=== PATIENT | female | born 1970 | race Caucasian/White ===

== ENCOUNTER → 2016-08-27 | Outpatient (CLI) | payer OTHER, BC ==
[~2016-08-27] MED LIST: ALBUAER2 INH; ALPR-411 PO; CALC-393 PO; CALCTAB5 PO; CHOL1TAB42 PO; DAPT500I IV; DOCU-94 PO; ENOX1INJ11 SQ; FOLI1TAB7 PO; LRS10 PO; METH-1117 PO; METH10TA32 PO; MOMLX PO; MRLP17 PO; MRPIS4 IV; MULT-506 PO; PHEN-876 PO; POTA20TA16 PO; SERT-234 PO; SUCR1TAB PO; TRAM-10 PO; TRAZ-120 PO; VNTHFA/IN INH; WARF3TAB6 PO; WARF4TAB8 PO; [UNRECOGNIZED DRUG - OTHER] PO
--- NOTE | 2016-08-28 12:49 | MAMMOGRAPHY REPORT ---
BILATERAL DIGITAL SCREENING MAMMOGRAM TOMOSYNTHESIS WITH CAD: 08/27/2016 CLINICAL HISTORY: Routine screening. Patient has no complaints. TECHNIQUE: Breast tomosynthesis in addition to standard 2D mammography was performed. Current study was also evaluated with a Computer Aided Detection (CAD) system. COMPARISON: Comparison is made to exams dated: 08/23/2015 mammogram, 07/14/2014 mammogram, 07/07/2014 [facility], 12/17/2011 mammogram, and 12/19/2010 mammogram. BREAST COMPOSITION: The tissue of both breasts is heterogeneously dense, which may obscure small ma sses. FINDINGS: There is expected architectural distortion in the 12:00 anterior left breast, at a site of prior surgery. No suspicious mass, architectural distortion or cluster of new, suspicious microcal cifications is seen. IMPRESSION: ACR BI-RADS CATEGORY 1: NEGATIVE There is no mammographic evidence of malignancy. A 1 year screening mammogram is recommended. The p atient will receive written notification of the results. Approximately 10% of breast cancers are not detected with mammography. A negative mammographic repor t should not delay biopsy if a clinically suggestive mass is present. Erin Hawley M.D. ay/:08/27/2016 16:29:39 Attending Technologist: Marvin Gu RT(R)(M), [facility] Architectural Administrative Assistant: Rose Hernandez RT(R)(M), [facility] letter sent: Normal 1/2 BI-RADS Code: ACR BI-RADS Category 1: Negative
== END | disposition home or self-care (01) ==
LOC: C.MAMM 15:16
PROVIDERS: ATTEND Internal Medicine
DX: Z12.31 Encounter for screening mammogram for malignant neoplasm of breast (principal); Z51.81 Encounter for therapeutic drug level monitoring; Z79.01 Long term (current) use of anticoagulants; Z86.711 Personal history of pulmonary embolism; Z86.718 Personal history of other venous thrombosis and embolism

== ENCOUNTER → 2016-10-03 | Outpatient (CLI) | payer OTHER, BC ==
[~2016-10-03] MED LIST changes: -PHEN-876 PO; -SUCR1TAB PO; -TRAM-10 PO
== END | disposition home or self-care (01) ==
LOC: C.LAB 16:27
PROVIDERS: ATTEND Obstetrics & Gynecology
DX: N83.292 Other ovarian cyst, left side (principal)

== ENCOUNTER 2016-10-31 11:33 | Inpatient (IN) | payer OTHER, BC ==
[~2016-10-31] VITALS: Ht 167.6 cm; Wt 81.3 kg
[~2016-10-31 11:33] MED LIST changes: -CALC-393 PO; -DAPT500I IV; -DOCU-94 PO; -ENOX1INJ11 SQ; -MOMLX PO; -MRLP17 PO; -MRPIS4 IV; -TRAZ-120 PO; +TRAZ1TAB5 PO; -VNTHFA/IN INH
[2016-10-31] MEDS ORDERED: CALC-393 PO (11:53)
[2016-10-31] MEDS ORDERED: VNTHFA/IN INH (11:53)
[2016-10-31] MEDS ORDERED: SODIUM CHLORIDE 0.9% 1000ML 1,000 ML IV STA (12:16)
[2016-10-31] MEDS ORDERED: HYDROmorphone INJ 1 MG/ML SYR IV STA ×3 (12:16→22:12)
[2016-10-31] MEDS ORDERED: ONDANSETRON INJ 2 MG/ML 2 ML VIAL IV STA (12:16)
[2016-10-31] MEDS ORDERED: OPTIRAY 320 IV PRN (12:30)
--- NOTE | 2016-10-31 12:33 | EMERGENCY ROOM VISIT NOTE ---
History First contact with patient: 12:00 Chief Complaint: BACK PAIN Stated Complaint: BACK PAIN History of Present Illness The patient is a 46 year old female who presents to the Emergency Room with complaints of low back pain. The patient has a complex medical history. She has a history of neurosarcoidosis. She has ambulatory dysfunction at baseline and uses a wheelchair. She also goes to physical therapy. She states that she went to physical therapy on Saturday. She does not know if she over did it or pulled something but she is having severe pain in the low back that radiates into the right lower abdomen and down the right leg. The patient describes it as a stiffness and states it has been worsening to the point that she is no longer able to care for herself at home. She is unable to pivot and transfer. The patient rates her discomfort a 9/10. The patient does have a neurogenic bladder and intermittently self caths. She denies any pain in her chest or trouble breathing. She does have a history of DVT and PE. She has a filter in place. She denies vomiting. She denies any diarrhea. She denies any urinary symptoms. She denies fevers, headache, dizziness, lightheadedness. She has had a perforated ulcer in the past. She has had an abdominal hernia. Review of Systems A 10 system review of systems was completed with positives and pertinent negatives listed in the HPI. 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 (10) Long-Term(Current)Use Of Steroids (11) LOW LYING PLACENTA (12) Lower extremity weakness (13) PARTIAL PLACENTA ACCRETA (14) Personal History Of Pulmonary Embolism (15) Sarcoidosis (16) Sepsis (17) Syncopal episodes (18) Syncope (19) UTI (lower urinary tract infection) (20) Weakness (21) Weakness Surgical Problems: (1) Anterior cervical discectomy and fusion (2) section (3) Gastric bypass (4) [place] filter in place Family History Cancer Heart disease Hypertension Lung disease Social History Smoking Status: Former Smoker Alcohol Use: none Drug Use: none Marital Status: Housing Status: lives with family Occupation Status: employed Current/Historical Medications Scheduled Albuterol Hfa (Ventolin Hfa), 2-4 PUFFS INH Q6H Alprazolam (Xanax), 0.5 MG PO TID Baclofen (Baclofen), 5 MG PO QID Calcium Carbonate (Calcium), 600 MG PO BID Cholecalciferol (Vitamin D), 5,000 INTERUNIT PO DAILY Folic Acid (Folvite), 1 MG PO DAILY Methenamine Hippurate (Hiprex), 1 GM PO DAILY Methotrexate (Trexall), 10 MG PO WK Multivitamin (Multivitamin), 1 TAB PO DAILY Potassium Ext Rel (Klor-Con), 20 MEQ PO DAILY Sertraline (Zoloft), 250 MG PO DAILY Trazodone Hcl (Desyrel), 50 MG PO HS Warfarin Sod (Jantoven), 4 MG PO 4XWK Warfarin Sod (Jantoven), 3 MG PO 3XWK [Protidiet], 1 EA PO DAILY Allergies Coded Allergies: Penicillins (Verified Allergy, Unknown, hives, 10/31/16) Vancomycin (Verified Allergy, Unknown, hives, breathing difficulties, 10/31) Physical Exam Vital Signs Date Time Temp Pulse Resp B/P (MAP) Pulse Ox O2 Delivery O2 Flow Rate FiO2 10/31/16 21:31 100 22 97/52 96 Room Air 10/31/16 20:07 98 20 97/59 98 Room Air 10/31/16 17:56 37.6 10/31/16 17:05 99 16 117/55 94 Room Air 10/31/16 14:54 95 18 97/60 97 Room Air 10/31/16 13:13 100 18 107/68 97 Room Air 10/31/16 11:33 37.5 98 20 119/79 96 Room Air Physical Exam VITALS: Vitals are noted on the nurse's note and reviewed by myself. Vital signs stable. The patient's temperature is 37.5C. GENERAL: This is an ill-appearing 46-year-old female, in no acute distress, nondiaphoretic, well-developed well-nourished. SKIN: The skin was without rashes, erythema, edema, or bruising. There is no tenting of the skin. Capillary reflex less than 2 seconds. HEAD: Normocephalic atraumatic. EARS: The external ears are normal in appearance. EYES: Pupils equal round and reactive to light and accommodation. Conjunctivae without injection, sclerae without icterus. Extraocular movements intact. NOSE: Patent, turbinates without inflammation or discharge. MOUTH: Mucous membranes moist. Tonsils are not enlarged. Pharynx without erythema or exudate. Uvula midline. Airway patent. Tongue does not deviate. NECK: Supple without nuchal rigidity. Cervical spine is nontender. No JVD. HEART: Regular rate and rhythm without murmurs gallops or rubs. LUNGS: Clear to auscultation bilaterally without wheezes, rales or rhonchi. No retractions or accessory muscle use. ABDOMEN: Positive bowel sounds x 4. Moderate right lower quadrant tenderness Soft, nontender, without masses or organomegaly. MUSCULOSKELETAL: There is bilateral lower extremity edema. The patient has weakness in the bilateral lower extremities at baseline. There is no deformity. She has full range of motion of the upper extremities. NEURO: Patient was alert and oriented to person place and time. Normal sensation to light and sharp touch. Deep tendon reflexes 2+ in the lower extremities bilaterally. Medical Decision & Procedures ER Provider Diagnostic Interpretation: DIAGNOSTIC IMAGING [~ rep ct add3]] ABD/PELVIS IV CONTRAST ONLY HISTORY:46 yearsFemalelower abdominal pain, fever COMPARISON: CT abdomen and pelvis 06/16/2014. TECHNIQUE: Multiple axial CT images of the abdomen and pelvis were obtained following the intravenous demonstration of 117 mL Optiray 320. FINDINGS: There is mild right hemidiaphragmatic elevation with clear lung bases. There is no pneumoperitoneum. The inferior cardiac chambers are unremarkable. The liver, pancreas and adrenal glands are within normal limits. The spleen is mildly enlarged measuring up to 15 cm in length. Nonspecific scattered low attenuating lesions are again seen throughout the spleen, unchanged from 06/16/2014. There is distention of the gallbladder with areas of hyperattenuation along the dependent wall ingesting cholelithiasis. Noted some choledocholithiasis or CT evidence of acute cholecystitis. No renal calculi or hydronephrosis. IVC filter within infrarenal location is again seen with multiple struts in an extraluminal location. Some of these struts abut the anterior aspect of L4 and causes associated remodeling. Surrounding inflammatory response is again seen with adjacent dilatation and peripheral enhancement of the right gonadal vein measures up to 1.0 x 1.1 cm suggesting thrombus (for example see image 42 of the axial series). Additionally, there is asymmetric enlargement and decreased enhancement of the right psoas musculature without associated abscess. The abdominal aorta is normal in both course and caliber. No bulky retroperitoneal adenopathy identified. Urinary bladder is partially collapsed. Uterus is unremarkable. 2.4 x 3.4 cm cystic lesion in the left adnexum is noted. There is trace free pelvic fluid which is likely physiologic. Prior gastric bypass. No bowel obstruction. Appendix appears normal. Postsurgical changes are seen along the ventral midline abdomen. The bones are intact with mild convex left curvature of the mid lumbar spine. IMPRESSION: 1. Infrarenal IVC filter is noted with extraluminal location of multiple struts. There is progressive inflammatory response at this site with phlegmonous changes involving the right psoas musculature and surrounding retroperitoneal structures including the right gonadal vein which appears thrombosed. No drainable fluid collection. 2. 3.4 cm left ovarian cyst can be further evaluated with dedicated ultrasound. 3. Prior gastric bypass. 4. Suggested cholelithiasis with gallbladder distention. 5. Additional incidental findings as above. CHEST ONE VIEW PORTABLE HISTORY:46 yearsFemalefever, back pain COMPARISON: Chest radiographs 06/29/2015. TECHNIQUE: Portable upright AP view of the chest. FINDINGS: The cardiomediastinal and hilar silhouettes are within normal limits. The patient is side bent and rotated to the left which mildly limits the study. Lungs are mildly hyperinflated without pneumothorax, pleural effusion, focal airspace consolidation or overt pulmonary edema. Surgical clips are seen within the epigastrium. Fusion hardware involves the lower cervical spine. IMPRESSION: No acute cardiopulmonary process. LUMBAR SPINE WITH CLINICAL HISTORY: 46 years-old Female presenting with low back pain, radiation to right leg, fever. TECHNIQUE: Multidetector CT imaging of the lumbar spine was obtained after the administration of intravenous contrast. IV contrast: 117 mL of Optiray 320. COMPARISON: MR from 2014. FINDINGS: Hedis Review Nurse topogram: Gaseous distention of colon. Multiple surgical clips project over the epigastrium. Vertebral bodies maintain normal height and alignment. Mild intervertebral disc height loss at T12-L1, where there is mild osteophytosis anteriorly. Mild anterior osteophytosis also noted at L3-4. A radiolucent line through the base of the superiorly projecting anterior osteophyte arising from the L4 vertebral body is likely chronic, although fracture cannot be excluded. Immediately anterior to this level is the IVC filter. Multiple prongs of the IVC filter extend beyond the expected confines of the inferior vena cava, including one that appears to be eroding into the L4 vertebral body. Osteolysis and subjacent sclerosis along the course of the eroding IVC filter prominent. No erosive endplate changes to suggest discitis. Facet joints essentially normal. No osseous neural foraminal or spinal canal stenosis. No acute subluxation. Limited intra-abdominal evaluation demonstrates likely Deanna-en-Y gastric bypass. IMPRESSION: 1. Osseous erosion secondary to one of the IVC filter prominence into the right anterior aspect of L4. Osteolysis and subjacent sclerosis along the course of this erosion. Although chronic, this appearance is rather unexpected. Although unlikely, infection along the course of the IVC filter prong cannot be excluded and may be better demonstrated with contrast-enhanced MR. 2. Radiolucent line through the superiorly projecting anterior osteophyte of L4, likely chronic but fracture not excluded. 3. Mild degenerative changes. No evidence of discitis. 4. Gaseous distention of colon. Laboratory Results 10/31/16 12:35 Red Blood Count 4.76, Mean Corpuscular Volume 75.6, Mean Corpuscular Hemoglobin 22.7, Mean Corpuscular Hemoglobin Concent 30.0, Neutrophils (%) (Auto) 84.9, Lymphocytes (%) (Auto) 5.5, Monocytes (%) (Auto) 9.1, Eosinophils (%) (Auto) 0.2 , Basophils (%) (Auto) 0.1, Neutrophils # (Auto) 9.31, Lymphocytes # (Auto) 0.60 , Monocytes # (Auto) 1.00, Eosinophils # (Auto) 0.02, Basophils # (Auto) 0.01 10/31/16 12:35 Test 10/31/16 12:35 10/31/16 14:40 10/31/16 20:07 White Blood Count 10.96 K/uL (4.8-10.8) Red Blood Count 4.76 M/uL (4.2-5.4) Hemoglobin 10.8 g/dL (12.0-16.0) Hematocrit 36.0 % (37-47) Mean Corpuscular Volume 75.6 fL (80-100) Mean Corpuscular Hemoglobin 22.7 pg (25-34) Mean Corpuscular Hemoglobin Concent 30.0 g/dl (32-36) Platelet Count 178 K/uL (130-400) Neutrophils (%) (Auto) 84.9 % Lymphocytes (%) (Auto) 5.5 % Monocytes (%) (Auto) 9.1 % Eosinophils (%) (Auto) 0.2 % Basophils (%) (Auto) 0.1 % Neutrophils # (Auto) 9.31 K/uL (1.4-6.5) Lymphocytes # (Auto) 0.60 K/uL (1.2-3.4) Monocytes # (Auto) 1.00 K/uL (0.11-0.59) Eosinophils # (Auto) 0.02 K/uL (0-0.5) Basophils # (Auto) 0.01 K/uL (0-0.2) RDW Standard Deviation 49.5 fL (36.4-46.3) RDW Coefficient of Variation 17.7 % (11.5-14.5) Immature Granulocyte % (Auto) 0.2 % Immature Granulocyte # (Auto) 0.02 K/uL (0.00-0.02) Erythrocyte Sedimentation Rate 15 mm/hr (0-21) Prothrombin Time 26.2 SECONDS (9.0-12.0) Prothromb Time International Ratio 2.4 (0.9-1.1) Activated Partial Thromboplast Time 39.3 SECONDS (21.0-31.0) Partial Thromboplastin Ratio 1.5 Anion Gap 8.0 mmol/L (3-11) Est Creatinine Clear Calc Drug Dose 100.7 ml/min Estimated GFR () 110.8 Estimated GFR (Non- 95.6 BUN/Creatinine Ratio 16.8 (10-20) Calcium Level 9.2 mg/dl (8.5-10.1) Magnesium Level 2.0 mg/dl (1.8-2.4) Total Bilirubin 1.4 mg/dl (0.2-1) Aspartate Amino Transf (AST/SGOT) 13 U/L (15-37) Alanine Aminotransferase (ALT/SGPT) 16 U/L (12-78) Alkaline Phosphatase 82 U/L (45-117) Total Creatine Kinase 41 U/L (26-192) C-Reactive Protein 12.60 mg/dl (0-0.29) Total Protein 7.3 gm/dl (6.4-8.2) Albumin 3.7 gm/dl (3.4-5.0) Globulin 3.6 gm/dl (2.5-4.0) Albumin/Globulin Ratio 1.0 (0.9-2) Urine Color YELLOW Urine Appearance CLEAR (CLEAR) Urine pH 7.0 (4.5-7.5) Urine Specific [place] 1.016 (1.000-1.030) Urine Protein NEG (NEG) Urine Glucose (UA) NEG (NEG) Urine Ketones NEG (NEG) Urine Occult Blood NEG (NEG) Urine Nitrite NEG (NEG) Urine Bilirubin NEG (NEG) Urine Urobilinogen NEG (NEG) Urine Leukocyte Esterase SMALL (NEG) Urine WBC (Auto) 5-10 /hpf (0-5) Urine RBC (Auto) 0-4 /hpf (0-4) Urine Hyaline Casts (Auto) 1-5 /lpf (0-5) Urine Epithelial Cells (Auto) 20-30 /lpf (0-5) Urine Bacteria (Auto) NEG (NEG) Lactic Acid Level 1.3 mmol/L (0.4-2.0) Medications Administered Medications (Trade) Dose Ordered Sig/Ade Route Start Time Stop Time Status Last Admin Dose Admin Sodium Chloride 1,000 ml @ 999 mls/hr Q1H1M STAT IV 10/31/16 12:16 10/31/16 13:16 DC 10/31/16 13:11 999 MLS/HR Hydromorphone HCl (Dilaudid Inj) 1 mg NOW STAT IV 10/31/16 12:16 10/31/16 12:20 DC 10/31/16 13:11 1 MG Ondansetron HCl (Zofran Inj) 4 mg NOW STAT IV 10/31/16 12:16 10/31/16 12:20 DC 10/31/16 13:11 4 MG Hydromorphone HCl (Dilaudid Inj) 1 mg NOW STAT IV 10/31/16 16:50 10/31/16 16:51 DC 10/31/16 17:05 1 MG Cefepime HCl 2000 mg/Dextrose 112.5 ml @ 200 mls/hr ONE STAT IV 10/31/16 19:47 10/31/16 20:20 DC 10/31/16 20:02 200 MLS/HR Daptomycin 500 mg/ Sodium Chloride 60 ml @ 100 mls/hr ONE STAT IV 10/31/16 19:47 10/31/16 20:22 DC 10/31/16 20:01 100 MLS/HR Acetaminophen (Tylenol Tab) 1,000 mg NOW STAT PO 10/31/16 19:49 10/31/16 19:50 DC 10/31/16 20:01 1,000 MG ED Course The patient was seen and examined. Previous visits were reviewed. The patient did not initially have a fever. She has a mild leukocytosis of 10.96. She has a mild anemia. Sedimentation rate is not elevated. CRP is elevated at 12.6. Lactic acid is not elevated. INR is 2.4. Urinalysis suggests urinary tract infection. Imaging was obtained as above. CT imaging suggests extraluminal location of multiple struts of the IVC filter. There is progressive inflammatory response and phlegmonous changes. This involves the right psoas musculature and surrounding retroperitoneal structures. There is ovarian cyst. There is cholelithiasis without cholecystitis. There is question of infection along the IVC filter pronged. There is no evidence for discitis. The patient was hydrated with normal saline She was given 1 mg IV Dilaudid and 4 mg IV Zofran Her pain returned and she was given additional 1 mg IV Dilaudid She was given 2 mg cefepime and 500 mg IV daptomycin She was given oral Tylenol The patient presents to the emergency department with low back pain that radiates around into the right hip and into the right groin. The pain is significantly worse with any movement. The patient has a very complex medical history. She does not ambulate very well. She does go to physical therapy regularly. The patient was at physical therapy on Saturday and feels as though she may have overdone it. The patient has had very persistent and severe back pain since then. The patient underwent the above evaluation. I did speak with radiology regarding the CT results. When compared to a CT scan from 2015, there are very similar findings surrounding the IVC filter. There is question of progressive inflammatory response. As the patient did not have a fever but does appear to have a mild urinary tract infection, her pain may be more musculoskeletal in nature. She was feeling markedly improved with the above treatment. The plan at that time was to send her to [facility]. She states that she does not feel that she can manage at home and she is by herself during the week when her is out of town. The patient was also seen and examined by . He feels that the patient is nontoxic in appearance. He felt that she could potentially go to [facility]. Case management was able to discuss the case with [facility] and she was accepted. However, at the time of discharge, she had developed a fever with a temperature of 37.6C. Given the fever and the above findings it must be considered that this could represent infection in the area of the psoas muscle and the IVC filter. I then discussed the case with Dr. Olivares. He recommends IV antibiotics and admission to the hospital. I discussed the case with Dr. Fajardo. He did request that I discussed the case with Dr. Madrid. He felt that the fever and the findings were nonspecific. I did advise him that the patient would be in the hospital. Medical Decision DIFFERENTIAL DIAGNOSIS: Lumbar strain, degenerative disc disease, spondylolisthesis, herniated disc, spinal stenosis, osteoporosis, fracture, cauda equina syndrome, neoplasm, infection, inflammatory arthritis, Hepatitis, cholecystitis, cholangitis, biliary colic, pancreatitis, pneumonia, subdiaphragmatic abscess, appendicitis, inguinal hernia, nephrolithiasis, inflammatory bowel disease, mesenteric adenitis, peptic ulcer disease, GERD, gastritis, pancreatitis, myocardial infarction, pericarditis, ruptured aortic aneurysm, appendicitis, gastroenteritis, bowel obstruction, splenic infarct, diverticulitis, mesenteric ischemia, metabolic, peritonitis, among others. Consults Time Called: 21:18 Consulting Physician: Dr. Madrid Impression Primary Impression: Low back pain Additional Impressions: UTI (urinary tract infection) Fever Departure Information Dispostion Admitted as an inpatient Referrals Sami Carr M.D. (PCP) Patient Instructions My [facility] Problem Qualifiers
--- NOTE | 2016-10-31 13:01 | DIAGNOSTIC IMAGING REPORT ---
CHEST ONE VIEW PORTABLE HISTORY:46 yearsFemalefever, back pain COMPARISON: Chest radiographs 06/29/2015. TECHNIQUE: Portable upright AP view of the chest. FINDINGS: The cardiomediastinal and hilar silhouettes are within normal limits. The patient is side bent and rotated to the left which mildly limits the study. Lungs are mildly hyperinflated without pneumothorax, pleural effusion, focal airspace consolidation or overt pulmonary edema. Surgical clips are seen within the epigastrium. Fusion hardware involves the lower cervical spine. IMPRESSION: No acute cardiopulmonary process. The above report was generated using voice recognition software. It may contain grammatical, syntax or spelling errors. Electronically signed by: Hua Benavides M.D. 10/31/2016 12:59 PM Dictated Date/Time: 10/31/2016 12:58 PM
[2016-10-31 13:06] LABS: BASO % 0.1 %; BASO ABS # 0.01 K/uL (0-0.2); COMPLETE YES; EOS % 0.2 %; IG% 0.2 %; LYMPH % 5.5 %; MEAN CELL VOLUME 75.6 fL (80-100); MEAN CORPUSCULAR HEMOGLOBIN 22.7 pg (25-34); MONO % 9.1 %; NEUT % 84.9 %; PLATELET COUNT 178 K/uL (130-400); RED BLOOD COUNT 4.76 M/uL (4.2-5.4); WHITE BLOOD COUNT 10.96 K/uL (4.8-10.8)
[2016-10-31 13:16] LABS: INR 2.4 (0.9-1.1); PARTIAL THROMBOPLASTIN RATIO 1.5; PROTHROMBIN TIME (PATIENT) 26.2 SECONDS (9.0-12.0)
[2016-10-31 13:23] LABS: BUN/CREATININE RATIO 16.8 (10-20); C-REACTIVE PROTEIN 12.6 mg/dl (0-0.29); CALCIUM 9.2 mg/dl (8.5-10.1); CREATININE 0.75 mg/dl (0.60-1.20); POTASSIUM 4.1 mmol/L (3.5-5.1)
[2016-10-31 15:04] LABS: URINE APPEARANCE CLEAR (CLEAR); URINE BILIRUBIN NEG (NEG); URINE COLOR YELLOW; URINE EPITHELIAL CELL AUTO 20-30 /lpf (0-5); URINE NITRITE NEG (NEG); URINE SPECIFIC GRAVITY 1.016 (1.000-1.030); UROBILINOGEN NEG (NEG); ZZURINE CULT IF INDIC CATH NO
[2016-10-31 15:07] LABS: MANUAL MICROSCOPIC REQUIRED? NO; REVIEW REQ? NO
--- NOTE | 2016-10-31 15:58 | DIAGNOSTIC IMAGING REPORT ---
LUMBAR SPINE WITH CLINICAL HISTORY: 46 years-old Female presenting with low back pain, radiation to right leg, fever. TECHNIQUE: Multidetector CT imaging of the lumbar spine was obtained after the administration of intravenous contrast. IV contrast: 117 mL of Optiray 320. COMPARISON: MR from 2015. FINDINGS: Wheat Inspector topogram: Gaseous distention of colon. Multiple surgical clips project over the epigastrium. Vertebral bodies maintain normal height and alignment. Mild intervertebral disc height loss at T12-L1, where there is mild osteophytosis anteriorly. Mild anterior osteophytosis also noted at L3-4. A radiolucent line through the base of the superiorly projecting anterior osteophyte arising from the L4 vertebral body is likely chronic, although fracture cannot be excluded. Immediately anterior to this level is the IVC filter. Multiple prongs of the IVC filter extend beyond the expected confines of the inferior vena cava, including one that appears to be eroding into the L4 vertebral body. Osteolysis and subjacent sclerosis along the course of the eroding IVC filter prominent. No erosive endplate changes to suggest discitis. Facet joints essentially normal. No osseous neural foraminal or spinal canal stenosis. No acute subluxation. Limited intra-abdominal evaluation demonstrates likely Deanna-en-Y gastric bypass. IMPRESSION: 1. Osseous erosion secondary to one of the IVC filter prominence into the right anterior aspect of L4. Osteolysis and subjacent sclerosis along the course of this erosion. Although chronic, this appearance is rather unexpected. Although unlikely, infection along the course of the IVC filter prong cannot be excluded and may be better demonstrated with contrast-enhanced MR. 2. Radiolucent line through the superiorly projecting anterior osteophyte of L4, likely chronic but fracture not excluded. 3. Mild degenerative changes. No evidence of discitis. 4. Gaseous distention of colon. Electronically signed by: Sami Curry M.D. 10/31/2016 3:57 PM Dictated Date/Time: 10/31/2016 3:46 PM
--- NOTE | 2016-10-31 16:01 | DIAGNOSTIC IMAGING REPORT ---
ABD/PELVIS IV CONTRAST ONLY HISTORY:46 yearsFemalelower abdominal pain, fever COMPARISON: CT abdomen and pelvis 06/16/2014. TECHNIQUE: Multiple axial CT images of the abdomen and pelvis were obtained following the intravenous demonstration of 117 mL Optiray 320. FINDINGS: There is mild right hemidiaphragmatic elevation with clear lung bases. There is no pneumoperitoneum. The inferior cardiac chambers are unremarkable. The liver, pancreas and adrenal glands are within normal limits. The spleen is mildly enlarged measuring up to 15 cm in length. Nonspecific scattered low attenuating lesions are again seen throughout the spleen, unchanged from 06/16/2014. There is distention of the gallbladder with areas of hyperattenuation along the dependent wall ingesting cholelithiasis. Noted some choledocholithiasis or CT evidence of acute cholecystitis. No renal calculi or hydronephrosis. IVC filter within infrarenal location is again seen with multiple struts in an extraluminal location. Some of these struts abut the anterior aspect of L4 and causes associated remodeling. Surrounding inflammatory response is again seen with adjacent dilatation and peripheral enhancement of the right gonadal vein measures up to 1.0 x 1.1 cm suggesting thrombus (for example see image 42 of the axial series). Additionally, there is asymmetric enlargement and decreased enhancement of the right psoas musculature without associated abscess. The abdominal aorta is normal in both course and caliber. No bulky retroperitoneal adenopathy identified. Urinary bladder is partially collapsed. Uterus is unremarkable. 2.4 x 3.4 cm cystic lesion in the left adnexum is noted. There is trace free pelvic fluid which is likely physiologic. Prior gastric bypass. No bowel obstruction. Appendix appears normal. Postsurgical changes are seen along the ventral midline abdomen. The bones are intact with mild convex left curvature of the mid lumbar spine. IMPRESSION: 1. Infrarenal IVC filter is noted with extraluminal location of multiple struts. There is progressive inflammatory response at this site with phlegmonous changes involving the right psoas musculature and surrounding retroperitoneal structures including the right gonadal vein which appears thrombosed. No drainable fluid collection. 2. 3.4 cm left ovarian cyst can be further evaluated with dedicated ultrasound. 3. Prior gastric bypass. 4. Suggested cholelithiasis with gallbladder distention. 5. Additional incidental findings as above. The above report was generated using voice recognition software. It may contain grammatical, syntax or spelling errors. Electronically signed by: Hua Benavides M.D. 10/31/2016 4:00 PM Dictated Date/Time: 10/31/2016 3:48 PM
--- NOTE | 2016-10-31 19:01 | EMERGENCY ROOM VISIT NOTE ---
ED Visit Note First contact with patient: 12:00 I did evaluate and examine this patient myself. I did guide management for the patient. I agree with the APC's assessment as discussed. Please see the APC's dictation for further details. I did independently review the CT scans and blood work.
--- NOTE | 2016-10-31 19:46 | EMERGENCY ROOM VISIT NOTE ---
ED Visit Note The patient had plans to go to [facility] for rehabilitation. She developed a low-grade temperature while here in the emergency room. CT scan showed a possible soft tissue infection in the area of the right flank. She had a slight white count elevation. With the findings of fever and with the findings on lab testing and imaging, a hospital stay was felt warranted. The patient did have blood cultures drawn, lactic acid was done, she received 2 different types of antibiotics for coverage. The hospitalist has been consulted.
[2016-10-31] MEDS ORDERED: DAPTOmycin IV 500 MG in SODIUM CHLORIDE 0.9% 50ML 50 ML IV STA (19:47)
[2016-10-31] MEDS ORDERED: CEFEPIME IV 2,000 MG in DEXTROSE 5% 100ML 100 ML IV STA (19:47)
[2016-10-31] MEDS ORDERED: ACETAMINOPHEN 500 MG TAB PO STA (19:49)
[2016-11-01] VITALS (8 sets, daily range): BP systolic 97–107; BP diastolic 57–69; PULSE 92–109; TEMP 36.8–37.7; O2SAT 93–98; Ht 167.6 cm; Wt 81.3 kg
[2016-11-01] MEDS ORDERED: ACETAMINOPHEN 325 MG TAB PO PRN (01:00)
[2016-11-01] MEDS ORDERED: POLYETHYLENE (MIRALAX) 17 GM PACK PO PRN (01:00)
[2016-11-01] MEDS ORDERED: ONDANSETRON INJ 2 MG/ML 2 ML VIAL IV PRN (01:00)
[2016-11-01] MEDS: HEPARIN 25,000 UNIT/500ML D5W 500 ML IV PRN ×3 (01:27→19:56)
[2016-11-01] MEDS: MoRPHine SULFATE 4 MG/ML 1 ML CARP\\VIAL IV PRN ×5 (04:32→19:51)
[2016-11-01] MEDS: ALBUTEROL HFA 8 GM INHALER INH SCH ×3 (06:04→17:58)
[2016-11-01 07:32] LABS: MEAN CORPUSCULAR HGB CONC 30.8 g/dl (32-36)
[2016-11-01 07:38] LABS: HEMATOCRIT 30.5 % (37-47); MEAN CELL VOLUME 76.3 fL (80-100); MEAN CORPUSCULAR HEMOGLOBIN 23.5 pg (25-34); WHITE BLOOD COUNT 11.18 K/uL (4.8-10.8)
--- NOTE | 2016-11-01 07:47 | History and Physical ---
History & Physical Date & Time of Service: Nov 01, 2016 at 07:25 Chief Complaint: Low Back Pain, Psoas Muscle Phlegmon Primary Care Physician: Sami Carr M.D. History of Present Illness Source: patient 46-year-old female with past medical history of neurosarcoidosis, anterior cervical discectomy and fusion, ambulatory dysfunction, PE, DVT, asthma presented to the ER with complaints of low back pain. The patient has ambulatory dysfunction at baseline and lower extremity weakness. She uses a wheelchair and gets physical therapy. She developed stiffness and low back pain radiating to the groin down her right leg yesterday after a physical therapy session. She has a history of DVTs and has an IVC filter placed and is currently on Coumadin. She developed fevers and chills but denied any coughing, nausea or vomiting or abdominal pain, urinary symptoms. 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 (10) Long-Term(Current)Use Of Steroids Status: Chronic (11) LOW LYING PLACENTA Status: Resolved (12) Lower extremity weakness Status: Chronic (13) PARTIAL PLACENTA ACCRETA Status: Resolved (14) Personal History Of Pulmonary Embolism Status: Resolved (15) Sarcoidosis Status: Chronic (16) Sepsis Status: Resolved (17) Syncopal episodes Status: Resolved (18) Syncope Status: Resolved (19) UTI (lower urinary tract infection) Status: Resolved (20) Weakness Status: Resolved (21) Weakness Status: Resolved Surgical Problems: (1) Anterior cervical discectomy and fusion Status: Resolved (2) section Status: Resolved (3) Gastric bypass Status: Resolved (4) [place] filter in place Status: Chronic Family History Cancer Heart disease Hypertension Lung disease Social History Smoking Status: Never Smoker Drug Use: none Marital Status: Occupational Status: employed Immunizations History of Influenza Vaccine: No History of Tetanus Vaccine?: utd Allergies Coded Allergies: Penicillins (Verified Allergy, Unknown, hives, 10/31/16) Vancomycin (Verified Allergy, Unknown, hives, breathing difficulties, 10/31) Home Medications Scheduled Albuterol Hfa (Ventolin Hfa), 2-4 PUFFS INH Q6H Alprazolam (Xanax), 0.5 MG PO TID Baclofen (Baclofen), 5 MG PO QID Calcium Carbonate (Calcium), 600 MG PO BID Cholecalciferol (Vitamin D), 5,000 INTERUNIT PO DAILY Folic Acid (Folvite), 1 MG PO DAILY Methenamine Hippurate (Hiprex), 1 GM PO DAILY Methotrexate (Trexall), 10 MG PO WK Multivitamin (Multivitamin), 1 TAB PO DAILY Potassium Ext Rel (Klor-Con), 20 MEQ PO DAILY Sertraline (Zoloft), 250 MG PO DAILY Trazodone Hcl (Desyrel), 50 MG PO HS Warfarin Sod (Jantoven), 4 MG PO 4XWK Warfarin Sod (Jantoven), 3 MG PO 3XWK [Protidiet], 1 EA PO DAILY Review of Systems Constitutional: + fever, + chills, + sweats Eyes: No worsening of vision ENT: No hearing loss Respiratory: No cough, No sputum Cardiovascular: No chest pain Abdomen: + pain (groin), No nausea Musculoskeletal: + joint pain Genitourinary - Female: No dysuria, No urinary frequency, No urinary urgency Neurologic: + weakness (chronic lower extremity wekaness r>l) Psychiatric: No depression symptoms Endocrine: No fatigue Hematologic / Lymphatic: No abnormal bleeding/bruising Integumentary: No rash Physical Exam Vital Signs Date Time Temp Pulse Resp B/P (MAP) Pulse Ox O2 Delivery O2 Flow Rate FiO2 11/01/16 05:01 36.8 92 16 107/69 98 Room Air 11/01/16 03:20 37.0 90 18 112/66 95 Room Air 11/01/16 02:55 103 16 11/01/16 02:25 87 20 11/01/16 01:55 92 15 11/01/16 01:25 93 26 115/65 11/01/16 01:24 94 16 115/65 11/01/16 01:09 92 11/01/16 00:55 88 18 11/01/16 00:25 95 17 10/31/16 23:55 95 18 10/31/16 23:50 92 16 10/31/16 23:20 105 20 10/31/16 22:50 100 18 10/31/16 22:20 107 18 110/63 95 Room Air 10/31/16 21:54 100 10/31/16 21:31 100 22 97/52 96 Room Air 10/31/16 20:07 98 20 97/59 98 Room Air 10/31/16 17:56 37.6 10/31/16 17:05 99 16 117/55 94 Room Air 10/31/16 14:54 95 18 97/60 97 Room Air 10/31/16 13:13 100 18 107/68 97 Room Air 10/31/16 11:33 37.5 98 20 119/79 96 Room Air General Appearance: WD/WN, no apparent distress Head: normocephalic Eyes: normal inspection ENT: normal ENT inspection, hearing grossly normal Neck: supple Respiratory/Chest: chest non-tender, lungs clear, normal breath sounds, no respiratory distress Cardiovascular: + tachycardia Abdomen/GI: normal bowel sounds, non tender, soft Extremities/Musculoskelatal: no calf tenderness, no pedal edema Neurologic/Psych: alert, normal mood/affect, oriented x 3 Skin: normal color Diagnostics Laboratory Results Results Past 24 Hours Test 10/31/16 12:35 10/31/16 14:40 10/31/16 20:07 11/01/16 07:20 Range/Units White Blood Count 10.96 4.8-10.8 K/uL Red Blood Count 4.76 4.2-5.4 M/uL Hemoglobin 10.8 12.0-16.0 g/dL Hematocrit 36.0 37-47 % Mean Corpuscular Volume 75.6 80-100 fL Mean Corpuscular Hemoglobin 22.7 25-34 pg Mean Corpuscular Hemoglobin Concent 30.0 32-36 g/dl Platelet Count 178 130-400 K/uL Neutrophils (%) (Auto) 84.9 % Lymphocytes (%) (Auto) 5.5 % Monocytes (%) (Auto) 9.1 % Eosinophils (%) (Auto) 0.2 % Basophils (%) (Auto) 0.1 % Neutrophils # (Auto) 9.31 1.4-6.5 K/uL Lymphocytes # (Auto) 0.60 1.2-3.4 K/uL Monocytes # (Auto) 1.00 0.11-0.59 K/uL Eosinophils # (Auto) 0.02 0-0.5 K/uL Basophils # (Auto) 0.01 0-0.2 K/uL RDW Standard Deviation 49.5 36.4-46.3 fL RDW Coefficient of Variation 17.7 11.5-14.5 % Immature Granulocyte % (Auto) 0.2 % Immature Granulocyte # (Auto) 0.02 0.00-0.02 K/uL Erythrocyte Sedimentation Rate 15 0-21 mm/hr Prothrombin Time 26.2 9.0-12.0 SECONDS Prothromb Time International Ratio 2.4 0.9-1.1 Activated Partial Thromboplast Time 39.3 21.0-31.0 SECONDS Partial Thromboplastin Ratio 1.5 Sodium Level 137 136-145 mmol/L Potassium Level 4.1 3.5-5.1 mmol/L Chloride Level 106 98-107 mmol/L Carbon Dioxide Level 23 21-32 mmol/L Anion Gap 8.0 3-11 mmol/L Blood Urea Nitrogen 13 7-18 mg/dl Creatinine 0.75 0.60-1.20 mg/dl Est Creatinine Clear Calc Drug Dose 100.7 ml/min Estimated GFR () 110.8 Estimated GFR (Non- 95.6 BUN/Creatinine Ratio 16.8 10-20 Random Glucose 94 70-99 mg/dl Calcium Level 9.2 8.5-10.1 mg/dl Magnesium Level 2.0 1.8-2.4 mg/dl Total Bilirubin 1.4 0.2-1 mg/dl Aspartate Amino Transf (AST/SGOT) 13 15-37 U/L Alanine Aminotransferase (ALT/SGPT) 16 12-78 U/L Alkaline Phosphatase 82 45-117 U/L Total Creatine Kinase 41 26-192 U/L C-Reactive Protein 12.60 0-0.29 mg/dl Total Protein 7.3 6.4-8.2 gm/dl Albumin 3.7 3.4-5.0 gm/dl Globulin 3.6 2.5-4.0 gm/dl Albumin/Globulin Ratio 1.0 0.9-2 Urine Color YELLOW Urine Appearance CLEAR CLEAR Urine pH 7.0 4.5-7.5 Urine Specific [place] 1.016 1.000-1.030 Urine Protein NEG NEG Urine Glucose (UA) NEG NEG Urine Ketones NEG NEG Urine Occult Blood NEG NEG Urine Nitrite NEG NEG Urine Bilirubin NEG NEG Urine Urobilinogen NEG NEG Urine Leukocyte Esterase SMALL NEG Urine WBC (Auto) 5-10 0-5 /hpf Urine RBC (Auto) 0-4 0-4 /hpf Urine Hyaline Casts (Auto) 1-5 0-5 /lpf Urine Epithelial Cells (Auto) 20-30 0-5 /lpf Urine Bacteria (Auto) NEG NEG Lactic Acid Level 1.3 0.4-2.0 mmol/L Microbiology Results 10/31/16 Blood Culture, Received Pending 10/31/16 Blood Culture, Received Pending Diagnostic Radiology LUMBAR SPINE WITH CLINICAL HISTORY: 46 years-old Female presenting with low back pain, radiation to right leg, fever. TECHNIQUE: Multidetector CT imaging of the lumbar spine was obtained after the administration of intravenous contrast. IV contrast: 117 mL of Optiray 320. COMPARISON: MR from 2014. 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 Multiple surgical clips project over the epigastrium. Vertebral bodies maintain normal height and alignment. Mild intervertebral disc height loss at T12-L1, where there is mild osteophytosis anteriorly. Mild anterior osteophytosis also noted at L3-4. A radiolucent line through the base of the superiorly projecting anterior osteophyte arising from the L4 vertebral body is likely chronic, although fracture cannot be excluded. Immediately anterior to this level is the IVC filter. Multiple prongs of the IVC filter extend beyond the expected confines of the inferior vena cava, including one that appears to be eroding into the L4 vertebral body. Osteolysis and subjacent sclerosis along the course of the eroding IVC filter prominent. No erosive endplate changes to suggest discitis. Facet joints essentially normal. No osseous neural foraminal or spinal canal stenosis. No acute subluxation. Limited intra-abdominal evaluation demonstrates likely Deanna-en-Y gastric bypass. IMPRESSION: 1. Osseous erosion secondary to one of the IVC filter prominence into the right anterior aspect of L4. Osteolysis and subjacent sclerosis along the course of this erosion. Although chronic, this appearance is rather unexpected. Although unlikely, infection along the course of the IVC filter prong cannot be excluded and may be better demonstrated with contrast-enhanced MR. 2. Radiolucent line through the superiorly projecting anterior osteophyte of L4, likely chronic but fracture not excluded. 3. Mild degenerative changes. No evidence of discitis. 4. Gaseous distention of colon. Electronically signed by: Sami Curry M.D. 10/31/2016 3:57 PM Dictated Date/Time: 10/31/2016 3:46 PM [~ rep ct add3]] CHEST ONE VIEW PORTABLE HISTORY:46 yearsFemalefever, back pain COMPARISON: Chest radiographs 06/29/2015. TECHNIQUE: Portable upright AP view of the chest. FINDINGS: The cardiomediastinal and hilar silhouettes are within normal limits. The patient is side bent and rotated to the left which mildly limits the study. Lungs are mildly hyperinflated without pneumothorax, pleural effusion, focal airspace consolidation or overt pulmonary edema. Surgical clips are seen within the epigastrium. Fusion hardware involves the lower cervical spine. IMPRESSION: No acute cardiopulmonary process. The above report was generated using voice recognition software. It may contain grammatical, syntax or spelling errors. Electronically signed by: Hua Benavides M.D. ABD/PELVIS IV CONTRAST ONLY HISTORY:46 yearsFemalelower abdominal pain, fever COMPARISON: CT abdomen and pelvis 06/16/2014. TECHNIQUE: Multiple axial CT images of the abdomen and pelvis were obtained following the intravenous demonstration of 117 mL Optiray 320. FINDINGS: There is mild right hemidiaphragmatic elevation with clear lung bases. There is no pneumoperitoneum. The inferior cardiac chambers are unremarkable. The liver, pancreas and adrenal glands are within normal limits. The spleen is mildly enlarged measuring up to 15 cm in length. Nonspecific scattered low attenuating lesions are again seen throughout the spleen, unchanged from 06/16/2014. There is distention of the gallbladder with areas of hyperattenuation along the dependent wall ingesting cholelithiasis. Noted some choledocholithiasis or CT evidence of acute cholecystitis. No renal calculi or hydronephrosis. IVC filter within infrarenal location is again seen with multiple struts in an extraluminal location. Some of these struts abut the anterior aspect of L4 and causes associated remodeling. Surrounding inflammatory response is again seen with adjacent dilatation and peripheral enhancement of the right gonadal vein measures up to 1.0 x 1.1 cm suggesting thrombus (for example see image 42 of the axial series). Additionally, there is asymmetric enlargement and decreased enhancement of the right psoas musculature without associated abscess. The abdominal aorta is normal in both course and caliber. No bulky retroperitoneal adenopathy identified. Urinary bladder is partially collapsed. Uterus is unremarkable. 2.4 x 3.4 cm cystic lesion in the left adnexum is noted. There is trace free pelvic fluid which is likely physiologic. Prior gastric bypass. No bowel obstruction. Appendix appears normal. Postsurgical changes are seen along the ventral midline abdomen. The bones are intact with mild convex left curvature of the mid lumbar spine. IMPRESSION: 1. Infrarenal IVC filter is noted with extraluminal location of multiple struts. There is progressive inflammatory response at this site with phlegmonous changes involving the right psoas musculature and surrounding retroperitoneal structures including the right gonadal vein which appears thrombosed. No drainable fluid collection. 2. 3.4 cm left ovarian cyst can be further evaluated with dedicated ultrasound. 3. Prior gastric bypass. 4. Suggested cholelithiasis with gallbladder distention. 5. Additional incidental findings as above. The above report was generated using voice recognition software. It may contain grammatical, syntax or spelling errors. Electronically signed by: Hua Benavides M.D. 10/31/2016 4:00 PM Dictated Date/Time: 10/31/2016 3:48 PM The status of this report is Signed. Draft = Not yet reviewed or approved by Radiologist. Signed = Reviewed and approved by Radiologist. Impression Assessment and Plan 46-year-old female with past medical history of neurosarcoidosis, anterior cervical discectomy and fusion, ambulatory dysfunction, PE, DVT, asthma presented to the ER with complaints of low back pain. Acute Low back pain: Secondary to Infection along IVC filter prong versus right gonadal vein thrombosis versus psoas muscle inflammation - Lumbar CT: IMPRESSION:1. Osseous erosion secondary to one of the IVC filter prominence into the right anterior aspect of L4. Osteolysis and subjacent sclerosis along the course ofthis erosion. Although chronic, this appearance is rather unexpected. Although unlikely, infection along the course of the IVC filter prong cannot be excluded and may be better demonstrated with contrast- enhanced MR. 2. Radiolucent line through the superiorly projecting anterior osteophyte of L4, likely chronic but fracture not excluded. 3. Mild degenerative changes. No evidence of discitis. 4. Gaseous distention of colon. -MRI lumbar spine ordered - Cefepime and daptomycin ordered for covering potential infection. Patient is allergic to penicillin and vancomycin - Pain control with morphine as needed - ID consult IVC filter with extraluminal struts: Abdominal CT :1. Infrarenal IVC filter is noted with extraluminal location of multiple struts. There is progressive inflammatory response at this site with phlegmonous changes involving the right psoas musculature and surrounding retroperitoneal structures including the right gonadal vein which appears thrombosed. No drainable fluid collection. 2. 3.4 cm left ovarian cyst can be further evaluated with dedicated ultrasound. 3. Prior gastric bypass. 4. Suggested cholelithiasis with gallbladder distention. - Consider consulting vascular surgery Psoas muscle inflammation Abdominal CT : there is asymmetric enlargement and decreased enhancement of the right psoas musculature without associated abscess. - Elevated CRP -? 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 If this is a new finding , it is likely she failed Coumadin therapy. - Hold Coumadin and started on heparin drip - Consider hematology consult Tachycardia: -Likely secondary to fever Neurosarcoidosis: Continue methotrexate History of DVT/PE - Continue Coumadin Depression/anxiety: - Continue Zoloft, Xanax Full code DVT prophylaxis: Heparin Disposition: Admitted to telemetry Attending Addendum: I physically seen and examined this patient, have supervised the medical residents activities, and agree with the H&P as noted above with the following exceptions: NONE The patient is awake, well-developed and adequately nourished, alert and oriented 3, normocephalic and atraumatic, lying in bed and in no acute distress. HEENT--PERRL, EOMI, mucous membranes and oropharynx normal. Neck--supple, no JVD or bruits, thyroid normal, trachea midline, no adenopathy. Heart--normal S1 and S2, no extra beats, no murmurs, rubs or gallops. Lungs--clear bilaterally with good air movement, no respiratory distress, no accessory muscle use. Abdomen--normal bowel sounds and soft, nontender and nondistended, no hernias or masses, no organomegaly. Extremities--no cyanosis, clubbing. 1-2+ bilateral pretibial pitting Edema. There are good distal pulses b/l. Dermatologic--normal skin turgor, normal color, warm and dry, no abnormal lymph nodes, no rash. Neurologic--cranial nerves II through XII grossly intact, motor and sensory examination normal. Rheumatologic--mild reproducible pain over lumbar region. Psychiatric--normal affect. Assessment and Plan: 1. Acute low back pain--multifactorial: IVC filter with extraluminal location of multiple struts, right psoas musculature with phlegmonous changes, right gonadal vein thrombosis, suggested cholelithiasis with gallbladder distention. The patient will be covered with broad-spectrum antibiotics including daptomycin IV (vancomycin/penicillin allergic), and cefepime IV. To further assess right gonadal vein thrombosis, will order MRI of the pelvis. Patient is presently on Coumadin, and if verified, will need to be changed to alternative form of anticoagulation. Cholelithiasis with gallbladder distention will need to be further assessed with a HIDA scan with gallbladder ejection fraction. We'll consult vascular surgery regarding assessment of IVC filter, who reportedly was contacted by ED personnel, and was felt to be nonemergent. Consult infectious disease. Level of Care Telemetry Advanced Directives Existing Living Will: No Existing Power of City Assessor: No Resuscitation Status FULL RESUSCITATION VTE Prophylaxis VTE Risk Assessment Done? Y/N: Yes Risk Level: High Given or contraindicated: Other Anticoagulation (heparin drip) Resident Tracking Resident Involvement: Resident Care Provided Care Provided: Adult Hospital Medicine
[2016-11-01 07:51] LABS: PARTIAL THROMBOPLASTIN RATIO 2.5
[2016-11-01 07:54] LABS: PLATELET COUNT 138 K/uL (130-400)
[2016-11-01 07:55] LABS: PLT ESTIMATE DECREASED
[2016-11-01 08:06] LABS: BUN/CREATININE RATIO 14.3 (10-20); CALCIUM 8.6 mg/dl (8.5-10.1); CREATININE 0.75 mg/dl (0.60-1.20); POTASSIUM 3.6 mmol/L (3.5-5.1)
[2016-11-01] MEDS: ALPRAZOLAM 0.5 MG TAB PO SCH ×3 (08:50→21:01)
[2016-11-01] MEDS ORDERED: METHOTREXATE 2.5 MG TAB PO SCH (09:00)
[2016-11-01] MEDS: BACLOFEN 10 MG TAB PO SCH ×4 (09:00→21:01)
[2016-11-01] MEDS ORDERED: METHENAMINE HIPPURATE 1 GM TAB PO SCH (09:00)
--- NOTE | 2016-11-01 11:16 | DIAGNOSTIC IMAGING REPORT ---
MRI LUMBAR SPINE COMBINATION CLINICAL HISTORY: Low back pain. History of sore kyphosis. Psoas muscle phlegmon. TECHNIQUE: Sagittal and axial T1, T2 and STIR images were obtained. Images were obtained before and after the administration of 8.1 cc of intravenous Gadavist COMPARISON STUDY: No previous studies for comparison. OBSERVATIONS: The vertebral bodies and posterior elements appear intact. There is no abnormal bony signal present to suggest a marrow replacement process. L1-2: There is a mild circumferential disc bulge. There is no significant spinal or foraminal stenosis. L2-3: There is a mild circumferential disc bulge. There is minimal spinal canal narrowing. L3-4: There is a tiny left posterior lateral disc protrusion. There is minimal deformity the thecal sac. There is minimal spinal canal narrowing. There is mild foraminal narrowing. L4-5: There is a mild circumferential disc bulge. There is no significant spinal or foraminal stenosis. L5-S1: There is a tiny central disc protrusion. There is no significant spinal or foraminal stenosis. The conus medullaris and cauda equina appear normal. There is diffuse right psoas muscle edema. There is postcontrast enhancement of the right psoas. The findings are likely inflammatory/infectious. There are no fluid collections to indicate a focal abscess. There is also edema within the aortocaval retroperitoneal fat. There is a suspected subcentimeter splenic cyst IMPRESSION: 1. Diffuse increased T2 signal within the right psoas muscle with post gadolinium enhancement. The findings are likely inflammatory/infectious. There are no focal fluid collections to indicate an abscess 2. Mild multilevel spondylitic change. Tiny left posterior lateral disc protrusion at the L3-4 level, and tiny central disc protrusion at the L5-S1 level. Electronically signed by: Patrick Severino M.D. 11/01/2016 11:15 AM Dictated Date/Time: 11/01/2016 11:06 AM
--- NOTE | 2016-11-01 11:25 | DIAGNOSTIC IMAGING REPORT ---
Study: MRI pelvis. HISTORY: Phlegmon. Fever. Pain. FINDINGS: Somewhat limited exam due to respiratory and somatic motion as well as body habitus considerations. The phlegmon/inflammatory type process of the right iliopsoas musculature is again noted. No additional information compared to prior reports was obtained by this exam. Phlegmon-type change is noted, again with no well-defined drainable collection. Moderate degenerative changes of the lumbar spine are again noted. Slightly complex left ovarian cyst measuring 3.5 cm again noted. Trace free fluid within the pelvic cul-de-sac IMPRESSION: 1. Suboptimal exam due to patient respiratory, somatic, as well as body habitus constraints. 2. Diffuse edematous change of the right iliopsoas musculature consistent with generalized phlegmon/inflammatory change. No evidence for a drainable abscess or collection. 4. 3.5 cm complex left ovarian cyst. 5. No significant additional information compared to prior studies Electronically signed by: Crow Faria M.D. 11/01/2016 11:23 AM Dictated Date/Time: 11/01/2016 11:16 AM
[2016-11-01] MEDS: CEFEPIME IV 2,000 MG in DEXTROSE 5% 100ML 100 ML IV SCH ×2 (14:33→20:59)
[2016-11-01] MEDS: POTASSIUM CHLORIDE 20 MEQ TABCR PO SCH (14:34)
[2016-11-01] MEDS: SERTRALINE HCL 100 MG TAB PO SCH (14:34)
[2016-11-01] MEDS: MULTIVITAMIN TAB PO SCH (14:35)
--- NOTE | 2016-11-01 17:02 | Progress Note ---
Progress Note Date of Service Nov 01, 2016. (Momo Vang MD) Progress Note 46 year old female with hx of neurosarcoidosis ans s/p IVC filter for PE presented here with fever and left groin pain. 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 She has been put on IV antibiotics and Dr. Castillo has been consulted for further input on the IVC filter S: Patient is feeling much better today. No longer having any fevers and pain in the hip has subsided but is still there. O: vitals remain stable, CBC with minimal elevation in WBC to 11. Hgb 9.4. BMP wnl. Patient remains tender to palpation along the paraspinal muscle in the lower back on the right. She is also tender along the hip. Abdomen is soft and non tender A: 46 year old with what appears to be an early psoas infection as patient was reported febrile and having worsening pain along her right hip with movement. recently went to physical therapy so it is likely that the therapy might have flared this muscle and along with her immunosuppression from the methotrexate formed a nidus for infection. Luckily there is no abscess present P: Acute low back pain- likely from psoas infection, on cefipime and dapto IVC filter extraluminal- consult jonathan, likely won't do anything at the moment as risk of perf of IVC if try to extract IVC Neurosarcoidosis- methotrexate DVT- coumadin watch INR Depression- zoloft and xanax (Momo Vang MD) Resident Physician Supervision Note: I interviewed and examined the patient. Discussed with Dr. Vang and agree with findings and plan as documented in the note. Any exceptions or clarifications are listed here: None Documented By: Constantino Workman feeling better already. fevers, but also was working hard at extension exercises at PT a day or two before pain. and also felt kind of like she had a UTI for a few days before pain. pain R sided worse with movement at hip but also fairly RLQ. fairly characteristic of psoas region pain. see HPI above for further. notes she's seen dr castillo before in regards to IVC filter issue as well - and risks/benefits strongly favored leaving as is. vitals noted nad breathing unlabored no pallor or icterus no distress/pain, no diaphoresis R hip/abdominal pain - seems most characteristic of psoas -- with fevers and preceding mild "UTI-like" symptoms - seems most plausible seeding from venous translocation from urinary source -- then psoas got infected. fortunately no abscess. will look into other possible causes, but hemorrhage seems quite unlikely given no worsening despite being anticoagulated, typically hemorrhages in that region are large until tamponade slows them down. also question would be ??was the PT she was doing (laying on stomach and trying to extend against force) possibly a contributor with strut of IVC filter pushing into psoas. have asked vascular surgery to see in regards to IVC filter and evaluate risk of bleed etc especially since it appears it's moved more, but even more than that (as i suspect they won't need to have any intervention for it) i wonder if her PT needs to be modified to reduce possible strut-induced psoas irritation? -continue IV abx for now, continue to follow closely, low threshold for re- imaging, evaluate progress/evaluate for other causes gonadal vein thrombosis - anticoagulation. ?related to inflammation from psoas. will research. (Constantino Workman D.O.)
[2016-11-01] MEDS: DAPTOmycin IV 325 MG in SODIUM CHLORIDE 0.9% 50ML 50 ML IV SCH (19:55)
[2016-11-01] MEDS: METHENAMINE HIPPURATE 1 GM TAB PO SCH (21:01)
[2016-11-01] MEDS: TRAZODONE HCL 50 MG TAB PO SCH (21:01)
[2016-11-02] MEDS: ALBUTEROL HFA 8 GM INHALER INH SCH ×4 (00:08→18:00)
[2016-11-02 05:42] LABS: HEMATOCRIT 28.4 % (37-47); MEAN CELL VOLUME 76.3 fL (80-100); MEAN CORPUSCULAR HEMOGLOBIN 23.1 pg (25-34); MEAN CORPUSCULAR HGB CONC 30.3 g/dl (32-36); MEAN PLATELET VOLUME 11.5 fL (7.4-10.4); PLATELET COUNT 156 K/uL (130-400); RED BLOOD COUNT 3.72 M/uL (4.2-5.4); WHITE BLOOD COUNT 8.96 K/uL (4.8-10.8)
[2016-11-02 06:00] LABS: INR 2.2 (0.9-1.1); PARTIAL THROMBOPLASTIN RATIO 2.8; PROTHROMBIN TIME (PATIENT) 24.5 SECONDS (9.0-12.0)
[2016-11-02 06:11] LABS: BUN/CREATININE RATIO 15.3 (10-20); CALCIUM 8.4 mg/dl (8.5-10.1); CREATININE 0.75 mg/dl (0.60-1.20); POTASSIUM 3.4 mmol/L (3.5-5.1)
[2016-11-02] MEDS: HEPARIN 25,000 UNIT/500ML D5W 500 ML IV PRN (07:05)
[2016-11-02 08:00] VITALS: O2SAT 94
[2016-11-02] MEDS: CEFEPIME IV 2,000 MG in DEXTROSE 5% 100ML 100 ML IV SCH ×2 (08:15→21:21)
[2016-11-02] MEDS: ALPRAZOLAM 0.5 MG TAB PO SCH ×3 (08:15→21:23)
[2016-11-02] MEDS: BACLOFEN 10 MG TAB PO SCH ×4 (08:16→21:24)
[2016-11-02] MEDS: POTASSIUM CHLORIDE 20 MEQ TABCR PO SCH (08:16)
[2016-11-02] MEDS: MULTIVITAMIN TAB PO SCH (08:16)
[2016-11-02] MEDS: SERTRALINE HCL 100 MG TAB PO SCH (08:17)
[2016-11-02 08:19] VITALS: BP 102/67; PULSE 83; TEMP 36.9; O2SAT 94
[2016-11-02] MEDS ORDERED: POTASSIUM CHLORIDE 10 MEQ TABCR PO STA (08:41)
[2016-11-02] MEDS: MoRPHine SULFATE 4 MG/ML 1 ML CARP\\VIAL IV PRN ×3 (10:03→16:41)
[2016-11-02] MEDS: CHOLECALCIFEROL 1000 INTER.UNIT TAB PO SCH (10:03)
--- NOTE | 2016-11-02 12:25 | Surgery Consultation ---
Consultation Date of Service Nov 02, 2016. (Enma Grande, TAMMI) Chief Complaint IVC filter migration (Enma Grande, TAMMI) History of Present Illness The patient is a 46 year old female with neurosarcoidosis and hx of DVT/PE with IVC [place] [address] Madrid, seen in consultation today d/t migration of filter struts external to vena cava. Pt reliant on wheelchair and does not ambulate currently. Pt currently admitted with increased low back/ groin pain and was found to have inflammation of her psoas muscle as well as further extension of IVC filter struts compared to previous CT scan. Pt states pain improving, but still significantly painful. Denies AQUINO, fever, chills, chest pain, SOB, abd pain, N/V, other complaints. (Enma Grande, TAMMI) Vitals Vital Signs Past 12 Hours Date Time Temp Pulse Resp B/P (MAP) Pulse Ox O2 Delivery O2 Flow Rate FiO2 11/02/16 08:19 36.9 83 16 102/67 (79) 94 11/02/16 08:00 94 Room Air (Enma Grande, TAMMI) Allergies Coded Allergies: Penicillins (Verified Allergy, Unknown, hives, 10/31/16) Vancomycin (Verified Allergy, Unknown, hives, breathing difficulties, 10/31) Home Medications Scheduled Albuterol Hfa (Ventolin Hfa), 2-4 PUFFS INH Q6H Alprazolam (Xanax), 0.5 MG PO TID Baclofen (Baclofen), 5 MG PO QID Calcium Carbonate (Calcium), 600 MG PO BID Cholecalciferol (Vitamin D), 5,000 INTERUNIT PO DAILY Folic Acid (Folvite), 1 MG PO DAILY Methenamine Hippurate (Hiprex), 1 GM PO DAILY Methotrexate (Trexall), 10 MG PO WK Multivitamin (Multivitamin), 1 TAB PO DAILY Potassium Ext Rel (Klor-Con), 20 MEQ PO DAILY Sertraline (Zoloft), 250 MG PO DAILY Trazodone Hcl (Desyrel), 50 MG PO HS Warfarin Sod (Jantoven), 4 MG PO 4XWK Warfarin Sod (Jantoven), 3 MG PO 3XWK [Protidiet], 1 EA PO DAILY Problem List Medical Problems: (1) Acute febrile illness (2) Acute Venous Embolism & Thrombosis Unsp Deep Vessels Of Le (3) Advanced maternal age (4) Anemia Nos (5) Anemia of (6) Asthma (7) Bowel perforation (8) Fever (9) Correction (Current) Use Of Anticoagulants (10) Long-Term(Current)Use Of Steroids (11) LOW LYING PLACENTA (12) Lower extremity weakness (13) PARTIAL PLACENTA ACCRETA (14) Personal History Of Pulmonary Embolism (15) psoas muscle phlegmon (16) Sarcoidosis (17) Sepsis (18) Syncopal episodes (19) Syncope (20) UTI (lower urinary tract infection) (21) Weakness (22) Weakness Surgical Problems: (1) Anterior cervical discectomy and fusion (2) section (3) Gastric bypass (4) [place] filter in place (Enma Grande PA-C) Surgical / Medical History Hx Cardiac Surgery: No Hx Abdominal Surgery: Yes (laproscopic gastric bypass perforated ulcer stomach) Hx Cancer Surgery: No Hx Thoracic Surgery: No Hx Orthopedic: Yes (c5,c6 fusion ) Hx Urinary Tract Surgery: No Past Medical/Surgical History: Neurological Disorder, Pulmonary Emboli (Enma Grande, ARJUNC) Family History Cancer Heart disease Hypertension Lung disease (Enma Grande, ARJUNC) Cancer Heart disease Hypertension Lung disease (Kevin Madrid M.D.) Social History Smoking Status: Never Smoker Hx Tobacco Use In Past Year?: No Hx Alcohol Use - Type & Amnt: No Hx Substance Use -Type & Amnt: No (Enma Grande, JHONATHAN-C) Physical Exam Constitutional: General Apperance: well-nourished, well-developed Level of Distress: NAD, chronically ill Psychiatric: Mental Status: active & alert, normal mood, normal affect Orientation: oriented except where noted, to time, to place, to person Memory: recent memory normal, remote memory normal Head: normocephalic, atraumatic Eyes: EOM: EOMI ENMT: normal ENT inspection, hearing grossly normal Neck: supple, trachea midline Lungs: Respiratory effort: no dyspnea Auscultation: no rales/crackles, no rhonchi Cardiovascular: Apical Impulse: not displaced Heart Auscultation: RRR, no rubs, no gallops Peripheral Pulses: Pulses: full and equal, in all extremities except if noted Bruits: none appreciated Carotid Pulse: normal on the left, normal on the right Brachial Pulses: normal on the left, normal on the right Radial Pulse: normal on the left, normal on the right Femoral Pulse: normal on the left, normal on the right Posterior Tibialis Pulse: decreased on the left, decreased on the right Dorsalis Pedis Pulse: decreased on the left, decreased on the right Abdomen: Bowel Sounds: normal Inspection & Palpation: soft, non-distended, no tenderness, guarding & rebound Musculoskeletal: normal strength (5/5 throughout), normal tone Extremities: Upper Right: no cyanosis, no edema, no varicosities Upper Left: no cyanosis, no edema, no varicosities Lower Right: no cyanosis, no edema, no varicosities Lower Left: no cyanosis, no edema, no varicosities Neurologic: Cranial Nerves: grossly intact (Enma Grande, JHONATHAN-C) Assessment and Plan ASSESSMENT and PLAN: IVC filter strut migration Pt also seen by Julius today. IVC filter struts appear to be external to vena cava, one of them possibly against L4 vertebral body. Unlikely to be cause of inflammation or infection, however, d/t location of strut against L4, recommend considering attempt at endovascular removal of IVC filter. If unable to remove easily, procedure to be aborted d/t risk of complications. IVC filter has been present for over 2 years and likely with large amount of scar tissue, however, appears to be upright and should be able to be snared for removal. Procedure and risks involved discussed at length with pt. She would like to discuss with her before committing to procedure. If pt is agreeable, will plan on performing procedure on Sunday 11/05. Pt will need to remain on heparin without oral anticoagulation until she makes a decision whether to proceed, as she will need to be on heparin only for procedure. Will discuss with primary team. (Enma Grande, JHONATHAN-C) Patient was seen, examined, and chart reviewed. Agree with exam and treatment plan of the Vascular PA. Thank you very much for letting me participate in the care of this patient. (Kevin Madrid M.D.)
[2016-11-02 14:17] VITALS: BP 108/72; PULSE 84; TEMP 37; O2SAT 96
[2016-11-02 15:00] VITALS: BP 99/65; PULSE 92; TEMP 37.3; O2SAT 97
[2016-11-02] MEDS ORDERED: POLYETHYLENE (MIRALAX) 17 GM PACK PO ONE (15:52)
--- NOTE | 2016-11-02 15:53 | Family Medicine Progress Note ---
Progress Note Date of Service Nov 02, 2016. Subjective Pt evaluation today including: conversation w/ patient, physical exam Pain: mild PO Intake: good Patient still sore and stiff over right hip. She says she is more able to flex the hip than yesterday She spoke to Dr. Madrid and it decided that they will try to remove the IVC filter on Saturday Will stop coumadin and bridge to heparin Constitutional: No fever, No chills Respiratory: No cough, No shortness of breath Cardiovascular: No chest pain, No palpitations Abdomen: + pain (RLQ), No nausea, No vomiting, No diarrhea, No constipation Musculoskeletal: + joint pain, + muscle pain Female : No dysuria, No urinary frequency Heme: No abnormal bleeding/bruising Medications Current Inpatient Medications Medications (Trade) Dose Ordered Sig/Ade Route Start Time Stop Time Status Last Admin Dose Admin Ioversol (Optiray 320) 100 ml UD PRN IV 10/31/16 12:30 11/04/16 12:29 Acetaminophen (Tylenol Tab) 650 mg Q4H PRN PO 11/01/16 01:00 12/01/16 00:59 Magnesium Hydroxide (Milk Of Magnesia Susp) 30 ml Q12H PRN PO 11/01/16 01:00 12/01/16 00:59 Ondansetron HCl (Zofran Inj) 4 mg Q6H PRN IV 11/01/16 01:00 12/01/16 00:59 Polyethylene (Miralax Powder Packet) 17 gm DAILY PRN PO 11/01/16 01:00 12/01/16 00:59 Albuterol (Ventolin Hfa Inhaler) 2 puffs Q6H INH 11/01/16 06:00 12/01/16 05:59 11/02/16 05:56 2 PUFFS Alprazolam (Xanax Tab) 0.5 mg TID PO 11/01/16 09:00 12/01/16 08:59 11/02/16 14:43 0.5 MG Baclofen (Lioresal Tab) 5 mg QID PO 11/01/16 09:00 12/01/16 08:59 11/02/16 14:43 5 MG Folic Acid (Folvite Tab) 1 mg DAILY PO 11/01/16 09:00 12/01/16 08:59 11/02/16 08:15 1 MG Methotrexate (Methotrexate Tab) 10 mg Th@0900 PO 11/01/16 09:00 12/01/16 08:59 11/01/16 14:39 10 MG Multivitamins (Multivitamin Tab) 1 tab DAILY PO 11/01/16 09:00 12/01/16 08:59 11/02/16 08:16 1 TAB Potassium Chloride (Klor-Con Tab) 20 meq DAILY PO 11/01/16 09:00 12/01/16 08:59 11/02/16 08:16 20 MEQ Sertraline HCl (Zoloft Tab) 250 mg DAILY PO 11/01/16 09:00 12/01/16 08:59 11/02/16 08:17 250 MG Trazodone HCl (Desyrel Tab) 50 mg HS PO 11/01/16 21:00 12/01/16 20:59 11/01/16 21:01 50 MG Cefepime HCl 2000 mg/Dextrose 112.5 ml @ 200 mls/hr Q12H IV 11/01/16 09:00 11/11/16 08:59 11/02/16 08:15 200 MLS/HR Daptomycin 325 mg/ Sodium Chloride 56.5 ml @ 100 mls/hr DAILY@2000 IV 11/01/16 20:00 11/09/16 20:34 11/01/16 19:55 100 MLS/HR Morphine Sulfate (MoRPHine SULFATE INJ) 4 mg Q2H PRN IV 11/01/16 04:30 11/15/16 04:29 11/02/16 14:47 4 MG Methenamine Hippurate (Urex Tab) 1 gm HS PO 11/01/16 21:00 11/11/16 08:59 11/01/16 21:01 1 GM Cholecalciferol (Vitamin D Tab) 5,000 inter.unit DAILY PO 11/02/16 09:00 12/02/16 08:59 11/02/16 10:03 5,000 INTER.UNIT Objective Vital Signs Date Time Temp Pulse Resp B/P (MAP) Pulse Ox O2 Delivery O2 Flow Rate FiO2 11/02/16 15:00 37.3 92 20 99/65 (76) 97 Room Air 11/02/16 14:17 37.0 84 16 108/72 (84) 96 11/02/16 08:19 36.9 83 16 102/67 (79) 94 11/02/16 08:00 94 Room Air 11/02/16 00:00 Room Air 11/01/16 23:12 37.3 99 18 97/57 (70) 95 Room Air 11/01/16 19:36 37.6 105 20 107/60 (76) 98 Room Air 11/01/16 16:06 36.8 109 18 100/65 (77) 98 Room Air 11/01/16 16:00 Room Air Physical Exam General Appearance: WD/WN, no apparent distress Respiratory/Chest: lungs clear, no respiratory distress, no accessory muscle use Cardiovascular: regular rate, rhythm, no JVD, no murmur Abdomen: normal bowel sounds, non tender, soft Extremities: + pertinent finding (pain to palpation over hip flexor muscles on Right side) Neurologic/Psychiatric: normal mood/affect, oriented x 3, + motor weakness ( motor wekaness bilaterally due to hip pain), + pertinent finding (no sensory deficit bilaterally) Laboratory Results Results Past 24 Hours Test 11/02/16 05:18 11/02/16 12:54 Range/Units White Blood Count 8.96 4.8-10.8 K/uL Red Blood Count 3.72 4.2-5.4 M/uL Hemoglobin 8.6 9.1 12.0-16.0 g/dL Hematocrit 28.4 37-47 % Mean Corpuscular Volume 76.3 80-100 fL Mean Corpuscular Hemoglobin 23.1 25-34 pg Mean Corpuscular Hemoglobin Concent 30.3 32-36 g/dl RDW Standard Deviation 50.7 36.4-46.3 fL RDW Coefficient of Variation 17.9 11.5-14.5 % Platelet Count 156 130-400 K/uL Mean Platelet Volume 11.5 7.4-10.4 fL Prothrombin Time 24.5 9.0-12.0 SECONDS Prothromb Time International Ratio 2.2 0.9-1.1 Activated Partial Thromboplast Time 73.4 21.0-31.0 SECONDS Partial Thromboplastin Ratio 2.8 Sodium Level 139 136-145 mmol/L Potassium Level 3.4 3.5-5.1 mmol/L Chloride Level 106 98-107 mmol/L Carbon Dioxide Level 25 21-32 mmol/L Anion Gap 8.0 3-11 mmol/L Blood Urea Nitrogen 11 7-18 mg/dl Creatinine 0.75 0.60-1.20 mg/dl Est Creatinine Clear Calc Drug Dose 100.7 ml/min Estimated GFR () 110.8 Estimated GFR (Non- 95.6 BUN/Creatinine Ratio 15.3 10-20 Random Glucose 99 70-99 mg/dl Calcium Level 8.4 8.5-10.1 mg/dl C-Reactive Protein 23.10 0-0.29 mg/dl Assessment and Plan 46-year-old female with past medical history of neurosarcoidosis, anterior cervical discectomy and fusion, ambulatory dysfunction, PE, DVT, asthma presented to the ER with complaints of low back pain. Acute Low back pain: - Secondary to Infection along psoas muscle - Cefepime and daptomycin ordered for covering potential infection. Patient is allergic to penicillin and vancomycin - Pain control with morphine as needed - Blood cultures pending Anemia - Hgb 8.6 and 9.1 today, low MCV - likely due to anemia of chronic disease vs iron deficiency anemia, however on methotrexate so possibly folate deficiency - ordered iron studies, B12 and folate IVC filter with extraluminal struts: - Consulting vascular surgery - Will get IVC filter taken out on Saturday - Stopped warfarin, watch INR and will transition to heparin Neurosarcoidosis: - Continue methotrexate History of DVT/PE - Stop coumadin, watch INR and switch to heparin Depression/anxiety: - Continue Zoloft, Xanax Full code DVT prophylaxis: Heparin Disposition: Admitted to telemetry Resident Physician Supervision Note: I interviewed and examined the patient. Discussed with Dr. Vang and agree with findings and plan as documented in the note. Any exceptions or clarifications are listed here: None Documented By: Constantino Workman feeling about the same no new pain. discussed treatment plan for psoas infection and IVC filter struts, discussed w/u plan for anemia. no sx of anemia. all other ROS otherwise negative except for as above vitals note nad no pallor or icterus sitting upright in bed no diaphoresis talking well psoas infection - most likely translocation from bladder given sensation of possibly UTI in days preceding. no abscess noted so should hopefully respond to abx alone, low threshold for f/u imaging. -late addendum gram positives noted on 1/2 blood cultures - possibly false positive but since literature suggests staph predominant organism causing this kind of infection by this mechanism - very possibly real. already on dapto - continue pending further growth IVC filter struts pushing through IVC - with worsening vascular is going to try to gently remove -hold coumadin anemia -labs appear acute but clinically does not show s/s blood loss. if IVC bleed would expect worsening pain particularly in flank/hip area of psoas but none - actually feelign the same or maybe a little better. 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
[2016-11-02 16:00] VITALS: O2SAT 97
[2016-11-02] MEDS ORDERED: WARFARIN SOD 3 MG TAB PO SCH (16:00)
[2016-11-02] MEDS: DAPTOmycin IV 325 MG in SODIUM CHLORIDE 0.9% 50ML 50 ML IV SCH (20:17)
[2016-11-02] MEDS: METHENAMINE HIPPURATE 1 GM TAB PO SCH (21:24)
[2016-11-02] MEDS: TRAZODONE HCL 50 MG TAB PO SCH (21:24)
[2016-11-03] VITALS (7 sets, daily range): BP systolic 103–121; BP diastolic 68–78; PULSE 82–106; TEMP 36.8–37.8; O2SAT 93–96
[2016-11-03] MEDS: ALBUTEROL HFA 8 GM INHALER INH SCH ×4 (00:23→17:06)
--- NOTE | 2016-11-03 07:28 | Family Medicine Progress Note ---
Progress Note Date of Service Nov 03, 2016. Subjective Pt evaluation today including: conversation w/ patient, conversation w/ family , physical exam, chart review, lab review, review of studies, review of inpatient medication list Voiding: requires PRN straight cath Patient well, denies acute issues overnight. Says that she still has ongoing deep RLQ abdominal pain, but that the intensity has improved and she has been able to space out how often she is requiring morphine. She is concerned about on going right leg weakness, but was explained that this may be a result of ongoing psoas irritation currently, and though some deconditioning may be present, she should re-gain strength close to baseline function. Otherwise the patient is comfortable. She denies CP, SOB, symptoms of anemia or sepsis. Sleeping adequately, tolerating diet, and voiding and stooling similar to prior to admission. ROS unremarkable except as noted above. Objective Vital Signs Date Time Temp Pulse Resp B/P (MAP) Pulse Ox O2 Delivery O2 Flow Rate FiO2 11/03/16 07:14 36.8 85 16 121/78 (92) 96 11/03/16 04:19 37.0 11/03/16 01:42 37.7 11/03/16 00:09 37.8 102 18 103/68 (80) 94 Room Air 11/03/16 00:00 Room Air 11/02/16 16:00 97 Room Air 11/02/16 15:00 37.3 92 20 99/65 (76) 97 Room Air 11/02/16 14:17 37.0 84 16 108/72 (84) 96 11/02/16 08:19 36.9 83 16 102/67 (79) 94 11/02/16 08:00 94 Room Air Physical Exam General Appearance: WD/WN, no apparent distress ENT: hearing grossly normal Neck: supple Respiratory/Chest: lungs clear, normal breath sounds, no respiratory distress, no accessory muscle use Cardiovascular: regular rate, rhythm, no murmur Abdomen: normal bowel sounds, soft, no organomegaly, + tenderness (in RLQ, psoas distribution) Extremities: normal inspection, no pedal edema, no calf tenderness Neurologic/Psychiatric: alert, normal mood/affect, oriented x 3, + motor weakness Skin: normal color, warm/dry, no rash Lymphatic: no adenopathy Laboratory Results Results Past 24 Hours Test 11/03/16 04:44 11/03/16 07:10 11/03/16 09:13 11/03/16 15:28 Range/Units Transferrin % Saturation 15-50 % White Blood Count 6.95 4.8-10.8 K/uL Red Blood Count 3.78 4.2-5.4 M/uL Hemoglobin 8.8 12.0-16.0 g/dL Hematocrit 28.5 37-47 % Mean Corpuscular Volume 75.4 80-100 fL Mean Corpuscular Hemoglobin 23.3 25-34 pg Mean Corpuscular Hemoglobin Concent 30.9 32-36 g/dl Platelet Count 189 130-400 K/uL Mean Platelet Volume 10.8 7.4-10.4 fL Neutrophils (%) (Auto) 84.2 % Lymphocytes (%) (Auto) 9.4 % Monocytes (%) (Auto) 4.5 % Eosinophils (%) (Auto) 1.7 % Basophils (%) (Auto) 0.1 % Neutrophils # (Auto) 5.85 1.4-6.5 K/uL Lymphocytes # (Auto) 0.65 1.2-3.4 K/uL Monocytes # (Auto) 0.31 0.11-0.59 K/uL Eosinophils # (Auto) 0.12 0-0.5 K/uL Basophils # (Auto) 0.01 0-0.2 K/uL RDW Standard Deviation 49.8 36.4-46.3 fL RDW Coefficient of Variation 17.9 11.5-14.5 % Immature Granulocyte % (Auto) 0.1 % Immature Granulocyte # (Auto) 0.01 0.00-0.02 K/uL Red Blood Cell Morphology Unremarkable Prothrombin Time 16.7 9.0-12.0 SECONDS Prothromb Time International Ratio 1.5 0.9-1.1 Sodium Level 140 136-145 mmol/L Potassium Level 3.8 3.5-5.1 mmol/L Chloride Level 108 98-107 mmol/L Carbon Dioxide Level 25 21-32 mmol/L Anion Gap 7.0 3-11 mmol/L Blood Urea Nitrogen 11 7-18 mg/dl Creatinine 0.69 0.60-1.20 mg/dl Est Creatinine Clear Calc Drug Dose 109.5 ml/min Estimated GFR () 121.0 Estimated GFR (Non- 104.4 BUN/Creatinine Ratio 15.2 10-20 Random Glucose 98 70-99 mg/dl Calcium Level 8.9 8.5-10.1 mg/dl Total Iron Binding Capacity 263 250-450 mcg/dl Transferrin 204 200-360 mg/dl Ferritin 150.6 8.0-388.0 ng/ml Vitamin B12 Level 375 211-911 pg/mL Folate 10.12 >5.38 ng/mL Activated Partial Thromboplast Time 38.0 48.5 21.0-31.0 SECONDS Partial Thromboplastin Ratio 1.5 1.9 Assessment and Plan 46 yo F with pMHx of neurosarcoidosis, anterior cervical discectomy and fusion, ambulatory dysfunction, PE, DVT, asthma presented to the ER with complaints of low back pain. 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 1 of 2 blood culture positive for G+ cocci - infection vs contamination? Improvement in pain severity - Cefepime and daptomycin Day 3 - Pain control with morphine PRN - Await blood cultures + sensitivities - PT/OT ordered IVC filter with extraluminal struts: Consulting vascular surgery - recs appreciated - IVC filter removal scheduled for 11/05 (make NPO night prior) - Warfarin discontinued and heparin commenced today once INR dropped sufficiently Anemia Hgb stable at 8.8, low MCV. Concern for anemia of chronic disease vs iron deficiency anemia, or megaloblastic anemia since on MTX (although MCV low). Iron studies, B12 and folate levels all WNL Neurosarcoidosis: - Continue methotrexate History of DVT/PE - Warfarin discontinued and heparin commenced Depression/anxiety: - Continue Zoloft, Xanax DVT prophylaxis Heparin Full code Resident Physician Supervision Note: I interviewed and examined the patient. Discussed with Dr. Hawkins and agree with findings and plan as documented in the note. Any exceptions or clarifications are listed here: None Documented By: Constantino Workman feeling about the same no new pain. for IVC filter removal saturday. no other complaints psoas infection - most likely translocation from bladder given sensation of possibly UTI in days preceding. no abscess noted so should hopefully respond to abx alone, low threshold for f/u imaging. -blood culture likely false positive but continue treatment for psoas infection which will also cover for this IVC filter struts pushing through IVC - with worsening vascular is going to try to gently remove -holding coumadin, use heparin for now anemia -no acute blood loss follow gonadal vein thrombosis - see above, age indeterminate, but she's had prior clots and high risk - if acute likely provoked by psoas infection - heparin otherwise as above Continued [facility] stay due to: inadequate oral pain control, multiple IV medications needed Discharge planning: home Resident Tracking Resident Involvement: Resident Care Provided Care Provided: Adult Hospital Medicine
[2016-11-03 07:37] LABS: BASO % 0.1 %; BASO ABS # 0.01 K/uL (0-0.2); EOS % 1.7 %; HEMATOCRIT 28.5 % (37-47); IG% 0.1 %; LYMPH % 9.4 %; LYMPH ABS # 0.65 K/uL (1.2-3.4); MEAN CELL VOLUME 75.4 fL (80-100); MEAN CORPUSCULAR HEMOGLOBIN 23.3 pg (25-34); MEAN CORPUSCULAR HGB CONC 30.9 g/dl (32-36); MEAN PLATELET VOLUME 10.8 fL (7.4-10.4); MONO % 4.5 %; NEUT % 84.2 %; PLATELET COUNT 189 K/uL (130-400); RED BLOOD COUNT 3.78 M/uL (4.2-5.4); WHITE BLOOD COUNT 6.95 K/uL (4.8-10.8)
[2016-11-03 07:57] LABS: INR 1.5 (0.9-1.1); PROTHROMBIN TIME (PATIENT) 16.7 SECONDS (9.0-12.0)
[2016-11-03] MEDS: ALPRAZOLAM 0.5 MG TAB PO SCH ×3 (08:00→20:59)
[2016-11-03] MEDS: CEFEPIME IV 2,000 MG in DEXTROSE 5% 100ML 100 ML IV SCH ×2 (08:00→21:00)
[2016-11-03] MEDS: POLYETHYLENE (MIRALAX) 17 GM PACK PO SCH (08:01)
[2016-11-03] MEDS: BACLOFEN 10 MG TAB PO SCH ×4 (08:01→21:00)
[2016-11-03 08:02] LABS: COMPLETE YES
[2016-11-03] MEDS: SERTRALINE HCL 100 MG TAB PO SCH (08:02)
[2016-11-03] MEDS: POTASSIUM CHLORIDE 20 MEQ TABCR PO SCH (08:03)
[2016-11-03] MEDS: MULTIVITAMIN TAB PO SCH (08:03)
[2016-11-03] MEDS: CHOLECALCIFEROL 1000 INTER.UNIT TAB PO SCH (08:04)
[2016-11-03 08:15] LABS: BLOOD UREA NITROGEN 11 mg/dl (7-18); BUN/CREATININE RATIO 15.2 (10-20); CALCIUM 8.9 mg/dl (8.5-10.1); CARBON DIOXIDE 25 mmol/L (21-32); CHLORIDE 108 mmol/L (98-107); CREATININE 0.69 mg/dl (0.60-1.20); GLUCOSE 98 mg/dl (70-99); POTASSIUM 3.8 mmol/L (3.5-5.1); SODIUM 140 mmol/L (136-145)
[2016-11-03 08:22] LABS: FERRITIN 150.6 ng/ml (8.0-388.0); TOTAL IRON BINDING CAPACITY 263 mcg/dl (250-450)
[2016-11-03] MEDS ORDERED: HEPARIN IV BOLUS 5,000 UNIT in SYRINGE 0 ML IV ONE (09:00)
[2016-11-03] MEDS: HEPARIN 25000 UNIT/ D5W 500 ML (PHARMACY PREPARED) IV PRN ×2 (09:16)
[2016-11-03 10:08] LABS: PARTIAL THROMBOPLASTIN RATIO 1.5
[2016-11-03] MEDS: MoRPHine SULFATE 4 MG/ML 1 ML CARP\\VIAL IV PRN ×3 (11:56→19:59)
[2016-11-03] MEDS: MAGNESIUM HYDROXIDE SUSP 30 ML UDC PO PRN (15:51)
[2016-11-03 15:54] LABS: PARTIAL THROMBOPLASTIN RATIO 1.9
[2016-11-03] MEDS ORDERED: WARFARIN SOD 4 MG TAB PO SCH (16:00)
[2016-11-03] MEDS: DAPTOmycin IV 325 MG in SODIUM CHLORIDE 0.9% 50ML 50 ML IV SCH (19:59)
[2016-11-03] MEDS: METHENAMINE HIPPURATE 1 GM TAB PO SCH (21:01)
[2016-11-03] MEDS: TRAZODONE HCL 50 MG TAB PO SCH (21:02)
[2016-11-04] MEDS: MoRPHine SULFATE 4 MG/ML 1 ML CARP\\VIAL IV PRN ×3 (00:12→20:57)
[2016-11-04] MEDS: ALBUTEROL HFA 8 GM INHALER INH SCH ×5 (00:13→23:16)
[2016-11-04] MEDS: HEPARIN 25000 UNIT/ D5W 500 ML (PHARMACY PREPARED) IV PRN ×2 (06:41)
--- NOTE | 2016-11-04 07:07 | Family Medicine Progress Note ---
Progress Note Date of Service Nov 04, 2016. Subjective Pt evaluation today including: conversation w/ patient, physical exam, chart review, lab review, review of studies, review of inpatient medication list Patient well, denies acute overnight issues. Says there is ongoing improvement in deep RLQ abdominal pain, and she tries to take morphine only when necessary. Otherwise the patient is comfortable. She denies CP, SOB, symptoms of anemia or sepsis. Sleeping adequately, tolerating diet, and voiding and stooling as per baseline. ROS unremarkable except as noted above. Objective Vital Signs Date Time Temp Pulse Resp B/P (MAP) Pulse Ox O2 Delivery O2 Flow Rate FiO2 11/04/16 00:00 Room Air 11/03/16 23:26 37.0 106 20 109/70 (83) 93 Room Air 11/03/16 16:00 96 Room Air 11/03/16 15:06 36.8 82 16 120/74 (89) 96 11/03/16 08:00 Room Air 11/03/16 07:14 36.8 85 16 121/78 (92) 96 Physical Exam General Appearance: WD/WN, no apparent distress ENT: hearing grossly normal Neck: supple Respiratory/Chest: lungs clear, normal breath sounds, no respiratory distress, no accessory muscle use Cardiovascular: regular rate, rhythm, no murmur Abdomen: normal bowel sounds, soft, + tenderness (RLQ) Extremities: normal inspection, no pedal edema, no calf tenderness Neurologic/Psychiatric: alert, normal mood/affect, oriented x 3 Skin: normal color, warm/dry, no rash Lymphatic: no adenopathy Laboratory Results Results Past 24 Hours Test 11/04/16 07:05 Range/Units White Blood Count 6.43 4.8-10.8 K/uL Red Blood Count 3.56 4.2-5.4 M/uL Hemoglobin 8.4 12.0-16.0 g/dL Hematocrit 27.2 37-47 % Mean Corpuscular Volume 76.4 80-100 fL Mean Corpuscular Hemoglobin 23.6 25-34 pg Mean Corpuscular Hemoglobin Concent 30.9 32-36 g/dl RDW Standard Deviation 49.7 36.4-46.3 fL RDW Coefficient of Variation 17.5 11.5-14.5 % Platelet Count 187 130-400 K/uL Mean Platelet Volume 10.2 7.4-10.4 fL Prothrombin Time 18.3 9.0-12.0 SECONDS Prothromb Time International Ratio 1.7 0.9-1.1 Activated Partial Thromboplast Time 47.5 21.0-31.0 SECONDS Partial Thromboplastin Ratio 1.8 Assessment and Plan 46 yo F with pMHx of neurosarcoidosis, anterior cervical discectomy and fusion, ambulatory dysfunction, PE, DVT, asthma presented to the ER with complaints of low back pain. 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 1 of 2 blood culture positive for roth-sensitive s.aureus. Most likely organism for translocation, so must treat as such. Improvement in pain severity - Daptomycin Day 4. Cefepime discontinued since G- coverage not required. - ID consulted to help determine necessity for JONATHAN, and definitive treatment therapy upon discharge - Pain control with morphine PRN - PT/OT ordered IVC filter with extraluminal struts: Consulting vascular surgery - recs appreciated - IVC filter removal scheduled for tomorrow 11/05 (patient NPO at midnight) - Heparin Anemia Hgb stable at 8.4, low MCV. Concern for anemia of chronic disease vs iron deficiency anemia, or megaloblastic anemia since on MTX (although MCV low). Iron studies, B12 and folate levels all WNL - Iron supplement - Stool softeners PRN. Recommend regular use Neurosarcoidosis: - Continue methotrexate History of DVT/PE - Warfarin discontinued, continue heparin Depression/anxiety: - Continue Zoloft, Xanax DVT prophylaxis Heparin Full code Resident Physician Supervision Note: I interviewed and examined the patient. Discussed with Dr. Hawkins and agree with findings and plan as documented in the note. Any exceptions or clarifications are listed here: None Documented By: Constantino Workman generally continues to feel better less pain. discussed (+) blood culture and with psoas infection have to assume is real rather than contaminant. currently on dapto. will consult ID. 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
[2016-11-04 07:26] VITALS: BP 105/60; PULSE 98; TEMP 37; O2SAT 94
[2016-11-04 07:44] LABS: HEMATOCRIT 27.2 % (37-47); MEAN CELL VOLUME 76.4 fL (80-100); MEAN CORPUSCULAR HEMOGLOBIN 23.6 pg (25-34); MEAN CORPUSCULAR HGB CONC 30.9 g/dl (32-36); MEAN PLATELET VOLUME 10.2 fL (7.4-10.4); PLATELET COUNT 187 K/uL (130-400); RED BLOOD COUNT 3.56 M/uL (4.2-5.4); WHITE BLOOD COUNT 6.43 K/uL (4.8-10.8)
[2016-11-04 08:00] VITALS: O2SAT 94
[2016-11-04 08:21] LABS: INR 1.7 (0.9-1.1); PARTIAL THROMBOPLASTIN RATIO 1.8; PROTHROMBIN TIME (PATIENT) 18.3 SECONDS (9.0-12.0)
[2016-11-04] MEDS: CHOLECALCIFEROL 1000 INTER.UNIT TAB PO SCH (08:25)
[2016-11-04] MEDS: CEFEPIME IV 2,000 MG in DEXTROSE 5% 100ML 100 ML IV SCH (08:30)
[2016-11-04] MEDS: MULTIVITAMIN TAB PO SCH (08:35)
[2016-11-04] MEDS: BACLOFEN 10 MG TAB PO SCH ×4 (08:35→20:53)
[2016-11-04] MEDS: POTASSIUM CHLORIDE 20 MEQ TABCR PO SCH (08:35)
[2016-11-04] MEDS: SERTRALINE HCL 100 MG TAB PO SCH (08:36)
[2016-11-04] MEDS: ALPRAZOLAM 0.5 MG TAB PO SCH ×3 (08:48→20:53)
[2016-11-04] MEDS: POLYETHYLENE (MIRALAX) 17 GM PACK PO SCH (09:09)
--- NOTE | 2016-11-04 10:47 | Progress Note ---
Progress Note Date of Service Nov 04, 2016. Progress Note Patient would like to go ahead with attempting to remove the filter. This will be done tomorrow.
[2016-11-04 14:57] VITALS: BP 102/65; PULSE 96; TEMP 37; O2SAT 95
[2016-11-04] MEDS: DAPTOmycin IV 325 MG in SODIUM CHLORIDE 0.9% 50ML 50 ML IV SCH (19:39)
[2016-11-04] MEDS: METHENAMINE HIPPURATE 1 GM TAB PO SCH (20:53)
[2016-11-04] MEDS: TRAZODONE HCL 50 MG TAB PO SCH (20:53)
[2016-11-04 23:25] VITALS: BP 110/73; PULSE 99; TEMP 37.9; O2SAT 94
[2016-11-05] VITALS (16 sets, daily range): BP systolic 108–136; BP diastolic 67–85; PULSE 78–95; TEMP 36.6–37.2; O2SAT 94–100
[2016-11-05 05:41] LABS: HEMATOCRIT 29.1 % (37-47); MEAN CELL VOLUME 77.2 fL (80-100); MEAN CORPUSCULAR HEMOGLOBIN 23.1 pg (25-34); MEAN CORPUSCULAR HGB CONC 29.9 g/dl (32-36); MEAN PLATELET VOLUME 10.9 fL (7.4-10.4); PLATELET COUNT 217 K/uL (130-400); RED BLOOD COUNT 3.77 M/uL (4.2-5.4); WHITE BLOOD COUNT 5.57 K/uL (4.8-10.8)
[2016-11-05 06:01] LABS: INR 1.5 (0.9-1.1); PARTIAL THROMBOPLASTIN RATIO 1.4; PROTHROMBIN TIME (PATIENT) 16.8 SECONDS (9.0-12.0)
[2016-11-05 06:06] LABS: BUN/CREATININE RATIO 18.1 (10-20); CREATININE 0.64 mg/dl (0.60-1.20)
--- NOTE | 2016-11-05 07:16 | Progress Note ---
Progress Note Date of Service Nov 05, 2016. Progress Note Patient for an attempt at filter removal. I have discussed the risks options and benefits of the procedure with the patient. The patient understands the risks options and benefits and agrees to the procedure. I have examined the patient, reviewed the History & Physical and in the interval since the performance of the History & Physical I have noted the following changes of clinical significance: No changes noted
[2016-11-05] MEDS ORDERED: MIDAZOLAM HCL 1 MG/ML 2ML VIAL ONE (07:35)
[2016-11-05] MEDS ORDERED: FENTANYL CITRATE INJ 50 MCG/1 ML 2 ML VIAL ONE (07:35)
--- NOTE | 2016-11-05 07:47 | Procedure Note ---
Pre-Mod Sedation Assessment General Date of Moderate Sedation: Nov 05, 2016. Vital Signs: Vital Signs Past 12 Hours Date Time Temp Pulse Resp B/P (MAP) Pulse Ox O2 Delivery O2 Flow Rate FiO2 11/05/16 07:43 36.8 85 20 110/74 94 Room Air 11/05/16 07:36 36.8 85 20 110/72 (85) 94 Room Air 11/05/16 00:45 37.0 11/05/16 00:01 Room Air 11/04/16 23:25 37.9 99 20 110/73 (85) 94 Room Air 11/04/16 20:00 Room Air Pre-Sedation Airway Assessment Oral Cavity: WNL Short Thick Neck: No Hx of Sleep Apnea: No Smoking Status: Former Smoker Mallampati Classification: Class I ASA Classification: Class II Notes The planned sedation has been discussed with the patient and consent obtained. I have identified the patient, determined the appropriateness of sedation and have assessed the patient immediately prior to the procedure. All medicine(s) and interventions are by my order.
[2016-11-05] MEDS ORDERED: MIDAZOLAM HCL 1 MG/ML 2ML VIAL IV ONE (08:01)
--- NOTE | 2016-11-05 08:18 | [facility] Operative Report ---
Operative Report Operative Date Nov 05, 2016. Pre-Operative Diagnosis Malpositioned Inferior Vena Cava Filter Post-Operative Diagnosis Same Procedure(s) Performed Attempted Filter Removal, Vena Cavagram, Moderate Sedation from 0801 - [address] 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 It was noted to have protrusion of the struts beyond the caval wall. There is also a questionable retroperitoneal phlegmon. An attempt at removal was recommended via an endovascular approach. If this is unsuccessful been on open procedure may need to be done. She understood the risks options and benefits and agrees to go ahead with the procedure. Description of Procedure The patient was brought to the angio suite and placed in the supine position. The right side of the neck was prepped and draped in the usual fashion. The right internal jugular vein was located with ultrasound. It was patent, compressed easily, and had no filling defects. The vein was then punctured under ultrasound visualization. A guidewire was then passed centrally into the inferior vena cava under fluoroscopic guidance. The wire was passed into the inferior vena cava. It would not pass to the filter. It was going through a large collateral branch. A 5 Russian sheath was then inserted. A 5 Fr angled guide catheter was inserted over the wire. This was passed down to the inferior vena cava just above the filter. Multiple attempts with an 035 guidewire Glidewire and the wire from the device retrieval kit would not pass to the filter. Injection done through the angled glide catheter when it was slightly higher showed a large branch on right side of the cava. This appeared to be a very large ovarian vein. It was decided to do a venacavogram from below. The right groin was then prepped and draped in a sterile manner. Ultrasound was used to locate the right common femoral vein. It compressed easily and was patent. Puncture was then made of the right common femoral vein and a 5 Russian sheath was inserted over a wire. A venogram was then performed showing the right iliac veins to be widely patent. The distal cava at the confluence of the iliac veins was patent. There was total occlusion of the vena cava at the filter device level. A very large ovarian vein was also noted on the left side with this injection as well as the right. At this point the retrieval was abandoned. Both sheaths were pulled. Pressure was applied to the puncture sites. Adequate hemostatsis was obtained and a sterile dressings were applied. The patient left the angio suite in good condition and tolerated the procedure well. I attest to the content of the Intraoperative Record and any orders documented therein. Any exceptions are noted below.
[2016-11-05] MEDS ORDERED: LIDOCAINE HCL 1% 20 ML VIAL SQ ONE (08:31)
[2016-11-05] MEDS ORDERED: IODIXANOL (VISIPAQUE) 270 MG/ML 50ML IV ONE (08:31)
[2016-11-05] MEDS ORDERED: FENTANYL CITRATE INJ 50 MCG/1 ML 2 ML VIAL IV ONE (08:31)
[2016-11-05] MEDS: POLYETHYLENE (MIRALAX) 17 GM PACK PO SCH ×2 (09:00→10:00)
[2016-11-05] MEDS ORDERED: DOCUSATE SODIUM 100 MG CAP PO PRN (09:00)
[2016-11-05] MEDS: ALPRAZOLAM 0.5 MG TAB PO SCH ×3 (09:59→21:19)
[2016-11-05] MEDS: ALBUTEROL HFA 8 GM INHALER INH SCH ×4 (10:00→23:30)
[2016-11-05] MEDS: POTASSIUM CHLORIDE 20 MEQ TABCR PO SCH (10:00)
[2016-11-05] MEDS: BACLOFEN 10 MG TAB PO SCH ×4 (10:01→21:15)
[2016-11-05] MEDS: SERTRALINE HCL 100 MG TAB PO SCH (10:01)
[2016-11-05] MEDS: CHOLECALCIFEROL 1000 INTER.UNIT TAB PO SCH (10:02)
[2016-11-05] MEDS: MULTIVITAMIN TAB PO SCH (10:02)
--- NOTE | 2016-11-05 10:11 | Medical Consult ---
Consultation Date of Consultation: Nov 05, 2016. Attending Physician: Shayan Sutton MD History of Present Illness pt admitted with back pain, found to have psoas inflammation on MRI. no abscess. started on dapto. tolerating well. blood culture done in Er, growing mssa 10/31, no repeats. remains on abx, ID consulted for duration and ? need for echo. Back pain improving, no evidence pelvic/ l spine osteo on MRI. Still with intermittent fevers, tmax 37.9. 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 States she had incidental finding of hernia at time of surgery and this was repaired as well. She has had poor wound healing since that time and continues with intemittent weeping from abd wound. She states the wound was open for 6-8 months post op, she did have surgeyr eval and it was noted that she had a retained suture, removed 8 months post op, wound is now overall improved but continues to weep on occasion. She denies f/c currently. She has h/o clot and IVC filter which has moved, attempted to remove in OR today but unsuccessful. She denies any pain. no weeping from abd wound. no evidence of mesh on ct scan, she states she was told at time of surgery in 2014, no mesh seen. All remaining ros reviewed and are negative. 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: Chronic (4) Long-Term(Current)Use Of Steroids Status: Chronic (5) Low back pain Status: Acute (6) Lower extremity weakness Status: Chronic (7) Sarcoidosis Status: Chronic (8) Subtherapeutic international normalized ratio (INR) Status: Acute (9) Swelling of right extremity Status: Acute (10) Toe infection Status: Acute (11) UTI (urinary tract infection) Status: Acute Surgical Problems: (1) [place] filter in place Status: Chronic Family History Cancer Heart disease Hypertension Lung disease Social History Smoking Status: Never Smoker Drug Use: none Marital Status: Housing Status: lives with family Occupation Status: employed Allergies Coded Allergies: Penicillins (Verified Allergy, Unknown, hives, 10/31/16) Vancomycin (Verified Allergy, Unknown, hives, breathing difficulties, 10/31) Current Inpatient Medications Current Inpatient Medications Medications (Trade) Dose Ordered Sig/Ade Route Start Time Stop Time Status Last Admin Dose Admin Acetaminophen (Tylenol Tab) 650 mg Q4H PRN PO 11/01/16 01:00 12/01/16 00:59 11/04/16 23:16 650 MG Magnesium Hydroxide (Milk Of Magnesia Susp) 30 ml Q12H PRN PO 11/01/16 01:00 12/01/16 00:59 11/03/16 15:51 30 ML Ondansetron HCl (Zofran Inj) 4 mg Q6H PRN IV 11/01/16 01:00 12/01/16 00:59 Polyethylene (Miralax Powder Packet) 17 gm DAILY PRN PO 11/01/16 01:00 12/01/16 00:59 Albuterol (Ventolin Hfa Inhaler) 2 puffs Q6H INH 11/01/16 06:00 12/01/16 05:59 11/04/16 23:16 2 PUFFS Alprazolam (Xanax Tab) 0.5 mg TID PO 11/01/16 09:00 12/01/16 08:59 11/04/16 20:53 0.5 MG Baclofen (Lioresal Tab) 5 mg QID PO 11/01/16 09:00 12/01/16 08:59 11/04/16 20:53 5 MG Folic Acid (Folvite Tab) 1 mg DAILY PO 11/01/16 09:00 12/01/16 08:59 11/04/16 08:34 1 MG Methotrexate (Methotrexate Tab) 10 mg Th@0900 PO 11/01/16 09:00 12/01/16 08:59 11/01/16 14:39 10 MG Multivitamins (Multivitamin Tab) 1 tab DAILY PO 11/01/16 09:00 12/01/16 08:59 11/04/16 08:35 1 TAB Potassium Chloride (Klor-Con Tab) 20 meq DAILY PO 11/01/16 09:00 12/01/16 08:59 11/04/16 08:35 20 MEQ Sertraline HCl (Zoloft Tab) 250 mg DAILY PO 11/01/16 09:00 12/01/16 08:59 11/04/16 08:36 250 MG Trazodone HCl (Desyrel Tab) 50 mg HS PO 11/01/16 21:00 12/01/16 20:59 11/04/16 20:53 50 MG Daptomycin 325 mg/ Sodium Chloride 56.5 ml @ 100 mls/hr DAILY@2000 IV 11/01/16 20:00 11/09/16 20:34 11/04/16 19:39 100 MLS/HR Morphine Sulfate (MoRPHine SULFATE INJ) 4 mg Q2H PRN IV 11/01/16 04:30 11/15/16 04:29 11/04/16 20:57 4 MG Methenamine Hippurate (Urex Tab) 1 gm HS PO 11/01/16 21:00 11/11/16 08:59 11/04/16 20:53 1 GM Cholecalciferol (Vitamin D Tab) 5,000 inter.unit DAILY PO 11/02/16 09:00 12/02/16 08:59 11/04/16 08:25 5,000 INTER.UNIT Polyethylene (Miralax Powder Packet) 17 gm DAILY PO 11/03/16 09:00 12/03/16 08:59 11/04/16 09:09 17 GM Heparin Sodium (Porcine) 76825 unit/Dextrose 500 ml @ 24 mls/hr [id number] PRN IV 11/03/16 09:00 12/03/16 08:59 Future Hold 11/04/16 06:41 24 MLS/HR Ferrous Sulfate (Feosol Tab) 325 mg QAM PO 11/05/16 09:00 12/05/16 08:59 Docusate Sodium (coLACE CAP) 100 mg DAILY PRN PO 11/05/16 09:00 12/05/16 08:59 Physical Exam Date Time Temp Pulse Resp B/P (MAP) Pulse Ox O2 Delivery O2 Flow Rate FiO2 11/05/16 09:12 37.1 82 20 123/78 (93) 95 Room Air 11/05/16 08:50 36.8 84 20 125/75 96 Room Air 11/05/16 08:45 36.6 84 20 119/71 95 Room Air 11/05/16 08:40 36.6 81 20 115/72 94 Room Air 11/05/16 08:35 36.6 80 20 122/71 94 Room Air 11/05/16 08:30 36.7 84 20 122/74 95 Room Air 11/05/16 08:28 36.8 78 20 125/69 95 Room Air 11/05/16 08:18 80 18 115/69 100 Room Air 11/05/16 07:45 36.8 85 20 110/72 94 Room Air 11/05/16 07:43 36.8 85 20 110/74 94 Room Air 11/05/16 07:36 36.8 85 20 110/72 (85) 94 Room Air 11/05/16 07:35 Room Air 11/05/16 00:45 37.0 11/05/16 00:01 Room Air 11/04/16 23:25 37.9 99 20 110/73 (85) 94 Room Air 11/04/16 20:00 Room Air 11/04/16 16:00 Room Air 11/04/16 14:57 37.0 96 18 102/65 (77) 95 Room Air General Appearance: WD/WN, no apparent distress Head: normocephalic, atraumatic Eyes: normal inspection, EOMI Neck: supple Respiratory/Chest: lungs clear, normal breath sounds, no respiratory distress Cardiovascular: regular rate, rhythm, no murmur Abdomen/GI: non tender, soft, + pertinent finding (abd wound appears closed, no surrounding eryhtema, induraiton, warmth, tenderness, unable to express drainage) Extremities/Musculoskelatal: no pedal edema Neurologic/Psych: alert, oriented x 3 Skin: normal color Laboratory Results Item Value Date Time Blood Culture - Preliminary Resulted 10/31/16 1235 Blood Staphylococcus Aureus Last 24 Hours Test 11/05/16 05:12 White Blood Count 5.57 K/uL Red Blood Count 3.77 M/uL Hemoglobin 8.7 g/dL Hematocrit 29.1 % Mean Corpuscular Volume 77.2 fL Mean Corpuscular Hemoglobin 23.1 pg Mean Corpuscular Hemoglobin Concent 29.9 g/dl RDW Standard Deviation 50.2 fL RDW Coefficient of Variation 17.6 % Platelet Count 217 K/uL Mean Platelet Volume 10.9 fL Prothrombin Time 16.8 SECONDS Prothromb Time International Ratio 1.5 Activated Partial Thromboplast Time 37.6 SECONDS Partial Thromboplastin Ratio 1.4 Sodium Level 141 mmol/L Potassium Level 4.0 mmol/L Chloride Level 105 mmol/L Carbon Dioxide Level 28 mmol/L Anion Gap 8.0 mmol/L Blood Urea Nitrogen 12 mg/dl Creatinine 0.64 mg/dl Est Creatinine Clear Calc Drug Dose 118.0 ml/min Estimated GFR () 124.0 Estimated GFR (Non- 107.0 BUN/Creatinine Ratio 18.1 Random Glucose 101 mg/dl Calcium Level 9.0 mg/dl Assessment & Plan (1) MSSA (methicillin susceptible Staphylococcus aureus) septicemia Assessment & Plan: will continue dapto with vanco and pcn allergies. will repeat blood culture, would suggest echo, tte ok. suspect portal of entry is chronic draining abd wound. She states [place] [facility] [place] ovarian cyst in near future and will have surgery eval for wound as well. If drainage, can culture but unable to express drainage on my exam today. will need weekly cbc, cmp, esr, cpk while on dapto. would give 4 weeks. tentative stop 11/29. can follow with ID post d/c.
[2016-11-05] MEDS: FERROUS SULFATE 325 MG TAB PO SCH (10:34)
--- NOTE | 2016-11-05 16:06 | Family Medicine Progress Note ---
Progress Note Date of Service Nov 05, 2016. Subjective Pt evaluation today including: conversation w/ patient, physical exam, chart review, lab review, review of studies Pain: Patient states current right sided leg pain is 7-8/10 Voiding: no voiding problems, no incontinence Patient states that her pain is well controlled today at a 7-8/10 right sided groin pain. During surgery today with Dr. Madrid they were unable to remove her IVC filter. At this time she is resting comfortably in bed with no other acute complaints. Constitutional: No fever, No chills Respiratory: No cough, No shortness of breath Cardiovascular: No chest pain, No palpitations Abdomen: No pain, No nausea, No vomiting Musculoskeletal: + problem reported (right groin pain) Female : No dysuria Medications Current Inpatient Medications Medications (Trade) Dose Ordered Sig/Ade Route Start Time Stop Time Status Last Admin Dose Admin Acetaminophen (Tylenol Tab) 650 mg Q4H PRN PO 11/01/16 01:00 12/01/16 00:59 11/04/16 23:16 650 MG Magnesium Hydroxide (Milk Of Magnesia Susp) 30 ml Q12H PRN PO 11/01/16 01:00 12/01/16 00:59 11/03/16 15:51 30 ML Ondansetron HCl (Zofran Inj) 4 mg Q6H PRN IV 11/01/16 01:00 12/01/16 00:59 Polyethylene (Miralax Powder Packet) 17 gm DAILY PRN PO 11/01/16 01:00 12/01/16 00:59 Albuterol (Ventolin Hfa Inhaler) 2 puffs Q6H INH 11/01/16 06:00 12/01/16 05:59 11/05/16 16:53 2 PUFFS Alprazolam (Xanax Tab) 0.5 mg TID PO 11/01/16 09:00 12/01/16 08:59 11/05/16 13:31 0.5 MG Baclofen (Lioresal Tab) 5 mg QID PO 11/01/16 09:00 12/01/16 08:59 11/05/16 16:50 5 MG Folic Acid (Folvite Tab) 1 mg DAILY PO 11/01/16 09:00 12/01/16 08:59 11/05/16 10:00 1 MG Methotrexate (Methotrexate Tab) 10 mg Th@0900 PO 11/01/16 09:00 12/01/16 08:59 11/01/16 14:39 10 MG Multivitamins (Multivitamin Tab) 1 tab DAILY PO 11/01/16 09:00 12/01/16 08:59 11/05/16 10:02 1 TAB Potassium Chloride (Klor-Con Tab) 20 meq DAILY PO 11/01/16 09:00 12/01/16 08:59 11/05/16 10:00 20 MEQ Sertraline HCl (Zoloft Tab) 250 mg DAILY PO 11/01/16 09:00 12/01/16 08:59 11/05/16 10:01 250 MG Trazodone HCl (Desyrel Tab) 50 mg HS PO 11/01/16 21:00 12/01/16 20:59 11/04/16 20:53 50 MG Daptomycin 325 mg/ Sodium Chloride 56.5 ml @ 100 mls/hr DAILY@2000 IV 11/01/16 20:00 11/09/16 20:34 11/04/16 19:39 100 MLS/HR Morphine Sulfate (MoRPHine SULFATE INJ) 4 mg Q2H PRN IV 11/01/16 04:30 11/15/16 04:29 11/04/16 20:57 4 MG Methenamine Hippurate (Urex Tab) 1 gm HS PO 11/01/16 21:00 11/11/16 08:59 11/04/16 20:53 1 GM Cholecalciferol (Vitamin D Tab) 5,000 inter.unit DAILY PO 11/02/16 09:00 12/02/16 08:59 11/05/16 10:02 5,000 INTER.UNIT Polyethylene (Miralax Powder Packet) 17 gm DAILY PO 11/03/16 09:00 12/03/16 08:59 11/04/16 09:09 17 GM Heparin Sodium (Porcine) 71809 unit/Dextrose 500 ml @ 24 mls/hr [id number] PRN IV 11/03/16 09:00 12/03/16 08:59 Future Hold 11/04/16 06:41 24 MLS/HR Ferrous Sulfate (Feosol Tab) 325 mg QAM PO 11/05/16 09:00 12/05/16 08:59 11/05/16 10:34 325 MG Docusate Sodium (coLACE CAP) 100 mg DAILY PRN PO 11/05/16 09:00 12/05/16 08:59 Objective Vital Signs Date Time Temp Pulse Resp B/P (MAP) Pulse Ox O2 Delivery O2 Flow Rate FiO2 11/05/16 16:20 95 Room Air 11/05/16 13:42 36.9 95 16 109/69 (82) 96 Room Air 11/05/16 12:30 36.9 92 22 108/67 (81) 96 Room Air 11/05/16 10:35 37.2 20 136/85 (102) 100 Room Air 11/05/16 09:35 37.1 87 20 108/70 (83) 94 Room Air 11/05/16 09:12 37.1 82 20 123/78 (93) 95 Room Air 11/05/16 08:50 36.8 84 20 125/75 96 Room Air 11/05/16 08:45 36.6 84 20 119/71 95 Room Air 11/05/16 08:40 36.6 81 20 115/72 94 Room Air 11/05/16 08:35 36.6 80 20 122/71 94 Room Air 11/05/16 08:30 36.7 84 20 122/74 95 Room Air 11/05/16 08:28 36.8 78 20 125/69 95 Room Air 11/05/16 08:18 80 18 115/69 100 Room Air 11/05/16 07:45 36.8 85 20 110/72 94 Room Air 11/05/16 07:43 36.8 85 20 110/74 94 Room Air 11/05/16 07:36 36.8 85 20 110/72 (85) 94 Room Air 11/05/16 07:35 Room Air 11/05/16 00:45 37.0 11/05/16 00:01 Room Air 11/04/16 23:25 37.9 99 20 110/73 (85) 94 Room Air 11/04/16 20:00 Room Air Physical Exam General Appearance: WD/WN, no apparent distress Eyes: normal inspection, sclerae normal ENT: normal ENT inspection Neck: supple, trachea midline Respiratory/Chest: chest non-tender, lungs clear, normal breath sounds Cardiovascular: regular rate, rhythm, no gallop, no murmur Abdomen: normal bowel sounds, non tender, soft Neurologic/Psychiatric: no motor/sensory deficits, alert, normal mood/affect, oriented x 3 Laboratory Results Results Past 24 Hours Test 11/05/16 05:12 Range/Units White Blood Count 5.57 4.8-10.8 K/uL Red Blood Count 3.77 4.2-5.4 M/uL Hemoglobin 8.7 12.0-16.0 g/dL Hematocrit 29.1 37-47 % Mean Corpuscular Volume 77.2 80-100 fL Mean Corpuscular Hemoglobin 23.1 25-34 pg Mean Corpuscular Hemoglobin Concent 29.9 32-36 g/dl RDW Standard Deviation 50.2 36.4-46.3 fL RDW Coefficient of Variation 17.6 11.5-14.5 % Platelet Count 217 130-400 K/uL Mean Platelet Volume 10.9 7.4-10.4 fL Prothrombin Time 16.8 9.0-12.0 SECONDS Prothromb Time International Ratio 1.5 0.9-1.1 Activated Partial Thromboplast Time 37.6 21.0-31.0 SECONDS Partial Thromboplastin Ratio 1.4 Sodium Level 141 136-145 mmol/L Potassium Level 4.0 3.5-5.1 mmol/L Chloride Level 105 98-107 mmol/L Carbon Dioxide Level 28 21-32 mmol/L Anion Gap 8.0 3-11 mmol/L Blood Urea Nitrogen 12 7-18 mg/dl Creatinine 0.64 0.60-1.20 mg/dl Est Creatinine Clear Calc Drug Dose 118.0 ml/min Estimated GFR () 124.0 Estimated GFR (Non- 107.0 BUN/Creatinine Ratio 18.1 10-20 Random Glucose 101 70-99 mg/dl Calcium Level 9.0 8.5-10.1 mg/dl Assessment and Plan Patient is a 46 year old female that presented with right sided back/ groin pain and on CT was found to have L sided psoas inflammation. She subsequently grew staph aureus on blood cultures and was started on broad spectrum antibiotics. She is currently on day 5 on antibiotic treatment that has been narrowed to Daptomycin 1) Staph Aureus positive blood cultures - Left Psoas inflammation vs infection 2/2 self catheterization causing infection - Daptomycin day 5 - WBC improved to 5.57 from 11 on admission - Abdominal wound is most likely source of infection - ID recommends 4 weeks of total therapy with weekly blood work - ID also recommends TTE or echo for evaluation 2) IVC filter migration - Taken for removal today by vascular surgery - Unable to remove the filter due to excessive clotting in the vena cava - Follow recommendations from vascular surgery 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 - Resume heparin/ coumadin anticoagulation as per vascular surgery recommendations 4) Anemia - Hgb currently stable - Iron supplementation 5) Neurosarcoidosis - Continue Methotrexate 6) Depression/ Anxiety - Zoloft - Xanax 7) DVT - SCDs - Resume Heparin/ Coumadin tomorrow - Follow recommendations of Vascular Surgery 8) Code Status - Full Resuscitation History Resident Physician Supervision Note: I was present with Dr. Mary during the history and exam. I discussed the case with the resident and agree with the findings and plan as documented in the note. Any exceptions or clarifications are listed here. Pt resting in bed following IVC retrieval and replacement procedure which was ultimately unable to do so. Ovarian vessel compensation for IVC occlusion was noted during the procedure. ID consult recommends 4 wks of IV Dapto w/ continued monitoring and lab studies and [place] [facility] [place] likely source ([place]ronic [place]). Reviewed findings w/ patient who expressed understanding. Groin pain persistent but gradually improving, now 0/10 at rest and 7-8 w/ activity, down from 10/10 at rest. General Appearance: WD/WN, no apparent distress Respiratory: chest non-tender, lungs clear, normal breath sounds, no respiratory distress Cardiovascular: normal peripheral pulses, regular rate, rhythm, no edema, no murmur Gastrointestinal: normal bowel sounds, soft, no organomegaly, tenderness (RLQ) Assessment/Plan 46 y/o female h/o PE/DVT, neuroscarcoidosis, discectomy and fusion presents w/ Psoas phlegmon Psoas phlegmon - likely transfer from chronic wound v. ?urinary translocation - ID aware and recommendations appreciated - continue dapto, will set up OP for IV infusions x 4 wks. Pain control. TTE rec'd and will follow up. 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
[2016-11-05] MEDS: MoRPHine SULFATE 4 MG/ML 1 ML CARP\\VIAL IV PRN (20:04)
[2016-11-05] MEDS: DAPTOmycin IV 325 MG in SODIUM CHLORIDE 0.9% 50ML 50 ML IV SCH (20:16)
[2016-11-05] MEDS: TRAZODONE HCL 50 MG TAB PO SCH (21:16)
[2016-11-05] MEDS: METHENAMINE HIPPURATE 1 GM TAB PO SCH (21:16)
[2016-11-06 00:04] VITALS: BP 112/76; PULSE 89; TEMP 37.2; O2SAT 96
[2016-11-06] MEDS: MoRPHine SULFATE 4 MG/ML 1 ML CARP\\VIAL IV PRN ×3 (01:01→19:21)
[2016-11-06 05:42] LABS: HEMATOCRIT 29.4 % (37-47); MEAN CELL VOLUME 77.2 fL (80-100); MEAN CORPUSCULAR HEMOGLOBIN 23.1 pg (25-34); MEAN CORPUSCULAR HGB CONC 29.9 g/dl (32-36); MEAN PLATELET VOLUME 10.1 fL (7.4-10.4); PLATELET COUNT 224 K/uL (130-400); RED BLOOD COUNT 3.81 M/uL (4.2-5.4); WHITE BLOOD COUNT 3.93 K/uL (4.8-10.8)
[2016-11-06] MEDS: ALBUTEROL HFA 8 GM INHALER INH SCH ×4 (05:43→22:25)
[2016-11-06 05:55] LABS: INR 1.3 (0.9-1.1); PARTIAL THROMBOPLASTIN RATIO 1.3; PROTHROMBIN TIME (PATIENT) 14.5 SECONDS (9.0-12.0)
[2016-11-06 07:59] VITALS: BP 109/71; PULSE 89; TEMP 36.7; O2SAT 97
--- NOTE | 2016-11-06 08:26 | Family Medicine Progress Note ---
Progress Note Date of Service Nov 06, 2016. Subjective Pt evaluation today including: conversation w/ patient, physical exam, chart review, lab review, review of studies Pain: Patient reports that her pain is improved today and is a 5 out of 10 Voiding: no voiding problems, no incontinence Patient resting comfortably in bed this morning and complains of a 5 out of 10 pain in the right side of her back. Discussed with the patient resuming her anticoagulation and we agreed upon starting her on Lovenox as well as Coumadin. Constitutional: No fever, No chills Respiratory: No cough, No shortness of breath Cardiovascular: No chest pain Abdomen: No pain, No nausea, No vomiting Musculoskeletal: + problem reported (Right-sided back pain) Female : No dysuria Medications Current Inpatient Medications Medications (Trade) Dose Ordered Sig/Ade Route Start Time Stop Time Status Last Admin Dose Admin Acetaminophen (Tylenol Tab) 650 mg Q4H PRN PO 11/01/16 01:00 12/01/16 00:59 11/04/16 23:16 650 MG Magnesium Hydroxide (Milk Of Magnesia Susp) 30 ml Q12H PRN PO 11/01/16 01:00 12/01/16 00:59 11/06/16 10:44 30 ML Ondansetron HCl (Zofran Inj) 4 mg Q6H PRN IV 11/01/16 01:00 12/01/16 00:59 Polyethylene (Miralax Powder Packet) 17 gm DAILY PRN PO 11/01/16 01:00 12/01/16 00:59 Albuterol (Ventolin Hfa Inhaler) 2 puffs Q6H INH 11/01/16 06:00 12/01/16 05:59 11/06/16 17:16 2 PUFFS Alprazolam (Xanax Tab) 0.5 mg TID PO 11/01/16 09:00 12/01/16 08:59 11/06/16 12:53 0.5 MG Baclofen (Lioresal Tab) 5 mg QID PO 11/01/16 09:00 12/01/16 08:59 11/06/16 17:10 5 MG Folic Acid (Folvite Tab) 1 mg DAILY PO 11/01/16 09:00 12/01/16 08:59 11/06/16 08:31 1 MG Methotrexate (Methotrexate Tab) 10 mg Th@0900 PO 11/01/16 09:00 12/01/16 08:59 11/01/16 14:39 10 MG Multivitamins (Multivitamin Tab) 1 tab DAILY PO 11/01/16 09:00 12/01/16 08:59 11/06/16 08:31 1 TAB Potassium Chloride (Klor-Con Tab) 20 meq DAILY PO 11/01/16 09:00 12/01/16 08:59 11/06/16 08:31 20 MEQ Sertraline HCl (Zoloft Tab) 250 mg DAILY PO 11/01/16 09:00 12/01/16 08:59 11/06/16 08:32 250 MG Trazodone HCl (Desyrel Tab) 50 mg HS PO 11/01/16 21:00 12/01/16 20:59 11/05/16 21:16 50 MG Daptomycin 325 mg/ Sodium Chloride 56.5 ml @ 100 mls/hr DAILY@2000 IV 11/01/16 20:00 11/09/16 20:34 11/06/16 20:23 100 MLS/HR Morphine Sulfate (MoRPHine SULFATE INJ) 4 mg Q2H PRN IV 11/01/16 04:30 11/15/16 04:29 11/06/16 19:21 4 MG Methenamine Hippurate (Urex Tab) 1 gm HS PO 11/01/16 21:00 11/11/16 08:59 11/05/16 21:16 1 GM Cholecalciferol (Vitamin D Tab) 5,000 inter.unit DAILY PO 11/02/16 09:00 12/02/16 08:59 11/06/16 08:31 5,000 INTER.UNIT Polyethylene (Miralax Powder Packet) 17 gm DAILY PO 11/03/16 09:00 12/03/16 08:59 11/06/16 08:31 17 GM Ferrous Sulfate (Feosol Tab) 325 mg QAM PO 11/05/16 09:00 12/05/16 08:59 11/06/16 08:31 325 MG Docusate Sodium (coLACE CAP) 100 mg DAILY PRN PO 11/05/16 09:00 12/05/16 08:59 Enoxaparin Sodium (Lovenox Inj) 80 mg Q12H SQ 11/06/16 10:00 12/06/16 09:59 11/06/16 10:45 80 MG Miconazole Nitrate (Desenex Powder) 1 appln DAILY PRN EXT 11/06/16 20:00 12/06/16 19:59 Objective Vital Signs Date Time Temp Pulse Resp B/P (MAP) Pulse Ox O2 Delivery O2 Flow Rate FiO2 11/06/16 19:21 92 109/74 (86) 11/06/16 14:34 36.4 98 16 107/70 (82) 95 11/06/16 08:00 Room Air 11/06/16 07:59 36.7 89 16 109/71 (84) 97 11/06/16 00:04 37.2 89 18 112/76 (88) 96 Room Air 11/06/16 00:00 Room Air Physical Exam General Appearance: WD/WN, no apparent distress Eyes: normal inspection, sclerae normal Neck: + pertinent finding (Dressing clean, dry ,and intact over her right neck area from recent access site for her attempted stent removal) Respiratory/Chest: chest non-tender, lungs clear, normal breath sounds Cardiovascular: regular rate, rhythm, no edema, no gallop Abdomen: normal bowel sounds, non tender, soft, + pertinent finding ( Indentation inferior to her umbilicus is a remnant from her previous hernia surgery) Extremities: + pertinent finding (Right-sided back pain with palpation) Laboratory Results Results Past 24 Hours Test 11/06/16 05:16 Range/Units White Blood Count 3.93 4.8-10.8 K/uL Red Blood Count 3.81 4.2-5.4 M/uL Hemoglobin 8.8 12.0-16.0 g/dL Hematocrit 29.4 37-47 % Mean Corpuscular Volume 77.2 80-100 fL Mean Corpuscular Hemoglobin 23.1 25-34 pg Mean Corpuscular Hemoglobin Concent 29.9 32-36 g/dl RDW Standard Deviation 50.4 36.4-46.3 fL RDW Coefficient of Variation 17.7 11.5-14.5 % Platelet Count 224 130-400 K/uL Mean Platelet Volume 10.1 7.4-10.4 fL Prothrombin Time 14.5 9.0-12.0 SECONDS Prothromb Time International Ratio 1.3 0.9-1.1 Activated Partial Thromboplast Time 34.5 21.0-31.0 SECONDS Partial Thromboplastin Ratio 1.3 Microbiology Results 11/06/16 Blood Culture, Received Pending 11/06/16 Blood Culture, Received Pending Assessment and Plan Patient is a 46 year old female that presented with right sided back/ groin pain and on CT was found to have L sided psoas inflammation. She subsequently grew staph aureus on blood cultures and was started on broad spectrum antibiotics. She is currently on day 5 on antibiotic treatment that has been narrowed to Daptomycin 1) Staph Aureus positive blood cultures - Left Psoas inflammation vs infection 2/2 self catheterization causing infection - Daptomycin day 6 - WBC improved to 3.93 from 11 on admission - Abdominal wound is most likely source of infection - ID recommends 4 weeks of total therapy with weekly blood work - TTE - No acute findings - Pain currently well controlled with tramadol 2) IVC filter migration - Due to excessive clotting in the area of the inferior vena cava, unable to remove migratory stent - Follow recommendations from vascular surgery 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 - Lovenox 1 mg/kg - Coumadin home dosing regimen of 3 milligrams Saturday, Saturday, Saturday, and 4 mg the remaining days of the week 4) Anemia - Hgb currently stable - Iron supplementation 5) Neurosarcoidosis - Continue Methotrexate 6) Depression/ Anxiety - Zoloft - Xanax 7) Constipation - Last bowel movement 6 days ago - Milk of magnesia - MiraLAX 8) DVT - SCDs - Lovenox - Coumadin 9) Disposition - Referral [facility] 10) Code Status - Full Resuscitation History Resident Physician Supervision Note: I was present with Dr. Mary during the history and exam. I discussed the case with the resident and agree with the findings and plan as documented in the note. Any exceptions or clarifications are listed here. Pt resting in bed w/ some improvement of groin pain from previous. Agreeable re : reinstitution of AC w/ lovenox bridge back to coumadin. General Appearance: WD/WN, no apparent distress Respiratory: chest non-tender, lungs clear, normal breath sounds, no respiratory distress Cardiovascular: normal peripheral pulses, regular rate, rhythm, no murmur Gastrointestinal: normal bowel sounds, soft, no organomegaly, tenderness (Mild RLQ TTP improved from previous), other (midline dimpling wound approx 8cm inferior to umbilicus w/o purulence or erythema) Assessment/Plan 46 y/o female h/o PE/DVT, neuroscarcoidosis, discectomy and fusion presents w/ Psoas phlegmon Psoas phlegmon - likely transfer from chronic wound v. ?urinary translocation - ID aware and recommendations appreciated - continue dapto, will set up OP for IV infusions x 4 wks. Pain control. TTE shows no vegetations, improvement in fxn ; Will await PT eval for placement recommendations as will need facility for infusion therapy. 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
[2016-11-06] MEDS: POTASSIUM CHLORIDE 20 MEQ TABCR PO SCH (08:31)
[2016-11-06] MEDS: CHOLECALCIFEROL 1000 INTER.UNIT TAB PO SCH (08:31)
[2016-11-06] MEDS: POLYETHYLENE (MIRALAX) 17 GM PACK PO SCH (08:31)
[2016-11-06] MEDS: BACLOFEN 10 MG TAB PO SCH ×4 (08:31→22:15)
[2016-11-06] MEDS: MULTIVITAMIN TAB PO SCH (08:31)
[2016-11-06] MEDS: FERROUS SULFATE 325 MG TAB PO SCH (08:31)
[2016-11-06] MEDS: ALPRAZOLAM 0.5 MG TAB PO SCH ×3 (08:32→22:15)
[2016-11-06] MEDS: SERTRALINE HCL 100 MG TAB PO SCH (08:32)
[2016-11-06] MEDS ORDERED: ENOXAPARIN 1 MG/KG SQ SCH (09:30)
--- NOTE | 2016-11-06 09:59 | Progress Note ---
Subjective Date of Service: Nov 06, 2016. Subjective no overnight events. no repeat cultures done, echo pending. tolerating dapto. afebrile. no overnight events. 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 Objective Vital Signs Date Time Temp Pulse Resp B/P (MAP) Pulse Ox O2 Delivery O2 Flow Rate FiO2 11/06/16 08:00 Room Air 11/06/16 07:59 36.7 89 16 109/71 (84) 97 11/06/16 00:04 37.2 89 18 112/76 (88) 96 Room Air 11/06/16 00:00 Room Air 11/05/16 16:20 95 Room Air 11/05/16 13:42 36.9 95 16 109/69 (82) 96 Room Air 11/05/16 12:30 36.9 92 22 108/67 (81) 96 Room Air 11/05/16 10:35 37.2 20 136/85 (102) 100 Room Air Laboratory Results Item Value Date Time Blood Culture - Final Complete 10/31/16 1235 Blood Staphylococcus Aureus Last 24 Hours Test 11/06/16 05:16 White Blood Count 3.93 K/uL Red Blood Count 3.81 M/uL Hemoglobin 8.8 g/dL Hematocrit 29.4 % Mean Corpuscular Volume 77.2 fL Mean Corpuscular Hemoglobin 23.1 pg Mean Corpuscular Hemoglobin Concent 29.9 g/dl RDW Standard Deviation 50.4 fL RDW Coefficient of Variation 17.7 % Platelet Count 224 K/uL Mean Platelet Volume 10.1 fL Prothrombin Time 14.5 SECONDS Prothromb Time International Ratio 1.3 Activated Partial Thromboplast Time 34.5 SECONDS Partial Thromboplastin Ratio 1.3 Assessment and Plan (1) MSSA (methicillin susceptible Staphylococcus aureus) septicemia Assessment & Plan: will continue dapto with vanco and pcn allergies. will repeat blood culture, would suggest echo, tte ok. suspect portal of entry is chronic draining abd wound. She states [place] [facility] [place] cyst in near future and will have surgery eval for wound as well. If drainage, can culture but unable to express drainage on my exam today. will need weekly cbc, cmp, esr, cpk while on dapto. would give 4 weeks. tentative stop 11/29. can follow with ID post d/c. Continued [facility] stay due to: multiple IV medications needed, other Discharge planning: home
[2016-11-06] MEDS: MAGNESIUM HYDROXIDE SUSP 30 ML UDC PO PRN (10:44)
[2016-11-06] MEDS: ENOXAPARIN 80 MG/0.8 ML SYR SQ SCH ×2 (10:45→22:18)
[2016-11-06 14:34] VITALS: BP 107/70; PULSE 98; TEMP 36.4; O2SAT 95
[2016-11-06 16:00] VITALS: O2SAT 95
--- NOTE | 2016-11-06 16:05 | ECHOCARDIOGRAM REPORT ---
*NOTICE TO RECEIVING [employer] This information is strictly Confidential and protected under [place] law. [place] law prohibits you from making any further disclosure of this information unless further disclosure is expressly permitted by the written consent of the person to whom it pertains or is authorized by law. A general authorization for the release of medical or other information is not sufficient for this purpose. Hospital accepts no responsibility if the information is made available to any other person, INCLUDING THE PATIENT. Interpretation Summary * Name: VINH STROUD Study Date: 11/06/2016 08:49 AM BP: 112/76 mmHg * Patient Location: [facility]\S\N288\S\2 HR: 86 * : 1970 (M/d/yyyy) Gender: Female Height: 66 in * Age: 46 yrs Ethnicity: [place] Weight: 179 lb * Ordering Physician: Shaw Mary * Referring Physician: Self, Referred * Performed By: Corrina Matthews [facility] * * Reason For Study: POSITIVE BLOOD CULTURE FOR STAPH AUREUS * BSA: 1.9 m2 * -- Conclusions -- * Left ventricular systolic function is normal. * The right ventricle is borderline dilated. * The right atrium is mildly dilated. * No definite valvular vegetation * Compared to a study from 04/2014, the RV dilation and function have improved. Procedure Details * A complete two-dimensional transthoracic echocardiogram was performed (2D, M-mode, Doppler and color flow Doppler). Left Ventricle * The left ventricle is normal in size. * There is normal left ventricular wall thickness. * Left ventricular systolic function is normal. Right Ventricle * The right ventricle is borderline dilated. * The right ventricular systolic function is normal. Atria * The left atrial size is normal. * The right atrium is mildly dilated. Mitral Valve * The mitral valve is grossly normal. * Significant mitral regurgitation is absent. Tricuspid Valve * The tricuspid valve is not well visualized, but is grossly normal. * Significant tricuspid regurgitation is absent. * Right ventricular systolic pressure is normal. Aortic Valve * The aortic valve is trileaflet. * No hemodynamically significant valvular aortic stenosis. * There is no significant aortic regurgitation. Great Vessels * The aortic root is normal size. Pericardium/Pleural * There is no pericardial effusion. Great Vessels * Normal inferior vena cava diameter and respiratory variation suggests normal central venous pressure. MMode 2D Measurements and Calculations IVSd 1.2 cm IVSs 1.4 cm LVIDd 4.0 cm LVIDs 3.1 cm LVPWd 1.0 cm LVPWs 1.2 cm IVS/LVPW 1.2 FS 23.3 % EDV(Teich) 70.5 ml ESV(Teich) 37.2 ml EF(Teich) 47.2 % EDV(cubed) 64.6 ml ESV(cubed) 29.1 ml EF(cubed) 54.9 % % IVS thick 10.4 % % LVPW thick 11.8 % LV mass(C)d 152.8 grams LV mass(C)dI 80.1 grams/m\S\2 LV mass(C)s 122.0 grams LV mass(C)sI 63.9 grams/m\S\2 SV(Teich) 33.3 ml SI(Teich) 17.4 ml/m\S\2 SV(cubed) 35.5 ml SI(cubed) 18.6 ml/m\S\2 Ao root diam 3.3 cm Ao root area 8.6 cm\S\2 LA dimension 3.1 cm LA/Ao 0.95 LVOT diam 1.8 cm LVOT area 2.6 cm\S\2 LVAd ap4 29.9 cm\S\2 LVLd ap4 7.8 cm EDV(MOD-sp4) 91.1 ml EDV(sp4-el) 97.4 ml LVAs ap4 18.0 cm\S\2 LVLs ap4 6.4 cm ESV(MOD-sp4) 40.9 ml ESV(sp4-el) 42.8 ml EF(MOD-sp4) 55.0 % EF(sp4-el) 56.1 % LVAd ap2 35.0 cm\S\2 LVLd ap2 7.9 cm EDV(MOD-sp2) 125.7 ml EDV(sp2-el) 132.3 ml LVAs ap2 23.1 cm\S\2 LVLs ap2 7.0 cm ESV(MOD-sp2) 62.2 ml ESV(sp2-el) 64.5 ml EF(MOD-sp2) 50.5 % EF(sp2-el) 51.3 % LVLd %diff 1.1 % EDV(MOD-bp) 107.6 ml LVLs %diff 8.6 % ESV(MOD-bp) 52.9 ml EF(MOD-bp) 50.8 % SV(MOD-sp4) 50.1 ml SI(MOD-sp4) 26.3 ml/m\S\2 SV(MOD-sp2) 63.5 ml SI(MOD-sp2) 33.3 ml/m\S\2 SV(MOD-bp) 54.7 ml SI(MOD-bp) 28.7 ml/m\S\2 SV(sp4-el) 54.7 ml SI(sp4-el) 28.6 ml/m\S\2 SV(sp2-el) 67.8 ml SI(sp2-el) 35.5 ml/m\S\2 Doppler Measurements and Calculations MV E max jose 94.9 cm/sec MV A max jose 76.0 cm/sec MV E/A 1.2 MV P1/2t max jose 92.5 cm/sec MV P1/2t 77.4 msec MVA(P1/2t) 2.8 cm\S\2 MV dec slope 350.0 cm/sec\S\2 MV dec time 0.25 sec Ao V2 max 159.2 cm/sec Ao max PG 10.1 mmHg Ao max PG (full) 2.9 mmHg DUARTE(V,A) 2.2 cm\S\2 DUARTE(V,D) 2.2 cm\S\2 LV V1 max PG 7.3 mmHg LV V1 max 134.8 cm/sec PA V2 max 116.5 cm/sec PA max PG 5.4 mmHg TR max jose 242.2 cm/sec
[2016-11-06 19:21] VITALS: BP 109/74; PULSE 92
[2016-11-06] MEDS ORDERED: MICONAZOLE NITRATE POWDER 43 GM EXT PRN (20:00)
[2016-11-06] MEDS: DAPTOmycin IV 325 MG in SODIUM CHLORIDE 0.9% 50ML 50 ML IV SCH (20:23)
[2016-11-06] MEDS: TRAZODONE HCL 50 MG TAB PO SCH (22:16)
[2016-11-06] MEDS: METHENAMINE HIPPURATE 1 GM TAB PO SCH (22:17)
[2016-11-07 00:13] VITALS: BP 107/70; PULSE 49; TEMP 37.1; O2SAT 91
[2016-11-07 00:35] VITALS: PULSE 90
[2016-11-07] MEDS: ALBUTEROL HFA 8 GM INHALER INH SCH ×2 (06:31→12:10)
[2016-11-07 06:43] LABS: INR 1.1 (0.9-1.1); PARTIAL THROMBOPLASTIN RATIO 1.2; PROTHROMBIN TIME (PATIENT) 12.1 SECONDS (9.0-12.0)
--- NOTE | 2016-11-07 07:38 | Family Medicine Progress Note ---
Progress Note Date of Service Nov 07, 2016. Resident Tracking Resident Involvement: Resident Care Provided Care Provided: Adult Hospital Medicine History Resident Physician Supervision Note: I was present with Dr. Mary during the history and exam. I discussed the case with the resident and agree with the findings and plan as documented in the note. Any exceptions or clarifications are listed here. Pt reports continued improvement of RLQ abd pain. Denies fever, CP/palpitations , SOB, edema, lightheadedness. General Appearance: WD/WN, no apparent distress Respiratory: chest non-tender, lungs clear, normal breath sounds, no respiratory distress Cardiovascular: normal peripheral pulses, regular rate, rhythm, no murmur Gastrointestinal: normal bowel sounds, soft, no organomegaly, tenderness (RLQ TTP improved) Assessment/Plan 46 y/o female h/o PE/DVT, neuroscarcoidosis, discectomy and fusion presents w/ Psoas phlegmon Psoas phlegmon - likely transfer from chronic wound v. ?urinary translocation - ID aware and recommendations appreciated - dapto OP for IV infusions x 4 wks. Pain control. TTE shows no vegetations. 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
[2016-11-07 07:56] VITALS: BP 116/74; PULSE 77; TEMP 36.5; O2SAT 96
[2016-11-07] MEDS: SERTRALINE HCL 100 MG TAB PO SCH (07:59)
[2016-11-07] MEDS: FERROUS SULFATE 325 MG TAB PO SCH (07:59)
[2016-11-07] MEDS: BACLOFEN 10 MG TAB PO SCH ×2 (07:59→14:12)
[2016-11-07] MEDS: POTASSIUM CHLORIDE 20 MEQ TABCR PO SCH (08:01)
[2016-11-07] MEDS: CHOLECALCIFEROL 1000 INTER.UNIT TAB PO SCH (08:01)
[2016-11-07] MEDS: POLYETHYLENE (MIRALAX) 17 GM PACK PO SCH (08:02)
[2016-11-07] MEDS: MULTIVITAMIN TAB PO SCH (08:02)
[2016-11-07] MEDS: ALPRAZOLAM 0.5 MG TAB PO SCH ×2 (08:04→14:12)
[2016-11-07] MEDS ORDERED: WARFARIN SOD 3 MG TAB PO SCH (09:00)
[2016-11-07] MEDS: ENOXAPARIN 80 MG/0.8 ML SYR SQ SCH (09:23)
[2016-11-07] MEDS ORDERED: MRLP17 PO (14:10)
[2016-11-07] MEDS ORDERED: ENOX1INJ11 SQ (14:10)
[2016-11-07] MEDS ORDERED: MRPIS4 IV (14:10)
[2016-11-07] MEDS ORDERED: DAPT500I IV (14:10)
[2016-11-07] MEDS ORDERED: MOMLX PO (14:10)
--- NOTE | 2016-11-07 14:16 | Discharge Instructions ---
Discharge Instructions Date of Service Nov 07, 2016. Admission Reason for Admission: Low Back Pain, Psoas Muscle Phlegmon Discharge Discharge Diagnosis / Problem: Staph Aureus Bacteremia Discharge Goals Goal(s): Decrease discomfort, Improve function Activity Recommendations Activity Limitations: per Instructions/Follow-up section Exercise/Sports Limitations: gradually increase as tolerated . Instructions / Follow-Up Instructions / Follow-Up - You are being discharged to [facility] for inpatient rehab - Daptomycin 325mg IV Daily for 3 Weeks (4 weeks total therapy including the week of antibiotics in the hospital) - FOR STAPH AUREUS BLOOD INFECTION - Morphine 4mg IV every 2 hours as needed - FOR PAIN - If you continue to be constipated you were prescribed Milk of Magnesia and Miralax - Continue to take Lovenox 80mg Injection daily while the levels of your Coumadin reach a stable level in your blood - FOR ANTICOAGULATION - Resume your regular home regimen of Coumadin - MWF 3mg, Remaining days 4mg PO Daily - Follow up with Infectious Disease Dr. Casarez after discharge Current Hospital Diet Patient's current hospital diet: Regular Diet Discharge Diet Recommended Diet: Regular Diet Procedures Procedures Performed: Attempted Filter Removal, Vena Cavagram, Moderate Sedation from 800 - 817 Pending Studies Studies pending at discharge: no Medical Emergencies . Who to Call and When: Medical Emergencies: If at any time you feel your situation is an emergency, please call 911 immediately. . Non-Emergent Contact Non-Emergency issues call your: Primary Care Provider . . "Provider Documentation" section prepared by Shaw Mary. . VTE Core Measure Inpt VTE Proph given/why not?: Other Anticoagulation (heparin drip)
[2016-11-07 14:24] VITALS: BP 116/74; PULSE 77; TEMP 36.5; O2SAT 96
--- NOTE | 2016-11-07 18:44 | Discharge Summary ---
Discharge Summary Date of Service Nov 07, 2016. (Shaw Mary MD) Discharge Summary Admission Date: Nov 01, 2016 at 00:58 Discharge Date: Nov 07, 2016 Discharge Disposition: Rehab Principal Diagnosis: Staph aureus bacteremia Problems/Secondary Diagnoses: (1) Anemia Nos Status: Chronic (2) Asthma Status: Chronic (3) Dalton filter in place Status: Chronic (4) Assisted (Current) Use Of Anticoagulants Status: Chronic (5) Long-Term(Current)Use Of Steroids Status: Chronic (6) Lower extremity weakness Status: Chronic (7) Sarcoidosis Status: Chronic Immunizations: Have You Had Influenza Vaccine: No History of Tetanus Vaccine?: utd (Shaw Mary MD) Medication Reconciliation New Medications: Daptomycin (Daptomycin) 500 Mg Inj 325 MG IV DAILY for 21 Days, #6825 MG Enoxaparin Sodium (Lovenox) 80 Mg/0.8 Ml Inj 80 MG SQ Q12 for 14 Days, #28 SYR Morphine Sulfate (Morphine Sulfate) 4 Mg/Ml Inj 4 MG IV Q2H for 7 Days Magnesium Hydroxide (Milk of Magnesia) 30 Ml Susp 30 ML PO Q12H PRN for Constipation for 7 Days, #10 DOSE Polyethylene (Miralax) 17 Gm Pow 17 GM PO DAILY PRN for Constipation for 7 Days, #7 DOSE As needed for constipation Continued Medications: Albuterol Hfa (Ventolin Hfa) 200 Puffs/82709 Mcg Aers 2-4 PUFFS INH Q6H, #1 INHALER Alprazolam (Xanax) 0.5 Mg Tab 0.5 MG PO TID, TAB Baclofen (Baclofen) 10 Mg Tab 5 MG PO QID, #60 Calcium Carbonate (Calcium) 600 Mg Tab 600 MG PO BID Cholecalciferol (Vitamin D) 5,000 Unit Tab 5000 INTERUNIT PO DAILY Folic Acid (Folvite) 1 Mg Tab 1 MG PO DAILY, TAB Methenamine Hippurate (Hiprex) 1 Gm Tab 1 GM PO DAILY Methotrexate (Trexall) 10 Mg Tab 10 MG PO WK, TAB takes on Multivitamin (Multivitamin) Tab 1 TAB PO DAILY, TAB Potassium Ext Rel (Klor-Con) 20 Meq Tabcr 20 MEQ PO DAILY, #30 Sertraline (Zoloft) 100 Mg Tab 250 MG PO DAILY, TAB Trazodone Hcl (Desyrel) 50 Mg Tab 50 MG PO HS, #30 Warfarin Sod (Jantoven) 4 Mg Tab 4 MG PO 4XWK Warfarin Sod (Jantoven) 3 Mg Tab 3 MG PO 3XWK, TAB Mo/We/Fr [Protidiet] () 1 EA PO DAILY Discharge Exam Review of Systems: Constitutional: No fever, No chills Respiratory: No cough, No shortness of breath Cardiovascular: No chest pain, No palpitations Abdomen: No pain, No nausea, No vomiting Musculoskeletal: + problem reported (/10 right groin pain) Genitourinary - Female: No dysuria Physical Exam: General Appearance: WD/WN, no apparent distress Neck: + pertinent finding (Dressing over the right side of the neck from entry for IVC removal) Respiratory/Chest: chest non-tender, lungs clear, normal breath sounds Cardiovascular: regular rate, rhythm, no edema, no gallop, no murmur Abdomen / GI: normal bowel sounds, non tender, soft Extremities: no calf tenderness, + pedal edema, + pertinent finding ( Tenderness to palpation of the right groin region) Neurologic/Psychiatric: alert, normal mood/affect, oriented x 3 (Shaw Mary MD) Hospital Course The patient is a 46-year-old female with a past medical history of neurosarcoidosis, anterior cervical discectomy and fusion, ambulatory dysfunction, PE, DVT, and asthma that presented to the ED with right groin and back pain. On admission the patient was found to have inflammation of the right psoas muscle as well as an incidental finding of gonadal vein thrombosis. The patient was subsequently started on broad-spectrum antibiotics and ID was consulted. Blood cultures grew staph aureus and subsequent susceptibility findings narrow her antibiotic use to daptomycin. Imaging also showed that the patient's IVC filter had migrated, so vascular surgery attempted to remove the IVC filter. Due to excessive clotting in the IVC, the filter was unable to be removed. After the procedure was completed the patient was placed on Lovenox along with her home regimen of Coumadin. During her inpatient stay the patient had completed 7 days of antibiotic therapy, and on discharge had a PICC placed with the intention of receiving a total of 4 weeks of antibiotic therapy. Due to the physical state of the patient with her limited mobility and right groin pain the patient was discharged to an inpatient rehabilitation facility [facility]. The patient will have outpatient follow-up with infectious disease after discharge. Also during her inpatient stay the patient had a transthoracic echocardiogram that did not show any acute findings. It was also evidence during the attempted IVC removal, that because the IVC was very clotted her ovarian arteries were roughly 3 times they're normal size. The patient was discussing having an ovarian cyst removal performed later at [facility] , and it was relayed to the patient that she would most likely had significant lower extremity edema because of this. Total Time Spent: Greater than 30 minutes This includes examination of the patient, discharge planning, medication reconciliation, and communication with other providers. (Shaw Mary MD) Discharge Instructions Please refer to the electronic Patient Visit Report (Discharge Instructions) for additional information. (Shaw Mary MD) Additional Copies To Sami Carr M.D. Assessment/Plan Pt seen and examined in concert with the resident physician and agree with the assessment and plan as noted above. For full attending documentation, please see accompanying note from day of discharge. (Shayan Sutton MD)
[2016-11-08] MEDS ORDERED: WARFARIN SOD 4 MG TAB PO SCH (16:00)
[2016-12-10] MEDS ORDERED: DOCU-94 PO (11:01)
== END 2016-11-07 15:21 | DRG 252 ==
LOC: EDBD 11:33 → EDSEX 11:33 → C.EDC 11:34 → C.MED 11-01 00:58 → ENRESERV 11-01 01:09
PROVIDERS: ADMIT Family Medicine; ATTEND Family Medicine
PROC: 06703ZZ Dilation of Inferior Vena Cava, Percutaneous Approach (ICD-10-PCS; principal; 2016-11-05 10:00)
PROC: 02HV33Z Insertion of Infusion Device into Superior Vena Cava, Percutaneous Approach (ICD-10-PCS; 2016-11-07)
DX: T82.525A Displacement of umbrella device, initial encounter (principal); A41.01 Sepsis due to Methicillin susceptible Staphylococcus aureus; N39.0 Urinary tract infection, site not specified; I82.890 Acute embolism and thrombosis of other specified veins; M60.08 Infective myositis, other site; D86.89 Sarcoidosis of other sites; M54.5 Low back pain; J45.909 Unspecified asthma, uncomplicated; Z79.52 Long term (current) use of systemic steroids; K59.00 Constipation, unspecified; F41.8 Other specified anxiety disorders; B95.61 Methicillin susceptible Staphylococcus aureus infection as the cause of diseases classified elsewhere; Z88.0 Allergy status to penicillin; Z86.718 Personal history of other venous thrombosis and embolism; Z87.891 Personal history of nicotine dependence; Z98.1 Arthrodesis status; Z98.84 Bariatric surgery status; Z79.01 Long term (current) use of anticoagulants

== ENCOUNTER → 2017-01-14 | Outpatient (CLI) | payer OTHER, BC ==
[~2017-01-14] MED LIST changes: -ALBUAER2 INH; +CALC-393 PO; -CALCTAB5 PO; +DOCU-94 PO; +OPTIRAY 320 IV PRN; +VNTHFA/IN INH
--- NOTE | 2017-01-14 12:04 | DIAGNOSTIC IMAGING REPORT ---
ABDOMEN COMBO CLINICAL HISTORY: 46 years-old Female presenting with perforation of IVC secondary to IVC filter. TECHNIQUE: Multidetector CT of the abdomen was performed before and after the administration of intravenous contrast. IV contrast: 94 mL of Optiray 320. A dose lowering technique was used consistent with the principles of ALARA (as low as reasonably achievable). COMPARISON: 10/31/2016. CT DOSE (mGy.cm): The estimated cumulative dose is 629.13 mGy.cm. 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 Lung bases: Lung bases clear. Normal heart size. No pericardial or pleural effusion. Liver: Normal morphology. No liver lesion. Patent hepatic vasculature. Biliary: No intrahepatic or extrahepatic biliary ductal dilatation. Gallbladder contains gallstones. Pancreas: Mild parenchymal atrophy. Spleen: Heterogeneously hypodense enhancing lesions in the spleen, unchanged from prior. A well-defined hypodense nonenhancing lesion at the medial superior spleen is also unchanged. The spleen remains enlarged measuring over 15 cm in axial sagittal dimension. Adrenal glands: Normal. Kidneys and ureters: Normal. No hydronephrosis. Bowel: Postsurgical changes of antecolic Deanna-en-Y gastric bypass. Patent distal small bowel anastomosis. No bowel obstruction. Peritoneal cavity: No free fluid or intraperitoneal gas. Vasculature: Significant interval decrease in retroperitoneal infiltration surrounding the IVC. The IVC at the level of the infrarenal IVC filter is diminutive and likely stenotic or occluded given the presence of numerous prominent collateral vessels arising from the right gonadal vein. Again noted are multiple IVC filter struts in an extraluminal location. Remodeling of the L4 vertebral body secondary to one of the struts is again noted. Prominent left gonadal vein with numerous collateral vessels also noted. The aorta is patent and normal in caliber. Lymph nodes: No enlarged lymph nodes in the abdomen or pelvis. Abdominal wall: Postsurgical changes of the lower abdominal wall with infiltration and nodularity similar to prior exam. Musculoskeletal: Degenerative changes of the spine. Remodeling of the L4 vertebral body, unchanged. IMPRESSION: 1. Significant interval decrease in retroperitoneal inflammatory change associated with the IVC. The infrarenal IVC filter remains in place with extraluminal struts. Given the degree of collateral vessel formation associated with the dilated bilateral gonadal veins, this raises concern for chronic stenosis or occlusion of the IVC after below the level of the IVC filter. 2. Splenomegaly. Stable appearance of multiple lesions. In the absence of known malignancy or lymphoma, these most likely represent hemangiomas or hamartomas and a cyst, pseudocyst, or lymphangioma. Electronically signed by: Sami Curry M.D. 01/14/2017 12:02 PM Dictated Date/Time: 01/14/2017 11:49 AM
== END | disposition home or self-care (01) ==
LOC: C.CTS 11:05
PROVIDERS: ATTEND Surgery Vascular Surgery
DX: Z95.828 Presence of other vascular implants and grafts (principal); R16.1 Splenomegaly, not elsewhere classified

== ENCOUNTER → 2017-03-18 | Outpatient (CLI) | payer OTHER, BC ==
[~2017-03-18] MED LIST changes: -OPTIRAY 320 IV PRN; +TRAZ-120 PO; -TRAZ1TAB5 PO
[2017-03-18 13:26] LABS: BASO % 0.6 %; BASO ABS # 0.02 K/uL (0-0.2); COMPLETE YES; EOS % 4.7 %; HEMATOCRIT 32.6 % (37-47); IG% 0.3 %; LYMPH % 15.8 %; LYMPH ABS # 0.57 K/uL (1.2-3.4); MEAN CELL VOLUME 78.7 fL (80-100); MEAN CORPUSCULAR HEMOGLOBIN 23.4 pg (25-34); MEAN CORPUSCULAR HGB CONC 29.8 g/dl (32-36); MEAN PLATELET VOLUME 10.1 fL (7.4-10.4); MONO % 8.3 %; NEUT % 70.3 %; PLATELET COUNT 210 K/uL (130-400); RED BLOOD COUNT 4.14 M/uL (4.2-5.4); WHITE BLOOD COUNT 3.61 K/uL (4.8-10.8)
[2017-03-18 13:56] LABS: ALKALINE PHOSPHATASE 82 U/L (45-117); ALT/SGPT 36 U/L (12-78); AST/SGOT 24 U/L (15-37); BLOOD UREA NITROGEN 15 mg/dl (7-18); BUN/CREATININE RATIO 24.7 (10-20); CALCIUM 8.8 mg/dl (8.5-10.1); CARBON DIOXIDE 27 mmol/L (21-32); CHLORIDE 104 mmol/L (98-107); CHOLESTEROL 156 mg/dl (0-200); CHOLESTEROL/HDL RATIO 2.8; CREATININE 0.62 mg/dl (0.60-1.20); GLUCOSE 74 mg/dl (70-99); HDL CHOLESTEROL 55 mg/dl; LDL CHOLESTEROL CALCULATED 89 mg/dl; POTASSIUM 4.3 mmol/L (3.5-5.1); SODIUM 138 mmol/L (136-145); TOTAL IRON BINDING CAPACITY 425 mcg/dl (250-450); TRIGLYCERIDES 61 mg/dl (0-150); VERY LOW DENSITY LIPOPROT CALC 12 mg/dl
[2017-03-18 14:03] LABS: ALB/GLOB RATIO 1.1 (0.9-2); FERRITIN 8.6 ng/ml (8.0-388.0)
== END | disposition home or self-care (01) ==
LOC: C.LABBC 11:18
PROVIDERS: ATTEND Internal Medicine
DX: Z95.828 Presence of other vascular implants and grafts (principal)

== ENCOUNTER → 2017-05-06 | Outpatient (CLI) | payer OTHER, BC ==
[~2017-05-06] MED LIST changes: -FOLI1TAB7 PO; +FOLI1TAB8 PO
[2017-05-06 13:26] LABS: BASO % 0.7 %; BASO ABS # 0.02 K/uL (0-0.2); EOS % 4.1 %; EOS ABS # 0.11 K/uL (0-0.5); HEMATOCRIT 32.1 % (37-47); HEMOGLOBIN 9.9 g/dL (12.0-16.0); LYMPH % 21.9 %; LYMPH ABS # 0.59 K/uL (1.2-3.4); MEAN CELL VOLUME 78.7 fL (80-100); MEAN CORPUSCULAR HEMOGLOBIN 24.3 pg (25-34); MEAN CORPUSCULAR HGB CONC 30.8 g/dl (32-36); MEAN PLATELET VOLUME 10.7 fL (7.4-10.4); MONO % 14.1 %; MONO ABS # 0.38 K/uL (0.11-0.59); NEUT % 59.2 %; PLATELET COUNT 212 K/uL (130-400); RED CELL DISTRIBUTION WIDTH CV 19.2 % (11.5-14.5); RED CELL DISTRIBUTION WIDTH SD 54.8 fL (36.4-46.3)
== END | disposition home or self-care (01) ==
LOC: C.LABBC 10:19
PROVIDERS: ATTEND Internal Medicine
DX: Z00.00 Encounter for general adult medical examination without abnormal findings (principal); D64.9 Anemia, unspecified

== ENCOUNTER 2021-05-09 10:00 | Inpatient (IN) ==
[2021-05-09] MEDS ORDERED: ONDANSETRON INJ 2 MG/ML 2 ML VIAL IV STA (10:16)
[2021-05-09] MEDS ORDERED: ACETAMINOPHEN 1,000 MG/100 ML VIAL IV STA (10:16)
[2021-05-09] MEDS ORDERED: SODIUM CHLORIDE 0.9% 1000ML 1,000 ML IV ONE ×2 (10:16→11:47)
[2021-05-09] MEDS ORDERED: FAMOTIDINE 20MG IV PUSH 20 MG/5 ML SYR IV STA (10:16)
[2021-05-09 10:44] LABS: Basophils # (auto) 0.02 K/uL (0-0.2); Basophils % (auto) 0.1 %; Eosinophils # (auto) 0.09 K/uL (0-0.5); Eosinophils % (auto) 0.5 %; Hematocrit (blood only) 41.5 % (37-47); Hemoglobin 12.8 g/dL (12.0-16.0); Immature Granulocytes % (auto) 0.5 %; Lymphocytes # (auto) 0.44 K/uL (1.2-3.4); Lymphocytes % (auto) 2.3 %; Mean Corpuscular Hemoglobin 26.9 pg (25-34); Mean Corpuscular Hgb Conc 30.8 g/dL (32-36); Mean Corpuscular Volume 87.2 fL (80-100); Mean Platelet Volume 10.7 fL (7.4-10.4); Monocytes # (auto) 0.49 K/uL (0.11-0.59); Monocytes % (auto) 2.6 %; Neutrophils # (auto) 17.65 K/uL (1.4-6.5); Platelet Count 206 K/uL (130-400); RDW Coefficient of Variation 15.3 % (11.5-14.5); Red Blood Count 4.76 M/uL (4.2-5.4); White Blood Count 18.79 K/uL (4.8-10.8)
[2021-05-09 10:59] LABS: Alanine Aminotransferase 25 U/L (7-52); Albumin Globulin Ratio 1.3 (0.9-2); Albumin Level 4.2 gm/dl (3.4-5.0); Alkaline Phosphatase 88 U/L (34-104); Anion Gap 8 (3-11); Aspartate Aminotransferase 27 U/L (13-39); Bilirubin Direct 0.2 mg/dl (0-0.2); Bilirubin,Total 1.3 mg/dl (0.2-1.0); Blood Urea Nitrogen 20 mg/dl (6-23); Calcium 9.7 mg/dl (8.5-10.1); Carbon Dioxide 28 mmol/L (21-32); Chloride 102 mmol/L (98-107); Creatinine Clr Calc Pharmacy 98.7 ml/min; Est GFR (African American) 89.4 ml/min; Est GFR (Non-African American) 77.1 ml/min; Globulin 3.2 gm/dl (2.5-4.0); Glucose 99 mg/dl (70-99(Fasting)); Lipase 24 U/L (11-82); Magnesium 1.6 mg/dl (1.7-2.4); Phosphorus 2.5 mg/dl (2.5-4.9); Potassium 4.4 mmol/L (3.5-5.1); Sodium 138 mmol/L (136-145); Total Protein 7.4 gm/dl (6.0-8.3); Troponin I < 0.03 ng/ml (0-0.04)
[2021-05-09 11:01] LABS: INR 3.6 (0.9-1.1); Partial Thromboplastin Ratio 1.8; Prothrombin Time 32.8 Seconds (9.0-12.0)
[2021-05-09 11:08] LABS: Base Excess VBG 3.5 mEq/L; pH VBG 7.41 (7.36-7.41)
--- NOTE | 2021-05-09 11:19 | XRay Report ---
XR chest 1V portable CLINICAL HISTORY: SEPSIS TECHNIQUE: Single frontal radiograph of the chest was obtained. Comparison: Comparison is made to chest one view 07/16/2018 FINDINGS: No lines and tubes are seen. The cardiomediastinal silhouette is normal. The lungs are clear. No evid ence of pleural effusion or pneumothorax. IMPRESSION: No acute chest disease. ACT 112: Negative or not required by law. Electronically signed by: Nadeem Shi M.D. 05/09/2021 11:17 AM
[2021-05-09 11:22] LABS: Partial Thromboplastin Time 47.9 Seconds (21.0-31.0)
[2021-05-09 11:40] LABS: Influenza A virus by PCR Negative (Neg); Influenza B virus by PCR Negative (Neg); RSV by PCR Negative (Neg); SARS CoV2 RNA(COVID-19) InHosp NEGATIVE (Negative)
[2021-05-09] MEDS ORDERED: DAPTOmycin 500 MG in SYRINGE 0 ML IV ONE (11:47)
[2021-05-09] MEDS ORDERED: CEFEPIME 2,000 MG/20 ML VIAL IV STA (11:47)
--- NOTE | 2021-05-09 12:19 | Emergency Department Note ---
Impression & Plan Sepsis, UTI (lower urinary tract infection), Leukocytosis, Hypotension, Hypomagnesemia ED Provider Note NAME: VINH STROUD AGE: 51 SEX: F ARRIVES VIA: Ambulance INFORMANT: Patient ED PROVIDER(S): Blake Mcmahon MD CHIEF COMPLAINT: Fever PLAN: Disposition: Admit MEDICAL DECISION MAKING: The patient is a pleasant 51-year-old woman with a past medical history of cervical myelopathy/transverse myelitis, incomplete quadriplegia, neurogenic karely dder requiring self straight catheterization, lymphedema, PE on warfarin h/o IVC placement, pulmonary sarcoidosis who presents to the emergency department from home with body aches, fevers, nausea developing over the past couple of days. She denies cough or congestion. She denies any other family members with similar symptoms. She is not vaccinated for COVID-19. She denies chest pain or shortness of breath. On arrival the patient is uncomfortable but in no acute distress, febrile to 39.2 with heart rate in the 120s. BP down to 90s/60s but fluid responsive. Her O2 saturation is 95% on room air. Patient does have chronic bilateral lower extremity edema however her mucous membranes are dry. EKG without overt acute ischemia. CXR negative for acute cardiopulmonary process. WBC 18K. H/H and platelets wnl. INR 3.6. Chemistry without acidosis. VBG unremarkable. Lactate 1.1, wnl. BUN/Cr > 20. Magnesium 1.6 with repletion provided. Electrolytes unremarkable. Total bilirubin with direct bilirubin 0.2, wnl. Otherwise, LFTs without significant abnormality. Troponin negative/undetectable. Procalcitonin is not elevated. UA is suspicious for infection with positive nitrites and WBC albeit with epithelial cells present. No bacteria. Covid-19 PCR negative. Influenza and RSV PCR negative. CT abd/pelvis demonstrates bladder wall thickening suspicious for cystitis. No evidence of upper infection. Lungs bases are clear. Patient was treated empirically with Cefepime and Daptomycin. Wound cx h/o MSSA and pseudomonas. Urine cx h/o Kluyvera ascorbata. Case was discussed with Dr. Muñiz, [facility] [place], who will evaluate the patient for admission. Triage Nursing notes reviewed and agree them. Prior medical records reviewed Vital Signs: reviewed and remarkable for fever, tachycardia, hypotension. Differential diagnosis: Viral syndrome, otitis, pharyngitis, pneumonia, influenza, meningitis, urinary tract infection, sepsis, bacteremia, as well as other pathologies. ER treatment provided: See below. Diagnostics interpreted by me: ECG: Sinus tachycardia, 123 bpm, no ectopy, no overt ST elevation or depression. Cardiac Monitoring: An order for continuous cardiac monitoring was placed and demonstrated Sinus tachycardia, 123 bpm, no ectopy. Laboratory studies: See below Imaging studies: See below Consultation(s): Case was discussed with Dr. Muñiz, [facility] hospitalist, who will evaluate the pa tieangelica for admission. HPI: The patient is a pleasant 51-year-old woman with a past medical history of cervical myelopathy/transverse myelitis, incomplete quadriplegia, neurogenic bladder requiring self straight catheterization, lymphedema, PE on warfarin h/o IVC placement, pulmonary sarcoidosis who presents to the emergency department from home with body aches, fevers, nausea developing over the past couple of days. She denies cough or congestion. She denies any other family members with similar symptoms. She is not vaccinated for COVID-19. She denies chest pain or shortness of breath. ROS: See above HPI for pertinent positives & negatives. A total of 10 systems reviewed and were otherwise negative. PAST MEDICAL HISTORY:See Below PAST SURGICAL HISTORY:See Below FAMILY HISTORY:See Below SOCIAL HISTORY:See Below HOME MEDICATIONS:See Below ALLERGIES:See Below VITALS:See Below PHYSICAL EXAMINATION: GENERAL: Awake, alert, acute on chronically ill-appearing, in no distress, BMI 41.0 HENT: Normocephalic, atraumatic. Oropharynx with dry mucous membranes and otherwise unremarkable. EYES: Normal conjunctiva. Sclera non-icteric. NECK: Supple. No nuchal rigidity. FROM. No JVD. RESPIRATORY: Clear to auscultation. CARDIAC: Tachycardic rate, normal rhythm. Extremities warm and well perfused. Pulses equal. ABDOMEN: Soft, non-distended. No tenderness to palpation. No rebound or guarding. No masses. RECTAL: Deferred. MUSCULOSKELETAL: Chest examination reveals no tenderness. The back is symmetrical on inspection without obvious abnormality. There is no CVA tenderness to palpation. No joint edema. LOWER EXTREMITIES: Calves are equal size bilaterally and non-tender. 2+ BLE edema. NEURO: At baseline with BLE weakness. SKIN: No rash or jaundice noted. ED COURSE: Critical Care: I have personally spent greater than 75 minutes of critical care time in the direct management of this patient. This includes bedside care, interpretation of diagnostic studies, and testing, discussion with consultants, patient, and family members, and other required patient management activities. This 75 minutes is in excess of all separately billable procedures. 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 Headache History of pulmonary embolism Hx of spinal cord injury MSSA (methicillin susceptible Staphylococcus aureus) septicemia Sepsis Skin ulcer of buttock, limited to breakdown of skin Spinal cord injury Syncopal episodes (05/15/14) Surgical History H/O breast surgery H/O cervical spine surgery cervical vertebral fusion H/O esophagogastroduodenoscopy H/O gastric bypass H/O laparoscopy History of conization of cervix Hx of hernia repair Hx of tonsillectomy S/P IVC filter Family History Mother Breast cancer Grandfather (Paternal) Cardiac disorder Lung cancer Father Cardiac disorder Hypertension Other Cancer Heart disease Social History Smoking Status: Former smoker Hx Alcohol Use: No Hx Substance Use: No Preferred Language: Ukrainian Communication Ability: Effective Visual Impairment: No Limitations Hearing Ability: Normal Director Hedis Required: No Beliefs That Will Affect Care: None marital status: Current Living Situation: Family current occupational status: disabled Feels Safe at Home: Yes Safety Concerns: Feels Safe At This Time Childhood Exposure to Second-Hand Smoke: No caffeine: Yes Dental Care, Regularly: Yes Physical Activity Frequency: Does not Exercise Seatbelt Use: always Sunscreen Use: Yes Assistive Devices: Walker Allergies Allergies Allergy/AdvReac Type Severity Reaction Status Date / Time Penicillins Allergy Unknown hives Verified 05/09/21 11:33 vancomycin Allergy Unknown hives, Verified 05/09/21 11:33 breathing difficulties Home Meds Home Medications Medication Instructions Recorded Confirmed folic acid 1 mg tablet 1 mg PO QAM 01/03/18 05/09/21 calcium carbonate 600 mg-vitamin 2 tab PO QAM tab 09/25/18 05/09/21 D3 5 mcg (200 unit) tablet cholecalciferol (vitamin D3) 25 2,000 units PO QAM tab 09/25/18 05/09/21 mcg (1,000 unit) tablet xmieizjhp-pyrY-ezasulp-FOS-bromelain 10 ml PO DAILY PRN ml 09/25/18 05/09/21 1,937 mg-188 mg/15 mL oral liquid (Cystex Cranberry) ferrous sulfate 325 mg (65 mg 325 mg PO BID #125 tab 09/25/18 05/09/21 iron) tablet cyanocobalamin (vitamin B-12) 1,000 mcg IM MONTHLY ml 01/14/20 05/09/21 1,000 mcg/mL injection solution acetaminophen 325 mg tablet 650 mg PO QID PRN 05/09/21 05/09/21 (Tylenol) multivitamin 1 tab PO QAM 05/09/21 05/09/21 potassium chloride 20 mEq 20 meq PO DAILY@0600 05/09/21 05/09/21 tablet,extended release sertraline 100 mg tablet 200 mg PO DAILY@59905/09/21 05/09/21 sertraline 50 mg tablet 50 mg PO DAILY@0600 05/09/21 05/09/21 Previous Rx's Medication Instructions Recorded Powered Wheelchair #1 ea 09/21/19 baclofen 10 mg tablet 5 mg PO QID #180 tab 10/20/20 alprazolam 0.5 mg tablet 0.5 mg PO DAILY PRN #45 tab 03/24/21 albuterol sulfate 90 mcg/actuation See Rx Instructions .ROUTE 03/27/21 aerosol inhaler .COMPLEX #18 gram warfarin 3 mg tablet See Rx Instructions PO UD #120 tab 04/05/21 Results & Data (ED) Vital Signs Vital Signs - 24 hr 05/09/21 10:11 05/09/21 10:16 05/09/21 10:26 Temperature 39.2 C H Temperature Source Oral Pulse Rate 123 H Pulse Rate [Finger] Pulse Rate from SpO2 Sensor Respiratory Rate 22 Respiratory Effort / Characteristics Non-Labored Spontaneous Blood Pressure 128/94 Blood Pressure [Right Arm] Blood Pressure Mean 105 Blood Pressure Mean [Right Arm] Pulse Oximetry 95 Oxygen Delivery Method Room Air Room Air Room Air Sepsis Recent Fever Within 48 Hours Yes Sepsis New/Unexplained Change in Mental Status No Sepsis Action Taken by Nursing Physician Notified 05/09/21 10:45 05/09/21 10:46 05/09/21 11:00 Temperature Temperature Source Pulse Rate 134 H 127 H Pulse Rate [Finger] Pulse Rate from SpO2 Sensor Respiratory Rate 19 19 Respiratory Effort / Characteristics Non-Labored Spontaneous Blood Pressure Blood Pressure [Right Arm] Blood Pressure Mean Blood Pressure Mean [Right Arm] Pulse Oximetry Oxygen Delivery Method Room Air Sepsis Recent Fever Within 48 Hours Sepsis New/Unexplained Change in Mental Status Sepsis Action Taken by Nursing 05/09/21 11:01 05/09/21 11:15 05/09/21 11:16 Temperature Temperature Source Pulse Rate 113 H 109 H Pulse Rate [Finger] Pulse Rate from SpO2 Sensor Respiratory Rate 27 H 27 H Respiratory Effort / Characteristics Non-Labored Spontaneous Blood Pressure 111/64 Blood Pressure [Right Arm] Blood Pressure Mean 79 Blood Pressure Mean [Right Arm] Pulse Oximetry Oxygen Delivery Method Room Air Sepsis Recent Fever Within 48 Hours Sepsis New/Unexplained Change in Mental Status Sepsis Action Taken by Nursing 05/09/21 11:30 05/09/21 11:45 05/09/21 11:46 Temperature Temperature Source Pulse Rate 117 H 120 H Pulse Rate [Finger] Pulse Rate from SpO2 Sensor Respiratory Rate 23 21 Respiratory Effort / Characteristics Non-Labored Spontaneous Blood Pressure 98/63 L Blood Pressure [Right Arm] Blood Pressure Mean 74 Blood Pressure Mean [Right Arm] Pulse Oximetry Oxygen Delivery Method Room Air Sepsis Recent Fever Within 48 Hours Sepsis New/Unexplained Change in Mental Status Sepsis Action Taken by Nursing 05/09/21 12:00 05/09/21 12:01 05/09/21 12:16 Temperature Temperature Source Pulse Rate Pulse Rate [Finger] Pulse Rate from SpO2 Sensor Respiratory Rate 19 Respiratory Effort / Characteristics Non-Labored Spontaneous Blood Pressure 116/45 L Blood Pressure [Right Arm] Blood Pressure Mean 68 Blood Pressure Mean [Right Arm] Pulse Oximetry Oxygen Delivery Method Room Air Sepsis Recent Fever Within 48 Hours Sepsis New/Unexplained Change in Mental Status Sepsis Action Taken by Nursing 05/09/21 12:31 05/09/21 12:45 05/09/21 12:46 Temperature Temperature Source Pulse Rate Pulse Rate [Finger] 117 H Pulse Rate from SpO2 Sensor 118 H 111 H Respiratory Rate 18 Respiratory Effort / Characteristics Non-Labored Spontaneous Blood Pressure Blood Pressure [Right Arm] 92/59 L Blood Pressure Mean Blood Pressure Mean [Right Arm] 70 Pulse Oximetry 92 Oxygen Delivery Method Room Air Room Air Sepsis Recent Fever Within 48 Hours Sepsis New/Unexplained Change in Mental Status Sepsis Action Taken by Nursing 05/09/21 13:05 05/09/21 13:15 05/09/21 13:16 Temperature Temperature Source Pulse Rate Pulse Rate [Finger] Pulse Rate from SpO2 Sensor 114 H 108 H Respiratory Rate Respiratory Effort / Characteristics Non-Labored Spontaneous Blood Pressure Blood Pressure [Right Arm] Blood Pressure Mean Blood Pressure Mean [Right Arm] Pulse Oximetry 94 93 Oxygen Delivery Method Room Air Room Air Sepsis Recent Fever Within 48 Hours Sepsis New/Unexplained Change in Mental Status Sepsis Action Taken by Nursing 05/09/21 13:30 05/09/21 13:33 05/09/21 13:46 Temperature Temperature Source Pulse Rate Pulse Rate [Finger] Pulse Rate from SpO2 Sensor 109 H 111 H Respiratory Rate Respiratory Effort / Characteristics Non-Labored Spontaneous Blood Pressure 97/56 L Blood Pressure [Right Arm] Blood Pressure Mean 69 Blood Pressure Mean [Right Arm] Pulse Oximetry 90 92 Oxygen Delivery Method Room Air Room Air Room Air Sepsis Recent Fever Within 48 Hours Sepsis New/Unexplained Change in Mental Status Sepsis Action Taken by Nursing 05/09/21 14:16 05/09/21 14:30 05/09/21 14:46 Temperature Temperature Source Pulse Rate Pulse Rate [Finger] Pulse Rate from SpO2 Sensor Respiratory Rate Respiratory Effort / Characteristics Non-Labored Spontaneous Non-Labored Spontaneous Blood Pressure 117/62 Blood Pressure [Right Arm] Blood Pressure Mean 80 Blood Pressure Mean [Right Arm] Pulse Oximetry Oxygen Delivery Method Room Air Room Air Sepsis Recent Fever Within 48 Hours Sepsis New/Unexplained Change in Mental Status Sepsis Action Taken by Nursing Laboratory Data Result diagrams: 05/09/21 10:16 05/09/21 10:16 Lab Results 05/09/21 05/09/21 05/09/21 Range/Units 10:16 10:16 10:16 WBC 18.79 H (4.8-10.8) K/uL RBC 4.76 (4.2-5.4) M/uL Hgb 12.8 (12.0-16.0) g/dL Hct 41.5 (37-47) % MCV 87.2 (80-100) fL MCH 26.9 (25-34) pg MCHC 30.8 L (32-36) g/dL RDW Std Deviation 49.0 H (36.4-46.3) fL RDW Coeff of Aleks 15.3 H (11.5-14.5) % Plt Count 206 (130-400) K/uL MPV 10.7 H (7.4-10.4) fL Immature Gran % (Auto) 0.5 % Neut % (Auto) 94.0 % Lymph % (Auto) 2.3 % [place] % (Auto) 2.6 % Eos % (Auto) 0.5 % Baso % (Auto) 0.1 % Neut # (Auto) 17.65 H (1.4-6.5) K/uL Lymph # (Auto) 0.44 L (1.2-3.4) K/uL [place] # (Auto) 0.49 (0.11-0.59) K/uL Eos # (Auto) 0.09 (0-0.5) K/uL Baso # (Auto) 0.02 (0-0.2) K/uL Immature Gran # (Auto) 0.10 H (0.00-0.02) K/uL PT 32.8 H (9.0-12.0) Seconds INR 3.6 H (0.9-1.1) APTT 47.9 H* (21.0-31.0) Seconds PTT Ratio 1.8 VBG pH (7.36-7.41) VBG pCO2 (38-50) mmHg VBG pO2 mmHg VBG HCO3 mmol/L VBG O2 Saturation % VBG Base Excess mEq/L Barometric Pressure mm/Hg Sodium 138 (136-145) mmol/L Potassium 4.4 (3.5-5.1) mmol/L Chloride 102 (98-107) mmol/L Carbon Dioxide 28 (21-32) mmol/L Anion Gap 8 (3-11) BUN 20 (6-23) mg/dl Creatinine 0.87 (0.6-1.2) mg/dl Est Cr Clr Drug Dosing 98.7 ml/min Est GFR ( Amer) 89.4 ml/min Est GFR (Non-Af Amer) 77.1 ml/min BUN/Creatinine Ratio 23.0 H (10-20) Glucose 99 (70-99(Fasting)) mg/dl Lactate (0.4-2.0) mmol/L Calcium 9.7 (8.5-10.1) mg/dl Phosphorus 2.5 (2.5-4.9) mg/dl Magnesium 1.6 L (1.7-2.4) mg/dl Total Bilirubin 1.3 H (0.2-1.0) mg/dl Direct Bilirubin 0.2 (0-0.2) mg/dl AST 27 (13-39) U/L ALT 25 (7-52) U/L Alkaline Phosphatase 88 (34-104) U/L Troponin I < 0.03 (0-0.04) ng/ml Total Protein 7.4 (6.0-8.3) gm/dl Albumin 4.2 (3.4-5.0) gm/dl Globulin 3.2 (2.5-4.0) gm/dl Albumin/Globulin Ratio 1.3 (0.9-2) Lipase 24 (11-82) U/L Procalcitonin (0-0.5) ng/ml Urine Color Urine Appearance (Clear) Urine pH (4.5-7.5) Ur Specific [place] (1.000-1.030) Urine Protein (Negative) Urine Glucose (UA) (Negative) Urine Ketones (Negative) Urine Blood (Negative) Urine Nitrite (Negative) Urine Bilirubin (Negative) Urine Urobilinogen (Negative) Ur Leukocyte Esterase (Negative) Urine WBC (Auto) (0-5) /hpf Urine RBC (Auto) (0-4) /hpf U Hyaline Cast (Auto) (0-5) /lpf U Epithel Cells (Auto) (0-5) /lpf Urine Bacteria (Auto) (Negative) SARS-CoV-2 (PCR) (Negative) Influenza Type A (PCR) (Neg) Influenza Type B (PCR) (Neg) RSV (RT-PCR) (Neg) 05/09/21 05/09/21 05/09/21 Range/Units 10:16 10:43 10:58 WBC (4.8-10.8) K/uL RBC (4.2-5.4) M/uL Hgb (12.0-16.0) g/dL Hct (37-47) % MCV (80-100) fL MCH (25-34) pg MCHC (32-36) g/dL RDW Std Deviation (36.4-46.3) fL RDW Coeff of Aleks (11.5-14.5) % Plt Count (130-400) K/uL MPV (7.4-10.4) fL Immature Gran % (Auto) % Neut % (Auto) % Lymph % (Auto) % [place] % (Auto) % Eos % (Auto) % Baso % (Auto) % Neut # (Auto) (1.4-6.5) K/uL Lymph # (Auto) (1.2-3.4) K/uL [place] # (Auto) (0.11-0.59) K/uL Eos # (Auto) (0-0.5) K/uL Baso # (Auto) (0-0.2) K/uL Immature Gran # (Auto) (0.00-0.02) K/uL PT (9.0-12.0) Seconds INR (0.9-1.1) APTT (21.0-31.0) Seconds PTT Ratio VBG pH (7.36-7.41) VBG pCO2 (38-50) mmHg VBG pO2 mmHg VBG HCO3 mmol/L VBG O2 Saturation % VBG Base Excess mEq/L Barometric Pressure mm/Hg Sodium (136-145) mmol/L Potassium (3.5-5.1) mmol/L Chloride (98-107) mmol/L Carbon Dioxide (21-32) mmol/L Anion Gap (3-11) BUN (6-23) mg/dl Creatinine (0.6-1.2) mg/dl Est Cr Clr Drug Dosing ml/min Est GFR ( Amer) ml/min Est GFR (Non-Af Amer) ml/min BUN/Creatinine Ratio (10-20) Glucose (70-99(Fasting)) mg/dl Lactate 1.1 (0.4-2.0) mmol/L Calcium (8.5-10.1) mg/dl Phosphorus (2.5-4.9) mg/dl Magnesium (1.7-2.4) mg/dl Total Bilirubin (0.2-1.0) mg/dl Direct Bilirubin (0-0.2) mg/dl AST (13-39) U/L ALT (7-52) U/L Alkaline Phosphatase (34-104) U/L Troponin I (0-0.04) ng/ml Total Protein (6.0-8.3) gm/dl Albumin (3.4-5.0) gm/dl Globulin (2.5-4.0) gm/dl Albumin/Globulin Ratio (0.9-2) Lipase (11-82) U/L Procalcitonin 0.37 (0-0.5) ng/ml Urine Color Urine Appearance (Clear) Urine pH (4.5-7.5) Ur Specific [place] (1.000-1.030) Urine Protein (Negative) Urine Glucose (UA) (Negative) Urine Ketones (Negative) Urine Blood (Negative) Urine Nitrite (Negative) Urine Bilirubin (Negative) Urine Urobilinogen (Negative) Ur Leukocyte Esterase (Negative) Urine WBC (Auto) (0-5) /hpf Urine RBC (Auto) (0-4) /hpf U Hyaline Cast (Auto) (0-5) /lpf U Epithel Cells (Auto) (0-5) /lpf Urine Bacteria (Auto) (Negative) SARS-CoV-2 (PCR) NEGATIVE (Negative) Influenza Type A (PCR) Negative (Neg) Influenza Type B (PCR) Negative (Neg) RSV (RT-PCR) Negative (Neg) 05/09/21 05/09/21 Range/Units 10:58 12:32 WBC (4.8-10.8) K/uL RBC (4.2-5.4) M/uL Hgb (12.0-16.0) g/dL Hct (37-47) % MCV (80-100) fL MCH (25-34) pg MCHC (32-36) g/dL RDW Std Deviation (36.4-46.3) fL RDW Coeff of Aleks (11.5-14.5) % Plt Count (130-400) K/uL MPV (7.4-10.4) fL Immature Gran % (Auto) % Neut % (Auto) % Lymph % (Auto) % [place] % (Auto) % Eos % (Auto) % Baso % (Auto) % Neut # (Auto) (1.4-6.5) K/uL Lymph # (Auto) (1.2-3.4) K/uL [place] # (Auto) (0.11-0.59) K/uL Eos # (Auto) (0-0.5) K/uL Baso # (Auto) (0-0.2) K/uL Immature Gran # (Auto) (0.00-0.02) K/uL PT (9.0-12.0) Seconds INR (0.9-1.1) APTT (21.0-31.0) Seconds PTT Ratio VBG pH 7.41 (7.36-7.41) VBG pCO2 46 (38-50) mmHg VBG pO2 31 mmHg VBG HCO3 29 mmol/L VBG O2 Saturation 61.0 % VBG Base Excess 3.5 mEq/L Barometric Pressure 730.5 mm/Hg Sodium (136-145) mmol/L Potassium (3.5-5.1) mmol/L Chloride (98-107) mmol/L Carbon Dioxide (21-32) mmol/L Anion Gap (3-11) BUN (6-23) mg/dl Creatinine (0.6-1.2) mg/dl Est Cr Clr Drug Dosing ml/min Est GFR ( Amer) ml/min Est GFR (Non-Af Amer) ml/min BUN/Creatinine Ratio (10-20) Glucose (70-99(Fasting)) mg/dl Lactate (0.4-2.0) mmol/L Calcium (8.5-10.1) mg/dl Phosphorus (2.5-4.9) mg/dl Magnesium (1.7-2.4) mg/dl Total Bilirubin (0.2-1.0) mg/dl Direct Bilirubin (0-0.2) mg/dl AST (13-39) U/L ALT (7-52) U/L Alkaline Phosphatase (34-104) U/L Troponin I (0-0.04) ng/ml Total Protein (6.0-8.3) gm/dl Albumin (3.4-5.0) gm/dl Globulin (2.5-4.0) gm/dl Albumin/Globulin Ratio (0.9-2) Lipase (11-82) U/L Procalcitonin (0-0.5) ng/ml Urine Color Yellow Urine Appearance Clear (Clear) Urine pH 8.0 H (4.5-7.5) Ur Specific [place] 1.021 (1.000-1.030) Urine Protein Negative (Negative) Urine Glucose (UA) Negative (Negative) Urine Ketones Negative (Negative) Urine Blood Negative (Negative) Urine Nitrite Positive A (Negative) Urine Bilirubin Negative (Negative) Urine Urobilinogen Negative (Negative) Ur Leukocyte Esterase Trace H (Negative) Urine WBC (Auto) 10-30 H (0-5) /hpf Urine RBC (Auto) 0-4 (0-4) /hpf U Hyaline Cast (Auto) 1-5 (0-5) /lpf U Epithel Cells (Auto) 10-20 H (0-5) /lpf Urine Bacteria (Auto) Negative (Negative) SARS-CoV-2 (PCR) (Negative) Influenza Type A (PCR) (Neg) Influenza Type B (PCR) (Neg) RSV (RT-PCR) (Neg) Administered Medications Acetaminophen (Acetaminophen 325 Mg Tab) 650 mg PO Q4H PRN PRN Reason: Pain or Fever Stop: 06/08/21 16:53 Last Admin: 05/09/21 17:56 Dose: 650 mg Documented by: [id number] Baclofen (Baclofen 10 Mg Tab) 5 mg PO QID [facility] Stop: 06/08/21 16:59 Last Admin: 05/09/21 17:56 Dose: 5 mg Documented by: [id number] Ferrous Sulfate (Ferrous Sulfate 325 Mg Tab) 325 mg PO Q48H [facility] Stop: 06/08/21 17:59 Last Admin: 05/09/21 19:25 Dose: 325 mg Documented by: [id number] Discontinued Medications Sodium Chloride (Nss 1000ml) 1,000 mls @ 999 mls/hr IV .Q1H1M ONE Stop: 05/09/21 11:16 Last Infusion: 05/09/21 11:38 Dose: 0 mls/hr Documented by: [id number] Admin: 05/09/21 10:37 Dose: 999 mls/hr Documented by: [id number] Acetaminophen (Ofirmev) 1,000 mg in 100 mls @ 400 mls/hr IV NOW STA Stop: 05/09/21 10:30 Last Infusion: 05/09/21 10:55 Dose: 0 mls/hr Documented by: [id number] Admin: 05/09/21 10:40 Dose: 400 mls/hr Documented by: [id number] Famotidine (Pepcid 20mg Iv Push) 20 mg in 5 mls @ 2.5 mls/min IV NOW STA Stop: 05/09/21 10:17 Last Admin: 05/09/21 10:39 Dose: 2.5 mls/min Documented by: [id number] Cefepime HCl (Maxipime) 2,000 mg in 20 mls @ 5 mls/min IV NOW STA; Protocol Stop: 05/09/21 11:50 Last Admin: 05/09/21 13:08 Dose: 5 mls/min Documented by: [id number] Daptomycin 500 mg/ Syringe 10 mls @ 5 mls/min IV NOW ONE; Protocol Stop: 05/09/21 11:48 Last Admin: 05/09/21 13:08 Dose: 5 mls/min Documented by: [id number] Sodium Chloride (Nss 1000ml) 1,000 mls @ 999 mls/hr IV .Q1H1M ONE Stop: 05/09/21 12:47 Last Infusion: 05/09/21 14:12 Dose: 0 mls/hr Documented by: [id number] Admin: 05/09/21 13:11 Dose: 999 mls/hr Documented by: [id number] Magnesium Sulfate/Dextrose (Magnesium Sulfate / D5w) 1 gm in 100 mls @ 100 mls/hr IV Q1H ADDIE Stop: 05/09/21 13:48 Last Infusion: 05/09/21 15:36 Dose: 0 mls/hr Documented by: [id number] Admin: 05/09/21 14:16 Dose: 100 mls/hr Documented by: [id number] Infusion: 05/09/21 14:16 Dose: 0 mls/hr Documented by: [id number] Admin: 05/09/21 13:16 Dose: 100 mls/hr Documented by: [id number] Lactated Ringer's (Lr) 1,000 mls @ 999 mls/hr IV .Q1H1M ONE Stop: 05/09/21 14:42 Last Infusion: 05/09/21 19:47 Dose: 0 mls/hr Documented by: [id number] Admin: 05/09/21 18:36 Dose: 999 mls/hr Documented by: [id number] Ioversol (Optiray 320 100ml) 94 ml IV ONCE ONE Stop: 05/09/21 13:02 Last Admin: 05/09/21 13:02 Dose: 94 ml Documented by: [id number] Ondansetron HCl (Ondansetron Inj 2 Mg/Ml 2 Ml Vial) 4 mg IV NOW STA Stop: 05/09/21 10:17 Last Admin: 05/09/21 10:38 Dose: 4 mg Documented by: [id number] Imaging Data Radiologist's Impression: Chest X-Ray 05/09/21 10:16 XR chest 1V portable CLINICAL HISTORY: SEPSIS TECHNIQUE: Single frontal radiograph of the chest was obtained. Comparison: Comparison is made to chest one view 07/16/2018 FINDINGS: No lines and tubes are seen. The cardiomediastinal silhouette is normal. The lungs are clear. No evidence of pleural effusion or pneumothorax. IMPRESSION: No acute chest disease. ACT 112: Negative or not required by law. Electronically signed by: Nadeem Shi M.D. 05/09/2021 11:17 AM Abdomen/Pelvis CT 05/09/21 11:47 CT abd pelvis IV con only CLINICAL HISTORY: urosepsis . Abdominal pain COMPARISON STUDY: 06/06/2018 CT DOSE: 1353.84 mGy.cm TECHNIQUE: Standard CT of the Abdomen and Pelvis was performed with IV contrast. A dose lowering technique was utilized adhering to the principles of ALARA. Contrast Volume: Optiray 320, 94 ml. The patient did not receive oral contrast. FINDINGS: Lung base: The lung bases are clear. Abdominal cavity: There is no evidence for abdominal mass, adenopathy or ascites. Liver: There is hepatomegaly with fatty infiltration of the liver. There is no evidence for enhancing mass lesion. Spleen: There is splenomegaly with with multiple low-attenuation lesions again seen and unchanged. There is no enhancing mass lesion. Pancreas: There is homogeneous attenuation of the pancreatic parenchyma. There is no evidence for mass lesion or peripancreatic fluid collection. Gall Bladder: The gallbladder is distended with cholelithiasis present. There is no evidence for wall thickening or pericholecystic edema. Adrenal glands: The adrenal glands are normal in size and attenuation. There is no evidence for enhancing mass lesion. Kidneys: There is homogeneous attenuation of the renal parenchyma bilaterally. There is no CT evidence for pyelonephritis. There is no perinephric edema or stranding. There is no evidence for renal calculus or hydronephrosis bilaterally. There is no evidence for enhancing mass. Bowel: The patient is again status post previous gastric bypass surgery. The bowel loops are normally placed within the abdomen and pelvis without evidence for dilatation or obstruction. There is no evidence for mass lesion. There is mild sigmoid diverticulosis without evidence for diverticulitis. There are no inflammatory changes present. There is no evidence for free air. A normal appendix is again visualized the right lower quadrant. Bladder: The bladder is partially contracted with diffuse thickening of the bladder wall. This can be seen in the presence of cystitis. No focal mass can be identified on these limited noncontrast images. : There is no evidence for pelvic mass or adenopathy. There is no evidence for pelvic ascites. Vasculature: There is no evidence for aneurysmal dilatation of the abdominal aorta. IVC filter is in place. Osseous structures: There is no acute osseous pathology. Degenerative changes are seen within the spine. IMPRESSION: 1. Normal CT of the kidneys with no evidence for pyelonephritis. 2. Cholelithiasis with no CT evidence for acute cholecystitis. 3. Hepatosplenomegaly with no change in the appearance of the spleen. 4. Partially contracted, thick-walled bladder. The presence of cystitis cannot be excluded. 5. Sigmoid diverticulosis without evidence for diverticulitis. 6. Additional nonacute findings as delineated above. ACT 112: Negative or not required by law. Electronically signed by: Alec Pineda M.D. 05/09/2021 1:32 PM Discharge Plan Visit Data Chief Complaint: Illness ED Provider: Blake Mcmahon Discharge Problem: Sepsis, UTI (lower urinary tract infection), Leukocytosis, Hypotension, Hypomagnesemia Patient Disposition: Admitted As Inpatient Discharge Instructions Interventions: ED Discharge Assessment Last Done: 05/09/21 16:53 Discharge Problem: Sepsis Qualifiers: Sepsis type: sepsis due to unspecified organism Sepsis acute organ dysfunction status: without acute organ dysfunction Qualified Code(s): A41.9 - Sepsis, unspecified organism Leukocytosis Qualifiers: Leukocytosis type: unspecified Qualified Code(s): D72.829 - Elevated white blood cell count, unspecified Hypotension Qualifiers: Hypotension type: unspecified hypotension type Qualified Code(s): I95.9 - Hypotension, unspecified
[2021-05-09] MEDS ORDERED: OPTIRAY 320 100ml IV ONE (13:01)
[2021-05-09 13:04] LABS: Appearance Urine Clear (Clear); Bacteria Urine Automated Negative (Negative); Bilirubin Urine Negative (Negative); Blood Urine Negative (Negative); Color Urine Yellow; Glucose Urine UA Negative (Negative); Ketones Urine Negative (Negative); Leukocyte Esterase Urine Trace (Negative); Nitrite Urine Positive (Negative); Protein Urine Negative (Negative); RBC Urine Automated 0-4 /hpf (0-4); Specific Gravity Urine 1.021 (1.000-1.030); Urobilinogen Urine Negative (Negative)
[2021-05-09] MEDS: MAGNESIUM SULFATE / D5W 1 GM/100 ML BAG IV SCH ×2 (13:16→14:16)
--- NOTE | 2021-05-09 13:33 | CT Scan Report ---
CT abd pelvis IV con only CLINICAL HISTORY: urosepsis . Abdominal pain COMPARISON STUDY: 06/06/2018 CT DOSE: 1353.84 mGy.cm TECHNIQUE: Standard CT of the Abdomen and Pelvis was performed with IV contrast. A dose lowering sheldon hnique was utilized adhering to the principles of ALARA. Contrast Volume: Optiray 320, 94 ml. The patient did not receive oral contrast. FINDINGS: Lung base: The lung bases are clear. Abdominal cavity: There is no evidence for abdominal mass, adenopathy or ascites. Liver: There is hepatomegaly with fatty infiltration of the liver. There is no evidence for enhancing mass lesion. Spleen: There is splenomegaly with with multiple low-attenuation lesions again seen and unchanged. Th ere is no enhancing mass lesion. Pancreas: There is homogeneous attenuation of the pancreatic parenchyma. There is no evidence for mas s lesion or peripancreatic fluid collection. Gall Bladder: The gallbladder is distended with cholelithiasis present. There is no evidence for wall thickening or pericholecystic edema. Adrenal glands: The adrenal glands are normal in size and attenuation. There is no evidence for enhan cing mass lesion. Kidneys: There is homogeneous attenuation of the renal parenchyma bilaterally. There is no CT evidenc e for pyelonephritis. There is no perinephric edema or stranding. There is no evidence for renal calc ulus or hydronephrosis bilaterally. There is no evidence for enhancing mass. Bowel: The patient is again status post previous gastric bypass surgery. The bowel loops are normally placed within the abdomen and pelvis without evidence for dilatation or obstruction. There is no amanda dence for mass lesion. There is mild sigmoid diverticulosis without evidence for diverticulitis. Ther e are no inflammatory changes present. There is no evidence for free air. A normal appendix is again visualized the right lower quadrant. Bladder: The bladder is partially contracted with diffuse thickening of the bladder wall. This can be seen in the presence of cystitis. No focal mass can be identified on these limited noncontrast image s. : There is no evidence for pelvic mass or adenopathy. There is no evidence for pelvic ascites. Vasculature: There is no evidence for aneurysmal dilatation of the abdominal aorta. IVC filter is in place. Osseous structures: There is no acute osseous pathology. Degenerative changes are seen within the spi ne. IMPRESSION: 1. Normal CT of the kidneys with no evidence for pyelonephritis. 2. Cholelithiasis with no CT evidence for acute cholecystitis. 3. Hepatosplenomegaly with no change in the appearance of the spleen. 4. Partially contracted, thick-walled bladder. The presence of cystitis cannot be excluded. 5. Sigmoid diverticulosis without evidence for diverticulitis. 6. Additional nonacute findings as delineated above. ACT 112: Negative or not required by law. Electronically signed by: Alec Pineda M.D. 05/09/2021 1:32 PM
[2021-05-09] MEDS ORDERED: LACTATED RINGER'S 1,000 ML IV ONE (13:42)
--- NOTE | 2021-05-09 14:15 | History & Physical Report ---
Date of Service May 09, 2021 Assessment & Plan (1) Sepsis: Plan: Raegan is a 51-year-old female with a past medical history of transverse myelitis, incomplete quadriplegia, neurogenic bladder with home straight caths, history of gastric bypass, pulmonary sarcoidosis, IVC filter, and syncopal episodes who presented to the ER with body aches, fever, nausea over several days. She did not have respiratory symptoms/cough/congestion. She is COVID unvaccinated. Sepsis 2/2 - Hypotensive, tachycardic on admit with leukocytosis and febrile to 39 Received empiric cefepime, daptomycin in ER. Patient with a history of Pseudomonas cellulitis in the past year, will continue cefepime at this time and follow Unclear source, UTI versus lower extremity cellulitis? No signs of pulmonary/GI In ER received volume resuscitation with LR and NSS Sodium normal, potassium normal on admit Creatinine less than 1 on admission, elevated BUN/creatinine ratio of 23 Magnesium 1.6 on admission T bili 1.3 with past intermittent elevations, normal transaminases Troponin negative Procalcitonin negative on admission UA without bacteria, epithelial cells present, nitrate and leukocyte esterase present, UC pending COVID-negative, flu negative, RSV negative CTabdomen: No evidence of pyelonephritis, cholelithiasis with no evidence of cholecystitis, stable hepatosplenomegaly, partially contracted thick-walled bladder unable to exclude cystitis, sigmoid diverticulosis without evidence of diverticulitis. Some chronic nonacute findings further detailed in report. CXR: Lungs clear, no evidence of pleural effusion or pneumothorax, normal mediastinal silhouette, no effusions/consolidations appreciated. Prior infections include cellulitis of the lower extremity with staph aureus and Pseudomonas, staph infection of right third toe Past urine infection with Kluyvera EKG: Sinus tachycardia, no acute ST wave changes (2) Bilateral lower extremity edema: Plan: Chronic, with history of venous ablation Home dressing unwrapped, underlying skin symmetrically erythematous and warm but not tender. Right and left lateral skin ulcer appreciated Patient with a history of recurrent cellulitis in the past Mild warmth and erythema are appreciated it is symmetrical and minimally tender. More suspicious for bilateral chronic venous stasis, alth differential does include cellulitis On antibiotics as above Wound care consulted (3) Cervical myelopathy: Plan: Stable at baseline (4) History of pulmonary embolism: Plan: Long-term anticoagulant use On warfarin Admitting INR 3.6 - 2/2 DVT after starting to use powerchair for ambulation - IVC Filter remains in place, was attempted to be removed but had penetrated wall and integrated; cannot be removed (5) Anxiety with depression: Plan: Depression/anxiety Continue home alprazolam 0.5 mg daily as needed Continue sertraline 250 mg daily (6) Chronic acquired lymphedema: Plan: See edema above (7) History of gastric bypass: Plan: Home vitamins continuedbetter (8) Neurogenic bladder: Plan: Continue straight cath as needed, patient straight caths at home UA with not overtly infected, UC pending - CT shows some bladder thickening which could represent UTI, could also be chronic as noted above blood (9) Presence of IVC filter: Plan: Unable to be removed, see HPI Patient continues on warfarin (10) Pulmonary sarcoidosis: Plan: No pulmonary symptoms at this time, no acute exacerbation (11) Transverse myelitis: Plan: Incomplete quadriplegia Continue baclofen 5 mg p.o. 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 She does experience muscle spasms in the legs bilaterally and hyperreflexia Continue baclofen at home dosing History of Present Illness Chief Complaint: Weakness Primary Care Provider: Sami Carr MD Raegan is a 51-year-old female with a past medical history of transverse myelitis, incomplete quadriplegia, neurogenic bladder with home straight caths, history of gastric bypass, pulmonary sarcoidosis, IVC filter, and syncopal episodes who presented to the ER with body aches, fever, nausea over several days. She did not have respiratory symptoms/cough/congestion. She is COVID unvaccinated. On evaluation the ED R she was febrile and tachycardic, bilateral lower extremity edema was appreciated with dry mucous membranes. 1 day poor sleep, fatigue, increased muscle spasms. Took 2x 325 tylenol last night and a puff of her inhaler for asthma and tried to go back to sleep. Tried to stand from her recliner and was 'totally wiped out more than normal.' +Fevers, chills at home. No sweats. 'I felt just a mess, cold and hot at the same time.' No change in urination. Had cellulitis and venous ulcer infection in the past. Uses knees to push things in the house and 'scuffed the thin skin which didn't heal and got infected.' Followed with wound clinic and ulcers healed completely. Had a venous ablation to help improve leg swelling 01/2021. Takes warfarin due to a history of blood clots in the legs after starting to use a power wheelchair. Has a vena cava filter in, was attempted to have removed but the struts perforated and healed and is not able to be removed. Uses a power wheelchair normal, is able to transfer. Hx of partial quad, pt reports she is actually able to use all 4 extremities and with OK strength, can stand for 5 minutes and uses a power wheelchair to ambulate. Sx from a bone spur which impeded on canal combined with an 'autoimmune flare after I was on fertility medicine' per pt. Fhx: reviewed Medical History: Reviewed Medications: Reviewed Surgical History: Reviewed Allergies: Reviewed Social History: No tobacco/EtoH. Code Status: Surrogate decision maker would be . Full Code. Allergies Allergy/AdvReac Type Severity Reaction Status Date / Time Penicillins Allergy Unknown hives Verified 05/09/21 11:33 vancomycin Allergy Unknown hives, Verified 05/09/21 11:33 breathing difficulties Home Medications Medication Instructions Recorded Confirmed Type folic acid 1 mg tablet 1 mg PO QAM 01/03/18 05/09/21 History calcium carbonate 600 mg-vitamin 2 tab PO QAM tab 09/25/18 05/09/21 History D3 5 mcg (200 unit) tablet cholecalciferol (vitamin D3) 25 2,000 units PO QAM tab 09/25/18 05/09/21 History mcg (1,000 unit) tablet khrmaltjg-pwpM-emgphkp-FOS-bromelain 10 ml PO DAILY PRN ml 09/25/18 05/09/21 History 1,937 mg-188 mg/15 mL oral liquid (Cystex Cranberry) ferrous sulfate 325 mg (65 mg 325 mg PO BID #125 tab 09/25/18 05/09/21 History iron) tablet Powered Wheelchair #1 ea 09/21/19 04/05/21 Rx cyanocobalamin (vitamin B-12) 1,000 mcg IM MONTHLY ml 01/14/20 05/09/21 History 1,000 mcg/mL injection solution baclofen 10 mg tablet 5 mg PO QID #180 tab 10/20/20 05/09/21 Rx alprazolam 0.5 mg tablet 0.5 mg PO DAILY PRN #45 tab 03/24/21 05/09/21 Rx albuterol sulfate 90 mcg/actuation See Rx Instructions .ROUTE 03/27/21 05/09/21 Rx aerosol inhaler .COMPLEX #18 gram warfarin 3 mg tablet See Rx Instructions PO UD #120 tab 04/05/21 05/09/21 Rx acetaminophen 325 mg tablet 650 mg PO QID PRN 05/09/21 05/09/21 History (Tylenol) multivitamin 1 tab PO QAM 05/09/21 05/09/21 History potassium chloride 20 mEq 20 meq PO DAILY@0600 05/09/21 05/09/21 History tablet,extended release sertraline 100 mg tablet 200 mg PO DAILY@0600 05/09/21 05/09/21 History sertraline 50 mg tablet 50 mg PO DAILY@0600 05/09/21 05/09/21 History Past Med/Surg History Medical History Acute febrile illness Asthma section wound complication (11/02/12) Contusion of rib on left side Encounter for Medicare annual wellness exam Fever (06/16/14) 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 Headache History of pulmonary embolism Hx of spinal cord injury MSSA (methicillin susceptible Staphylococcus aureus) septicemia Sepsis Skin ulcer of buttock, limited to breakdown of skin Spinal cord injury Syncopal episodes (05/15/14) Surgical History H/O breast surgery H/O cervical spine surgery cervical vertebral fusion H/O esophagogastroduodenoscopy H/O gastric bypass H/O laparoscopy History of conization of cervix Hx of hernia repair Hx of tonsillectomy S/P IVC filter Family History Mother Breast cancer Grandfather (Paternal) Cardiac disorder Lung cancer Father Cardiac disorder Hypertension Other Cancer Heart disease Social History Smoking Status: Former smoker Hx Alcohol Use: No Hx Substance Use: No Preferred Language: Congolese Communication Ability: Effective Visual Impairment: No Limitations Hearing Ability: Normal 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 NAD. Cooperative. HEENT: Atraumatic, normocephalic. Visual acuity and hearing grossly intact. Pupils equal and reactive to light. Extraocular movements intact without nystagmus. Pulm: CTAB A&P. -wheezes, -rales, -rhonchi. Symmetrical chest rise. No increase in work of breathing. No respiratory distress. Cardiac: Regular, tachycardic -mrg. Radial pulses intact and symmetrical. Abdominal: Nontender, nondistended, soft. BS present. Extremities: Upper extremities with 5/5 surveillance officer strength, elbow flexion and sensation to soft touch intact in hands bilaterally without asymmetry. Lower extremities with pitting edema through the knee and thigh bilaterally and evidence of chronic venous stasis. Legs are bilaterally warm with some eryt leatha, although not tender. Lateral weeping ulcer present on both right and left lower leg, left lower leg ulceration with clear discharge and increased erythema. Some chronic venous scaling appreciated. Sensation to soft touch in feet intact bilaterally. Intermittent bilateral left greater than right spasms patient reports at normal baseline for her. Hip flexion difficult but intact against antigravity bilaterally, ankle dorsiflexion/plantar flexion intact bilaterally. Results & Data Results & Data ([facility]) Vital Signs (Past 12 Hours) Vital Signs Temp Pulse Pulse Resp BP BP Pulse Ox 05/09/21 12:31 117 H 18 92/59 L 93 05/09/21 12:01 116/45 L 05/09/21 12:00 19 05/09/21 11:45 120 H 21 05/09/21 11:30 117 H 23 98/63 L 05/09/21 11:15 109 H 27 H 05/09/21 11:01 113 H 27 H 111/64 05/09/21 11:00 127 H 19 05/09/21 10:45 134 H 19 05/09/21 10:11 39.2 C H 123 H 22 128/94 95 PG Care Time/CCT Total # of Minutes Spent Total Time Spent with Patient: Total time spent is greater than 50% in coordination of care (as documented) at patient's floor/unit and/or counseling patient: Coding Level of Care Code 53842 Initial Inpt Care Lvl 3 Diagnoses Sepsis A41.9 Cervical myelopathy G95.9 Chronic acquired lymphedema I89.0 History of gastric bypass Z98.84 Neurogenic bladder N31.9 Presence of IVC filter Z95.828 Pulmonary sarcoidosis D86.0 Transverse myelitis G37.3 Bilateral lower extremity edema R60.0 Anxiety with depression F41.8 History of pulmonary embolism Z86.711
[2021-05-09] MEDS ORDERED: ACETAMINOPHEN 325 MG TAB PO PRN (16:27)
[2021-05-09] MEDS ORDERED: ALPRAZolam 0.5 MG TABLET PO PRN (16:54)
[2021-05-09] MEDS ORDERED: ONDANSETRON INJ 2 MG/ML 2 ML VIAL IV PRN (16:54)
[2021-05-09] MEDS: BACLOFEN 10 MG TAB PO SCH ×2 (17:56→21:35)
[2021-05-09] MEDS: ACETAMINOPHEN 325 MG TAB PO PRN (17:56)
[2021-05-09] MEDS: FERROUS SULFATE 325 MG TAB PO SCH (19:25)
--- NOTE | 2021-05-09 21:26 | Electrocardiogram Report ---
Test Reason : Blood Pressure : / mmHG Vent. Rate : 123 BPM Atrial Rate : 123 BPM P-R Int : 112 ms QRS Dur : 068 ms QT Int : 290 ms P-R-T Axes : 062 -07 037 degrees QTc Int : 415 ms Poor data quality, interpretation may be adversely affected Sinus tachycardia Otherwise normal ECG When compared with ECG of 06-JUN-2018 20:23, Vent. rate has increased BY 56 BPM Confirmed by Jeffery Burrows ([id number]) on 05/09/2021 9:25:55 PM Referred By: Confirmed By:Jeffery Burrows
[2021-05-09] MEDS: CEFEPIME 2,000 MG in SYRINGE 0 ML IV SCH (21:34)
[2021-05-10] MEDS: POTASSIUM CHLORIDE CRTAB 20 MEQ TABCR PO SCH (05:33)
[2021-05-10] MEDS: CEFEPIME 2,000 MG in SYRINGE 0 ML IV SCH ×3 (05:34→20:14)
[2021-05-10] MEDS: SERTRALINE HCL 50 MG TABLET PO SCH (05:34)
[2021-05-10 06:27] LABS: Basophils # (auto) 0.01 K/uL (0-0.2); Basophils % (auto) 0.1 %; Eosinophils # (auto) 0.04 K/uL (0-0.5); Eosinophils % (auto) 0.3 %; Hematocrit (blood only) 33.2 % (37-47); Hemoglobin 10.1 g/dL (12.0-16.0); Immature Granulocytes # (auto) 0.02 K/uL (0.00-0.02); Immature Granulocytes % (auto) 0.2 %; Lymphocytes # (auto) 0.64 K/uL (1.2-3.4); Lymphocytes % (auto) 5.3 %; Mean Corpuscular Hemoglobin 26.7 pg (25-34); Mean Corpuscular Hgb Conc 30.4 g/dL (32-36); Mean Corpuscular Volume 87.8 fL (80-100); Monocytes # (auto) 0.64 K/uL (0.11-0.59); Monocytes % (auto) 5.3 %; Neutrophils # (auto) 10.78 K/uL (1.4-6.5); Neutrophils % (auto) 88.8 %; Platelet Count 192 K/uL (130-400); RDW Coefficient of Variation 15.9 % (11.5-14.5); RDW Standard Deviation 51.1 fL (36.4-46.3); Red Blood Count 3.78 M/uL (4.2-5.4); White Blood Count 12.13 K/uL (4.8-10.8)
[2021-05-10 06:34] LABS: INR 2.9 (0.9-1.1); Prothrombin Time 27.4 Seconds (9.0-12.0)
[2021-05-10 06:52] LABS: BUN Creatinine Ratio 23.4 (10-20); Calcium 8.8 mg/dl (8.5-10.1); Creatinine Clr Calc Pharmacy 91.3 ml/min; Est GFR (African American) 81.4 ml/min; Est GFR (Non-African American) 70.2 ml/min; Potassium 4.1 mmol/L (3.5-5.1)
[2021-05-10] MEDS: MULTIVITAMIN TAB PO SCH (07:42)
[2021-05-10] MEDS: FOLIC ACID 1 MG TAB PO SCH (07:42)
[2021-05-10] MEDS: CHOLECALCIFEROL 1,000 UNITS 25 MCG TAB PO SCH (07:43)
[2021-05-10] MEDS: CALCIUM 600MG + VIT D 400 IU TAB PO SCH (07:43)
[2021-05-10] MEDS: BACLOFEN 10 MG TAB PO SCH ×4 (07:43→21:31)
--- NOTE | 2021-05-10 07:46 | Hospitalist Progress Note ---
Date of Service May 10, 2021 Assessment & Plan (1) Sepsis: Plan: Raegan is a 51-year-old female with a past medical history of transverse myelitis, incomplete quadriplegia, neurogenic bladder with home straight caths, history of gastric bypass, pulmonary sarcoidosis, IVC filter, and syncopal episodes who presented to the ER with body aches, fever, nausea over several days. She did not have respiratory symptoms/cough/congestion. She is COVID unvaccinated. Sepsis 2/2 Gram Negative Bacteremia - Hypotensive, tachycardic on admit with leukocytosis and febrile to 39 Received empiric cefepime, daptomycin in ER. Patient with a history of Pseudomonas cellulitis in the past year, will continue cefepime at this time and follow Unclear source, UTI versus lower extremity cellulitis? No signs of pulmonary/GI In ER received volume resuscitation with LR and NSS Sodium normal, potassium normal on admit Creatinine less than 1 on admission, elevated BUN/creatinine ratio of 23 Magnesium 1.6 on admission T bili 1.3 with past intermittent elevations, normal transaminases Troponin negative Procalcitonin negative on admission UA without bacteria, epithelial cells present, nitrate and leukocyte esterase present, UC pending - BC prelim positive for GNB 05/10. Continue cefepime, dapto discontinued COVID-negative, flu negative, RSV negative CTabdomen: No evidence of pyelonephritis, cholelithiasis with no evidence of cholecystitis, stable hepatosplenomegaly, partially contracted thick-walled bladder unable to exclude cystitis, sigmoid diverticulosis without evidence of diverticulitis. Some chronic nonacute findings further detailed in report. CXR: Lungs clear, no evidence of pleural effusion or pneumothorax, normal mediastinal silhouette, no effusions/consolidations appreciated. Prior infections include cellulitis of the lower extremity with staph aureus and Pseudomonas, staph infection of right third toe Past urine infection with Kluyvera EKG: Sinus tachycardia, no acute ST wave changes (2) Bilateral lower extremity edema: Plan: Chronic, with history of venous ablation Home dressing unwrapped, underlying skin symmetrically erythematous and warm but not tender. Right and left lateral skin ulcer appreciated. Patient with a history of recurrent cellulitis in the past Bilateral warmth and erythema today, right is noticeably more erythematous.? Cellulitis as source of above, continue to follow blood cultures On antibiotics as above Wound care consulted - hypotensive/intravascularly depleted on initial exam, lasix deferred (3) Cervical myelopathy: Plan: Stable at baseline (4) History of pulmonary embolism: Plan: Long-term anticoagulant use On warfarin Admitting INR 3.6 - 2/2 DVT after starting to use powerchair for ambulation - IVC Filter remains in place, was attempted to be removed but had penetrated wall and integrated; cannot be removed - INR 2.9 05/10, hold one additional dose then resume (5) Anxiety with depression: Plan: Depression/anxiety Continue home alprazolam 0.5 mg daily as needed Continue sertraline 250 mg daily (6) Chronic acquired lymphedema: Plan: See edema above (7) History of gastric bypass: Plan: Home vitamins continuedbetter (8) Neurogenic bladder: Plan: Continue straight cath as needed, patient straight caths at home UA with not overtly infected, UC pending - CT shows some bladder thickening which could represent UTI, could also be chronic as noted above blood (9) Presence of IVC filter: Plan: Unable to be removed, see HPI Patient continues on warfarin (10) Pulmonary sarcoidosis: Plan: No pulmonary symptoms at this time, no acute exacerbation (11) Transverse myelitis: Plan: Incomplete quadriplegia Continue baclofen 5 mg p.o. 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 She does experience muscle spasms in the legs bilaterally and hyperreflexia Continue baclofen at home dosing Admission and Anticipated Discharge Date Admission Date: May 09, 2021 Subjective Seen at bedside, patient reports she feels like she is improved. She has noticed that her right leg was much more red than her left last night, appears to be starting to improve this morning. No pain. No fever/chills/sweats this morning. Some fatigue. No chest pain/chest pressure. Review of Systems Review of Systems: All systems reviewed & are unremarkable except as noted in Subjective Physical Exam Constitutional: General: A&Ox3. NAD. Cooperative. HEENT: Atraumatic, normocephalic. Visual acuity and hearing grossly intact. Pupils equal and reactive to light. Extraocular movements intact without nystagmus. Pulm: CTAB A&P. -wheezes, -rales, -rhonchi. Symmetrical chest rise. No increase in work of breathing. No respiratory distress. Cardiac: Regular, tachycardic -mrg. Radial pulses intact and symmetrical. Abdominal: Nontender, nondistended, soft. BS present. Extremities: Upper extremities with 5/5 plumber helper strength, elbow flexion and sensation to soft touch intact in hands bilaterally without asymmetry. Lower extremities with pitting edema through the knee and thigh bilaterally and evidence of chronic venous stasis. Legs are bilaterally warm with some erythema, although not tender. Right erythema is greater than left today with additional warmth. Lateral weeping ulcer present on both right and left lower leg, left lower leg ulceration with clear discharge. Intermittent bilateral left greater than right spasms patient reports at normal baseline for her. Ankle dorsiflexion/plantar flexion intact bilaterally. Results & Data Results [facility] ([facility]) Vital Signs (Past 12 Hours) Vital Signs Temp Pulse Pulse Resp BP Pulse Ox 05/10/21 07:30 37 C 91 H 16 104/65 91 05/10/21 07:14 89 05/10/21 03:05 37.2 C 104 H 16 112/69 90 05/09/21 20:58 96 H 05/09/21 20:40 37.0 C 99 H 16 103/67 92 PG Care Time/CCT Total # of Minutes Spent Total Time Spent with Patient: Total time spent is greater than 50% in coordination of care (as documented) at patient's floor/unit and/or counseling patient: Coding Level of Care Code 73449 Subseq Hosp Care Lvl 2 Diagnoses Sepsis A41.9 Sepsis acute organ dysfunction status: without acute organ dysfunction Sepsis type: sepsis due to unspecified organism Bilateral lower extremity edema R60.0 Cervical myelopathy G95.9 History of pulmonary embolism Z86.711 Anxiety with depression F41.8 Chronic acquired lymphedema I89.0 History of gastric bypass Z98.84 Neurogenic bladder N31.9 Presence of IVC filter Z95.828 Pulmonary sarcoidosis D86.0 Transverse myelitis G37.3 (1) Sepsis Sepsis acute organ dysfunction status: without acute organ dysfunction Sepsis type: sepsis due to unspecified organism Qualified Code(s): A41.9 - Sepsis, unspecified organism
[2021-05-10] MEDS: ACETAMINOPHEN 325 MG TAB PO PRN ×2 (08:37→18:05)
[2021-05-10] MEDS ORDERED: DAPTOmycin 500 MG in SYRINGE 0 ML IV SCH (13:00)
[2021-05-10] MEDS ORDERED: WARFARIN SOD 3 MG TAB PO SCH (16:00)
[2021-05-11] MEDS: SERTRALINE HCL 50 MG TABLET PO SCH (06:03)
[2021-05-11] MEDS: CEFEPIME 2,000 MG in SYRINGE 0 ML IV SCH ×2 (06:03→11:02)
[2021-05-11] MEDS: POTASSIUM CHLORIDE CRTAB 20 MEQ TABCR PO SCH (06:05)
[2021-05-11 06:56] LABS: Basophils # (auto) 0.03 K/uL (0-0.2); Basophils % (auto) 0.5 %; Eosinophils # (auto) 0.25 K/uL (0-0.5); Eosinophils % (auto) 4.2 %; Hematocrit (blood only) 34.5 % (37-47); Hemoglobin 10.4 g/dL (12.0-16.0); Immature Granulocytes # (auto) 0.01 K/uL (0.00-0.02); Immature Granulocytes % (auto) 0.2 %; Lymphocytes # (auto) 0.79 K/uL (1.2-3.4); Lymphocytes % (auto) 13.1 %; Mean Corpuscular Hemoglobin 26.5 pg (25-34); Mean Corpuscular Hgb Conc 30.1 g/dL (32-36); Mean Corpuscular Volume 87.8 fL (80-100); Mean Platelet Volume 11.2 fL (7.4-10.4); Monocytes # (auto) 0.72 K/uL (0.11-0.59); Neutrophils # (auto) 4.22 K/uL (1.4-6.5); Platelet Count 183 K/uL (130-400); RDW Coefficient of Variation 15.8 % (11.5-14.5); RDW Standard Deviation 52.1 fL (36.4-46.3); Red Blood Count 3.93 M/uL (4.2-5.4); White Blood Count 6.02 K/uL (4.8-10.8)
[2021-05-11 07:14] LABS: INR 1.6 (0.9-1.1); Prothrombin Time 16.1 Seconds (9.0-12.0)
[2021-05-11 07:17] LABS: Calcium 8.7 mg/dl (8.5-10.1); Creatinine Clr Calc Pharmacy 107.3 ml/min; Est GFR (African American) 98.9 ml/min; Est GFR (Non-African American) 85.4 ml/min; Potassium 3.8 mmol/L (3.5-5.1)
[2021-05-11] MEDS: CHOLECALCIFEROL 1,000 UNITS 25 MCG TAB PO SCH (07:32)
[2021-05-11] MEDS: CALCIUM 600MG + VIT D 400 IU TAB PO SCH (07:33)
[2021-05-11] MEDS: MULTIVITAMIN TAB PO SCH (07:33)
[2021-05-11] MEDS: FOLIC ACID 1 MG TAB PO SCH (07:33)
[2021-05-11] MEDS: BACLOFEN 10 MG TAB PO SCH ×4 (07:33→20:20)
[2021-05-11] MEDS ORDERED: WARFARIN SOD 1 MG TAB PO ONE (08:30)
[2021-05-11] MEDS: ACETAMINOPHEN 325 MG TAB PO PRN (11:55)
--- NOTE | 2021-05-11 12:32 | Hospitalist Progress Note ---
Date of Service May 11, 2021 Assessment & Plan (1) Sepsis: Plan: Raegan is a 51-year-old female with a past medical history of transverse myelitis, incomplete quadriplegia, neurogenic bladder with home straight caths, history of gastric bypass, pulmonary sarcoidosis, IVC filter, and syncopal episodes who presented to the ER with body aches, fever, nausea over several days. She did not have respiratory symptoms/cough/congestion. She is COVID unvaccinated. Sepsis 2/2 Gram Negative Bacteremia - Hypotensive, tachycardic on admit with leukocytosis and febrile to 39 Received empiric cefepime, daptomycin in ER. Patient with a history of Pseudomonas cellulitis in the past year, will continue cefepime at this time and follow Unclear source, UTI versus lower extremity cellulitis? No signs of pulmonary/GI In ER received volume resuscitation with LR and NSS Sodium normal, potassium normal on admit Creatinine less than 1 on admission, elevated BUN/creatinine ratio of 23 Magnesium 1.6 on admission T bili 1.3 with past intermittent elevations, normal transaminases Troponin negative Procalcitonin negative on admission UA without bacteria, epithelial cells present, nitrate and leukocyte esterase present, UC pending - BC prelim positive for GNB 05/10. Continue cefepime, dapto discontinued Urine cath specimen positive for GNB, likely consistent with pseudomonal bacteremia. Remain pending sensitivities, continues to require IV antibiotics pending sensitivities at this time Left lower extremity culture positive for staph species, likely covered with cephalosporin as above. This point appears clinical illness was due to bacteremia associated with UTI and blood culture may represent katheryn. We will continue to follow. COVID-negative, flu negative, RSV negative CTabdomen: No evidence of pyelonephritis, cholelithiasis with no evidence of cholecystitis, stable hepatosplenomegaly, partially contracted thick-walled bladder unable to exclude cystitis, sigmoid diverticulosis without evidence of diverticulitis. Some chronic nonacute findings further detailed in report. CXR: Lungs clear, no evidence of pleural effusion or pneumothorax, normal mediastinal silhouette, no effusions/consolidations appreciated. Prior infections include cellulitis of the lower extremity with staph aureus and Pseudomonas, staph infection of right third toe Past urine infection with Kluyvera EKG: Sinus tachycardia, no acute ST wave changes (2) Bilateral lower extremity edema: Plan: Chronic, with history of venous ablation Patient with a history of recurrent cellulitis in the past Patient has had some intermittent erythema and warmth of her lower extremities, but this has been bilateral and waxing waning. Suspect her clinical illness was due to urosepsis with positive cultures as above, legs likely represent chronic venous stasis rather than cellulitis. Wound culture positive for staph, suspect skin contaminant although this is covered by cephalosporin as above and has not returned for MRSA. We will continue to follow. On antibiotics as above Wound care consulted -Routine venous stasis care (3) Cervical myelopathy: Plan: Stable at baseline (4) History of pulmonary embolism: Plan: Long-term anticoagulant use On warfarin Admitting INR 3.6 - 2/2 DVT after starting to use powerchair for ambulation - IVC Filter remains in place, was attempted to be removed but had penetrated wall and integrated; cannot be removed - INR 2.9 05/10, dropped slightly subtherapeutic after additional dose held, resumed today with 1 mg morning dose continue to follow (5) Anxiety with depression: Plan: Depression/anxiety Continue home alprazolam 0.5 mg daily as needed Continue sertraline 250 mg daily (6) Chronic acquired lymphedema: Plan: See edema above (7) History of gastric bypass: Plan: Home vitamins continuedbetter (8) Neurogenic bladder: Plan: Continue straight cath as needed, patient straight caths at home UA with not overtly infected, UC pending - CT shows some bladder thickening which could represent UTI, could also be chronic as noted above blood (9) Presence of IVC filter: Plan: Unable to be removed, see HPI Patient continues on warfarin (10) Pulmonary sarcoidosis: Plan: No pulmonary symptoms at this time, no acute exacerbation (11) Transverse myelitis: Plan: Incomplete quadriplegia Continue baclofen 5 mg p.o. 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 She does experience muscle spasms in the legs bilaterally and hyperreflexia Continue baclofen at home dosing PT/OT pending. Patient reports she is independent ambulatory, has a power chair and is able to do transfers, and does have help in the house frequently. Would like to return home with home health/PT. Admission and Anticipated Discharge Date Admission Date: May 09, 2021 Subjective Patient is seen at the bedside this morning. She reports that she feels much better today, and her energy is improved. She feels close to her normal baseline. She reports erythema of her right leg seems to have improved greatly today as well. No fever, chills, sweats, shortness of breath, difficulty breathing, nausea, vomiting, diarrhea today. No abdominal pain. Discussed blood cultures and urine cultures are both positive for gram-negative bacteria suspicious for Pseudomonas, awaiting sensitivities given past resistance patterns and remains on her IV antibiotics at this time. No other questions or concerns. Patient does report that she is able to ambulate relatively independently at home, has a power chair for extended movement, with help not 24/7 but close at home. Anticipates returning home, with home health/home PT if recommended Review of Systems Review of Systems: All systems reviewed & are unremarkable except as noted in Subjective Physical Exam Constitutional: General: A&Ox3. NAD. Cooperative. HEENT: Atraumatic, normocephalic. Visual acuity and hearing grossly intact. Pupils equal and reactive to light. Extraocular movements intact without nystagmus. Pulm: CTAB A&P. -wheezes, -rales, -rhonchi. Symmetrical chest rise. No increase in work of breathing. No respiratory distress. Cardiac: Regular, tachycardic -mrg. Radial pulses intact and symmetrical. Abdominal: Nontender, nondistended, soft. BS present. Extremities: Upper extremities with 5/5 acute care occupational therapist strength, elbow flexion and sensation to soft touch intact in hands bilaterally without asymmetry. Lower extremities with pitting edema through the knee and thigh bilaterally and evidence of chronic venous stasis. Legs are bilaterally warm with some erythema, nontender. Symmetrical appearing redness without extension, lateral ulcers dressed with dressing C/C/I. No discharge. Results & Data Results & Data ([facility]) Vital Signs (Past 12 Hours) Vital Signs Temp Pulse Pulse Pulse Resp BP Pulse Ox 05/11/21 11:15 36.6 C 70 16 111/72 95 05/11/21 07:35 36.7 C 78 16 123/77 94 05/11/21 07:02 81 05/11/21 03:01 37 C 79 16 109/57 L 94 PG Care Time/CCT Total # of Minutes Spent Total Time Spent with Patient: Total time spent is greater than 50% in coordination of care (as documented) at patient's floor/unit and/or counseling patient: Coding Level of Care Code 14663 Subseq Hosp Care Lvl 2 Diagnoses Sepsis A41.9 Sepsis acute organ dysfunction status: without acute organ dysfunction Sepsis type: sepsis due to unspecified organism Bilateral lower extremity edema R60.0 Cervical myelopathy G95.9 History of pulmonary embolism Z86.711 Anxiety with depression F41.8 Chronic acquired lymphedema I89.0 History of gastric bypass Z98.84 Neurogenic bladder N31.9 Presence of IVC filter Z95.828 Pulmonary sarcoidosis D86.0 Transverse myelitis G37.3 (1) Sepsis Sepsis acute organ dysfunction status: without acute organ dysfunction Sepsis type: sepsis due to unspecified organism Qualified Code(s): A41.9 - Sepsis, unspecified organism
[2021-05-11] MEDS: FERROUS SULFATE 325 MG TAB PO SCH (15:53)
[2021-05-11] MEDS ORDERED: WARFARIN SOD 4 MG TAB PO SCH (16:00)
[2021-05-11] MEDS ORDERED: WARFARIN SOD 0.5 MG TAB PO SCH (16:00)
[2021-05-12] MEDS: POTASSIUM CHLORIDE CRTAB 20 MEQ TABCR PO SCH (05:47)
[2021-05-12] MEDS: SERTRALINE HCL 50 MG TABLET PO SCH (05:47)
--- NOTE | 2021-05-12 06:06 | Communication Note ---
Date of Service: May 12, 2021 Informed by nursing that IV cefepime had been discontinued because reached stop date. Reviewed progress note which mentions continuation of this medication for bacteremia. I have reordered IV cefepime q8h.
[2021-05-12] MEDS: CEFEPIME 2,000 MG in SYRINGE 0 ML IV SCH ×2 (06:30→13:33)
[2021-05-12 08:31] LABS: Basophils # (auto) 0.02 K/uL (0-0.2); Basophils % (auto) 0.3 %; Eosinophils # (auto) 0.24 K/uL (0-0.5); Hematocrit (blood only) 37.1 % (37-47); Hemoglobin 11.3 g/dL (12.0-16.0); Immature Granulocytes # (auto) 0.01 K/uL (0.00-0.02); Immature Granulocytes % (auto) 0.2 %; Lymphocytes % (auto) 11.6 %; Mean Corpuscular Hemoglobin 26.5 pg (25-34); Mean Corpuscular Hgb Conc 30.5 g/dL (32-36); Mean Corpuscular Volume 87.1 fL (80-100); Mean Platelet Volume 10.8 fL (7.4-10.4); Monocytes # (auto) 0.56 K/uL (0.11-0.59); Monocytes % (auto) 9.2 %; Neutrophils # (auto) 4.53 K/uL (1.4-6.5); Neutrophils % (auto) 74.7 %; Platelet Count 209 K/uL (130-400); RDW Coefficient of Variation 15.7 % (11.5-14.5); RDW Standard Deviation 50.3 fL (36.4-46.3); Red Blood Count 4.26 M/uL (4.2-5.4); White Blood Count 6.06 K/uL (4.8-10.8)
[2021-05-12] MEDS: FOLIC ACID 1 MG TAB PO SCH (08:32)
[2021-05-12] MEDS: BACLOFEN 10 MG TAB PO SCH ×2 (08:32→13:33)
[2021-05-12] MEDS: MULTIVITAMIN TAB PO SCH (08:32)
[2021-05-12] MEDS: CHOLECALCIFEROL 1,000 UNITS 25 MCG TAB PO SCH (08:32)
[2021-05-12] MEDS: CALCIUM 600MG + VIT D 400 IU TAB PO SCH (08:32)
[2021-05-12 08:44] LABS: INR 1.8 (0.9-1.1); Prothrombin Time 17.3 Seconds (9.0-12.0)
[2021-05-12 08:53] LABS: Calcium 9.4 mg/dl (8.5-10.1); Creatinine Clr Calc Pharmacy 107.3 ml/min; Est GFR (African American) 98.9 ml/min; Est GFR (Non-African American) 85.4 ml/min; Potassium 4.1 mmol/L (3.5-5.1)
--- NOTE | 2021-05-12 10:34 | Discharge Summary ---
Date of Service May 12, 2021 Admission HPI Per Admitting Provider Raegan is a 51-year-old female with a past medical history of transverse myelitis, incomplete quadriplegia, neurogenic bladder with home straight caths, history of gastric bypass, pulmonary sarcoidosis, IVC filter, and syncopal episodes who presented to the ER with body aches, fever, nausea over several days. She did not have respiratory symptoms/cough/congestion. She is COVID unvaccinated. On evaluation the ED R she was febrile and tachycardic, bilateral lower extremity edema was appreciated with dry mucous membranes. 1 day poor sleep, fatigue, increased muscle spasms. Took 2x 325 tylenol last night and a puff of her inhaler for asthma and tried to go back to sleep. Tried to stand from her recliner and was 'totally wiped out more than normal.' +Fevers, chills at home. No sweats. 'I felt just a mess, cold and hot at the same time.' No change in urination. Had cellulitis and venous ulcer infection in the past. Uses knees to push things in the house and 'scuffed the thin skin which didn't heal and got infected.' Followed with wound clinic and ulcers healed completely. Had a venous ablation to help improve leg swelling 01/2021. Takes warfarin due to a history of blood clots in the legs after starting to use a power wheelchair. Has a vena cava filter in, was attempted to have removed but the struts perforated and healed and is not able to be removed. Uses a power wheelchair normal, is able to transfer. Hx of partial quad, pt reports she is actually able to use all 4 extremities and with OK strength, can stand for 5 minutes and uses a power wheelchair to ambulate. Sx from a bone spur which impeded on canal combined with an 'autoimmune flare after I was on fertility medicine' per pt. Fhx: reviewed Medical History: Reviewed Medications: Reviewed Surgical History: Reviewed Allergies: Reviewed Social History: No tobacco/EtoH. Code Status: Surrogate decision maker would be . Full Code. Admission Exam Per Admitting Provider General: A&Ox3. NAD. Cooperative. HEENT: Atraumatic, normocephalic. Visual acuity and hearing grossly intact. Pupils equal and reactive to light. Extraocular movements intact without nystagmus. Pulm: CTAB A&P. -wheezes, -rales, -rhonchi. Symmetrical chest rise. No increase in work of breathing. No respiratory distress. Cardiac: Regular, tachycardic -mrg. Radial pulses intact and symmetrical. Abdominal: Nontender, nondistended, soft. BS present. Extremities: Upper extremities with 5/5 barrel filler strength, elbow flexion and sensation to soft touch intact in hands bilaterally without asymmetry. Lower extremities with pitting edema through the knee and thigh bilaterally and evidence of chronic venous stasis. Legs are bilaterally warm with some erythem a, although not tender. Lateral weeping ulcer present on both right and left lower leg, left lower leg ulceration with clear discharge and increased erythema. Some chronic venous scaling appreciated. Sensation to soft touch in feet intact bilaterally. Intermittent bilateral left greater than right spasms patient reports at normal baseline for her. Hip flexion difficult but intact against antigravity bilaterally, ankle dorsiflexion/plantar flexion intact bilaterally. Principal Diagnosis Pseudomonas bacteremia regarding Discharge Exam General: A&Ox3. NAD. Cooperative. HEENT: Atraumatic, normocephalic. Visual acuity and hearing grossly intact. Pupils equal and reactive to light. Extraocular movements intact without nystagmus. Pulm: CTAB A&P. -wheezes, -rales, -rhonchi. Symmetrical chest rise. No increase in work of breathing. No respiratory distress. Cardiac: Regular, tachycardic -mrg. Radial pulses intact and symmetrical. Abdominal: Nontender, nondistended, soft. BS present. Extremities: Upper extremities with 5/5 barrel filler strength, elbow flexion and sensation to soft touch intact in hands bilaterally without asymmetry. Lower extremities with pitting edema through the knee and thigh bilaterally and evidence of chronic venous stasis. Legs are bilaterally warm, nontender. Aq uacel dressing sintact. +LE edema bilat. Discharge Data Allergies Allergy/AdvReac Type Severity Reaction Status Date / Time Penicillins Allergy Unknown hives Verified 05/09/21 11:33 vancomycin Allergy Unknown hives, Verified 05/09/21 11:33 breathing difficulties Consultations 05/09/21 13:42 ED Decision to Admit Stat Ordered Studies 05/09/21 11:47 CT abd pelvis IV con only Stat Hospital Course (1) Sepsis: Raegan is a 51-year-old female with a past medical history of transverse myelitis, incomplete quadriplegia, neurogenic bladder with home straight caths, history of gastric bypass, pulmonary sarcoidosis, IVC filter, and syncopal episodes who presented to the ER with body aches, fever, nausea over several days. She did not have respiratory symptoms/cough/congestion. She is COVID unvaccinated. Patient was treated for sepsis psuedomonas, was treated with cefepime converted to oral levofloxacin on discharge based on sensitivities. Of note her urine grew E. coli not Pseudomonas, Pseudomonas was not isolated from her wound although wound cultures unreliable and LE cellulitis cannot be r/o as source. To do as outpatient: 1. Follow-up with coag clinic within 48 hours, INR is 1.8 at discharge and discussed that INR may be labile in the setting of levofloxacin use 2. Complete 1 week course of antibiotics with levofloxacin for four additional days 3. Routine PCP follow-up 4. Routine wound care follow-up for lower extremities Sepsis 2/2 Pseudomonas - Hypotensive, tachycardic on admit with leukocytosis and febrile to 39 Received empiric cefepime, daptomycin in ER. Patient with a history of Pseudomonas cellulitis in the past year, will continue cefepime at this time and follow Unclear source, UTI versus lower extremity cellulitis? No signs of pulmonary/GI In ER received volume resuscitation with LR and NSS Sodium normal, potassium normal on admit Creatinine less than 1 on admission, elevated BUN/creatinine ratio of 23 Magnesium 1.6 on admission T bili 1.3 with past intermittent elevations, normal transaminases Troponin negative Procalcitonin negative on admission UA without bacteria, epithelial cells present, nitrate and leukocyte esterase present, UC pending - BC prelim positive for GNB 05/10. Speciated for E. coli, pansensitive. This was covered by Pseudomonas treatment as otherwise noted. This may have come from her lower extremity representing a true cellulitis although clinical exam was difficult to differentiate between cellulitis versus bilateral venous stasis. Ultimately same coverage with Pseudomonas antibiotics for 1 week. Left lower extremity culture positive for staph species, covered with cephalosporin as above. Did not grow Pseudomonas, although wound cultures unreliable. Erythema did improve over admission. COVID-negative, flu negative, RSV negative CTabdomen: No evidence of pyelonephritis, cholelithiasis with no evidence of cholecystitis, stable hepatosplenomegaly, partially contracted thick-walled bladder unable to exclude cystitis, sigmoid diverticulosis without evidence of diverticulitis. Some chronic nonacute findings further detailed in report. CXR: Lungs clear, no evidence of pleural effusion or pneumothorax, normal mediastinal silhouette, no effusions/consolidations appreciated. Prior infections include cellulitis of the lower extremity with staph aureus and Pseudomonas, staph infection of right third toe Past urine infection with Kluyvera EKG: Sinus tachycardia, no acute ST wave changes (2) Bilateral lower extremity edema: Chronic, with history of venous ablation Patient with a history of recurrent cellulitis in the past Patient has had some intermittent erythema and warmth of her lower extremities, but this has been bilateral and waxing waning. Initially suspected her bacteremia was due to urosepsis with positive cultures as above, legs likely represent chronic venous stasis rather than cellulitis. Wound culture positive for staph. Her UA did speciate different than her blood cultures, with improvement of erythema of her lower extremities bacteremic source may have been cellulitis with unreliable cultures and clinical unclear picture due to chronic venous stasis. Treated with 1 week of antibiotics with Pseudomonas coverage. On antibiotics as above Wound care consulted -Routine venous stasis care (3) Cervical myelopathy: Stable at baseline (4) History of pulmonary embolism: Long-term anticoagulant use On warfarin Admitting INR 3.6 - 2/2 DVT after starting to use powerchair for ambulation - IVC Filter remains in place, was attempted to be removed but had penetrated wall and integrated; cannot be removed - INR 2.9 05/10, dropped slightly subtherapeutic after additional dose held, resumed today with 1 mg morning dose continue, INR 1.9 day of discharge (5) Anxiety with depression: Depression/anxiety Continue home alprazolam 0.5 mg daily as needed Continue sertraline 250 mg daily (6) Chronic acquired lymphedema: See edema above (7) History of gastric bypass: Home vitamins continuedbetter (8) Neurogenic bladder: Continue straight cath as needed, patient straight caths at home UA with not overtly infected, UC pending - CT shows some bladder thickening which could represent UTI, could also be chronic as noted above blood (9) Presence of IVC filter: Unable to be removed, see HPI Patient continues on warfarin (10) Pulmonary sarcoidosis: No pulmonary symptoms at this time, no acute exacerbation (11) Transverse myelitis: Incomplete quadriplegia Continue baclofen 5 mg p.o. 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 She does experience muscle spasms in the legs bilaterally and hyperreflexia Continue baclofen at home dosing PT/OT saw, recommended return home as patient was at her normal baseline. Total Time Total Time Spent Total Time Spent (In Minutes): time spend day of discharge 35 minutes including direct patient care, documentation, review of labs and images, and coordination of care. Discharge Plan Discharge Items Patient Disposition: Home - Self-Care Reason For Visit: SEPSIS ?URO VS CELLULITIS Discharge Diagnosis: Gram-negative bacteremia, UTI Activity: Resume your previous activity Non-emergency contact: Primary Care Provider Call non-emergency contact if: you have any medication questions, your symptoms worsen, your pain is not controlled, your pain is worsening and you have a fever Follow-up/Referrals: Sami Carr MD [Primary Care Provider] - Diet: Regular Addtl Attending Provider Instructions: You are seen in the hospital for a urinary tract infection with bacteria additionally found in the blood. Your urine grew bacteria called Pseudomonas which has increased drug resistances. This was found to be sensitive to an oral antibiotic called levofloxacin on microbiology testing. Following antibiotic treatment in the hospital he rapidly returned to her baseline level of health function. You have been discharged to complete a 1 week course of antibiotics with levofloxacin as below.You were seen by physical therapy and noted to be ambulating at your baseline level of function, and recommended for discharge back home. You have been prescribed an antibiotic, levofloxacin. Please take levofloxacin 750 mg once daily for an additional 4 days to complete a 1 week course of treatment. Certain antibiotics including levofloxacin may interact with your warfarin and cause your INR levels to be higher than normal. Your INR will need to be closely followed and warfarin adjusted as needed while on this antibiotic. Please have an INR check in 48 hours, and follow-up with your PCP for recommendations regarding warfarin dosing. A follow-up appointment is being scheduled for you with your primary care provider Dr. Carr. You should be seen within 1 to 2 weeks. If you do not receive a call to confirm your appointment within the next 48 hours please call his office to schedule appointment at the number above. If you develop any new or worsening symptoms including fever, chills, sweats, chest pain, chest pressure, difficulty breathing, uncontrolled nausea/vomiting, rash, wheezing, passing out or nearly passing out, bleeding, black/bloody bowel movements, or other new or concerning symptoms please call your primary care physician, or call 911 for re-evaluation in the emergency department if you are very concerned. Pending Studies at Discharge: No Stand-Alone Forms: My [facility] [employer], Smoking Cessation Medications and DC Order Prescriptions: New levofloxacin 750 mg tablet 750 mg PO DAILY 4 Days Qty: 4 RF: 0 Continued folic acid 1 mg tablet 1 mg PO QAM RF: 0 warfarin 3 mg tablet See Rx Instructions PO UD Qty: 120 RF: 1 cyanocobalamin (vitamin B-12) 1,000 mcg/mL solution 1,000 mcg IM MONTHLY RF: 0 baclofen 10 mg tablet 5 mg PO QID Qty: 180 RF: 3 alprazolam 0.5 mg tablet 0.5 mg PO DAILY PRN (Reason: anxiety) Qty: 45 RF: 0 albuterol sulfate 90 mcg/actuation HFA aerosol inhaler See Rx Instructions .ROUTE .COMPLEX Qty: 18 RF: 3 (DME) Powered Wheelchair Misc See Rx Instructions .ROUTE .MEDSUPPLY Qty: 1 RF: 0 calcium carbonate-vitamin D3 600 mg(1,500mg) -200 unit tablet 2 tab PO QAM RF: 0 Cystex Cranberry 1,937-188 mg/15 mL liquid 10 ml PO DAILY PRN (Reason: UTI) RF: 0 cholecalciferol (vitamin D3) 1,000 unit tablet 2,000 units PO QAM RF: 0 ferrous sulfate 325 mg (65 mg iron) tablet 325 mg PO BID Qty: 125 RF: 0 multivitamin Tablet 1 tab PO QAM RF: 0 acetaminophen [Tylenol] 325 mg Tablet 650 mg PO QID PRN (Reason: Pain) RF: 0 sertraline 100 mg tablet 200 mg PO DAILY@0600 RF: 0 sertraline 50 mg tablet 50 mg PO DAILY@0600 RF: 0 potassium chloride 20 mEq tablet extended release 20 meq PO DAILY@0600 RF: 0 Discharge Orders: Discharge Order (Routine); Ordered 05/12/21 Ordered By: Sami Muñiz Admission Data Admit Date/Time: 05/09/21 14:55 Attending Provider: Sami Muñiz Admit Provider: Sami Muñiz Primary Care Provider: Sami Carr Other Providers: Olu Slade Coding Level of Care Code D/C DAY MANAGEMENT >30 MINS Diagnoses Sepsis A41.9 Sepsis acute organ dysfunction status: without acute organ dysfunction Sepsis type: sepsis due to unspecified organism Bilateral lower extremity edema R60.0 Cervical myelopathy G95.9 History of pulmonary embolism Z86.711 Anxiety with depression F41.8 Chronic acquired lymphedema I89.0 History of gastric bypass Z98.84 Neurogenic bladder N31.9 Presence of IVC filter Z95.828 Pulmonary sarcoidosis D86.0 Transverse myelitis G37.3
[2021-05-12 11:35] VITALS: BP 112/72; PULSE 81; TEMP 98.2; O2SAT 98
[2021-05-13] MEDS ORDERED: WARFARIN SOD 3 MG TAB PO SCH (16:00)
== END 2021-05-12 16:30 | disposition home or self-care (01) | DRG 872 ==
LOC: ED 10:00 → EDINP 14:55 → 2N 16:53
DX: I89.0 Lymphedema, not elsewhere classified; B95.8 Unspecified staphylococcus as the cause of diseases classified elsewhere; A41.52 Sepsis due to Pseudomonas; Z79.01 Long term (current) use of anticoagulants; N31.9 Neuromuscular dysfunction of bladder, unspecified; Z87.891 Personal history of nicotine dependence; L03.115 Cellulitis of right lower limb; Z86.711 Personal history of pulmonary embolism; B96.20 Unspecified Escherichia coli [E. coli] as the cause of diseases classified elsewhere; J45.909 Unspecified asthma, uncomplicated; Z98.84 Bariatric surgery status; N39.0 Urinary tract infection, site not specified; L03.116 Cellulitis of left lower limb; G09 Sequelae of inflammatory diseases of central nervous system; F41.8 Other specified anxiety disorders; M62.81 Muscle weakness (generalized); E83.42 Hypomagnesemia; Z88.0 Allergy status to penicillin; Z68.41 Body mass index [BMI] 40.0-44.9, adult

== ENCOUNTER 2022-03-27 09:59 | Inpatient (IN) ==
[2022-03-27 11:26] LABS: Hemoglobin 11.9 g/dl (12.0-16.0); Mean Corpuscular Hemoglobin 27.9 pg (25.0-34.0); Mean Corpuscular Hgb Conc 32.2 g/dL (32.0-36.0); Mean Corpuscular Volume 86.7 fL (80.0-100.0); RDW Standard Deviation 57.8 fL (36.4-46.3); Red Blood Count 4.27 M/uL (3.93-5.22); White Blood Count 2.59 K/ul (4.8-10.8)
[2022-03-27 11:27] LABS: Basophils # (auto) 0.01 K/uL (0-0.2); Basophils % (auto) 0.4 %; Eosinophils # (auto) 0.02 K/uL (0-0.50); Eosinophils % (auto) 0.8 %; Lymphocytes # (auto) 0.32 K/uL (1.2-3.4); Lymphocytes % (auto) 12.4 %; Mean Platelet Volume 10.4 fL (9.4-12.3); Monocytes % (auto) 3.9 %; Neutrophils # (auto) 2.14 K/uL (1.4-6.5); Neutrophils % (auto) 82.5 %; Platelet Count 148 K/uL (130-400)
[2022-03-27 11:44] LABS: Influenza A virus by PCR Negative (Neg); Influenza B virus by PCR Negative (Neg); RSV by PCR Negative (Neg); SARS CoV2 RNA(COVID-19) Ceph NEGATIVE (Negative)
[2022-03-27 12:16] LABS: Appearance Urine Clear (Clear); Bacteria Urine Automated 4+ (Negative); Bilirubin Urine Negative (Negative); Blood Urine Trace (Negative); Cast Urine Automated 0 /lpf (0-5); Color Urine Yellow; Epithelial Cell Urine Auto >30 /lpf (0-5); Glucose Urine UA Negative (Negative); Ketones Urine Negative (Negative); Leukocyte Esterase Urine 1+ (Negative); Nitrite Urine Positive (Negative); Protein Urine Negative (Negative); Specific Gravity Urine 1.007 (1.000-1.030); Urobilinogen Urine Negative (Negative); pH Urine 7.5 (4.5-7.5)
[2022-03-27] MEDS ORDERED: SODIUM CHLORIDE 0.9% 1000ML 1,000 ML IV ONE (13:30)
--- NOTE | 2022-03-27 13:32 | Emergency Department Note ---
Impression & Plan Diarrhea, UTI (urinary tract infection) ADMIT ED Provider Note HPI: The patient is a 51-year-old female with history of cervical myelopathy, transverse myelitis, neurogenic bladder with straight catheterizations as needed at home, who presents emergency department chief complaint of 3 days of diarrhea and concern for dehydration. Patient states she has had diarrhea for the past several days, she just finished a course of Levaquin and ciprofloxacin for wounds on her legs. She has had watery diarrhea during this time. On arrival here to the ED the patient is hemodynamically stable, she is in no acute distress on my initial evaluation, denies any abdominal pain. Patient is afebrile on arrival. ROS: -GI: Diarrhea *10 point review systems was conducted and is otherwise negative unless stated above *Outpatient medications and allergy history reviewed PE: General: Alert, morbidly obese, disheveled appearing HEENT: Normocephalic, trachea midline Eyes: Extraocular eye movement is intact, no scleral erythema Pulmonary: Clear to auscultation bilaterally, no wheezing Cardio: Regular rate and rhythm GI: Abdomen is soft, nontender : No suprapubic tenderness MSK: No evidence of trauma or malformation of the extremities, no edema Skin: Chronic appearing venous stasis changes to the right lower extremity below the knee without any evidence of purulent drainage, no blister formation, there is no crepitus to palpation, there is a shallow ulceration to the posterior aspect of the lower extremity below the knee Neuro: Alert, no focal deficits, limited range of motion of the lower extremities at baseline Psychiatric: 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 Patient relates that her usually takes care of her but he is in the hospital now for a knee replacement. She states she is concerned about returning home. She complained of diarrhea on arrival but she was unable to provide any sample despite being here for several hours, her lab work does not show any evidence of significant dehydration in regards to acute kidney injury, urinalysis does appear to be consistent with infection which was another concern of the patient is. Blood cultures were ordered in the ED as well as urine culture, she was ordered a dose of IV ceftriaxone for urinary tract infection. Patient's abdomen is soft and nontender, overall she is disheveled appearing and states that she is unable to care for herself at home, she is requesting admission, she is not interested in skilled nursing placement but states that she needs to be admitted "to build my strength". I did request multiple times that she provide a stool sample for her diarrhea and she was unable to do so, there is concern for the possibility of underlying C. difficile as she has been on multiple antibiotics recently. Regardless, patient states she is not safe to be at home, I do feel that she w ould have a fair amount of difficulty taking care of herself if she has no one else at home and therefore I did discuss the case with the on-call hospitalist, Dr. Costa, who was in agreement to admit the patient for further care and treatment of urinary tract infection with the possibility of obtaining stool sample if the patient is able at some point in the future to give a sample to rule out C. difficile. Patient was in agreement to the above plan and she was admitted in stable condition Diagnosis: 1. Urinary tract infection, acute 2. Inability to accomplish activities of daily living 3. Diarrhea, nonspecific, acute 4. Chronic wound to the right lower extremity 5. 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 Headache History of pulmonary embolism Hx of spinal cord injury Hypomagnesemia Hypotension Leukocytosis MSSA (methicillin susceptible Staphylococcus aureus) septicemia Open toe wound Sepsis Skin ulcer of buttock, limited to breakdown of skin Spinal cord injury Syncopal episodes (05/15/14) Surgical History H/O breast surgery H/O cervical spine surgery cervical vertebral fusion H/O esophagogastroduodenoscopy H/O gastric bypass H/O laparoscopy History of conization of cervix Hx of hernia repair Hx of tonsillectomy S/P IVC filter Family History Mother Breast cancer Grandfather (Paternal) Cardiac disorder Lung cancer Father Cardiac disorder Hypertension Other Cancer Heart disease Social History Smoking Status: Never smoker Hx Alcohol Use: No Hx Substance Use: No Preferred Language: Maltese Communication Ability: Effective Visual Impairment: No Limitations Hearing Ability: Normal Beeswax Bleacher Required: No Beliefs That Will Affect Care: None marital status: Current Living Situation: Family current occupational status: disabled Feels Safe at Home: Yes Childhood Exposure to Second-Hand Smoke: No caffeine: Yes Dental Care, Regularly: Yes Physical Activity Frequency: Does not Exercise Seatbelt Use: always Sunscreen Use: Yes Assistive Devices: Walker Allergies Allergies Allergy/AdvReac Type Severity Reaction Status Date / Time Penicillins Allergy Unknown hives Verified 03/09/22 13:05 vancomycin Allergy Unknown hives, Verified 03/09/22 13:05 breathing difficulties Home Meds Home Medications Medication Instructions Recorded Confirmed folic acid 1 mg tablet 1 mg PO QAM 01/03/18 03/26/22 calcium carbonate 600 mg-vitamin 2 tab PO QAM 09/25/18 03/27/22 D3 5 mcg (200 unit) tablet cholecalciferol (vitamin D3) 25 2,000 units PO QAM 09/25/18 03/27/22 mcg (1,000 unit) tablet ppvgvxlgp-mhxR-izvcqjo-FOS-bromelain 10 ml PO DAILY PRN UTI 09/25/18 03/26/22 1,937 mg-188 mg/15 mL oral liquid (Cystex Cranberry) ferrous sulfate 325 mg (65 mg 325 mg PO BID #125 tabs 09/25/18 03/26/22 iron) tablet cyanocobalamin (vitamin B-12) 1,000 mcg IM MONTHLY 01/14/20 03/27/22 1,000 mcg/mL injection solution acetaminophen 325 mg tablet 650 mg PO QID PRN Pain 05/09/21 03/27/22 (Tylenol) sertraline 50 mg tablet 50 mg PO DAILY@0600 05/09/21 03/27/22 pantoprazole 40 mg tablet,delayed 40 mg PO DAILY 05/17/21 03/26/22 release (Protonix) iwmsryap-nwbbxejw-moip 45 mg-folic 1 cap PO DAILY 06/19/21 03/26/22 acid 800 mcg-vit K 120 mcg capsule (Bariatric Multivitamins) multivitamin 1 tab PO QAM 08/02/21 03/26/22 silver-hydrocolloid dressing 1.2 1 ea topical DAILY PRN to each leg 08/02/21 03/26/22 %-4" X 5" (Aquacel-AG Advantage) warfarin 3 mg tablet See Rx Instructions PO UD 03/26/22 03/27/22 albuterol sulfate 90 mcg/actuation 2 puff inhalation Q4 PRN Shortness 03/27/22 03/27/22 aerosol inhaler Of Breath Or Wheezing Previous Rx's Medication Instructions Recorded Powered Wheelchair #1 ea 09/21/19 potassium chloride 20 mEq 20 meq PO DAILY@0600 #90 tabs 06/27/21 tablet,extended release sertraline 100 mg tablet 200 mg PO DAILY@0600 #180 tabs 09/27/21 alprazolam 0.5 mg tablet 0.5 mg PO DAILY PRN anxiety #45 12/05/21 tabs baclofen 10 mg tablet 5 mg PO QID #180 tabs 01/02/22 tramadol 50 mg tablet 50 mg PO Q8H PRN pain #15 tabs 03/09/22 cefdinir 300 mg capsule 300 mg PO BID 5 days #10 caps 03/27/22 Results & Data (ED) Vital Signs Vital Signs - 24 hr 03/27/22 10:09 03/27/22 13:12 03/27/22 15:22 Temperature 36.8 C Temperature Source Temporal Artery Scan Pulse Rate 82 Pulse Rate [Right Finger] 88 82 Respiratory Rate 20 Respiratory Effort / Characteristics Non-Labored Respiratory Depth Normal Blood Pressure 152/96 H Blood Pressure [Right Arm] 157/101 H Blood Pressure Mean 114 Blood Pressure Mean [Right Arm] 119 Pulse Oximetry 91 93 93 Oxygen Delivery Method Room Air Room Air Room Air Sepsis Recent Fever Within 48 Hours No Sepsis New/Unexplained Change in Mental Status N/A Sepsis Action Taken by Nursing No Action Required 03/27/22 17:06 Temperature Temperature Source Pulse Rate Pulse Rate [Right Finger] 74 Respiratory Rate Respiratory Effort / Characteristics Respiratory Depth Blood Pressure Blood Pressure [Right Arm] Blood Pressure Mean Blood Pressure Mean [Right Arm] Pulse Oximetry 96 Oxygen Delivery Method Room Air Sepsis Recent Fever Within 48 Hours Sepsis New/Unexplained Change in Mental Status Sepsis Action Taken by Nursing Laboratory Data Result diagrams: 03/27/22 10:13 03/27/22 10:13 Lab Results 03/27/22 03/27/22 03/27/22 Range/Units 10:13 10:13 10:57 WBC 2.59 L (4.8-10.8) K/ul RBC 4.27 (3.93-5.22) M/uL Hgb 11.9 L (12.0-16.0) g/dl Hct 37.0 (34.1-44.9) % MCV 86.7 (80.0-100.0) fL MCH 27.9 (25.0-34.0) pg MCHC 32.2 (32.0-36.0) g/dL RDW Std Deviation 57.8 H (36.4-46.3) fL RDW Coeff of Aleks 18.0 H (11.5-14.5) % Plt Count 148 (130-400) K/uL MPV 10.4 (9.4-12.3) fL Immature Gran % (Auto) 0.0 % Neut % (Auto) 82.5 % Lymph % (Auto) 12.4 % [place] % (Auto) 3.9 % Eos % (Auto) 0.8 % Baso % (Auto) 0.4 % Neut # (Auto) 2.14 (1.4-6.5) K/uL Lymph # (Auto) 0.32 L (1.2-3.4) K/uL [place] # (Auto) 0.10 L (0.24-0.82) K/uL Eos # (Auto) 0.02 (0-0.50) K/uL Baso # (Auto) 0.01 (0-0.2) K/uL Immature Gran # (Auto) 0.00 (0.00-0.02) K/uL Sodium 142 (136-145) mmol/L Potassium 4.2 (3.5-5.1) mmol/L Chloride 107 (98-107) mmol/L Carbon Dioxide 26 (21-32) mmol/L Anion Gap 9 (3-11) BUN 10 (6-23) mg/dl Creatinine 0.60 (0.6-1.2) mg/dl Est Cr Clr Drug Dosing Not Reportable Est GFR ( Amer) 122.3 ml/min Est GFR (Non-Af Amer) 105.5 ml/min BUN/Creatinine Ratio 16.7 (10-20) Glucose 99 (70-99(Fasting)) mg/dl Calcium 9.7 (8.5-10.1) mg/dl Total Bilirubin 0.6 (0.2-1.0) mg/dl AST 21 (13-39) U/L ALT 16 (7-52) U/L Alkaline Phosphatase 75 (34-104) U/L Total Protein 7.2 (6.0-8.3) gm/dl Albumin 4.1 (3.4-5.0) gm/dl Globulin 3.1 (2.5-4.0) gm/dl Albumin/Globulin Ratio 1.3 (0.9-2) Urine Color Urine Appearance (Clear) Urine pH (4.5-7.5) Ur Specific [place] (1.000-1.030) Urine Protein (Negative) Urine Glucose (UA) (Negative) Urine Ketones (Negative) Urine Blood (Negative) Urine Nitrite (Negative) Urine Bilirubin (Negative) Urine Urobilinogen (Negative) Ur Leukocyte Esterase (Negative) Urine WBC (Auto) (0-5) /hpf Urine RBC (Auto) (0-4) /hpf U Hyaline Cast (Auto) (0-5) /lpf U Epithel Cells (Auto) (0-5) /lpf Urine Bacteria (Auto) (Negative) SARS-CoV-2 (PCR) NEGATIVE (Negative) Influenza Type A (PCR) Negative (Neg) Influenza Type B (PCR) Negative (Neg) RSV (RT-PCR) Negative (Neg) 03/27/22 Range/Units 11:26 WBC (4.8-10.8) K/ul RBC (3.93-5.22) M/uL Hgb (12.0-16.0) g/dl Hct (34.1-44.9) % MCV (80.0-100.0) fL MCH (25.0-34.0) pg MCHC (32.0-36.0) g/dL RDW Std Deviation (36.4-46.3) fL RDW Coeff of Aleks (11.5-14.5) % Plt Count (130-400) K/uL MPV (9.4-12.3) fL Immature Gran % (Auto) % Neut % (Auto) % Lymph % (Auto) % [place] % (Auto) % Eos % (Auto) % Baso % (Auto) % Neut # (Auto) (1.4-6.5) K/uL Lymph # (Auto) (1.2-3.4) K/uL [place] # (Auto) (0.24-0.82) K/uL Eos # (Auto) (0-0.50) K/uL Baso # (Auto) (0-0.2) K/uL Immature Gran # (Auto) (0.00-0.02) K/uL Sodium (136-145) mmol/L Potassium (3.5-5.1) mmol/L Chloride (98-107) mmol/L Carbon Dioxide (21-32) mmol/L Anion Gap (3-11) BUN (6-23) mg/dl Creatinine (0.6-1.2) mg/dl Est Cr Clr Drug Dosing Est GFR ( Amer) ml/min Est GFR (Non-Af Amer) ml/min BUN/Creatinine Ratio (10-20) Glucose (70-99(Fasting)) mg/dl Calcium (8.5-10.1) mg/dl Total Bilirubin (0.2-1.0) mg/dl AST (13-39) U/L ALT (7-52) U/L Alkaline Phosphatase (34-104) U/L Total Protein (6.0-8.3) gm/dl Albumin (3.4-5.0) gm/dl Globulin (2.5-4.0) gm/dl Albumin/Globulin Ratio (0.9-2) Urine Color Yellow Urine Appearance Clear (Clear) Urine pH 7.5 (4.5-7.5) Ur Specific [place] 1.007 (1.000-1.030) Urine Protein Negative (Negative) Urine Glucose (UA) Negative (Negative) Urine Ketones Negative (Negative) Urine Blood Trace H (Negative) Urine Nitrite Positive A (Negative) Urine Bilirubin Negative (Negative) Urine Urobilinogen Negative (Negative) Ur Leukocyte Esterase 1+ H (Negative) Urine WBC (Auto) 10-30 H (0-5) /hpf Urine RBC (Auto) 5-10 H (0-4) /hpf U Hyaline Cast (Auto) 0 (0-5) /lpf U Epithel Cells (Auto) >30 H (0-5) /lpf Urine Bacteria (Auto) 4+ H (Negative) SARS-CoV-2 (PCR) (Negative) Influenza Type A (PCR) (Neg) Influenza Type B (PCR) (Neg) RSV (RT-PCR) (Neg) Administered Medications Discontinued Medications Sodium Chloride (Nss 1000ml) 1,000 mls @ 999 mls/hr IV .[id number] ONE Stop: 03/27/22 14:30 Last Infusion: 03/27/22 14:35 Dose: 0 mls/hr Documented By: Admin: 03/27/22 13:33 Dose: 999 mls/hr Documented By: CAROLIN Discharge Plan Visit Data Chief Complaint: Dehydration Stated Complaint: DEHYDRATION, DIARRHEA ED Provider: Crow Lee Discharge Problem: Diarrhea, UTI (urinary tract infection) Patient Disposition: Home - Self-Care Condition: Good Discharge Instructions Krames/Other Patient Handouts: ED Diarrhea, Unknown Cause, ED [facility] UTI Activity Restrictions/Additional Instructions: Please follow-up with your PCP in 2 to 3 days for reassessment. Please take your antibiotic as prescribed for urinary tract infection. Please return the emergency department if you develop any new or worsening symptoms. Forms Stand Alone Forms: My [facility], Virtual Emergency Department, Important Visit Information Prescriptions Prescriptions: New cefdinir 300 mg capsule 300 mg PO BID 5 Days Qty: 10 0RF No Action folic acid 1 mg tablet 1 mg PO QAM warfarin 3 mg tablet See Rx Instructions PO UD Dose Instruction: Take 1 tab daily UD by [facility] Anticoagulation Clinic PO DAILY; Take 1 tab daily UD by [facility] Rx Instructions: 3mg daily cyanocobalamin (vitamin B-12) 1,000 mcg/mL solution 1,000 mcg IM MONTHLY Bariatric Multivitamins 45 mg iron- 800 mcg-120 mcg capsule 1 cap PO DAILY potassium chloride 20 mEq tablet extended release 20 meq PO DAILY@0600 Qty: 90 2RF sertraline 100 mg tablet 200 mg PO DAILY@0600 Qty: 180 0RF Rx Instructions: TAKE WITH AN ADDITIONAL 50MG = 250MG DAILY. baclofen 10 mg tablet 5 mg PO QID Qty: 180 3RF tramadol 50 mg tablet 50 mg PO Q8H PRN (Reason: pain) Qty: 15 0RF (DME) Powered Wheelchair Misc See Rx Instructions .ROUTE .MEDSUPPLY Qty: 1 0RF Rx Instructions: POWERED WHEELCHAIR LENGTH OF NEED: 99 MONTHS DX: G82.50, D86.89 calcium carbonate-vitamin D3 600 mg(1,500mg) -200 unit tablet 2 tab PO QAM Cystex Cranberry 1,937-188 mg/15 mL liquid 10 ml PO DAILY PRN (Reason: UTI) cholecalciferol (vitamin D3) 1,000 unit tablet 2,000 units PO QAM ferrous sulfate 325 mg (65 mg iron) tablet 325 mg PO BID Qty: 125 Aquacel-AG Advantage 1.2-4 X 5 %-" bandage 1 ea topical DAILY PRN (Reason: to each leg) pantoprazole [Protonix] 40 mg tablet,delayed release (DR/EC) 40 mg PO DAILY alprazolam 0.5 mg tablet 0.5 mg PO DAILY PRN (Reason: anxiety) Qty: 45 0RF acetaminophen [Tylenol] 325 mg Tablet 650 mg PO QID PRN (Reason: Pain) sertraline 50 mg tablet 50 mg PO DAILY@0600 Rx Instructions: TAKE WITH AN ADDITIONAL 200MG = 250MG DAILY. multivitamin Tablet 1 tab PO QAM albuterol sulfate 90 mcg/actuation HFA aerosol inhaler 2 puff inhalation Q4 PRN (Reason: Shortness Of Breath Or Wheezing) Rx Instructions: inhale 2 puffs by mouth every 4 hours if needed for shortness of breath or wheezing Referrals Referrals: Sami Carr MD [Primary Care Provider] - : Diarrhea Qualifiers: Diarrhea type: unspecified type Qualified Code(s): R19.7 - Diarrhea, unsp ecified
[2022-03-27 14:07] LABS: Alanine Aminotransferase 16 U/L (7-52); Albumin Globulin Ratio 1.3 (0.9-2); Albumin Level 4.1 gm/dl (3.4-5.0); Alkaline Phosphatase 75 U/L (34-104); Anion Gap 9 (3-11); Aspartate Aminotransferase 21 U/L (13-39); BUN Creatinine Ratio 16.7 (10-20); Bilirubin,Total 0.6 mg/dl (0.2-1.0); Blood Urea Nitrogen 10 mg/dl (6-23); Calcium 9.7 mg/dl (8.5-10.1); Carbon Dioxide 26 mmol/L (21-32); Chloride 107 mmol/L (98-107); Est GFR (African American) 122.3 ml/min; Est GFR (Non-African American) 105.5 ml/min; Globulin 3.1 gm/dl (2.5-4.0); Glucose 99 mg/dl (70-99(Fasting)); Potassium 4.2 mmol/L (3.5-5.1); Sodium 142 mmol/L (136-145); Total Protein 7.2 gm/dl (6.0-8.3)
[2022-03-27] MEDS ORDERED: CEFDINIR 300 MG CAP PO STA (15:55)
--- NOTE | 2022-03-27 16:47 | Electrocardiogram Report ---
Test Reason : Blood Pressure : / mmHG Vent. Rate : 073 BPM Atrial Rate : 220 BPM P-R Int : 000 ms QRS Dur : 072 ms QT Int : 372 ms P-R-T Axes : 000 -09 026 degrees QTc Int : 409 ms Poor data quality, interpretation may be adversely affected Normal sinus rhythm Normal ECG When compared with ECG of 09-MAY-2021 10:07, Vent. rate has decreased BY 50 BPM Confirmed by Alejandro Clements ([id number]) on 03/27/2022 4:46:52 PM Referred By: REFERRED SELF Confirmed By:Alejandro Clements
--- NOTE | 2022-03-27 16:48 | History & Physical Report ---
Date of Service March 27, 2022 Assessment & Plan (1) UTI (urinary tract infection): Plan: - Has had foul smelling odor for couple days, in the setting of frequent diarrhea and several episodes of bowel incontinence at home. - No fever/chills, dysuria, hematuria. She has a neurogenic bladder but does retain some sensation and has some urine output but relies on caths due to retention. - UA with 4+ bacteria, WBCs, nitrates, leukoesterase. - Continue Rocephin as started in the ED. - Blood and urine cultures collected. (2) Diarrhea: Plan: - 2-3 days of watery stool, has not had BM in ED, so suspicion for c diff is less likely, however she did recently finish a course of Levaquin for a wound infection, which raises the possibility of c diff, but this can also just be GI upset from the antibiotic. - She is not having any abdominal pain, has occasionally been nauseous with onset of the diarrhea. - Stool PCR panel pending. Will hold off on antimotility agents until c diff ruled out. - For now, run IVF overnight for rehydration. Replete electrolytes as needed. (3) Incomplete quadriplegia due to spinal cord lesion between fifth and seventh cervical vertebra: Plan: - Patient is wheelchair-bound at baseline but can stand and pivot to and from a bedside commode with walker used for assistance. - Neurogenic bladder, she straight cath as needed and does have sensation intact/able to tell when she needs to urinate. - Continue Baclofen 5 mg QID, Tylenol prn for pain. (4) Neurogenic bladder: Plan: - Self caths at home prn, will order them Q6h/prn while admitted. (5) History of pulmonary embolism: Plan: - On warfarin 3 mg daily, as well as with IVC filter in place which cannot be removed. - Was at anticoagulation clinic yesterday and was supratherapeutic, INR 3.9. Instructed to hold yesterday's dose of warfarin. - Missed today's dose of warfarin. We will check an INR here and is subtherapeutic, will give today's dose, otherwise if still supratherapeutic, will hold wrfarin toady and recheck until patient within therapeutic range. (6) Anxiety with depression: Plan: - Continue Zoloft with Xanax as needed. (7) Chronic venous insufficiency of lower extremity: Plan: - Follows with wound clinic, recently finished a course of Levaquin for cellulitis of the lower leg. - Will have wound care see patient while she is admitted. (8) H/O gastric bypass: Plan: - In 2006, now with iron deficiency and B12 anemia. - Continue PPI, folic acid, and iron supplement. Monthly B12 injections. - Also has a GJ stricutre and GG fistula. Plan - Admit to [facility]. - SCDs, warfarin will be continued for VTE PPx. - Full code. 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 On Saturday she developed very loose stools immediately after eating meals. She has some associated nausea with this but no vomiting, and has not been any blood in her bowel movements she can tell. Shortly after this developed, she noticed foul-smelling urine, due to frequent bowel movement. She does not have a history of C. difficile, however did just finish course of Levaquin for lower leg cellulitis and is concerned she may have a diarrheal infection now. She not having any urinary symptoms other than foul-smelling urine. She does have neurogenic bladder and relies on self caths as she often retains but does produce some urine on her own and has sensation intact. No f ever chills, body aches, or flank pain. She is generally weak and rundown as she has not been eating for the past several days because it causes her to have worse diarrhea. She is afraid of falling at home now as she is wheelchair-bound, but can stand and pivot from her chair. Her is also currently hospitalized for a knee replacement so she has no support at home. Upon presentation to the ED, she is moderately hypertensive, otherwise vital signs within normal limits and stable. UA with 4+ bacteria, nitrates, leukoesterase, WBCs. Labs otherwise significant for leukopenia 2.59, Hgb 11.9 at/near baseline, without electrolyte abnormalities, renal dysfunction, or hepatic dysfunction. COVID/flu/RSV negative. Allergies Allergy/AdvReac Type Severity Reaction Status Date / Time Penicillins Allergy Unknown hives Verified 03/09/22 13:05 vancomycin Allergy Unknown hives, Verified 03/09/22 13:05 breathing difficulties Home Medications Medication Instructions Recorded Confirmed Type folic acid 1 mg tablet 1 mg PO QAM 01/03/18 03/26/22 History Powered Wheelchair #1 ea 09/21/19 03/26/22 Rx cyanocobalamin (vitamin B-12) 1,000 mcg IM MONTHLY 01/14/20 03/27/22 History 1,000 mcg/mL injection solution acetaminophen 325 mg tablet 650 mg PO QID PRN Pain 05/09/21 03/27/22 History (Tylenol) sertraline 50 mg tablet 50 mg PO DAILY@0600 05/09/21 03/27/22 History pantoprazole 40 mg tablet,delayed 40 mg PO DAILY 05/17/21 03/26/22 History release (Protonix) rrrvwuwg-rlqowaic-zygn 45 mg-folic 1 cap PO DAILY 06/19/21 03/26/22 History acid 800 mcg-vit K 120 mcg capsule (Bariatric Multivitamins) potassium chloride 20 mEq 20 meq PO DAILY@0600 #90 tabs 06/27/21 03/27/22 Rx tablet,extended release silver-hydrocolloid dressing 1.2 1 ea topical DAILY PRN to each leg 08/02/21 03/26/22 History %-4" X 5" (Aquacel-AG Advantage) sertraline 100 mg tablet 200 mg PO DAILY@0600 #180 tabs 09/27/21 03/27/22 Rx alprazolam 0.5 mg tablet 0.5 mg PO DAILY PRN anxiety #45 12/05/21 03/27/22 Rx tabs baclofen 10 mg tablet 5 mg PO QID #180 tabs 01/02/22 03/27/22 Rx tramadol 50 mg tablet 50 mg PO Q8H PRN pain #15 tabs 03/09/22 03/27/22 Rx warfarin 3 mg tablet See Rx Instructions PO UD 03/26/22 03/27/22 History albuterol sulfate 90 mcg/actuation 2 puff inhalation Q4 PRN Shortness 03/27/22 03/27/22 History aerosol inhaler Of Breath Or Wheezing cefdinir 300 mg capsule 300 mg PO BID 5 days #10 caps 03/27/22 Rx Past Med/Surg History Medical History (Updated 03/27/22 @ 15:55 by Crow Lee DO) Acute febrile illness Asthma section wound complication (11/02/12) Contusion of rib on left side Encounter for Medicare annual wellness exam Fever (06/16/14) 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 Headache History of pulmonary embolism Hx of spinal cord injury Hypomagnesemia Hypotension Leukocytosis MSSA (methicillin susceptible Staphylococcus aureus) septicemia Open toe wound Sepsis Skin ulcer of buttock, limited to breakdown of skin Spinal cord injury Syncopal episodes (05/15/14) Surgical History (Updated 03/27/22 @ 18:03 by Elisa Thornton PA-C) H/O breast surgery H/O cervical spine surgery cervical vertebral fusion H/O esophagogastroduodenoscopy H/O gastric bypass H/O laparoscopy History of conization of cervix Hx of hernia repair Hx of tonsillectomy S/P IVC filter Family History Mother Breast cancer Grandfather (Paternal) Cardiac disorder Lung cancer Father Cardiac disorder Hypertension Other Cancer Heart disease Social History Smoking Status: Never smoker Hx Alcohol Use: No Hx Substance Use: No Preferred Language: Occitan Communication Ability: Effective Visual Impairment: No Limitations Hearing Ability: Normal Materials Planning Manager Required: No Beliefs That Will Affect Care: None marital status: Current Living Situation: Family current occupational status: disabled Feels Safe at Home: Yes Childhood Exposure to Second-Hand Smoke: No caffeine: Yes Dental Care, Regularly: Yes Physical Activity Frequency: Does not Exercise Seatbelt Use: always Sunscreen Use: Yes Assistive Devices: Walker Review of Systems Review of Systems: Constitutional: general weakness x 4 days; No fever/chills, fatigue, myalgias, anorexia, night sweats Eyes: No diplopia, no worsening or blurred vision ENT: normal hearing, no trouble swallowing Respiratory: No cough, sputum, dyspnea at rest or on exertion Cardiovascular: No chest pain, tightness or palpitations Abdomen: loose stools x 4 days with nausea; No pain, nausea, vomiting, or constipation : foul smelling odor x 2-3 days; Denies dysuria, hematuria, increased urg ency/frequency, urinary retention Musculoskeletal: No joint pain, calf pain, swelling Neurologic: No weakness, numbness/tingling, or balance problems Psychiatric: No anxiety or depression Skin: No rash or itch Physical Exam Physical Exam: General: awake, alert, no apparent distress Head: Normocephalic, atraumatic ENT: PERRL, EOMI, no pharyngeal exudate, mucous membranes moist Chest: Clear to auscultation, on room air, no adventitious breath sounds Cardiac: Regular rate and rhythm, no murmur, no JVD, normal peripheral pulses, good capillary refill Abdominal: NABS x 4 quadrants, soft, nontender to palpation, no rebound, guarding or tenderness Extremities: Normal inspection, no peripheral edema or erythema, calfs nontender to palpation Psych: Normal mood and affect Neuro: AAO x 3, strength intact bilaterally and rated 5/5, no motor deficits, speech is clear, no peripheral sensory deficits Skin:healing LLE venous stasis wound, appears to be healing well Results & Data Results & Data ([facility]) Vital Signs (Past 12 Hours) Vital Signs Temp Pulse Pulse Resp BP BP Pulse Ox 03/27/22 15:22 82 93 03/27/22 13:12 88 157/101 H 93 03/27/22 10:09 36.8 C 82 20 152/96 H 91 O2 Del Method 03/27/22 15:22 Room Air 03/27/22 13:12 Room Air 03/27/22 10:09 Room Air Laboratory Results Abnormal lab results 03/27/22 03/27/22 Range/Units 10:13 11:26 WBC 2.59 L (4.8-10.8) K/ul Hgb 11.9 L (12.0-16.0) g/dl RDW Std Deviation 57.8 H (36.4-46.3) fL RDW Coeff of Aleks 18.0 H (11.5-14.5) % Lymph # (Auto) 0.32 L (1.2-3.4) K/uL [place] # (Auto) 0.10 L (0.24-0.82) K/uL Urine Blood Trace H (Negative) Urine Nitrite Positive A (Negative) Ur Leukocyte Esterase 1+ H (Negative) Urine WBC (Auto) 10-30 H (0-5) /hpf Urine RBC (Auto) 5-10 H (0-4) /hpf U Epithel Cells (Auto) >30 H (0-5) /lpf Urine Bacteria (Auto) 4+ H (Negative) ECG Additional Comments: Poor data quality, interpretation may be adversely affected Normal sinus rhythm Normal ECG When compared with ECG of 09-MAY-2021 10:07, Vent. rate has decreased BY 50 BPM Confirmed by Alejandro Clements ([id number]) on 03/27/2022 4:46:52 PM Supervising Physician Co-Signing Physician Notes Patient was seen and examined independently I discussed the case with Elisa ESQUEDA I reviewed pertinent past medical social family history and also the plan of care and agree with the plan of care. Patient is a longstanding cervical myopathy gets around assist devices and a previous history of sepsis from urinary source. She presents with increasing weakness reportedly diarrhea and found to have a urinary tract infection. Her most recent underwent a total knee replacement on this day and she is no increased supportive care at home and feels she cannot take care of her self. Patient has chronic venous stasis with changes to her lower extremity with e hola. She can move her leg slightly but not enough to significantly walk around she is a motorized wheelchair in the room. Awake alert appropriate heart is regular lungs are clear as mentioned urinalysis is abnormal Patient be admitted for supportive care antibiotic treatment of urine infection present on admission wound care evaluation of her lower extremity chronic changes Any exceptions will be noted below PG Care Time/CCT Total # of Minutes Spent Total Time Spent with Patient: Total time spent is greater than 50% in coordination of care (as documented) at patient's floor/unit and/or counseling patient: Coding Level of Care Code 06713 Initial Inpt Care Lvl 3 Diagnoses UTI (urinary tract infection) N39.0 Diarrhea R19.7 Diarrhea type: unspecified type Incomplete quadriplegia due to spinal cord lesion between fifth and seventh cervical vertebra G82.54 Neurogenic bladder N31.9 History of pulmonary embolism Z86.711 Anxiety with depression F41.8 Chronic venous insufficiency of lower extremity I87.2 H/O gastric bypass Z98.84 (1) Diarrhea Diarrhea type: unspecified type Qualified Code(s): R19.7 - Diarrhea, unspecified
[2022-03-27] MEDS ORDERED: cefTRIAXone SODIUM 1,000 MG in DEXTROSE 5% AD-VAN 50 ML IV STA (17:16)
[2022-03-27] MEDS ORDERED: ALPRAZolam 0.5 MG TABLET PO STA (17:48)
[2022-03-27] MEDS ORDERED: WARFARIN SOD 3 MG TAB PO STA (17:58)
[2022-03-27 18:58] LABS: INR 3.8 (0.9-1.1); Prothrombin Time 37.6 Seconds (9.0-12.0)
[2022-03-27] MEDS ORDERED: ACETAMINOPHEN 325 MG TAB PO PRN (20:45)
[2022-03-27] MEDS ORDERED: ALPRAZolam 0.5 MG TABLET PO PRN (20:45)
[2022-03-27] MEDS ORDERED: ALUMINUM/MAGNESIUM SUSP 30 ML UDC PO PRN (20:45)
[2022-03-27] MEDS ORDERED: ALBUTEROL HFA 8 GM INHALER INH PRN (20:45)
[2022-03-27] MEDS ORDERED: POLYETHYLENE (MIRALAX) 17 GM PACK PO PRN (20:45)
[2022-03-27] MEDS ORDERED: ONDANSETRON INJ 2 MG/ML 2 ML VIAL IV PRN (20:45)
[2022-03-27] MEDS ORDERED: CYANOCOBALAMIN 1000 MCG/ML VIAL IM SCH (20:45)
[2022-03-27] MEDS ORDERED: Patient's HEIGHT &/or WEIGHT Needed SCH (21:00)
[2022-03-27] MEDS: LACTATED RINGER'S 1,000 ML IV SCH (22:51)
[2022-03-27] MEDS: BACLOFEN 10 MG TAB PO SCH (23:22)
[2022-03-27] MEDS: SERTRALINE HCL 50 MG TABLET PO SCH (23:22)
[2022-03-28 04:51] LABS: INR 4.3 (0.9-1.1); Prothrombin Time 42.4 Seconds (9.0-12.0)
[2022-03-28 04:54] LABS: BUN Creatinine Ratio 15.7 (10-20); Calcium 8.7 mg/dl (8.5-10.1); Est GFR (African American) 116.3 ml/min; Est GFR (Non-African American) 100.3 ml/min; Magnesium 1.6 mg/dl (1.7-2.4); Potassium 3.7 mmol/L (3.5-5.1)
[2022-03-28 06:12] LABS: Basophils # (auto) 0.01 K/uL (0-0.2); Basophils % (auto) 0.3 %; Eosinophils % (auto) 3.1 %; Hematocrit (blood only) 32.1 % (34.1-44.9); Hemoglobin 10.2 g/dl (12.0-16.0); Lymphocytes # (auto) 0.72 K/uL (1.2-3.4); Lymphocytes % (auto) 22.4 %; Mean Corpuscular Hemoglobin 27.7 pg (25.0-34.0); Mean Corpuscular Hgb Conc 31.8 g/dL (32.0-36.0); Mean Corpuscular Volume 87.2 fL (80.0-100.0); Mean Platelet Volume 10.3 fL (9.4-12.3); Monocytes # (auto) 0.31 K/uL (0.24-0.82); Monocytes % (auto) 9.6 %; Neutrophils # (auto) 2.08 K/uL (1.4-6.5); Neutrophils % (auto) 64.6 %; Platelet Count 149 K/uL (130-400); Platelet Estimate Normal (Normal); RDW Coefficient of Variation 17.9 % (11.5-14.5); RDW Standard Deviation 57.4 fL (36.4-46.3); Red Blood Count 3.68 M/uL (3.93-5.22); White Blood Count 3.22 K/ul (4.8-10.8)
[2022-03-28] MEDS: POTASSIUM CHLORIDE CRTAB 20 MEQ TABCR PO SCH (06:36)
[2022-03-28] MEDS: SERTRALINE HCL 100 MG TABLET PO SCH (06:36)
[2022-03-28] MEDS: LACTATED RINGER'S 1,000 ML IV SCH (06:41)
[2022-03-28] MEDS ORDERED: cefTRIAXone SODIUM 2,000 MG in DEXTROSE 5% 50 ML IV SCH (09:00)
[2022-03-28] MEDS ORDERED: cefTRIAXone SODIUM 2000MG/70ML D5W IV ONE (10:20)
[2022-03-28] MEDS: CEROVITE ADV FORMULA TAB PO SCH (10:39)
[2022-03-28] MEDS: FOLIC ACID 1 MG TAB PO SCH (10:39)
[2022-03-28] MEDS: PANTOprazole 40 MG TAB PO SCH (10:39)
[2022-03-28] MEDS: BACLOFEN 10 MG TAB PO SCH ×4 (10:39→20:21)
[2022-03-28] MEDS ORDERED: levoFLOXacin/D5W 500 MG/100 ML BAG IV SCH (11:15)
[2022-03-28] MEDS: MAGNESIUM SULFATE / D5W 1 GM/100 ML BAG IV SCH ×2 (11:22→12:53)
[2022-03-28] MEDS ORDERED: WARFARIN SOD 3 MG TAB PO SCH (16:00)
--- NOTE | 2022-03-28 17:09 | Hospitalist Progress Note ---
Date of Service March 28, 2022 Assessment & Plan (1) UTI (urinary tract infection): Plan: - Has had foul smelling odor for couple days, in the setting of frequent diarrhea and several episodes of bowel incontinence at home. . She has a neurogenic bladder but does retain some sensation and has some urine output but relies on caths due to retention. -Patient has gram-negative rods. Previous culture results of been Proteus and also Pseudomonas. Will convert ceftriaxone to cefepime awaiting final culture results (recently finished outpatient course of levofloxacin) - Blood and urine cultures final results are currently pending (2) Diarrhea: Plan: - Patient not any recurrence of diarrhea PCR cannot be sent similarly C. difficile cannot be sent (3) Incomplete quadriplegia due to spinal cord lesion between fifth and seventh cervical vertebra: Plan: - Patient is wheelchair-bound at baseline but can stand and pivot to and from a bedside commode with walker used for assistance. - Neurogenic bladder, she straight cath as needed and does have sensation intact/able to tell when she needs to urinate. - Continue Baclofen 5 mg QID, Tylenol prn for pain. (4) Neurogenic bladder: Plan: - Self caths at home prn, will order them Q6h/prn while admitted. (5) History of pulmonary embolism: Plan: INR is supratherapeutic warfarin is on hold typically-On warfarin 3 mg daily, as well as with IVC filter in place which cannot be removed. - (6) Anxiety with depression: Plan: - Continue Zoloft with Xanax as needed. (7) Chronic venous insufficiency of lower extremity: Plan: - Follows with wound clinic, recently finished a course of Levaquin for cellul itis of the lower leg. - Will have wound care see patient while she is admitted. (8) H/O gastric bypass: Plan: - In 2006, now with iron deficiency and B12 anemia. - Continue PPI, folic acid, and iron supplement. Monthly B12 injections. - Also has a GJ stricutre and GG fistula. Plan - Admit to [facility]. - SCDs, warfarin will be continued for VTE PPx. - Full code. Admission and Anticipated Discharge Date Admission Date: March 27, 2022 Subjective Patient feels much better than she did 1 day prior. She is confirm that gram- negative UTI. She is also mildly hypomagnesemic. She is also with a supra therapeutic INR. Her Coumadin is being held (she takes this for chronic VTE prevention and current ) Review of Systems Review of Systems: Mild distress and fatigue no headache, no visual changes no speech or swallowing issues no chest pain, pressure or palpitations no shortness of breath, cough or wheezes no abdominal pain, nausea or vomiting, diarrhea or constipation no dysuria, hematuria or frequency no focal joint pain or swelling no back pain, CVA tenderness or radicular pain Chronic lower extremity swelling and chronic venous stasis changes with wound care involvement and Tubigrip wraps Patient has had a persistent cervical myelopathy since 2012 she can stand and pivot but cannot walk very well uses a motorized wheelchair for the same no complaints of anxiety or depression.. Physical Exam Physical Exam: The patient appeared well nourished and normally developed. Vital signs as documented. Head exam is normocephalic atraumatic Neck is without JVD, thyromegaly, or carotid bruits. Lungs are clear to auscultation, no focal loss of breath sounds Cardiac exam, Rhythm is regular.. No murmurs, rubs or gallops. Abdominal exam reveals normal bowel sounds, soft non tender, no masses Extremities are 2+ edematous bilaterally with chronic venous stasis changes no evidence of open areas at this time Neurologic exam is alert and oriented, patient is significant lower extremity weakness most movement with a wheelchair upper extremities are 5/5 equal bilaterally Skin is without bruises or rashes Psychologically is without concerns for anxiety or depression.. Results & Data Results & Data ([facility]) Vital Signs (Past 12 Hours) Vital Signs Pulse Resp BP Pulse Ox O2 Del Method O2 Flow Rate 03/28/22 16:34 Room Air 03/28/22 12:03 66 16 127/87 93 Room Air 03/28/22 06:30 96 Nasal Cannula 2 03/28/22 06:20 94 2 03/28/22 06:10 93 Nasal Cannula 2 03/28/22 06:00 95 2 03/28/22 05:50 93 Nasal Cannula 2 03/28/22 05:40 93 2 03/28/22 05:30 91 Nasal Cannula 2 03/28/22 05:20 92 Nasal Cannula 2 03/28/22 05:10 88 L 2 PG Care Time/CCT Total # of Minutes Spent Total Time Spent with Patient: Total time spent is greater than 50% in coordination of care (as documented) at patient's floor/unit and/or counseling patient: Coding Level of Care Code 19127 Subseq Hosp Care Lvl 3 Diagnoses UTI (urinary tract infection) N39.0 Diarrhea R19.7 Diarrhea type: unspecified type Incomplete quadriplegia due to spinal cord lesion between fifth and seventh cervical vertebra G82.54 Neurogenic bladder N31.9 History of pulmonary embolism Z86.711 Anxiety with depression F41.8 Chronic venous insufficiency of lower extremity I87.2 H/O gastric bypass Z98.84 (1) Diarrhea Diarrhea type: unspecified type Qualified Code(s): R19.7 - Diarrhea, unspecified
[2022-03-28] MEDS: CEFEPIME 2,000 MG in SYRINGE 0 ML IV SCH (19:10)
[2022-03-28] MEDS: SERTRALINE HCL 50 MG TABLET PO SCH (20:21)
[2022-03-28] MEDS ORDERED: ALBUTEROL 0.083% NEBU SOLN 3 ML VIAL NEB STA (21:08)
[2022-03-29] MEDS: CEFEPIME 2,000 MG in SYRINGE 0 ML IV SCH ×2 (00:58→08:29)
[2022-03-29] MEDS: POTASSIUM CHLORIDE CRTAB 20 MEQ TABCR PO SCH (05:05)
[2022-03-29] MEDS: SERTRALINE HCL 100 MG TABLET PO SCH (05:05)
[2022-03-29] MEDS: PANTOprazole 40 MG TAB PO SCH (08:27)
[2022-03-29] MEDS: BACLOFEN 10 MG TAB PO SCH ×2 (08:27→12:08)
[2022-03-29] MEDS: CEROVITE ADV FORMULA TAB PO SCH (08:27)
[2022-03-29] MEDS: FOLIC ACID 1 MG TAB PO SCH (08:27)
[2022-03-29] MEDS ORDERED: LEVALBUTEROL HCL 0.63 MG/3 ML NEB NEB STA (10:51)
--- NOTE | 2022-03-29 10:54 | Discharge Summary ---
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 On Saturday she developed very loose stools immediately after eating meals. She has some associated nausea with this but no vomiting, and has not been any blood in her bowel movements she can tell. Shortly after this developed, she noticed foul-smelling urine, due to frequent bowel movement. She does not have a history of C. difficile, however did just finish course of Levaquin for lower leg cellulitis and is concerned she may have a diarrheal infection now. She not having any urinary symptoms other than foul-smelling urine. She does have neurogenic bladder and relies on self caths as she often retains but does produce some urine on her own and has sensation intact. No fever chills, body aches, or flank pain. She is generally weak and rundown as she has not been eating for the past several days because it causes her to have worse diarrhea. She is afraid of falling at home now as she is wheelchair-bound, but can stand and pivot from her chair. Her is also currently hospitalized for a knee replacement so she has no support at home. Upon presentation to the ED, she is moderately hypertensive, otherwise vital signs within normal limits and stable. UA with 4+ bacteria, nitrates, leukoesterase, WBCs. Labs otherwise significant for leukopenia 2.59, Hgb 11.9 at/near baseline, without electrolyte abnormalities, renal dysfunction, or hepatic dysfunction. COVID/flu/RSV negative. Principal Dx & Hospital Course #1 = Principal Diagnosis (1) UTI (urinary tract infection): - Has had foul smelling odor for couple days, in the setting of frequent diarrhea and several episodes of bowel incontinence at home. . She has a neurogenic bladder but does retain some sensation and has some urine output but relies on caths due to retention. -Patient has gram-negative rods. Previous culture results of been Proteus and also Pseudomonas. Will convert ceftriaxone to cefepime awaiting final culture results (recently finished outpatient course of levofloxacin) - Blood and urine cultures final results are currently pending (2) Diarrhea: - Patient not any recurrence of diarrhea PCR cannot be sent similarly C. difficile cannot be sent (3) Incomplete quadriplegia due to spinal cord lesion between fifth and seventh cervical vertebra: - Patient is wheelchair-bound at baseline but can stand and pivot to and from a bedside commode with walker used for assistance. - Neurogenic bladder, she straight cath as needed and does have sensation intact/able to tell when she needs to urinate. - Continue Baclofen 5 mg QID, Tylenol prn for pain. (4) Neurogenic bladder: - Self caths at home prn, will order them Q6h/prn while admitted. (5) History of pulmonary embolism: INR is supratherapeutic warfarin is on hold typically-On warfarin 3 mg daily, as well as with IVC filter in place which cannot be removed. - (6) Anxiety with depression: - Continue Zoloft with Xanax as needed. (7) Chronic venous insufficiency of lower extremity: - Follows with wound clinic, recently finished a course of Levaquin for cellulitis of the lower leg. - Will have wound care see patient while she is admitted. (8) H/O gastric bypass: - In 2006, now with iron deficiency and B12 anemia. - Continue PPI, folic acid, and iron supplement. Monthly B12 injections. - Also has a GJ stricutre and GG fistula. Plan discharge edison e- complete 7 days total abx Wound care follow up for R leg stage two ulcers Updated Medication List Medication Instructions Recorded Confirmed Type folic acid 1 mg tablet 1 mg PO QAM 01/03/18 03/27/22 History Powered Wheelchair #1 ea 09/21/19 03/27/22 Rx cyanocobalamin (vitamin B-12) 1,000 mcg IM MONTHLY 01/14/20 03/27/22 History 1,000 mcg/mL injection solution acetaminophen 325 mg tablet 650 mg PO QID PRN Pain 05/09/21 03/27/22 History (Tylenol) sertraline 50 mg tablet 50 mg PO QPM 05/09/21 03/27/22 History pantoprazole 40 mg tablet,delayed 40 mg PO DAILY 05/17/21 03/27/22 History release (Protonix) itbkkqrj-zaujrwht-elcc 45 mg-folic 1 cap PO DAILY 06/19/21 03/27/22 History acid 800 mcg-vit K 120 mcg capsule (Bariatric Multivitamins) potassium chloride 20 mEq 20 meq PO DAILY@0600 #90 tabs 06/27/21 03/27/22 Rx tablet,extended release silver-hydrocolloid dressing 1.2 1 ea topical DAILY PRN to each leg 08/02/21 03/27/22 History %-4" X 5" (Aquacel-AG Advantage) sertraline 100 mg tablet 200 mg PO DAILY@0600 #180 tabs 09/27/21 03/27/22 Rx alprazolam 0.5 mg tablet 0.5 mg PO DAILY PRN anxiety #45 12/05/21 03/27/22 Rx tabs baclofen 10 mg tablet 5 mg PO QID #180 tabs 01/02/22 03/27/22 Rx tramadol 50 mg tablet 50 mg PO Q8H PRN pain #15 tabs 03/09/22 03/27/22 Rx warfarin 3 mg tablet See Rx Instructions PO UD 03/26/22 03/27/22 History albuterol sulfate 90 mcg/actuation 2 puff inhalation Q4 PRN Shortness 03/27/22 03/27/22 History aerosol inhaler Of Breath Or Wheezing cefdinir 300 mg capsule 300 mg PO BID 5 days #10 caps 03/27/22 03/27/22 Rx Hospital Stay Data Consultations 03/27/22 16:47 ED Decision to Admit Stat Home Health Attestation I certify that this patient is under my care and that I, or a physicians assistant inventory manager working with me, had a face to-face encounter that meets the home health [id number] encounter requirements with this patient. The encounter with the patient was in whole, or in part, for the following medical condition, which is the primary reason for home health care (list medical condition): I certify that, based on my findings, the following services are medically necessary home health services: My clinical findings support the need for the above services because: Further, I certify that my clinical findings support that this patient is homebound (i.e. absences from home require considerable and taxing effort and are for medical reasons or hindu services or infrequently or of short duration when for other reasons) because: Certification for Home Health Services: Based on the above findings, I certify that this patient is confined to the home and needs intermittent alf care, physical therapy and/or speech therapy or continues to need occupational therapy. The patient is under my care, and I have initiated the establishment of the plan of care. This patient will be followed by a physician who will periodically review the plan of care. Coding Level of Care Code D/C DAY MANAGEMENT >30 MINS Diagnoses UTI (urinary tract infection) N39.0 Diarrhea R19.7 Diarrhea type: unspecified type Incomplete quadriplegia due to spinal cord lesion between fifth and seventh cervical vertebra G82.54 Neurogenic bladder N31.9 History of pulmonary embolism Z86.711 Anxiety with depression F41.8 Chronic venous insufficiency of lower extremity I87.2 H/O gastric bypass Z98.84
--- NOTE | 2022-03-29 10:57 | Discharge Summary ---
Date of Service March 29, 2022 Admission HPI Per Admitting Provider Raegan Olivera is a 51 y/o female with incomplete quadriplegia and neurogenic bladder secondary to spinal cord lesion, cervical myelopathy, transverse myelitis, s/p Deanna-en-Y gastric bypass in 2006, anemia, and previous DVTs on warfarin and with IVC filter who is presenting today with several days of watery diarrhea and weakness. On Saturday she developed very loose stools immediately after eating meals. She has some associated nausea with this but no vomiting, and has not been any blood in her bowel movements she can tell. Shortly after this developed, she noticed foul-smelling urine, due to frequent bowel movement. She does not have a history of C. difficile, however did just finish course of Levaquin for lower leg cellulitis and is concerned she may have a diarrheal infection now. She not having any urinary symptoms other than foul-smelling urine. She does have neurogenic bladder and relies on self caths as she often retains but does produce some urine on her own and has sensation intact. No fever chills, body aches, or flank pain. She is generally weak and rundown as she has not been eating for the past several days because it causes her to have worse diarrhea. She is afraid of falling at home now as she is wheelchair-bound, but can stand and pivot from her chair. Her is also currently hospitalized for a knee replacement so she has no support at home. Upon presentation to the ED, she is moderately hypertensive, otherwise vital signs within normal limits and stable. UA with 4+ bacteria, nitrates, leukoesterase, WBCs. Labs otherwise significant for leukopenia 2.59, Hgb 11.9 at/near baseline, without electrolyte abnormalities, renal dysfunction, or hepatic dysfunction. COVID/flu/RSV negative. Principal Diagnosis E Coli UTI pansensitive- discharge on Cefidinir Discharge Exam seen at 1040 h, feels fine. Ready to go home. No diarrhea yest and today. Requesting a neb traetment to loosen sutum to cougg- has astgma and cough for last week or so. 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 . She has a neurogenic bladder but does retain some sensation and has some urine output but relies on caths due to retention. -Patient has gram-negative rods. Previous culture results of been Proteus and also Pseudomonas. Will convert ceftriaxone to cefepime awaiting final culture results (recently finished outpatient course of levofloxacin) - Blood cx NGTD Urine cx: E Coli pansensitive (2) Diarrhea: - Patient not any recurrence of diarrhea PCR cannot be sent similarly C. difficile cannot be sent (3) Incomplete quadriplegia due to spinal cord lesion between fifth and seventh cervical vertebra: - Patient is wheelchair-bound at baseline but can stand and pivot to and from a bedside commode with walker used for assistance. - Neurogenic bladder, she straight cath as needed and does have sensation intact/able to tell when she needs to urinate. - Continue Baclofen 5 mg QID, Tylenol prn for pain. (4) Neurogenic bladder: - Self caths at home prn, will order them Q6h/prn while admitted. (5) History of pulmonary embolism: INR is supratherapeutic warfarin is on hold typically-On warfarin 3 mg daily, as well as with IVC filter in place which cannot be removed. - (6) Anxiety with depression: - Continue Zoloft with Xanax as needed. (7) Chronic venous insufficiency of lower extremity: - Follows with wound clinic, recently finished a course of Levaquin for cellulitis of the lower leg. - Will have wound care see patient while she is admitted. (8) H/O gastric bypass: - In 2006, now with iron deficiency and B12 anemia. - Continue PPI, folic acid, and iron supplement. Monthly B12 injections. - Also has a GJ stricutre and GG fistula. Plan discharge home- complete 7 days total abx Wound care follow up for R leg stage two ulcers Total Time Total Time Spent Total Time Spent (In Minutes): 35 Discharge Plan Discharge Items Patient Disposition: Home - Self-Care Reason For Visit: DEHYDRATION, DIARRHEA Discharge Diagnosis: E Coli UTI Condition on Discharge: Good Activity: Resume your previous activity Non-emergency contact: Primary Care Provider Call non-emergency contact if: you have any medication questions Follow-up/Referrals: Sami Carr MD [Primary Care Provider] - Diet: Regular Addtl Attending Provider Instructions: LEG WOUND CARE INSTRUCTIONS will be given Pending Studies at Discharge: No Stand-Alone Forms: My [employer] Medications and DC Order Prescriptions: New cefdinir 300 mg capsule 300 mg PO BID 5 Days Qty: 10 0RF Rx Instructions: not yet started Continued folic acid 1 mg tablet 1 mg PO QAM warfarin 3 mg tablet See Rx Instructions PO UD Dose Instruction: Take 1 tab daily UD by [facility] PO DAILY; Take 1 tab daily UD by [facility] Rx Instructions: 3mg daily cyanocobalamin (vitamin B-12) 1,000 mcg/mL solution 1,000 mcg IM MONTHLY Bariatric Multivitamins 45 mg iron- 800 mcg-120 mcg capsule 1 cap PO DAILY potassium chloride 20 mEq tablet extended release 20 meq PO DAILY@0600 Qty: 90 2RF sertraline 100 mg tablet 200 mg PO DAILY@0600 Qty: 180 0RF baclofen 10 mg tablet 5 mg PO QID Qty: 180 3RF tramadol 50 mg tablet 50 mg PO Q8H PRN (Reason: pain) Qty: 15 0RF (DME) Powered Wheelchair Misc See Rx Instructions .ROUTE .MEDSUPPLY Qty: 1 0RF Rx Instructions: POWERED WHEELCHAIR LENGTH OF NEED: 99 MONTHS DX: G82.50, D86.89 Aquacel-AG Advantage 1.2-4 X 5 %-" bandage 1 ea topical DAILY PRN (Reason: to each leg) pantoprazole [Protonix] 40 mg tablet,delayed release (DR/EC) 40 mg PO DAILY alprazolam 0.5 mg tablet 0.5 mg PO DAILY PRN (Reason: anxiety) Qty: 45 0RF acetaminophen [Tylenol] 325 mg Tablet 650 mg PO QID PRN (Reason: Pain) sertraline 50 mg tablet 50 mg PO QPM albuterol sulfate 90 mcg/actuation HFA aerosol inhaler 2 puff inhalation Q4 PRN (Reason: Shortness Of Breath Or Wheezing) Rx Instructions: inhale 2 puffs by mouth every 4 hours if needed for shortness of breath or wheezing Discharge Orders: Discharge Order (Routine); Ordered 03/29/22 Ordered By: Mohamud Clark Admission Data Admit Date/Time: 03/27/22 17:56 Attending Provider: Mohamud Clark Admit Provider: Russell Costa Primary Care Provider: Sami Carr Other Providers: Russell Costa Coding Level of Care Code D/C DAY MANAGEMENT >30 MINS Diagnoses UTI (urinary tract infection) N39.0 Diarrhea R19.7 Diarrhea type: unspecified type Incomplete quadriplegia due to spinal cord lesion between fifth and seventh cervical vertebra G82.54 Neurogenic bladder N31.9 History of pulmonary embolism Z86.711 Anxiety with depression F41.8 Chronic venous insufficiency of lower extremity I87.2 H/O gastric bypass Z98.84
== END 2022-03-29 16:54 | disposition home or self-care (01) | DRG 689 ==
LOC: ED 09:59 → EDINP 17:56 → SUATTDRO 17:56 → 3E 20:45

== ENCOUNTER 2022-04-19 09:56 | Inpatient (IN) ==
[2022-04-19] MEDS ORDERED: ACETAMINOPHEN 500 MG TAB PO STA (11:39)
[2022-04-19] MEDS ORDERED: SODIUM CHLORIDE 0.9% 1000ML 1,000 ML IV ONE (11:39)
[2022-04-19] MEDS ORDERED: CEFEPIME 2,000 MG/20 ML VIAL IV STA (11:39)
[2022-04-19 11:55] LABS: Basophils # (auto) 0.02 K/uL (0-0.2); Basophils % (auto) 0.4 %; Eosinophils # (auto) 0.08 K/uL (0-0.50); Eosinophils % (auto) 1.5 %; Hematocrit (blood only) 32.7 % (34.1-44.9); Hemoglobin 10.4 g/dl (12.0-16.0); Immature Granulocytes # (auto) 0.02 K/uL (0.00-0.02); Immature Granulocytes % (auto) 0.4 %; Lymphocytes # (auto) 0.45 K/uL (1.2-3.4); Lymphocytes % (auto) 8.5 %; Mean Corpuscular Hemoglobin 27.9 pg (25.0-34.0); Mean Corpuscular Hgb Conc 31.8 g/dL (32.0-36.0); Mean Corpuscular Volume 87.7 fL (80.0-100.0); Mean Platelet Volume 12.2 fL (9.4-12.3); Monocytes % (auto) 9.4 %; Neutrophils # (auto) 4.25 K/uL (1.4-6.5); Neutrophils % (auto) 79.8 %; Platelet Count 154 K/uL (130-400); RDW Coefficient of Variation 15.5 % (11.5-14.5); RDW Standard Deviation 49.1 fL (36.4-46.3); Red Blood Count 3.73 M/uL (3.93-5.22); White Blood Count 5.32 K/ul (4.8-10.8)
--- NOTE | 2022-04-19 12:01 | XRay Report ---
XR chest 1V portable HISTORY: 52 years-old Female fever, cough acute cough with fever COMPARISON: 05/09/2021 TECHNIQUE: AP view of the chest FINDINGS: Cardiomediastinal and hilar silhouettes are within normal limits. No pneumothorax, pleural effusion, airspace consolidation or overt pulmonary edema. Bones appear grossly intact. Cervical spinal fusion hardware. IMPRESSION: No acute process. ACT 112: Negative or not required by law. The above report was generated using voice recognition software. It may contain grammatical, syntax o r spelling errors. Electronically signed by: Shaw Benavides M.D. 04/19/2022 12:00 PM
[2022-04-19 12:06] LABS: Albumin Globulin Ratio 1.2 (0.9-2); Calcium 9.9 mg/dl (8.5-10.1); Creatinine Clr Calc Pharmacy 98.2 ml/min; Est GFR (African American) 106.2 ml/min; Est GFR (Non-African American) 91.6 ml/min; Globulin 3.3 gm/dl (2.5-4.0); Potassium 4.2 mmol/L (3.5-5.1); Total Protein 7.3 gm/dl (6.0-8.3)
[2022-04-19] MEDS: SODIUM CHLORIDE 0.9% 1000ML 1,000 ML IV SCH ×2 (13:04→21:48)
[2022-04-19 14:04] LABS: Appearance Urine Cloudy (Clear); Bacteria Urine Automated 3+ (Negative); Blood Urine 1+ (Negative); Color Urine Dark Yellow; Epithelial Cell Urine Auto >30 /lpf (0-5); Glucose Urine UA Negative (Negative); Ketones Urine Negative (Negative); Leukocyte Esterase Urine 1+ (Negative); Nitrite Urine Positive (Negative); Protein Urine Trace (Negative); RBC Urine Automated 0-4 /hpf (0-4); Specific Gravity Urine 1.033 (1.000-1.030); Urobilinogen Urine Negative (Negative)
[2022-04-19 14:07] LABS: Bilirubin Urine 1+ (Negative)
[2022-04-19 14:21] LABS: Mucus Urine Present (None Prsent)
--- NOTE | 2022-04-19 14:36 | Emergency Department Note ---
Impression & Plan UTI (urinary tract infection), COVID-19, Back pain, Quadriparesis, Chronic anticoagulation ED Provider Note CHIEF COMPLAINT: Low back pain, chills HISTORY OF PRESENT ILLNESS: This 52-year-old female patient presents to the emergency department with complaints of generalized weakness, low back pain and chills. The patient states she has a partial quadriplegic and is normally able to transfer herself from her bed to her power chair. She has had increased difficulty with this and complains that her back has been uncomfortable. She was not certain if this is a muscular strain or something else. She does straight catheter self several times a day. She denies any significant shortness of breath or coughing. She does have a history of PE, venous stasis changes of the bilateral lower extremities with a small ulceration of the right lower extremity. Patient states due to her decreased mobility she has not been able to see the wound care clinic as often. She does try to keep the wound wrapped at home. Patient denies any vomiting or diarrhea. REVIEW OF SYSTEMS: A review of systems was performed with positives and pertinent negatives listed in the history of present illness. 10 systems were reviewed and are otherwise negative. ALLERGIES: see below MEDICATIONS: see below PMH: see below SOCIAL HISTORY: see below DDx:Viral syndrome, cellulitis, pneumonia, influenza, intra-abdominal pathology such as diverticulitis, urinary tract infection/pyelonephritis, sepsis, bacteremia, as well as other pathologies. PHYSICAL EXAM: Vital signs reviewed. General: Chronically ill-appearing 52-year-old female HEENT: No scleral icterus, PERRLA, neck supple. Moist mucous membranes Cardiovascular: Regular rate and rhythm, no extra sounds. Pulmonary: Clear to auscultation bilaterally, normal work of breathing. Abdomen: Soft, nontender, nondistended, positive bowel sounds. Musculoskeletal: Significant lymphedema to the bilateral lower extremities with venous stasis ulcerations to right lower extremity and skin changes bilaterally. Neurologic: Patient awake alert and oriented x 3, speech is clear. Left greater than right upper extremity atrophy with ataxia Skin: Warm, dry, venous stasis changes as above with dry and flaking skin. EMERGENCY DEPARTMENT COURSE/MDM: This patient was evaluated and appeared to be in some discomfort. IV access was obtained and laboratory work was drawn. Patient was hydrated with normal saline solution. She is noted to have UTI a fter straight cath. Patient was given Tylenol for her headache, she was medicated with IV cefepime due to history of Pseudomonas. Patient did test positive for COVID-19 patient does not appear to be septic at this time. She was informed of the findings and plan for admission due to limited mobility, recurrent UTI and COVID-19. Patient continued to complain of pain in the right hip and back. X-rays of the lumbar spine and hip were ordered and the patient's case was discussed with the hospitalist service. They agreed to evaluate the patient for admission and further management. Patient seems happy with this plan and agrees. MONITORING: An order for cardiac monitoring was placed and the patient is noted to be in a sinus tachycardia at 104 beats per minute. 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 Headache History of pulmonary embolism Hx of spinal cord injury Hypomagnesemia Hypotension Leukocytosis MSSA (methicillin susceptible Staphylococcus aureus) septicemia Open toe wound Sepsis Skin ulcer of buttock, limited to breakdown of skin Spinal cord injury Syncopal episodes (05/15/14) Surgical History H/O breast surgery H/O cervical spine surgery cervical vertebral fusion H/O esophagogastroduodenoscopy H/O gastric bypass H/O laparoscopy History of conization of cervix Hx of hernia repair Hx of tonsillectomy S/P IVC filter Family History Mother Breast cancer Grandfather (Paternal) Cardiac disorder Lung cancer Father Cardiac disorder Hypertension Other Cancer Heart disease Social History Smoking Status: Former smoker Second Hand Exposure: No; Do You Dip or Chew Tobacco: No; Hx Alcohol Use: No Hx Substance Use: No Preferred Language: Welsh Communication Ability: Effective Visual Impairment: No Limitations Hearing Ability: Normal Marriage And Family Social Worker Required: No Beliefs That Will Affect Care: None marital status: Current Living Situation: Spouse Current Living Situation Comment: - recent knee replacement current occupational status: disabled Other Information That Helps Us Care for You: No Feels Safe at Home: Yes Safety Concerns: Feels Safe At This Time Childhood Exposure to Second-Hand Smoke: No caffeine: Yes Dental Care, Regularly: Yes Physical Activity Frequency: Does not Exercise Seatbelt Use: always Sunscreen Use: Yes Assistive Devices: Lift Chair and Wheelchair Allergies Allergies Allergy/AdvReac Type Severity Reaction Status Date / Time Penicillins Allergy Unknown hives Verified 04/19/22 16:40 vancomycin Allergy Unknown hives, Verified 04/19/22 16:40 breathing difficulties Home Meds Home Medications Medication Instructions Recorded Confirmed folic acid 1 mg tablet 1 mg PO QAM 01/03/18 04/19/22 cyanocobalamin (vitamin B-12) 1,000 mcg IM MONTHLY 01/14/20 04/19/22 1,000 mcg/mL injection solution acetaminophen 325 mg tablet 650 mg PO QID PRN Pain 05/09/21 04/19/22 (Tylenol) sertraline 50 mg tablet 50 mg PO QPM 05/09/21 04/19/22 pantoprazole 40 mg tablet,delayed 40 mg PO DAILY 05/17/21 04/19/22 release (Protonix) silver-hydrocolloid dressing 1.2 1 ea topical DAILY PRN to each leg 08/02/21 04/19/22 %-4" X 5" (Aquacel-AG Advantage) albuterol sulfate 90 mcg/actuation 2 puff inhalation Q4 PRN Shortness 03/27/22 04/19/22 aerosol inhaler Of Breath Or Wheezing [id number] 45 mg-folic 1 - 1.5 cap PO DAILY 04/09/22 04/19/22 acid 800 mcg-vit K 120 mcg capsule (Bariatric Multivitamins) warfarin 3 mg tablet See Rx Instructions PO UD 04/09/22 04/19/22 Previous Rx's Medication Instructions Recorded Powered Wheelchair #1 ea 09/21/19 alprazolam 0.5 mg tablet 0.5 mg PO DAILY PRN anxiety #45 12/05/21 tabs baclofen 10 mg tablet 5 mg PO QID #180 tabs 01/02/22 tramadol 50 mg tablet 50 mg PO Q8H PRN pain #15 tabs 11/18/22 potassium chloride 20 mEq 20 meq PO DAILY@0600 #90 tabs 04/11/22 tablet,extended release sertraline 100 mg tablet 200 mg PO DAILY@0600 #180 tabs 04/11/22 Results & Data (ED) Vital Signs Vital Signs - 24 hr 04/19/22 09:39 04/19/22 13:53 Temperature 37.7 C H Temperature Source Oral Pulse Rate 104 H Pulse Rate [Apical] 94 H Respiratory Rate 14 18 Respiratory Effort / Characteristics Non-Labored Respiratory Depth Normal Respiratory Pattern Regular Blood Pressure 111/74 Blood Pressure [Left Arm] 94/61 L Blood Pressure Mean 86 Blood Pressure Mean [Left Arm] 72 Pulse Oximetry 98 99 Oxygen Delivery Method Room Air Room Air Sepsis Recent Fever Within 48 Hours Yes Sepsis New/Unexplained Change in Mental Status No Sepsis Action Taken by Nursing No Action Required Home Medications Current Medication List: was personally reviewed by me Laboratory Data Attestation: I reviewed the patient's lab results. Result diagrams: 04/20/22 06:02 04/20/22 06:02 Lab Results 04/19/22 04/19/22 04/19/22 Range/Units 11:15 11:15 11:15 WBC 5.32 (4.8-10.8) K/ul RBC 3.73 L (3.93-5.22) M/uL Hgb 10.4 L (12.0-16.0) g/dl Hct 32.7 L (34.1-44.9) % MCV 87.7 (80.0-100.0) fL MCH 27.9 (25.0-34.0) pg MCHC 31.8 L (32.0-36.0) g/dL RDW Std Deviation 49.1 H (36.4-46.3) fL RDW Coeff of Aleks 15.5 H (11.5-14.5) % Plt Count 154 (130-400) K/uL MPV 12.2 (9.4-12.3) fL Immature Gran % (Auto) 0.4 % Neut % (Auto) 79.8 % Lymph % (Auto) 8.5 % [place] % (Auto) 9.4 % Eos % (Auto) 1.5 % Baso % (Auto) 0.4 % Neut # (Auto) 4.25 (1.4-6.5) K/uL Lymph # (Auto) 0.45 L (1.2-3.4) K/uL [place] # (Auto) 0.50 (0.24-0.82) K/uL Eos # (Auto) 0.08 (0-0.50) K/uL Baso # (Auto) 0.02 (0-0.2) K/uL Immature Gran # (Auto) 0.02 (0.00-0.02) K/uL PT 17.2 H (9.0-12.0) Seconds INR 1.7 H (0.9-1.1) Sodium 137 (136-145) mmol/L Potassium 4.2 (3.5-5.1) mmol/L Chloride 102 (98-107) mmol/L Carbon Dioxide 29 (21-32) mmol/L Anion Gap 6 (3-11) BUN 21 (6-23) mg/dl Creatinine 0.75 (0.6-1.2) mg/dl Est Cr Clr Drug Dosing 98.2 ml/min Est GFR ( Amer) 106.2 ml/min Est GFR (Non-Af Amer) 91.6 ml/min BUN/Creatinine Ratio 28.0 H (10-20) Glucose 105 H (70-99(Fasting)) mg/dl Lactate (0.4-2.0) mmol/L Calcium 9.9 (8.5-10.1) mg/dl Total Bilirubin 1.0 (0.2-1.0) mg/dl AST 13 (13-39) U/L ALT 10 (7-52) U/L Alkaline Phosphatase 73 (34-104) U/L Total Protein 7.3 (6.0-8.3) gm/dl Albumin 4.0 (3.4-5.0) gm/dl Globulin 3.3 (2.5-4.0) gm/dl Albumin/Globulin Ratio 1.2 (0.9-2) Urine Color Urine Appearance (Clear) Urine pH (4.5-7.5) Ur Specific [place] (1.000-1.030) Urine Protein (Negative) Urine Glucose (UA) (Negative) Urine Ketones (Negative) Urine Blood (Negative) Urine Nitrite (Negative) Urine Bilirubin (Negative) Urine Urobilinogen (Negative) Ur Leukocyte Esterase (Negative) Urine WBC (Auto) (0-5) /hpf Urine RBC (Auto) (0-4) /hpf U Hyaline Cast (Auto) (0-5) /lpf U Epithel Cells (Auto) (0-5) /lpf Urine Bacteria (Auto) (Negative) Urine Mucus (None Prsent) Urine Yeast (None Prsent) SARS-CoV-2 (PCR) (Negative) Influenza Type A (PCR) (Neg) Influenza Type B (PCR) (Neg) RSV (RT-PCR) (Neg) 04/19/22 04/19/22 04/19/22 Range/Units 12:25 13:37 13:48 WBC (4.8-10.8) K/ul RBC (3.93-5.22) M/uL Hgb (12.0-16.0) g/dl Hct (34.1-44.9) % MCV (80.0-100.0) fL MCH (25.0-34.0) pg MCHC (32.0-36.0) g/dL RDW Std Deviation (36.4-46.3) fL RDW Coeff of Aleks (11.5-14.5) % Plt Count (130-400) K/uL MPV (9.4-12.3) fL Immature Gran % (Auto) % Neut % (Auto) % Lymph % (Auto) % [place] % (Auto) % Eos % (Auto) % Baso % (Auto) % Neut # (Auto) (1.4-6.5) K/uL Lymph # (Auto) (1.2-3.4) K/uL [place] # (Auto) (0.24-0.82) K/uL Eos # (Auto) (0-0.50) K/uL Baso # (Auto) (0-0.2) K/uL Immature Gran # (Auto) (0.00-0.02) K/uL PT (9.0-12.0) Seconds INR (0.9-1.1) Sodium (136-145) mmol/L Potassium (3.5-5.1) mmol/L Chloride (98-107) mmol/L Carbon Dioxide (21-32) mmol/L Anion Gap (3-11) BUN (6-23) mg/dl Creatinine (0.6-1.2) mg/dl Est Cr Clr Drug Dosing ml/min Est GFR ( Amer) ml/min Est GFR (Non-Af Amer) ml/min BUN/Creatinine Ratio (10-20) Glucose (70-99(Fasting)) mg/dl Lactate 1.0 (0.4-2.0) mmol/L Calcium (8.5-10.1) mg/dl Total Bilirubin (0.2-1.0) mg/dl AST (13-39) U/L ALT (7-52) U/L Alkaline Phosphatase (34-104) U/L Total Protein (6.0-8.3) gm/dl Albumin (3.4-5.0) gm/dl Globulin (2.5-4.0) gm/dl Albumin/Globulin Ratio (0.9-2) Urine Color Dark Yellow Urine Appearance Cloudy A (Clear) Urine pH 5.0 (4.5-7.5) Ur Specific [place] 1.033 H (1.000-1.030) Urine Protein Trace H (Negative) Urine Glucose (UA) Negative (Negative) Urine Ketones Negative (Negative) Urine Blood 1+ H (Negative) Urine Nitrite Positive A (Negative) Urine Bilirubin 1+ H (Negative) Urine Urobilinogen Negative (Negative) Ur Leukocyte Esterase 1+ H (Negative) Urine WBC (Auto) 10-30 H (0-5) /hpf Urine RBC (Auto) 0-4 (0-4) /hpf U Hyaline Cast (Auto) 1-5 (0-5) /lpf U Epithel Cells (Auto) >30 H (0-5) /lpf Urine Bacteria (Auto) 3+ H (Negative) Urine Mucus Present A (None Prsent) Urine Yeast Budding A (None Prsent) SARS-CoV-2 (PCR) POSITIVE A* (Negative) Influenza Type A (PCR) Negative (Neg) Influenza Type B (PCR) Negative (Neg) RSV (RT-PCR) Negative (Neg) Administered Medications Acetaminophen (Acetaminophen 500 Mg Tab) 1,000 mg PO Q8H PRN PRN Reason: Pain or Fever Stop: 05/19/22 21:32 Last Admin: 04/20/22 14:56 Dose: 1,000 mg Documented By: Admin: 04/20/22 06:11 Dose: 1,000 mg Documented By: Admin: 04/19/22 21:46 Dose: 1,000 mg Documented By: LEONIDAS Albuterol (Albut/Ipratrop 3mg/0.5mg Neb 3 Ml Vial) 3 ml NEB QIDR [facility]; Protocol Stop: 05/19/22 18:59 Last Admin: 04/20/22 19:08 Dose: 3 ml Documented By: Admin: 04/20/22 15:57 Dose: 3 ml Documented By: Admin: 04/20/22 11:27 Dose: 3 ml Documented By: Admin: 04/20/22 07:11 Dose: 3 ml Documented By: Admin: 04/19/22 19:55 Dose: 3 ml Documented By: LEONIDAS Alprazolam (Alprazolam 0.5 Mg Tablet) 0.5 mg PO DAILY PRN PRN Reason: anxiety Stop: 05/19/22 19:23 Last Admin: 04/19/22 19:55 Dose: 0.5 mg Documented By: LEONIDAS Baclofen (Baclofen 10 Mg Tab) 5 mg PO QID [facility] Stop: 05/19/22 15:44 Last Admin: 04/20/22 17:35 Dose: 5 mg Documented By: Admin: 04/20/22 12:05 Dose: 5 mg Documented By: Admin: 04/20/22 08:36 Dose: 5 mg Documented By: Admin: 04/19/22 22:38 Dose: 5 mg Documented By: Admin: 04/19/22 17:34 Dose: 5 mg Documented By: SHARA Folic Acid (Folic Acid 1 Mg Tab) [facility] [place]: 05/20/22 08:59 Last Admin: 04/20/22 08:35 Dose: 1 mg Documented By: MARNIE Sodium Chloride (Nss 1000ml) 1,000 mls @ 125 mls/hr IV .Q8H [facility] Stop: 05/19/22 11:44 Last Admin: 04/20/22 12:05 Dose: 125 mls/hr Documented By: Infusion: 04/20/22 12:05 Dose: 125 mls/hr Documented By: Admin: 04/20/22 05:57 Dose: 125 mls/hr Documented By: Infusion: 04/20/22 05:48 Dose: 125 mls/hr Documented By: Admin: 04/19/22 21:48 Dose: 125 mls/hr Documented By: Infusion: 04/19/22 21:47 Dose: 0 mls/hr Documented By: Admin: 04/19/22 13:04 Dose: 125 mls/hr Documented By: LEONIDAS Lorazepam (Lorazepam 2 Mg/1 Ml Vial) 0.5 mg IV Q6H PRN PRN Reason: Anxiety/Agitation Stop: 05/19/22 18:24 Last Admin: 04/20/22 08:35 Dose: 0.5 mg Documented By: Admin: 04/20/22 00:51 Dose: 0.5 mg Documented By: MAGO Multivitamins/Minerals (Cerovite Adv Formula Tab) 1 tab PO QAM [facility] Stop: 05/20/22 14:59 Last Admin: 04/20/22 17:34 Dose: 1 tab Documented By: MARNIE Pantoprazole Sodium (Pantoprazole 40 Mg Tab) 40 mg PO DAILY [facility] Stop: 05/19/22 19:23 Last Admin: 04/20/22 08:35 Dose: 40 mg Documented By: Admin: 04/19/22 19:55 Dose: 40 mg Documented By: LEONIDAS Potassium Chloride (Potassium Chloride Crtab 20 Meq Tabcr) 20 meq PO DAILY@0600 [facility] Stop: 05/20/22 05:59 Last Admin: 04/20/22 06:11 Dose: 20 meq Documented By: MAGO Sertraline HCl (Sertraline Hcl 50 Mg Tablet) 250 mg PO QPM [facility] Stop: 05/19/22 20:59 Last Admin: 04/20/22 00:50 Dose: 250 mg Documented By: MAGO Tramadol HCl (Tramadol Hcl 50 Mg Tablet) 50 mg PO Q8H PRN PRN Reason: Pain (4,5,6 +) Stop: 05/19/22 15:42 Last Admin: 04/20/22 12:10 Dose: 50 mg Documented By: Admin: 04/20/22 01:50 Dose: 50 mg Documented By: Admin: 04/19/22 17:33 Dose: 50 mg Documented By: SHARA Discontinued Medications Acetaminophen (Acetaminophen 500 Mg Tab) 1,000 mg PO NOW STA Stop: 04/19/22 11:40 Last Admin: 04/19/22 12:05 Dose: 1,000 mg Documented By: LEONIDAS Enoxaparin Sodium (Enoxaparin 100 Mg/1ml Syr) 100 mg SQ NOW STA Stop: 04/19/22 18:28 Last Admin: 04/19/22 19:56 Dose: 100 mg Documented By: LEONIDAS Cefepime HCl (Maxipime) 2,000 mg in 20 mls @ 5 mls/min IV NOW STA; Protocol Stop: 04/19/22 11:42 Last Admin: 04/19/22 13:04 Dose: 5 mls/min Documented By: LEONIDAS Sodium Chloride (Nss 1000ml) 1,000 mls @ 999 mls/hr IV .Q1H1M ONE Stop: 04/19/22 12:39 Last Infusion: 04/19/22 13:34 Dose: 0 mls/hr Documented By: Admin: 04/19/22 12:08 Dose: 999 mls/hr Documented By: LEONIDAS Cefepime HCl 2,000 mg/ Syringe 20 mls @ 5 mls/min IV Q12H [facility]; Protocol Stop: 04/29/22 22:59 Last Admin: 04/20/22 12:05 Dose: 5 mls/min Documented By: Admin: 04/19/22 22:43 Dose: 5 mls/min Documented By: MAGO Ioversol (Optiray 350 100ml) 86 ml IV ONCE ONE Stop: 04/19/22 17:21 Last Admin: 04/19/22 17:21 Dose: 86 ml Documented By: ROBERTO Warfarin Sodium (Warfarin Sod 5 Mg Tab) 5 mg PO ONE ONE Stop: 04/19/22 16:16 Last Admin: 04/19/22 17:33 Dose: 5 mg Documented By: SHARA Imaging Data Radiologist's Impression: Chest X-Ray 04/19/22 11:40 XR chest 1V portable HISTORY: 52 years-old Female fever, cough acute cough with fever COMPARISON: 05/09/2021 TECHNIQUE: AP view of the chest FINDINGS: Cardiomediastinal and hilar silhouettes are within normal limits. No pneumothorax, pleural effusion, airspace consolidation or overt pulmonary edema. Bones appear grossly intact. Cervical spinal fusion hardware. IMPRESSION: No acute process. ACT 112: Negative or not required by law. The above report was generated using voice recognition software. It may contain grammatical, syntax or spelling errors. Electronically signed by: Shaw Benavides M.D. 04/19/2022 12:00 PM Blood Pressure Blood Pressure Findings: Normal blood pressure Blood Pressure Disposition: did not require urgent referral Discharge Plan Visit Data Chief Complaint: Hip Pain Stated Complaint: LOWER BACK & R SIDE HIP PAIN ED Provider: Shonna Mcfadden Discharge Problem: UTI (urinary tract infection), COVID-19, Back pain, Quadriparesis, Chronic anticoagulation Patient Disposition: Admitted As Inpatient Discharge Instructions Interventions: ED Discharge Assessment Last Done: 04/19/22 19:25 : UTI (urinary tract infection) Qualifiers: Urinary tract infection type: acute cystitis Back pain Qualifiers: Back pain location: low back pain Chronicity: acute Back pain laterality: right Sciatica presence: without sciatica Qualified Code(s): M54.50 - Low back pain, unspecified
[2022-04-19 14:46] LABS: Influenza A virus by PCR Negative (Neg); Influenza B virus by PCR Negative (Neg); RSV by PCR Negative (Neg)
[2022-04-19 14:48] LABS: INR 1.7 (0.9-1.1); Prothrombin Time 17.2 Seconds (9.0-12.0)
[2022-04-19 14:52] LABS: SARS CoV2 RNA(COVID-19) Ceph POSITIVE (Negative)
--- NOTE | 2022-04-19 14:57 | History & Physical Report ---
Date of Service April 19, 2022 Assessment & Plan (1) UTI (urinary tract infection): Plan: -Admit to med/tele -Patient is currently afebrile, hemodynamically stable, and stable on RA -Patient has a history of recurrent UTI's due to urinary retention and need for self straight cathing -Was recently admitted from 03/27-03/29 for e.coli UTI resistant to fluoroquinolones but sensitive to cephalosporins. Patient was started of ceftriaxone, switched to cefepime, and eventually discharged and completed a 5 day course of Cefdinir. -UA today appears to still be infected and with yeast present -Was given one dose of cefepime in the ED, will continue with cefepime for now until her urine and blood culutres result -S/P 1L NSS in the ED, will hold additional IV fluids for now as she is stable -AM CBC, CMP, PT/INR (2) Back pain: Plan: -Patient experienced acute lumbar back pain, right paraspinal pain, right hip pain, and RLE swelling yesterday while trying to transition out of her home bed -Differential includes but is not limited to epidural abscess, musculoskeletal injury, recurrent psoas muscle injury from her known IVC filter, biliary issue, and nephrolithiasis CT's of the thoracic spine, lumbar spine, right hip/femur, and abdomen/pelvis with IV contrast shows multiple lytic lesions throughout the lumbar and thoracic spine the largest is in the body of the L4 measures 1.6 cm there is no evidence of pathological fractures. Numerous lucencies are seen through the right iliac wing, proximal femora, increased in size from 05/09/2021 although not specifically mentioned in the report that I could read. Numerous subcentimeter low attenuating hepatic lesions are also seen. I queried the patient she has been up-to-date on her mammograms and Pap smears she is not had a colonoscopy yet her mother did of breast cancer. Is unclear whether any of these bony lesions can be biopsied we have a message out to the radiologist another consideration would ask spine surgeon to see if he could biopsy of the L4 lesion Patient was updated on these findings. Did not appear completely consistent with myeloma as she is normal calcium and no abnormalities of her total protein -Will start pain control with prn tylenol, home tramadol , and home baclofen, increase as needed -If initial workup is negative and pain continues/worsens would obtain MRI for further evalution (3) COVID-19: Plan: -Noted on routine admission screen -Patient's family developed symptoms at the beginning of the week, patient developed symptoms yesterday -Current stable on RA and clear CXR -Symptomatic treatment for now with pulm hygiene, DuoNebs, prn robitussin -Patient would be ok with starting dexamethasone for hypoxia but would want to discuss remdesivir further if needed (4) Generalized weakness: Plan: -Likely due to her current UTI and Coivd diagnosis -Conitue to monitor -If still weak when closer to discharged would consult PT/OT to make sure she is safe enough to be discharged home (5) Anxiety with depression: Plan: -Continue sertraline and prn Zanax (6) History of pulmonary embolism: Plan: -Patient is on Warfarin and has an IVC filter in place -Patient is subtherapeutic today with an INR of 1.8 but also did not take her dose of Warfarin today -Will give her 5 mg PO warfarin now, monitor am INR, if therapeutic then can resume her normal dose of 3 mg PO daily (7) Venous stasis ulcers of both lower extremities: Plan: -RLE noted to be more swollen and erythematous than left on exam today -Has a chronic venous stasis ulcer on the RLE which has grown proteus and pseudomonas sensitive to Cefepime in the past -Patient also had previous DVT's in the RLE -Will continue cefepime and warfarin, wound care nurse consult placed -If initial CT is negative could consider venous doppler of the RLE (8) Iron deficiency anemia: Plan: -Continue ferrous sulfate (9) Transverse myelitis: Plan: -At her baseline neurologic status -Continue home pain regimen Plan The patient was discussed with Dr. Costa at the time of the admission History of Present Illness Chief Complaint: Right hip pain Primary Care Provider: Sami Carr MD Raegan Olivera is a 51 y/o female with incomplete quadriplegia and neurogenic bladder secondary to spinal cord lesion, cervical myelopathy, transverse myelitis, s/p Brunilda-en-Y gastric bypass in 2006, anemia, and previous DVTs on warfarin and with IVC filter, and lymphedema/chronic venous insufficiency of the BL LE with previous cellulitis growing psudomonas/proteous who presented to the [facility] ED on 04/19/22 with a chief complaint of left hip pain. In the ED the patient was found to be afebrile, hemodynamically stable, and stable on RA. Labs were remarkable for a WBC of 5.3 without left shift, stable Hgb and platelets, INR of 1.7, stable cr of 0.75 with stable electrolytes, lactate of 1.0, LFTs WNL, UA showing cloudy urine with positive nitrites, 1+ Leukocyte esterase, 10-30 WBC's, budding yeast, and 3+ bacteria, Xray was read as "no acute process". Prior to admission the patient was given 1L NSS, one dose of cefepime, and 1g of PO tylenol. The patient is wheelchair bound and is her own primary caregiver, she is normally able to transition to and from her wheelchair via a lift at home but feels very weak at this time. Due to her weakness and history of multiple drug resistant infections the patient will be admitted. Per chart review, the patient was recently admitted to [facility] from 03/27/22- 03/29/22 for diarrhea and UTI. She was initially started on ceftriaxone in the ED for her UTI but was switched to Cefepime on admission. Her urine cultures grew e. coli resistant to fluoroquinolones but sensitive to cephalosporins. She was discharged on 03/29/22 with a 5 day course of 300 mg PO Cefdinir BID. At the time of the exam the patient was resting comfortably in bed in no acute distress. She states that over the past week her son started to develop URI symptoms, of which both she and her now have as well. She notes a runny nose, congestions, and non-productive cough. Over the past week she has fe lt herself get progressively more week in her BL upper extremities and has generalized weakness. Normally she is able to transfer herself from her hospital bed to her lift chair herself, her is unable to help due to previous back injuries. She states that yesterday while trying to transition herself out of bed she experienced sudden onset of lumbar back pain with radicular symptoms going into her right flank and hip. She denies new numbness/tingling but this is difficult for her to distinguish due to her baseline lower extremity weakness. Since her injury yesterday she has noticed increased swelling and pain in her RLE. She was previously diagnosed with RLE DVT's and is still on Warfarin for prophylaxis. She notes that she also has an IVC filter that was placed by Dr. Madrid. She experienced a complication in the past when her IVC filter moved and partially inserted itself into her right psoas muscle. She confirmed that she completed her course of Cedinir on discharge from her last admission. She straight caths herself due to her previous spine injury but feels as though she does not completely empty her bladder at times. She notes feeling feverish/chilly over the past 24 hours but her highest temperature was 100.2 F. She was taking tylenol at home and one dose of tramadol for her back and leg pain but it did not resolve. She denies chest pain, SOB, abdominal pain, nausea, vomiting, diarrhea, dysuria, hematuria, melena, and recent falls. I spoke to her regarding code status, she is a Full Code and would want her to make decisions for her if she could not make them herself. Please refer to Dr. Costa's attestation for any changes to the treatment plan. Allergies Allergy/AdvReac Type Severity Reaction Status Date / Time Penicillins Allergy Unknown hives Verified 04/19/22 16:40 vancomycin Allergy Unknown hives, Verified 04/19/22 16:40 breathing difficulties Home Medications Medication Instructions Recorded Confirmed Type folic acid 1 mg tablet 1 mg PO QAM 01/03/18 04/19/22 History Powered Wheelchair #1 ea 09/21/19 04/19/22 Rx cyanocobalamin (vitamin B-12) 1,000 mcg IM MONTHLY 01/14/20 04/19/22 History 1,000 mcg/mL injection solution acetaminophen 325 mg tablet 650 mg PO QID PRN Pain 05/09/21 04/19/22 History (Tylenol) sertraline 50 mg tablet 50 mg PO QPM 05/09/21 04/19/22 History pantoprazole 40 mg tablet,delayed 40 mg PO DAILY 05/17/21 04/19/22 History release (Protonix) silver-hydrocolloid dressing 1.2 1 ea topical DAILY PRN to each leg 08/02/21 04/19/22 History %-4" X 5" (Aquacel-AG Advantage) alprazolam 0.5 mg tablet 0.5 mg PO DAILY PRN anxiety #45 12/05/21 04/19/22 Rx tabs baclofen 10 mg tablet 5 mg PO QID #180 tabs 01/02/22 04/19/22 Rx tramadol 50 mg tablet 50 mg PO Q8H PRN pain #15 tabs 03/09/22 04/19/22 Rx albuterol sulfate 90 mcg/actuation 2 puff inhalation Q4 PRN Shortness 03/27/22 04/19/22 History aerosol inhaler Of Breath Or Wheezing [id number] 45 mg-folic 1 - 1.5 cap PO DAILY 04/09/22 04/19/22 History acid 800 mcg-vit K 120 mcg capsule (Bariatric Multivitamins) warfarin 3 mg tablet See Rx Instructions PO UD 04/09/22 04/19/22 History potassium chloride 20 mEq 20 meq PO DAILY@0600 #90 tabs 04/11/22 04/19/22 Rx tablet,extended release sertraline 100 mg tablet 200 mg PO DAILY@0600 #180 tabs 04/11/22 04/19/22 Rx Past Med/Surg History Medical History (Updated 04/19/22 @ 16:01 by Mj Malave PA-C) Acute febrile illness Asthma section wound complication (11/02/12) Contusion of rib on left side Encounter for Medicare annual wellness exam Fever (06/16/14) 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 Headache History of pulmonary embolism Hx of spinal cord injury Hypomagnesemia Hypotension Leukocytosis MSSA (methicillin susceptible Staphylococcus aureus) septicemia Open toe wound Sepsis Skin ulcer of buttock, limited to breakdown of skin Spinal cord injury Syncopal episodes (05/15/14) Surgical History (Updated 03/27/22 @ 18:03 by Elisa Thornton PA-C) H/O breast surgery H/O cervical spine surgery cervical vertebral fusion H/O esophagogastroduodenoscopy H/O gastric bypass H/O laparoscopy History of conization of cervix Hx of hernia repair Hx of tonsillectomy S/P IVC filter Family History Mother Breast cancer Grandfather (Paternal) Cardiac disorder Lung cancer Father Cardiac disorder Hypertension Other Cancer Heart disease Social History Smoking Status: Never smoker Hx Alcohol Use: No Hx Substance Use: No Preferred Language: Namibian Communication Ability: Effective Visual Impairment: No Limitations Hearing Ability: Normal Collections Rep Required: No Beliefs That Will Affect Care: None marital status: Current Living Situation: Spouse Current Living Situation Comment: - recent knee replacement current occupational status: disabled Feels Safe at Home: Yes Childhood Exposure to Second-Hand Smoke: No caffeine: Yes Dental Care, Regularly: Yes Physical Activity Frequency: Does not Exercise Seatbelt Use: always Sunscreen Use: Yes Assistive Devices: Glasses, Hospital Bed and Wheelchair Review of Systems Review of Systems: Denies current fever, chills, headache, changes in vision, hearing, taste, and smell, chest pain, SOB, cough, abdominal pain, nausea, vomiting, diarrhea, hematemesis, melena, dysuria, hematuria, and recent falls. All systems have been reviewed and are otherwise negative. Physical Exam Physical Exam: Physical Exam: General: In no acute distress, stated age, chronically ill appearing vut non- toxic appearing HEENT: Normocephalic, atraumatic, no scleral icterus, pupils around round, symmetrical, and reactive to light, moist mucus membranes, trachea midline, no thyromegaly Chest/Pulm: No respiratory distress, symmetrical chest expansion, clear b reath sounds throughout Cardiac: RRR, no murmurs noted Abdomen: Negative for ascites and bruising, normoactive bowel sounds, soft, non-tender to palpation throughout Musculoskeletal: Patient is tender to palpation over the lower lubar spine and right paraspinal muscles, nno crepitus or step off noted on palpation of her entire spine, Patient with decreased strength in the RLE compared to left which is her baseline, paralysis in the BL LE's at baseline Extremities: Radial, dorsalis pedis, and posterior tibial pulses are intact and symmetrical, Significant lymphedema and chronic venous insufficiency in the BL LE's, RLE is currently more swollen and with erythema at the site of her category development manager idris RLE ulcer, not currently draining Skin: As described above Neuro: Alert and oriented to person, place, month, year, and president, no new focal defects, patient is at her baseline neurologic status with BL LE weakness and slight weakness in her RUE compared to left Psych: No acute distress, calm and cooperative during the exam Results & Data Results & Data ([facility]) Vital Signs (Past 12 Hours) Vital Signs Temp Pulse Pulse Resp BP BP Pulse Ox 04/19/22 13:53 94 H 18 94/61 L 99 04/19/22 09:39 37.7 C H 104 H 14 111/74 98 O2 Del Method 04/19/22 13:53 Room Air 04/19/22 09:39 Room Air Laboratory Results Abnormal lab results 04/19/22 04/19/22 04/19/22 Range/Units 11:15 11:15 11:15 RBC 3.73 L (3.93-5.22) M/uL Hgb 10.4 L (12.0-16.0) g/dl Hct 32.7 L (34.1-44.9) % MCHC 31.8 L (32.0-36.0) g/dL RDW Std Deviation 49.1 H (36.4-46.3) fL RDW Coeff of Aleks 15.5 H (11.5-14.5) % Lymph # (Auto) 0.45 L (1.2-3.4) K/uL PT 17.2 H (9.0-12.0) Seconds INR 1.7 H (0.9-1.1) BUN/Creatinine Ratio 28.0 H (10-20) Glucose 105 H (70-99(Fasting)) mg/dl Urine Appearance (Clear) Ur Specific [place] (1.000-1.030) Urine Protein (Negative) Urine Blood (Negative) Urine Nitrite (Negative) Urine Bilirubin (Negative) Ur Leukocyte Esterase (Negative) Urine WBC (Auto) (0-5) /hpf U Epithel Cells (Auto) (0-5) /lpf Urine Bacteria (Auto) (Negative) Urine Mucus (None Prsent) Urine Yeast (None Prsent) SARS-CoV-2 (PCR) (Negative) 04/19/22 04/19/22 Range/Units 13:37 13:48 RBC (3.93-5.22) M/uL Hgb (12.0-16.0) g/dl Hct (34.1-44.9) % MCHC (32.0-36.0) g/dL RDW Std Deviation (36.4-46.3) fL RDW Coeff of Aleks (11.5-14.5) % Lymph # (Auto) (1.2-3.4) K/uL PT (9.0-12.0) Seconds INR (0.9-1.1) BUN/Creatinine Ratio (10-20) Glucose (70-99(Fasting)) mg/dl Urine Appearance Cloudy A (Clear) Ur Specific [place] 1.033 H (1.000-1.030) Urine Protein Trace H (Negative) Urine Blood 1+ H (Negative) Urine Nitrite Positive A (Negative) Urine Bilirubin 1+ H (Negative) Ur Leukocyte Esterase 1+ H (Negative) Urine WBC (Auto) 10-30 H (0-5) /hpf U Epithel Cells (Auto) >30 H (0-5) /lpf Urine Bacteria (Auto) 3+ H (Negative) Urine Mucus Present A (None Prsent) Urine Yeast Budding A (None Prsent) SARS-CoV-2 (PCR) POSITIVE A* (Negative) Diagnostic Findings Chest X-Ray 04/19/22 11:40 XR chest 1V portable HISTORY: 52 years-old Female fever, cough acute cough with fever COMPARISON: 05/09/2021 TECHNIQUE: AP view of the chest FINDINGS: Cardiomediastinal and hilar silhouettes are within normal limits. No pneumothorax, pleural effusion, airspace consolidation or overt pulmonary edema. Bones appear grossly intact. Cervical spinal fusion hardware. IMPRESSION: No acute process. ACT 112: Negative or not required by law. The above report was generated using voice recognition software. It may contain grammatical, syntax or spelling errors. Electronically signed by: Shaw Benavides M.D. 04/19/2022 12:00 PM Code Status & VTE Plan Code Status Full code VTE Prophylaxis Plan VTE Prophylaxis will be ordered: Yes Supervising Physician Co-Signing Physician Notes Patient was seen and examined independently I discussed the case with Mj ESQUEDA I reviewed pertinent past medical social family history and also the plan of care and agree with the plan of care. Patient is a partial paraplegic with a history of VT with a IVC filter on chronic anticoagulation. She was discharged earlier in March 2022 where she had an E. coli UTI and metabolic encephalopathy. She represents with worsening fatigue and some newfound back pain which has her remembering her previous psoas muscle infection. She also is found to test COVID-positive does have a cough b ut no pneumonia and is not hypoxic. Other people at home are ill with fever Physical examination finds her to have a nonproductive cough her lungs are clear without any focal loss she has reproducible back pain on the right paraspinous and CVA angle area she is chronic venous stasis changes to her feet with fairly significant edema She is an abnormal urinalysis also. Patient remains on cefepime as initiated in the ER to treat possible recurrence of her urinary tract infection. A CT of her abdomen pelvis will evaluate for psoas muscle injury and also renal pathology. At this point time we are doing supportive care for her COVID avoiding steroid treatment because bacterial infection is likely present Any exceptions will be noted below PG Care Time/CCT Total # of Minutes Spent Total Time Spent with Patient: Total time spent is greater than 50% in coordination of care (as documented) at patient's floor/unit and/or counseling patient: [place] [address] Initial Inpt Care Lvl 3 Patient Type Established Medical Decision Making High Complexity Diagnoses UTI (urinary tract infection) N39.0 Back pain M54.9 COVID-19 U07.1 Generalized weakness R53.1 Anxiety with depression F41.8 History of pulmonary embolism Z86.711 Venous stasis ulcers of both lower extremities I83.019; I83.029; L97.919; L97.929 Iron deficiency anemia D50.9 Transverse myelitis G37.3
[2022-04-19] MEDS ORDERED: guaiFENesin SUGAR FREE 200 MG/10 ML UDC PO PRN (15:47)
[2022-04-19] MEDS ORDERED: WARFARIN SOD 5 MG TAB PO ONE (16:15)
[2022-04-19] MEDS ORDERED: OPTIRAY 350 100ml IV ONE (17:20)
[2022-04-19] MEDS: traMADol HCL 50 MG TABLET PO PRN (17:33)
[2022-04-19] MEDS: BACLOFEN 10 MG TAB PO SCH ×2 (17:34→22:38)
--- NOTE | 2022-04-19 17:52 | CT Scan Report ---
CT SCAN OF THE ABDOMEN AND PELVIS WITH IV CONTRAST; CT SCAN OF THE LUMBAR SPINE WITH IV CONTRAST CLINICAL HISTORY: Low back pain. Flank pain. Urinary tract infection. COMPARISON STUDY: Abdominal CT dated 05/09/2021 and 06/06/2018. Lumbar spine CT dated 10/31/2016. TECHNIQUE: Following the IV administration of 86 cc of Optiray 350, CT scan of the abdomen and pelvi s is performed from the lung bases to the proximal femora. Additionally, CT scan of the lumbar spine is performed from the lower thoracic spine to the sacrum. Images for both examinations are reviewed i n the axial, sagittal, and coronal planes. IV contrast was administered without complication. A dose lowering technique was utilized adhering to the principles of ALARA. FINDINGS: Lung bases: The heart is normal in size and without pericardial effusion. There is bibasilar scarring /atelectasis. No airspace consolidation or pleural effusion is identified. A 3 mm pleural-based nodul e in the left lower lobe along the major fissure as seen on image #5. A 4 mm right lower lobe pulmona ry nodule is seen on image #1. Additional 3 mm right lower lobe nodules are noted on images #6 and #2 6. Liver: The contrast-enhanced liver is normal in size, contour, and attenuation. There is no intrahepa tic biliary ductal dilatation. The hepatic veins and portal veins are patent. There are numerous (gre ater than 5) subcentimeter low-attenuation hepatic lesions. Gallbladder: There are calcified gallstones with no CT evidence of acute cholecystitis. Spleen: The spleen is enlarged measuring 14.3 cm in length. Numerous splenic hypodensities measuring up to 2.3 cm appear modestly increased from previous. Several these have been present dating back to 2019. Pancreas: Unremarkable. Adrenal glands: Unremarkable. Kidneys: The contrast enhanced kidneys are normal in size and without hydronephrosis. The kidneys enh ance symmetrically. Abdominal vasculature: The abdominal aorta is normal in course and caliber. An infrarenal IVC filter is in place. There is severe caval stenosis at/below the level of the filter. There is extensive deep venous thrombosis identified in the iliac veins, as well as the right common femoral vein and the ri ght greater saphenous vein. Surrounding infiltration is noted. Stomach and bowel: Postsurgical changes noted in the stomach. The small bowel and colon are normal in course and caliber. The appendix is well-visualized and normal. Peritoneum: There is no intraperitoneal free air or abdominal ascites. There is a small fat-containin g umbilical hernia. Lymphadenopathy: None. Pelvic viscera: The the bladder wall appears thickened and hyperemic with mild surrounding infiltrati on. The uterus and adnexa are normal as visualized. Numerous collateral vessels are seen in the pelvi s. Asymmetric soft tissue edema is present in the right thigh. There is prominent perirenal soft tiss ue with probable hemorrhoids. Skeletal structures: The skeletal structures are osteopenic. Numerous lucencies are again seen throug hout the visualized bony structures. Steel Floor Pan Placing Supervisor lesions in the right iliac wing are seen on image #240. Lesions are seen throughout the lumbar spine, in the bony pelvis, as well as the proximal femo ra. These have increased from 05/09/2021 and are new from 2019. LUMBAR SPINE: Vertebral body height and alignment are maintained throughout the lumbar spine. There i s no evidence of fracture or malalignment. Anterior and lateral marginal osteophytes are seen throug hout. The transverse and spinous processes are intact. There is no evidence of spondylolysis. Numerou s osteolytic lesions are seen within the lumbar spine. The largest lesion is present in the body of L 4 and measures 1.6 cm. There is mild multilevel degenerative disc space narrowing, greatest at L1-L2 where there is associated with sclerosis and Schmorl's nodes. There is no CT evidence of large disc h erniation or high-grade central canal stenosis. The paraspinous soft tissues are within normal limits . IMPRESSION: 1. 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 This has increased from 05/09/2021 and is new from 2019. This could represent osteolytic metastatic disease versus multiple myeloma. Clinical c orrelation will be essential. 2. There is extensive deep venous thrombosis in the pelvis. This involves both iliac veins, the right common femoral vein, and the right greater saphenous vein. There is surrounding inflammation. This i s new from 05/09/2021. 3. Asymmetric soft tissue edema is noted in the right thigh. 4. There are numerous pelvic collateral veins as well as probable hemorrhoids. 5. Prominent perianal soft tissue may represent prolapse. Correlate with direct visualization. 6. Bilateral lower lobe pulmonary nodules are pathologically indeterminant. Several of these are new from 2019. Metastatic disease is not excluded. 7. There are numerous (greater than 5) subtle subcentimeter low-attenuation hepatic lesions. These ar e new from previous and metastatic disease is suspected. 8. Findings suggest cystitis. Correlate with clinical findings and urinalysis. 9. The spleen is enlarged and there are numerous indeterminant low-attenuation splenic lesions. These have increased in size and number from 2019. 10. Postsurgical change is noted in the stomach. 11. Cholelithiasis. 12. No acute bony abnormality is seen involving the lumbar spine. 13. Additional findings as above. ACT 112: Negative or not required by law. Electronically signed by: Terrell Bay M.D. 04/19/2022 5:51 PM
--- NOTE | 2022-04-19 17:59 | CT Scan Report ---
CT femur RT w con HISTORY: 52 years-old Female right leg pain/swelling acute pain of the right thigh COMPARISON: CT abdomen and pelvis of same day and also 05/09/2021 TECHNIQUE: Multiple axial CT images of the right femur were obtained following the intravenous admini stration of 86 mL Optiray. A dose lowering technique was used consistent with the principals of DANICA . FINDINGS: Intrapelvic structures be dictated separately on the CT abdomen and pelvis study. There is moderate subcutaneous edema within the right greater than left thighs. Mild associated skin thickening. No fluid collection identified. The musculature is within normal limits. The vessels are unremarkable. Trace joint effusion of the knee. No acute fracture or dislocation identified. Minimal osteoarthritis of the knees. 1.9 cm cortical thinly marginated lucent focus of the distal left femora l diaphysis on image 47 of the coronal series. Additional similar-appearing 1.8 cm lucent focus of th e right femoral diaphysis. Findings are indeterminate. Thrombosis of the right iliac and common femor al veins with surrounding inflammatory stranding. Numerous pelvic collateral vessels with possible he morrhoids and perirenal soft tissue thickening/prolapse. Additional osteolytic lesions as described o n the CT abdomen and pelvis. IMPRESSION: 1. Osteolytic lesions includes the femoral diaphyses without evidence of pathologic fracture. 2. Subcutaneous edema with skin thickening of the right greater than left thighs. Findings may be sec ondary to cellulitis, venous stasis or lymphedema. 3. No discrete fluid collection. 4. Deep venous thrombus of the right iliac and femoral vessels with adjacent inflammatory stranding a nd collateral vessels. 5. Additional findings as above. ACT 112: Negative or not required by law. The above report was generated using voice recognition software. It may contain grammatical, syntax o r spelling errors. Electronically signed by: Shaw Benavides M.D. 04/19/2022 5:58 PM
--- NOTE | 2022-04-19 17:59 | CT Scan Report ---
CT thoracic spine w con HISTORY: 52 years-old Female back pain with current UTI acute mid back pain in a patient with urinar y tract infection COMPARISON: CT abdomen pelvis August, CT lumbar spine 10/31/2016, MRI thoracic spine 10/19/2014 TECHNIQUE: Multiple axial CT images of the thoracic spine were obtained without the use of IV contras t. A dose lowering technique was used consistent with the principals of DANICA. FINDINGS: Numerous lytic lesions throughout the thoracic spine are new from the 2014 study, largest at T10. Num erous chronic appearing wedge deformities throughout the midthoracic spine, notably at T8, T9 and T10 . Lower cervical spine anterior fusion hardware. No large soft tissue component or epidural extension identified. No definite acute fracture or subluxation identified. Limited evaluation of the central canal and neural foramina by CT technique. Numerous subcentimeter nodules throughout the lungs measur e up to approximately 6 mm. Mild tracheobronchial secretions. Pathologic mediastinal and hilar lympha denopathy. Postoperative changes of the stomach. Splenomegaly with heterogeneous ill-defined hypodens e splenic lesions. IMPRESSION: 1. No acute fracture or subluxation of the thoracic spine identified. 2. Numerous osteolytic lesions throughout the thoracic spine are new from the 2014 comparison suggest [place] of metastasis versus multiple myeloma. 3. Pathologic mediastinal and hilar lymphadenopathy. 4. Numerous scattered subcentimeter solid pulmonary nodules measure up to 6 mm. Attention at follow-u p recommended to exclude metastatic disease. 5. Moderate to advanced degenerative changes of the thoracic spine with mid thoracic chronic wedge de formities. ACT 112: Negative or not required by law. The above report was generated using voice recognition software. It may contain grammatical, syntax o r spelling errors. Electronically signed by: Shaw Benavides M.D. 04/19/2022 5:58 PM
[2022-04-19] MEDS ORDERED: ENOXAPARIN 100 MG/1ML SYR SQ STA (18:27)
[2022-04-19] MEDS ORDERED: traMADol HCL 50 MG TABLET PO PRN (19:24)
[2022-04-19] MEDS: PANTOprazole 40 MG TAB PO SCH (19:55)
[2022-04-19] MEDS: ALBUT/IPRATROP 3MG/0.5MG NEB 3 ML VIAL NEB SCH (19:55)
[2022-04-19] MEDS: ALPRAZolam 0.5 MG TABLET PO PRN (19:55)
[2022-04-19] MEDS: ACETAMINOPHEN 500 MG TAB PO PRN (21:46)
[2022-04-19] MEDS: CEFEPIME 2,000 MG in SYRINGE 0 ML IV SCH (22:43)
[2022-04-20] MEDS: SERTRALINE HCL 50 MG TABLET PO SCH ×2 (00:50→20:34)
[2022-04-20] MEDS: LORazepam 2 MG/1 ML VIAL IV PRN ×3 (00:51→21:03)
[2022-04-20] MEDS: traMADol HCL 50 MG TABLET PO PRN ×2 (01:50→12:10)
[2022-04-20] MEDS: SODIUM CHLORIDE 0.9% 1000ML 1,000 ML IV SCH ×3 (05:57→20:29)
[2022-04-20] MEDS: POTASSIUM CHLORIDE CRTAB 20 MEQ TABCR PO SCH (06:11)
[2022-04-20] MEDS: ACETAMINOPHEN 500 MG TAB PO PRN ×2 (06:11→14:56)
[2022-04-20 06:32] LABS: Hematocrit (blood only) 34.1 % (34.1-44.9); Hemoglobin 10.8 g/dl (12.0-16.0); Mean Corpuscular Hemoglobin 27.8 pg (25.0-34.0); Mean Corpuscular Hgb Conc 31.7 g/dL (32.0-36.0); Mean Corpuscular Volume 87.9 fL (80.0-100.0); Mean Platelet Volume 12.2 fL (9.4-12.3); Platelet Count 159 K/uL (130-400); RDW Coefficient of Variation 15.8 % (11.5-14.5); RDW Standard Deviation 50.6 fL (36.4-46.3); Red Blood Count 3.88 M/uL (3.93-5.22); White Blood Count 5.06 K/ul (4.8-10.8)
[2022-04-20 06:52] LABS: Albumin Globulin Ratio 1.2 (0.9-2); Albumin Level 3.8 gm/dl (3.4-5.0); BUN Creatinine Ratio 26.8 (10-20); Bilirubin,Total 0.8 mg/dl (0.2-1.0); Est GFR (African American) 95.4 ml/min; Est GFR (Non-African American) 82.3 ml/min; Globulin 3.2 gm/dl (2.5-4.0); Potassium 3.8 mmol/L (3.5-5.1)
[2022-04-20 07:10] LABS: INR 2.4 (0.9-1.1); Prothrombin Time 24.3 Seconds (9.0-12.0)
[2022-04-20] MEDS: ALBUT/IPRATROP 3MG/0.5MG NEB 3 ML VIAL NEB SCH ×4 (07:11→19:08)
[2022-04-20] MEDS: FOLIC ACID 1 MG TAB PO SCH (08:35)
[2022-04-20] MEDS: PANTOprazole 40 MG TAB PO SCH (08:35)
[2022-04-20] MEDS: BACLOFEN 10 MG TAB PO SCH ×4 (08:36→21:02)
[2022-04-20] MEDS: CEFEPIME 2,000 MG in SYRINGE 0 ML IV SCH (12:05)
[2022-04-20 13:33] LABS: Immunoglobulin A 42.1 mg/dl (70-400); Immunoglobulin G 1170.7 mg/dl (635-1741)
[2022-04-20] MEDS: CEROVITE ADV FORMULA TAB PO SCH (17:34)
--- NOTE | 2022-04-20 18:19 | Hospitalist Progress Note ---
Date of Service April 20, 2022 Assessment & Plan (1) UTI (urinary tract infection): Plan: -Gram-negative ary as well as yeast is growing in the urine culture Switched to Rocephin Add Diflucan -Patient has a history of recurrent UTI's due to urinary retention and need for self straight cathing -Was recently admitted from 03/27-03/29 for e.coli UTI resistant to fluoroquinolones but sensitive to cephalosporins. Patient was started of ceftriaxone, switched to cefepime, and eventually discharged and completed a 5 day course of Cefdinir. -Continue IV fluid (2) DVT (deep venous thrombosis): Plan: CT of right femur showed deep vein thrombosis of right femoral versus with adjacent inflammatory stranding and collateral vessels INR upon admission was subtherapeutic Given the patient is wheelchair-bound she does not check her INR regular basis Discussed with cardiology clinical consultant oncologist there is no indication for tPA or thrombectomy at this point Switch to apixaban discussed with the patient and the consulting oncologist (3) Back pain: Plan: -Patient experienced acute lumbar back pain, right paraspinal pain, right hip pain, and RLE swelling yesterday while trying to transition out of her home bed CT's of the thoracic spine, lumbar spine, right hip/femur, and abdomen/pelvis with IV contrast shows multiple lytic lesions throughout the lumbar and thoracic spine the largest is in the body of the L4 measures 1.6 cm there is no evidence of pathological fractures. Numerous lucencies are seen through the right iliac wing, proximal femora, increased in size from 05/09/2021 although not specifically mentioned in the report that I could read. Numerous subcentimeter low attenuating hepatic lesions are also seen. -Discussed with radiology, due to size of the lesions they are not feasible for CT-guided biopsy, recommend to transfer to facility ([facility]) that have dedicated interventional radiologist Spoke with cardiology clinical consultant oncologist this is not urgent, considering the weekend and holidays can be done as an outpatient Proceed with work-up for multiple myeloma (4) COVID-19: Plan: -Noted on routine admission screen -Patient's family developed symptoms at the beginning of the week, patient developed symptoms yesterday -Current stable on RA and clear CXR -Symptomatic treatment for now with pulm hygiene, DuoNebs, prn robitussin -No indication for treatment at this point patient had 1 dose of COVID vaccination (5) Generalized weakness: Plan: -Likely due to her current UTI and Coivd diagnosis -Conitue to monitor -If still weak when closer to discharged would consult PT/OT to make sure she is safe enough to be discharged home (6) Anxiety with depression: Plan: -Continue sertraline and prn Zanax (7) History of pulmonary embolism: Plan: -Patient is on Warfarin and has an IVC filter in place -Patient is subtherapeutic today with an INR of 1.8 but also did not take her dose of Warfarin today -Due to her living situation decision was made to substitute warfarin with apixaban as mentioned above (8) Venous stasis ulcers of both lower extremities: Plan: -RLE noted to be more swollen and erythematous than left on exam possibly secondary to DVT -Has a chronic venous stasis ulcer on the RLE which has grown proteus and pseudomonas sensitive to Cefepime in the past -Patient also had previous DVT's in the RLE (9) Iron deficiency anemia: Plan: -Continue ferrous sulfate (10) Transverse myelitis: Plan: -At her baseline neurologic status -Continue home pain regimen Plan The patient was discussed with Dr. Costa at the time of the admission Admission and Anticipated Discharge Date Admission Date: April 19, 2022 Isaac Olivera is a 51 y/o female with incomplete quadriplegia and neurogenic bladder secondary to spinal cord lesion, cervical myelopathy, transverse myelitis, s/p Deanna-en-Y gastric bypass in 2006, anemia, and previous DVTs on warfarin and with IVC filter and lymphedema/chronic venous insufficiency of the BL LE with previous cellulitis growing psudomonas/proteous who recently was discharged from this hospital with diarrhea and UTI in March she was diagnosed with UTI with E. coli sensitive to Rocephin and cefepime left hip pain. She was found to be COVID-positive but only complaining of having cough. She notes a runny nose, congestions, and non-productive cough. Over the past week she has felt herself get progressively more week in her BL upper extremities and has generalized weakness. Normally she is able to transfer herself from her hospital bed to her lift chair herself.She states that yesterday while trying to transition herself out of bed she experienced sudden onset of lumbar back pain with radicular symptoms going into her right flank and hip. She denies new numbness/tingling but this is difficult for her to distinguish due to her baseline lower extremity weakness. Since her injury yesterday she has noticed increased swelling and pain in her RLE. She straight caths herself due to her previous spine injury but feels as though she does not completely empty her bladder at times. Physical Exam Physical Exam: Physical Exam: General: In no acute distress, stated age, chronically ill appearing vut non- toxic appearing HEENT: Normocephalic, atraumatic, no scleral icterus, pupils around round, symmetrical, and reactive to light, moist mucus membranes, trachea midline, no thyromegaly Chest/Pulm: No respiratory distress, symmetrical chest expansion, clear breath sounds throughout Cardiac: RRR, no murmurs noted Abdomen: Negative for ascites and bruising, normoactive bowel sounds, soft, non-tender to palpation throughout Musculoskeletal: Patient is tender to palpation over the lower lubar spine and right paraspinal muscles, nno crepitus or step off noted on palpation of her entire spine, Patient with decreased strength in the RLE compared to left which is her baseline, paralysis in the BL LE's at baseline Extremities: Radial, dorsalis pedis, and posterior tibial pulses are intact and symmetrical, Significant lymphedema and chronic venous insufficiency in the BL LE's, RLE is currently more swollen and with erythema at the site of her chronic RLE ulcer, not currently draining Skin: As described above Neuro: Alert and oriented to person, place, month, year, and president, no new focal defects, patient is at her baseline neurologic status with BL LE weakness and slight weakness in her RUE compared to left Psych: No acute distress, calm and cooperative during the exam Results & Data Results & Data ([facility]) Vital Signs (Past 12 Hours) Vital Signs Temp Pulse Pulse Pulse Resp BP Pulse Ox 04/20/22 16:19 102 H 04/20/22 15:57 100 H 18 99 04/20/22 08:30 04/20/22 15:12 37.4 C 100 H 16 115/67 99 04/20/22 12:02 36.8 C 94 H 18 105/67 94 04/20/22 11:27 96 H 18 96 04/20/22 09:25 96 04/20/22 08:16 36.8 C 103 H 18 111/71 90 04/20/22 07:22 92 H 04/20/22 07:11 93 H 16 97 O2 Del Method 04/20/22 16:19 04/20/22 15:57 Room Air 04/20/22 08:30 Room Air 04/20/22 15:12 Room Air 04/20/22 12:02 Room Air 04/20/22 11:27 Room Air 04/20/22 09:25 Room Air 04/20/22 08:16 Room Air 04/20/22 07:22 04/20/22 07:11 Room Air PG Care Time/CCT Total # of Minutes Spent Total Time Spent with Patient: Total time spent is greater than 50% in coordination of care (as documented) at patient's floor/unit and/or counseling patient: Coding Level of Care Code 53864 Subseq Hosp Care Lvl 3 Diagnoses UTI (urinary tract infection) N39.0 DVT (deep venous thrombosis) I82.409 Back pain M54.9 COVID-19 U07.1 Generalized weakness R53.1 Anxiety with depression F41.8 History of pulmonary embolism Z86.711 Venous stasis ulcers of both lower extremities I83.019; I83.029; L97.919; L97.929 Iron deficiency anemia D50.9 Transverse myelitis G37.3
[2022-04-20] MEDS ORDERED: cefTRIAXone SODIUM 1,000 MG in DEXTROSE 5% AD-VAN 50 ML IV SCH (18:45)
[2022-04-20] MEDS: cefTRIAXone SODIUM 2,000 MG in DEXTROSE 5% 50 ML IV SCH (20:29)
[2022-04-20] MEDS: APIXABAN 5 MG TABLET PO SCH (20:32)
[2022-04-21] MEDS: ACETAMINOPHEN 500 MG TAB PO PRN ×3 (02:32→20:35)
[2022-04-21] MEDS: SODIUM CHLORIDE 0.9% 1000ML 1,000 ML IV SCH ×3 (05:06→23:46)
[2022-04-21 06:14] LABS: Hematocrit (blood only) 27.3 % (34.1-44.9); Hemoglobin 8.8 g/dl (12.0-16.0); Mean Corpuscular Hemoglobin 28.3 pg (25.0-34.0); Mean Corpuscular Hgb Conc 32.2 g/dL (32.0-36.0); Mean Corpuscular Volume 87.8 fL (80.0-100.0); Mean Platelet Volume 11.9 fL (9.4-12.3); Platelet Count 148 K/uL (130-400); RDW Coefficient of Variation 15.6 % (11.5-14.5); RDW Standard Deviation 49.7 fL (36.4-46.3); Red Blood Count 3.11 M/uL (3.93-5.22); White Blood Count 5.17 K/ul (4.8-10.8)
[2022-04-21] MEDS: POTASSIUM CHLORIDE CRTAB 20 MEQ TABCR PO SCH (06:15)
[2022-04-21 06:24] LABS: INR 3.8 (0.9-1.1); Prothrombin Time 37.6 Seconds (9.0-12.0)
[2022-04-21 06:36] LABS: Albumin Globulin Ratio 1.2 (0.9-2); Albumin Level 3.2 gm/dl (3.4-5.0); BUN Creatinine Ratio 23.7 (10-20); Bilirubin,Total 0.5 mg/dl (0.2-1.0); Calcium 8.3 mg/dl (8.5-10.1); Creatinine Clr Calc Pharmacy 111.2 ml/min; Est GFR (African American) 104.5 ml/min; Est GFR (Non-African American) 90.2 ml/min; Globulin 2.7 gm/dl (2.5-4.0); Potassium 3.5 mmol/L (3.5-5.1); Total Protein 5.9 gm/dl (6.0-8.3)
[2022-04-21] MEDS: ALBUT/IPRATROP 3MG/0.5MG NEB 3 ML VIAL NEB SCH ×4 (07:27→17:32)
[2022-04-21] MEDS: PANTOprazole 40 MG TAB PO SCH (07:59)
[2022-04-21] MEDS: FOLIC ACID 1 MG TAB PO SCH (08:00)
[2022-04-21] MEDS: CEROVITE ADV FORMULA TAB PO SCH (08:00)
[2022-04-21] MEDS: APIXABAN 5 MG TABLET PO SCH ×2 (08:00→19:53)
[2022-04-21] MEDS: BACLOFEN 10 MG TAB PO SCH ×4 (09:25→19:51)
--- NOTE | 2022-04-21 09:46 | Consultation ---
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 Pancreas: Unremarkable. Adrenal glands: Unremarkable. Kidneys: The contrast enhanced kidneys are normal in size and without hydronephrosis. The kidneys enhance symmetrically. Abdominal vasculature: The abdominal aorta is normal in course and caliber. An infrarenal IVC filter is in place. There is severe caval stenosis at/below the level of the filter. There is extensive deep venous thrombosis identified in the iliac veins, as well as the right common femoral vein and the right greater saphenous vein. Surrounding infiltration is noted. Stomach and bowel: Postsurgical changes noted in the stomach. The small bowel and colon are normal in course and caliber. The appendix is well-visualized and normal. Peritoneum: There is no intraperitoneal free air or abdominal ascites. There is a small fat-containing umbilical hernia. Lymphadenopathy: None. Pelvic viscera: The the bladder wall appears thickened and hyperemic with mild surrounding infiltration. The uterus and adnexa are normal as visualized. Numerous collateral vessels are seen in the pelvis. Asymmetric soft tissue edema is present in the right thigh. There is prominent perirenal soft tissue with probable hemorrhoids. Skeletal structures: The skeletal structures are osteopenic. Numerous lucencies are again seen throughout the visualized bony structures. [employer] lesions in the right iliac wing are seen on image #240. Lesions are seen throughout the lumbar spine, in the bony pelvis, as well as the proximal femora. These have increased from 05/09/2021 and are new from 2019. LUMBAR SPINE: Vertebral body height and alignment are maintained throughout the lumbar spine. There is no evidence of fracture or malalignment. Anterior and lateral marginal osteophytes are seen throughout. The transverse and spinous processes are intact. There is no evidence of spondylolysis. Numerous osteolytic lesions are seen within the lumbar spine. The largest lesion is present in the body of L4 and measures 1.6 cm. There is mild multilevel degenerative disc space narrowing, greatest at L1-L2 where there is associated with sclerosis and Schmorl's nodes. There is no CT evidence of large disc herniation or high-grade central canal stenosis. The paraspinous soft tissues are within normal limits. IMPRESSION: 1. 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 This has increased from 05/09/2021 and is new from 2019. This could represent osteolytic metastatic disease versus multiple myeloma. Clinical correlation will be essential. 2. There is extensive deep venous thrombosis in the pelvis. This involves both iliac veins, the right common femoral vein, and the right greater saphenous vein. There is surrounding inflammation. This is new from 05/09/2021. 3. Asymmetric soft tissue edema is noted in the right thigh. 4. There are numerous pelvic collateral veins as well as probable hemorrhoids. 5. Prominent perianal soft tissue may represent prolapse. Correlate with direct visualization. 6. Bilateral lower lobe pulmonary nodules are pathologically indeterminant. Several of these are new from 2019. Metastatic disease is not excluded. 7. There are numerous (greater than 5) subtle subcentimeter low-attenuation hepatic lesions. These are new from previous and metastatic disease is suspected. 8. Findings suggest cystitis. Correlate with clinical findings and urinalysis. 9. The spleen is enlarged and there are numerous indeterminant low-attenuation splenic lesions. These have increased in size and number from 2019. 10. Postsurgical change is noted in the stomach. 11. Cholelithiasis. 12. No acute bony abnormality is seen involving the lumbar spine. 13. Additional findings as above. ACT 112: Negative or not required by law. Electronically signed by: Terrell Bay M.D. 04/19/2022 5:[address] 04/19/22 15:40 CT thoracic spine w con HISTORY: 52 years-old Female back pain with current UTI acute mid back pain in a patient with urinary tract infection COMPARISON: CT abdomen pelvis August, CT lumbar spine 10/31/2016, MRI thoracic spine 10/19/2014 TECHNIQUE: Multiple axial CT images of the thoracic spine were obtained without the use of IV contrast. A dose lowering technique was used consistent with the principals of DANICA. FINDINGS: Numerous lytic lesions throughout the thoracic spine are new from the 2015 study, largest at T10. Numerous chronic appearing wedge deformities throughout the midthoracic spine, notably at T8, T9 and T10. Lower cervical spine anterior fusion hardware. No large soft tissue component or epidural extension identified. No definite acute fracture or subluxation identified. Limited evaluation of the central canal and neural foramina by CT technique. Numerous subcentimeter nodules throughout the lungs measure up to approximately 6 mm. Mild tracheobronchial secretions. Pathologic mediastinal and hilar lymphadenopathy. Postoperative changes of the stomach. Splenomegaly with heterogeneous ill-defined hypodense splenic lesions. IMPRESSION: 1. No acute fracture or subluxation of the thoracic spine identified. 2. Numerous osteolytic lesions throughout the thoracic spine are new from the 2014 comparison suggestive of metastasis versus multiple myeloma. 3. Pathologic mediastinal and hilar lymphadenopathy. 4. Numerous scattered subcentimeter solid pulmonary nodules measure up to 6 mm. Attention at follow-up recommended to exclude metastatic disease. 5. Moderate to advanced degenerative changes of the thoracic spine with mid thoracic chronic wedge deformities. ACT 112: Negative or not required by law. The above report was generated using voice recognition software. It may contain grammatical, syntax or spelling errors. Electronically signed by: Shaw Benavides M.D. 04/19/2022 5:58 PM PG Care Time/CCT Total # of Minutes Spent Total Time Spent with Patient: Total time spent is greater than 50% in coordination of care (as documented) at patient's floor/unit and/or counseling patient: [place] [address] Inpt Consult Level 5 Patient Type New History Expanded Problem Focused Exam Expanded Problem Focused Medical Decision Making High Complexity Diagnoses Chronic anticoagulation Z79.01 DVT (deep venous thrombosis) I82.409 H/O gastric bypass Z98.84 Iron deficiency anemia D50.9 Lytic bone lesions on xray M89.9
[2022-04-21] MEDS: FLUCONAZOLE 100 MG TAB PO SCH (13:05)
[2022-04-21] MEDS: LORazepam 2 MG/1 ML VIAL IV PRN (15:40)
--- NOTE | 2022-04-21 17:48 | Hospitalist Progress Note ---
Date of Service April 21, 2022 Assessment & Plan (1) UTI (urinary tract infection): Plan: -E. coli grew in the urine culture sensitive to Rocephin, continue Rocephin, continue Diflucan, patient will benefit of outpatient cystoscopy given the history of recurrent UTI, also patient may not do in and out cath properly and thus why she gets recurrent UTI -Patient has a history of recurrent UTI's due to urinary retention and need for self straight cathing -Was recently admitted from 03/27-03/29 for e.coli UTI resistant to fluoroquinolones but sensitive to cephalosporins. Patient was started of ceftriaxone, switched to cefepime, and eventually discharged and completed a 5 day course of Cefdinir. -Continue IV fluid (2) DVT (deep venous thrombosis): Plan: CT of right femur showed deep vein thrombosis of right femoral versus with adjacent inflammatory stranding and collateral vessels INR upon admission was subtherapeutic Given the patient is wheelchair-bound she does not check her INR regular basis Discussed with home performance consultant oncologist there is no indication for tPA or thrombectomy at this point Switch to apixaban upon discharge (3) Back pain: Plan: -Patient experienced acute lumbar back pain, right paraspinal pain, right hip pain, and RLE swelling yesterday while trying to transition out of her home bed CT's of the thoracic spine, lumbar spine, right hip/femur, and abdomen/pelvis with IV contrast shows multiple lytic lesions throughout the lumbar and thoracic spine the largest is in the body of the L4 measures 1.6 cm there is no evidence of pathological fractures. Numerous lucencies are seen through the right iliac wing, proximal femora, increased in size from 05/09/2021 although not specificall y mentioned in the report that I could read. Numerous subcentimeter low attenuating hepatic lesions are also seen. -Discussed with radiology, due to size of the lesions they are not feasible for CT-guided biopsy, recommend to transfer to facility ([facility]) that have dedicated interventional radiologist Spoke with home performance consultant oncologist this is not urgent, considering the weekend and holidays can be done as an outpatient Proceed with work-up for multiple myeloma -Spoke with home performance consultant oncology although work-up can be done outpatient, the patient can have reachable lung lesions with bronchoscopy procedure, currently give given patient is diagnosed with COVID-19 as well as hearing 2-week and holidays all can be done as an outpatient Waiting for CT of chest to evaluate if there is any lung lesions (4) COVID-19: Plan: -Noted on routine admission screen -Patient's family developed symptoms at the beginning of the week, patient developed symptoms yesterday -Current stable on RA and clear CXR -Symptomatic treatment for now with pulm hygiene, DuoNebs, prn robitussin -No indication for treatment at this point patient had 1 dose of COVID vaccination (5) Generalized weakness: Plan: -Likely due to her current UTI and Coivd diagnosis -Conitue to monitor -If still weak when closer to discharged would consult PT/OT to make sure she is safe enough to be discharged home (6) Anxiety with depression: Plan: -Continue sertraline and prn Zanax (7) History of pulmonary embolism: Plan: -Patient is on Warfarin and has an IVC filter in place -Patient is subtherapeutic today with an INR of 1.8 but also did not take her dose of Warfarin today -Due to her living situation decision was made to substitute warfarin with apixaban as mentioned above (8) Venous stasis ulcers of both lower extremities: Plan: -RLE noted to be more swollen and erythematous than left on exam possibly secondary to DVT -Has a chronic venous stasis ulcer on the RLE which has grown proteus and pseudomonas sensitive to Cefepime in the past -Patient also had previous DVT's in the RLE (9) Iron deficiency anemia: Plan: -Continue ferrous sulfate (10) Transverse myelitis: Plan: -At her baseline neurologic status -Continue home pain regimen Admission and Anticipated Discharge Date Admission Date: April 19, 2022 Isaac Olivera is a 51 y/o female with incomplete quadriplegia and neurogenic bladder secondary to spinal cord lesion, cervical myelopathy, transverse myelitis, s/p Deanna-en-Y gastric bypass in 2006, anemia, and previous DVTs on warfarin and with IVC filter and lymphedema/chronic venous insufficiency of the BL LE with previous cellulitis growing psudomonas/proteous who recently was discharged from this hospital with diarrhea and UTI in March she was diagnosed with UTI with E. coli sensitive to Rocephin and cefepime left hip pain. She was found to be COVID-positive but only complaining of having cough. She notes a runny nose, congestions, and non-productive cough. Over the past week she has felt herself get progressively more week in her BL upper extremities and has generalized weakness. Normally she is able to transfer herself from her hospital bed to her lift chair herself.She states that yesterday while trying to transition herself out of bed she experienced sudden onset of lumbar back pain with radicular symptoms going into her right flank and hip. She denies new numbness/tingling but this is difficult for her to distinguish due to her baseline lower extremity weakness. Since her injury yesterday she has noticed increased swelling and pain in her RLE. She straight caths herself due to her previous spine injury but feels as though she does not completely empty her bladder at times. Results & Data Results & Data ([facility]) Vital Signs (Past 12 Hours) Vital Signs Temp Pulse Pulse Pulse Resp BP Pulse Ox 04/21/22 17:35 96 H 16 94 04/21/22 16:59 37.9 C H 111 H 20 126/79 97 04/21/22 15:15 103 H 04/21/22 15:13 71 16 97 04/21/22 11:07 105 H 16 95 04/21/22 07:49 36.8 C 112 H 20 129/77 92 04/21/22 07:29 95 H 18 95 04/21/22 07:12 105 H O2 Del Method 04/21/22 17:35 Room Air 04/21/22 16:59 Room Air 04/21/22 15:15 04/21/22 15:13 Room Air 04/21/22 11:07 Room Air 04/21/22 07:49 Room Air 04/21/22 07:29 Room Air 04/21/22 07:12 PG Care Time/CCT Total # of Minutes Spent Total Time Spent with Patient: Total time spent is greater than 50% in coordination of care (as documented) at patient's floor/unit and/or counseling patient: Coding Level of Care Code 32317 Subseq Hosp Care Lvl 3 Diagnoses UTI (urinary tract infection) N39.0 Urinary tract infection type: acute cystitis DVT (deep venous thrombosis) I82.409 Back pain M54.50 Back pain laterality: right Back pain location: low back pain Chronicity: acute Sciatica presence: without sciatica COVID-19 U07.1 Generalized weakness R53.1 Anxiety with depression F41.8 History of pulmonary embolism Z86.711 Venous stasis ulcers of both lower extremities I83.019; I83.029; L97.919; L97.929 Iron deficiency anemia D50.9 Transverse myelitis G37.3 (1) UTI (urinary tract infection) Urinary tract infection type: acute cystitis (2) Back pain Back pain laterality: right Back pain location: low back pain Chronicity: acute Sciatica presence: without sciatica Qualified Code(s): M54.50 - Low back pain, unspecified
[2022-04-21] MEDS ORDERED: OPTIRAY 320 500ml IV ONE (18:39)
--- NOTE | 2022-04-21 19:37 | CT Scan Report ---
CT ANGIOGRAPHY OF THE CHEST, PULMONARY EMBOLUS PROTOCOL CLINICAL HISTORY: Shortness of breath. Elevated d-dimer. Evaluate for metastatic disease. COMPARISON STUDY: Chest CT May 15, 2014. Chest radiograph April 19, 2022. Thoracic spine CT D [id number]. TECHNIQUE: Following IV administration of 112 mL of Optiray, helical axial images of the chest were o btained utilizing the pulmonary embolus protocol. Maximal intensity projections and sagittal and cor onal reformats were viewed on an independent 3D workstation. IV contrast was administered without co mplication. Automated exposure control was utilized for the study. A dose lowering technique was ut ilized adhering to the principles of ALARA. CT DOSE: 479.14 mGy.cm FINDINGS: No central pulmonary emboli are identified. The remainder of the pulmonary arteries are escobar boptimally assessed due to respiratory motion artifact. The size of the heart is normal. There is no thoracic aortic dissection. There are numerous mildly enlarged mediastinal, bilateral hilar and left supraclavicular lymph nodes. This adenopathy is new since chest CT May 05, 2014. Index left supra clavicular lymph node on image 268 of 288 measures 1.5 x 1 cm. Index right paratracheal lymph node on image 215 measures 1.4 x 1.2 cm. Index subcarinal node measures 2.1 x 1.2 cm. There is narrowing of the right middle lobe bronchi with right middle lobe airspace opacity and volume loss. No pneumothora x or pleural effusion is present. Lungs are suboptimally assessed due to respiratory motion. Innumera ble upper lobe predominant solid noncalcified pulmonary nodules measure up to 8 mm. These are also ne w since earlier chest CT. There is no pneumothorax or pleural effusion. Innumerable lytic lesions wit hin the bony thorax are noted. These are most prominent within the thoracic spine. However, lesions a re also noted within the proximal right clavicle as well as the manubrium. Opacified fractures identi fied. Splenomegaly is noted. Numerous splenic lesions are better depicted on recent abdominal CT as a re small hepatic lesions. Deanna-en-Y gastric bypass is noted. IMPRESSION: 1. Exam significantly compromised by respiratory motion artifact. No central pulmonary emboli. Remain liss of pulmonary arteries suboptimally assessed. 2. Innumerable lytic lesions within the bony thorax. Metastatic disease is favored although myeloma i s within the differential. 3. Multiple mildly enlarged mediastinal, bilateral hilar and left supraclavicular lymph nodes. These favor marcio spread of disease. 4. Numerous small pulmonary nodules. Although upper lobe predominant, metastatic disease is the diagn osis of exclusion. 5. Suspicious splenic and hepatic lesions better depicted on the recent CT of the abdomen and pelvis. 6. Narrowing of right middle lobe bronchi with right middle lobe airspace opacity with volume loss. ACT 112: Negative or not required by law. Electronically signed by: Singh Gil M.D. 04/21/2022 7:36 PM
[2022-04-21] MEDS: cefTRIAXone SODIUM 2,000 MG in DEXTROSE 5% 50 ML IV SCH (19:51)
[2022-04-21] MEDS: SERTRALINE HCL 50 MG TABLET PO SCH (19:52)
[2022-04-22] MEDS: LORazepam 2 MG/1 ML VIAL IV PRN (01:29)
[2022-04-22] MEDS: POTASSIUM CHLORIDE CRTAB 20 MEQ TABCR PO SCH (06:31)
[2022-04-22] MEDS: SODIUM CHLORIDE 0.9% 1000ML 1,000 ML IV SCH ×2 (07:56→16:08)
[2022-04-22] MEDS: PANTOprazole 40 MG TAB PO SCH (07:57)
[2022-04-22] MEDS: CEROVITE ADV FORMULA TAB PO SCH (07:57)
[2022-04-22] MEDS: FOLIC ACID 1 MG TAB PO SCH (07:57)
[2022-04-22] MEDS: FLUCONAZOLE 100 MG TAB PO SCH (07:57)
[2022-04-22] MEDS: APIXABAN 5 MG TABLET PO SCH ×2 (07:57→20:27)
[2022-04-22 08:07] LABS: Hematocrit (blood only) 26.8 % (34.1-44.9); Hemoglobin 8.5 g/dl (12.0-16.0); Mean Corpuscular Hemoglobin 27.8 pg (25.0-34.0); Mean Corpuscular Hgb Conc 31.7 g/dL (32.0-36.0); Mean Corpuscular Volume 87.6 fL (80.0-100.0); Mean Platelet Volume 11.5 fL (9.4-12.3); Platelet Count 150 K/uL (130-400); RDW Coefficient of Variation 15.6 % (11.5-14.5); RDW Standard Deviation 49.9 fL (36.4-46.3); Red Blood Count 3.06 M/uL (3.93-5.22); White Blood Count 4.69 K/ul (4.8-10.8)
[2022-04-22 08:27] LABS: INR 2.1 (0.9-1.1); Prothrombin Time 21.5 Seconds (9.0-12.0)
[2022-04-22 08:30] LABS: Albumin Globulin Ratio 1.1 (0.9-2); Albumin Level 3.1 gm/dl (3.4-5.0); BUN Creatinine Ratio 22.2 (10-20); Bilirubin,Total 0.5 mg/dl (0.2-1.0); Calcium 8.3 mg/dl (8.5-10.1); Est GFR (African American) 119.5 ml/min; Est GFR (Non-African American) 103.1 ml/min; Globulin 2.7 gm/dl (2.5-4.0); Potassium 3.7 mmol/L (3.5-5.1); Total Protein 5.8 gm/dl (6.0-8.3)
[2022-04-22] MEDS: ALBUT/IPRATROP 3MG/0.5MG NEB 3 ML VIAL NEB SCH ×4 (08:33→19:14)
[2022-04-22] MEDS: BACLOFEN 10 MG TAB PO SCH ×4 (09:23→20:28)
[2022-04-22] MEDS ORDERED: IRON SUCROSE 300 MG in SODIUM CHLORIDE 0.9% 250 ML IV SCH (12:45)
--- NOTE | 2022-04-22 15:49 | Hospitalist Progress Note ---
Date of Service April 22, 2022 Assessment & Plan (1) Back pain: Plan: -Patient experienced acute lumbar back pain, right paraspinal pain, right hip pain, and RLE swelling yesterday while trying to transition out of her home bed CT's of the thoracic spine, lumbar spine, right hip/femur, and abdomen/pelvis with IV contrast shows multiple lytic lesions throughout the lumbar and thoracic spine the largest is in the body of the L4 measures 1.6 cm there is no evidence of pathological fractures. Numerous lucencies are seen through the right iliac wing, proximal femora, increased in size from 05/09/2021 although not specifically mentioned in the report that I could read. Numerous subcentimeter low attenuating hepatic lesions are also seen. CT of chest showed innumerable lytic lesions within the bony thorax, metastatic disease is favored, multiple bilateral mediastinal hilar and left supraclavicular lymphadenopathy as well as numerous small pulmonary nodules -Discussed with radiology, due to size of the lesions they are not feasible for CT-guided biopsy, recommend to transfer to facility ([place]) that have dedicated interventional radiologist Spoke with benefits consultant oncologist this is not urgent, considering the weekend and holidays can be done as an outpatient work-up for multiple myeloma pending including protein electrophoresis serum immunofixation free kappa / lambda -Spoke with benefits consultant oncology work-up can be done outpatient, especially given the patient is diagnosed with COVID-19 as well as hitting weekend and holidays (2) DVT (deep venous thrombosis): Plan: CT of right femur showed deep vein thrombosis of right femoral versus with adjacent inflammatory stranding and collateral vessels INR upon admission was subtherapeutic Given the patient is wheelchair-bound she does not check her INR regular basis Discussed with benefits consultant oncologist there is no indication for tPA or thrombectomy at this point Switch to apixaban -The right leg is more swollen than before, no evidence of ongoing infectious process, most likely secondary to extensive DVT (3) UTI (urinary tract infection): Plan: -Patient has a history of recurrent UTI's due to urinary retention and need for self straight cathing -Was recently admitted from 03/27-03/29 for e.coli UTI resistant to fluoroquinolo katherine but sensitive to cephalosporins. Patient was started of ceftriaxone, switched to cefepime, and eventually discharged and completed a 5 day course of Cefdinir. --E. coli grew in the urine culture sensitive to Rocephin, continue Rocephin, continue Diflucan, patient will benefit of outpatient cystoscopy given the history of recurrent UTI, also patient may not do in and out cath properly and thus why she gets recurrent UTI (4) Venous stasis ulcers of both lower extremities: Plan: -RLE noted to be more swollen and erythematous than left on exam possibly secondary to DVT (5) COVID-19: Plan: -Noted on routine admission screen -Patient's family developed symptoms at the beginning of the week, patient developed symptoms yesterday -Current stable on RA and clear CXR -Symptomatic treatment for now with pulm hygiene, DuoNebs, prn robitussin -No indication for treatment at this point patient had 1 dose of COVID vaccination (6) Generalized weakness: Plan: -Likely due to her current UTI and Coivd diagnosis -Pending PT OT assessment (7) Anxiety with depression: Plan: -Continue sertraline and prn Zanax (8) History of pulmonary embolism: Plan: -Patient is on Warfarin and has an IVC filter in place -Patient is subtherapeutic with an INR of 1.8 but also did not take her dose of Warfarin today -Due to her living situation decision was made to substitute warfarin with apixaban as mentioned above (9) Iron deficiency anemia: Plan: - Start on IV iron as per oncology recommendation, 300 mg x 1 today and repeat in 72 hours (10) Transverse myelitis: Plan: -At her baseline neurologic status -Continue home pain regimen Admission and Anticipated Discharge Date Admission Date: April 19, 2022 Isaac Olivera is a 51 y/o female with incomplete quadriplegia and neurogenic bladder secondary to spinal cord lesion, cervical myelopathy, transverse myelitis, s/p Deanna-en-Y gastric bypass in 2006, anemia, and previous DVTs on warfarin and with IVC filter and lymphedema/chronic venous insufficiency of the BL LE with previous cellulitis growing psudomonas/proteous who recently was discharged from this hospital with diarrhea and UTI in March she was diagnosed with UTI with E. coli sensitive to Rocephin . She presented to the hospital at this time with left pelvic/hip pain, lower extremity tenderness and swelling, she was found to have UTI with E. coli, extensive DVT of the right lower extremity, COVID-positive, (patient had just 1 COVID vaccination) but only complaining of having cough. Moreover, over the past week she has felt herself get progressively more week . Normally she is able to transfer herself from her hospital bed to her lift chair herself.She states while trying to transition herself out of bed she experienced sudden onset of lumbar back pain with radicular symptoms going into her right flank and hip. She denies new numbness/tingling but this is difficult for her to distinguish due to her baseline lower extremity weakness. She straight caths herself due to her previous spine injury but feels as though she does not completely empty her bladder at times. Over the course of admission, she was accidentally found multiple numeric lytic bony lesions, liver lesions, numerous small pulmonary nodules, splenic lesions, and multiple mediastinal, supraclavicular, hilar lymphadenopathy. She also was found to have iron deficiency anemia Currently patient is ready to be discharged pending PT OT assessment Physical Exam Physical Exam: Physical Exam: General: In no acute distress, stated age, chronically ill appearing vut non- toxic appearing HEENT: Normocephalic, atraumatic, no scleral icterus, pupils around round, symmetrical, and reactive to light, moist mucus membranes, trachea midline, no thyromegaly Chest/Pulm: No respiratory distress, symmetrical chest expansion, clear breath sounds throughout Cardiac: RRR, no murmurs noted Abdomen: Negative for ascites and bruising, normoactive bowel sounds, soft, non-tender to palpation throughout Musculoskeletal: Patient is tender to palpation over the lower lubar spine and right paraspinal muscles, nno crepitus or step off noted on palpation of her entire spine, Patient with decreased strength in the RLE compared to left which is her baseline, paralysis in the BL LE's at baseline Extremities: Radial, dorsalis pedis, and posterior tibial pulses are intact and symmetrical, Significant lymphedema and chronic venous insufficiency in the BL LE's, RLE is currently more swollen and with erythema at the site of her chronic RLE ulcer, not currently draining Skin: As described above Neuro: Alert and oriented to person, place, month, year, and president, no new focal defects, patient is at her baseline neurologic status with BL LE weakness and slight weakness in her RUE compared to left Psych: No acute distress, calm and cooperative during the exam Results & Data Results & Data ([facility]) Vital Signs (Past 12 Hours) Vital Signs Pulse Pulse Pulse Resp BP Pulse Ox O2 Del Method 04/22/22 11:56 98 H 16 98 Room Air 04/22/22 08:42 96 H 96 H 14 116/74 94 Room Air 04/22/22 07:12 98 H PG Care Time/CCT Total # of Minutes Spent Total Time Spent with Patient: Total time spent is greater than 50% in coordination of care (as documented) at patient's floor/unit and/or counseling patient: Coding Level of Care Code 45697 Subseq Hosp Care Lvl 3 Diagnoses Back pain M54.50 Back pain laterality: right Back pain location: low back pain Chronicity: acute Sciatica presence: without sciatica DVT (deep venous thrombosis) I82.409 UTI (urinary tract infection) N39.0 Urinary tract infection type: acute cystitis Venous stasis ulcers of both lower extremities I83.019; I83.029; L97.919; L97.929 COVID-19 U07.1 Generalized weakness R53.1 Anxiety with depression F41.8 History of pulmonary embolism Z86.711 Iron deficiency anemia D50.9 Transverse myelitis G37.3 (1) UTI (urinary tract infection) Urinary tract infection type: acute cystitis (2) Back pain Back pain laterality: right Back pain location: low back pain Chronicity: acute Sciatica presence: without sciatica Qualified Code(s): M54.50 - Low back pain, unspecified
[2022-04-22] MEDS ORDERED: IRON SUCROSE 300 MG in SODIUM CHLORIDE 0.9% 250 ML IV ONE (15:50)
[2022-04-22] MEDS: ACETAMINOPHEN 500 MG TAB PO PRN (17:43)
[2022-04-22] MEDS: cefTRIAXone SODIUM 2,000 MG in DEXTROSE 5% 50 ML IV SCH (20:18)
[2022-04-22] MEDS: SERTRALINE HCL 50 MG TABLET PO SCH (20:26)
[2022-04-22] MEDS: ALPRAZolam 0.5 MG TABLET PO PRN (23:01)
[2022-04-23] MEDS: LORazepam 2 MG/1 ML VIAL IV PRN (04:27)
[2022-04-23] MEDS: ALBUT/IPRATROP 3MG/0.5MG NEB 3 ML VIAL NEB SCH ×2 (07:24→11:48)
[2022-04-23 08:45] LABS: INR 1.7 (0.9-1.1); Prothrombin Time 17.5 Seconds (9.0-12.0)
[2022-04-23] MEDS: POTASSIUM CHLORIDE CRTAB 20 MEQ TABCR PO SCH (10:04)
[2022-04-23] MEDS: BACLOFEN 10 MG TAB PO SCH ×4 (10:04→21:14)
[2022-04-23] MEDS: PANTOprazole 40 MG TAB PO SCH (10:05)
[2022-04-23] MEDS: APIXABAN 5 MG TABLET PO SCH ×2 (10:05→21:14)
[2022-04-23] MEDS: CEROVITE ADV FORMULA TAB PO SCH (10:06)
[2022-04-23] MEDS: FOLIC ACID 1 MG TAB PO SCH (10:06)
[2022-04-23] MEDS: FLUCONAZOLE 100 MG TAB PO SCH (10:06)
[2022-04-23] MEDS: ACETAMINOPHEN 500 MG TAB PO PRN ×2 (10:54→21:15)
[2022-04-23] MEDS: ALPRAZolam 0.5 MG TABLET PO PRN (12:35)
[2022-04-23] MEDS ORDERED: ALBUT/IPRATROP 3MG/0.5MG NEB 3 ML VIAL NEB PRN (13:37)
[2022-04-23] MEDS: traMADol HCL 50 MG TABLET PO PRN (19:02)
[2022-04-23] MEDS ORDERED: MICONAZOLE NITRATE POWDER 43 GM EXT PRN (19:34)
[2022-04-23] MEDS: cefTRIAXone SODIUM 2,000 MG in DEXTROSE 5% 50 ML IV SCH (21:13)
[2022-04-23] MEDS: SERTRALINE HCL 50 MG TABLET PO SCH (21:16)
--- NOTE | 2022-04-23 23:27 | Hospitalist Progress Note ---
Date of Service April 23, 2022 Assessment & Plan (1) Back pain: Plan: -Patient experienced acute lumbar back pain, right paraspinal pain, right hip pain, and RLE swelling yesterday while trying to transition out of her home bed CT's of the thoracic spine, lumbar spine, right hip/femur, and abdomen/pelvis with IV contrast shows multiple lytic lesions throughout the lumbar and thoracic spine the largest is in the body of the L4 measures 1.6 cm there is no evidence of pathological fractures. Numerous lucencies are seen through the right iliac wing, proximal femora, increased in size from 05/09/2021 although not specifically mentioned in the report that I could read. Numerous subcentimeter low attenuating hepatic lesions are also seen. CT of chest showed innumerable lytic lesions within the bony thorax, metastatic disease is favored, multiple bilateral mediastinal hilar and left supraclavicular lymphadenopathy as well as numerous small pulmonary nodules -Discussed with radiology, due to size of the lesions they are not feasible for CT-guided biopsy, recommend to transfer to facility ([place]) that have dedicated interventional radiologist Spoke with field service consultant oncologist this is not urgent, considering the weekend and holidays can be done as an outpatient work-up for multiple myeloma pending including protein electrophoresis serum immunofixation free kappa / lambda -Spoke with field service consultant oncology work-up can be done outpatient, especially giv en the patient is diagnosed with COVID-19 (2) DVT (deep venous thrombosis): Plan: CT of right femur showed deep vein thrombosis of right femoral versus with adjacent inflammatory stranding and collateral vessels INR upon admission was subtherapeutic Given the patient is wheelchair-bound she does not check her INR regular basis Discussed with field service consultant oncologist there is no indication for tPA or thrombectomy at this point Switch to apixaban -The right leg is more swollen than before, no evidence of ongoing infectious process, most likely secondary to extensive DVT (3) UTI (urinary tract infection): Plan: -Patient has a history of recurrent UTI's due to urinary retention and need for self straight cathing -Was recently admitted from 03/27-03/29 for e.coli UTI resistant to fluoroquinolones but sensitive to cephalosporins. Patient was started of ceftriaxone, switched to cefepime, and eventually discharged and completed a 5 day course of Cefdinir. --E. coli grew in the urine culture sensitive to Rocephin, continue Rocephin, continue Diflucan, patient will benefit of outpatient cystoscopy given the history of recurrent UTI, also patient may not do in and out cath properly and thus why she gets recurrent UTI (4) Venous stasis ulcers of both lower extremities: Plan: -RLE noted to be more swollen and erythematous than left on exam possibly secondary to DVT (5) COVID-19: Plan: -Noted on routine admission screen -Patient's family developed symptoms at the beginning of the week, patient developed symptoms yesterday -Current stable on RA and clear CXR -Symptomatic treatment for now with pulm hygiene, DuoNebs, prn robitussin -No indication for treatment at this point patient had 1 dose of COVID vaccination (6) Generalized weakness: Plan: -Likely due to her current UTI and Coivd diagnosis -Pending PT OT assessment (7) Anxiety with depression: Plan: -Continue sertraline and prn Zanax (8) History of pulmonary embolism: Plan: -Patient is on Warfarin and has an IVC filter in place -Patient is subtherapeutic with an INR of 1.8 but also did not take her dose of Warfarin today -Due to her living situation decision was made to substitute warfarin with apixaban as mentioned above (9) Iron deficiency anemia: Plan: - Start on IV iron as per oncology recommendation, 300 mg x 1 today and repeat in 72 hours (10) Transverse myelitis: Plan: -At her baseline neurologic status -Continue home pain regimen Admission and Anticipated Discharge Date Admission Date: April 19, 2022 Isaac Olivera is a 51 y/o female with incomplete quadriplegia and neurogenic bladder secondary to spinal cord lesion, cervical myelopathy, transverse myelitis, s/p Deanna-en-Y gastric bypass in 2006, anemia, and previous DVTs on warfarin and with IVC filter and lymphedema/chronic venous insufficiency of the BL LE with previous cellulitis growing psudomonas/proteous who recently was discharged from this hospital with diarrhea and UTI in March she was diagnosed with UTI with E. coli sensitive to Rocephin . She presented to the hospital at this time with left pelvic/hip pain, lower extremity tenderness and swelling, she was found to have UTI with E. coli, extensive DVT of the right lower extremity, COVID-positive, (patient had just 1 COVID vaccination) but only complaining of having cough. Moreover, over the past week she has felt herself get progressively more week . Normally she is able to transfer herself from her hospital bed to her lift chair herself.She states while trying to transition herself out of bed she experienced sudden onset of lumbar back pain with radicular symptoms going into her right flank and hip. She denies new numbness/tingling but this is difficult for her to distinguish due to her baseline lower extremity weakness. She straight caths herself due to her previous spine injury but feels as though she does not completely empty her bladder at times. Over the course of admission, she was accidentally found multiple numeric lytic bony lesions, liver lesions, numerous small pulmonary nodules, splenic lesions, and multiple mediastinal, supraclavicular, hilar lymphadenopathy. She also was found to have iron deficiency anemia pending PT OT assessment Physical Exam Physical Exam: Constitutional: no acute distress, Vitals as above. HEENT: No scleral injection or discharge Neck: Supple without lymphadenopathy or thyromegaly. Lungs: Bilateral air entry decreased at bases Cardiac: Normal rhythm. No murmurs.No extremity edema. 2+ distal peripheral pulses. Abdomen:Bowel sounds present. Soft and nondistended. . No guarding MSK: No cyanosis or clubbing. Extremities motor strength 5/5. Skin: No rashes, . . Results & Data Results & Data ([facility]) Vital Signs (Past 12 Hours) Vital Signs Temp Pulse Pulse Resp BP Pulse Ox O2 Del Method 04/23/22 21:44 Room Air 04/23/22 21:55 36.7 C 98 H 18 100/65 94 Room Air 04/23/22 19:15 36.8 C 105 H 18 116/75 92 Room Air 04/23/22 17:00 97 H 04/23/22 16:17 37 C 96 H 19 119/77 93 Room Air PG Care Time/CCT Total # of Minutes Spent Total Time Spent with Patient: Total time spent is greater than 50% in coordination of care (as documented) at patient's floor/unit and/or counseling patient: Coding Level of Care Code 74439 Subseq Hosp Care Lvl 2 Diagnoses Back pain M54.50 Back pain laterality: right Back pain location: low back pain Chronicity: acute Sciatica presence: without sciatica DVT (deep venous thrombosis) I82.409 UTI (urinary tract infection) N39.0 Urinary tract infection type: acute cystitis Venous stasis ulcers of both lower extremities I83.019; I83.029; L97.919; L97.929 COVID-19 U07.1 Generalized weakness R53.1 Anxiety with depression F41.8 History of pulmonary embolism Z86.711 Iron deficiency anemia D50.9 Transverse myelitis G37.3 (1) Back pain Back pain laterality: right Back pain location: low back pain Chronicity: acute Sciatica presence: without sciatica Qualified Code(s): M54.50 - Low back pain, unspecified (2) UTI (urinary tract infection) Urinary tract infection type: acute cystitis
[2022-04-24] MEDS: LORazepam 2 MG/1 ML VIAL IV PRN (05:39)
[2022-04-24] MEDS: POTASSIUM CHLORIDE CRTAB 20 MEQ TABCR PO SCH (05:40)
[2022-04-24 08:04] LABS: Basophils # (auto) 0.03 K/uL (0-0.2); Basophils % (auto) 0.6 %; Eosinophils # (auto) 0.25 K/uL (0-0.50); Eosinophils % (auto) 4.8 %; Hematocrit (blood only) 27.4 % (34.1-44.9); Hemoglobin 8.7 g/dl (12.0-16.0); Immature Granulocytes # (auto) 0.02 K/uL (0.00-0.02); Immature Granulocytes % (auto) 0.4 %; Lymphocytes # (auto) 0.45 K/uL (1.2-3.4); Lymphocytes % (auto) 8.7 %; Mean Corpuscular Hemoglobin 27.9 pg (25.0-34.0); Mean Corpuscular Hgb Conc 31.8 g/dL (32.0-36.0); Mean Corpuscular Volume 87.8 fL (80.0-100.0); Mean Platelet Volume 10.8 fL (9.4-12.3); Monocytes % (auto) 9.7 %; Neutrophils # (auto) 3.93 K/uL (1.4-6.5); Neutrophils % (auto) 75.8 %; Platelet Count 180 K/uL (130-400); RDW Coefficient of Variation 15.6 % (11.5-14.5); RDW Standard Deviation 49.7 fL (36.4-46.3); Red Blood Count 3.12 M/uL (3.93-5.22); White Blood Count 5.18 K/ul (4.8-10.8)
[2022-04-24 08:19] LABS: INR 1.5 (0.9-1.1); Prothrombin Time 15.2 Seconds (9.0-12.0)
[2022-04-24 08:25] LABS: BUN Creatinine Ratio 20.4 (10-20); Calcium 8.8 mg/dl (8.5-10.1); Creatinine Clr Calc Pharmacy 156.4 ml/min; Est GFR (African American) 125.7 ml/min; Est GFR (Non-African American) 108.5 ml/min; Potassium 3.8 mmol/L (3.5-5.1)
[2022-04-24] MEDS ORDERED: bisacodyL 10 MG SUPP PR STA (09:27)
[2022-04-24] MEDS: ACETAMINOPHEN 500 MG TAB PO PRN ×2 (10:23→20:50)
[2022-04-24] MEDS: DOCUSATE SODIUM 100 MG CAP PO SCH ×2 (10:23→20:51)
[2022-04-24] MEDS: APIXABAN 5 MG TABLET PO SCH ×2 (10:23→20:50)
[2022-04-24] MEDS: BACLOFEN 10 MG TAB PO SCH ×4 (10:24→20:51)
[2022-04-24] MEDS: FLUCONAZOLE 100 MG TAB PO SCH (10:24)
[2022-04-24] MEDS: PANTOprazole 40 MG TAB PO SCH (10:24)
[2022-04-24] MEDS: CEROVITE ADV FORMULA TAB PO SCH (10:25)
[2022-04-24] MEDS: POLYETHYLENE (MIRALAX) 17 GM PACK PO SCH ×2 (10:25→12:35)
[2022-04-24] MEDS: FOLIC ACID 1 MG TAB PO SCH (10:25)
[2022-04-24] MEDS: ALPRAZolam 0.5 MG TABLET PO PRN (10:31)
[2022-04-24 12:02] LABS: Free Kappa 32.4 mg/L (3.3-19.4); Free Kappa/Lambda Ratio 1.19 (0.26-1.65); Free Lambda 27.2 mg/L (5.7-26.3)
--- NOTE | 2022-04-24 13:18 | Hospitalist Progress Note ---
Date of Service April 24, 2022 Assessment & Plan (1) Back pain: Plan: -Patient experienced acute lumbar back pain, right paraspinal pain, right hip pain, and RLE swelling yesterday while trying to transition out of her home bed CT's of the thoracic spine, lumbar spine, right hip/femur, and abdomen/pelvis with IV contrast shows multiple lytic lesions throughout the lumbar and thoracic spine the largest is in the body of the L4 measures 1.6 cm there is no evidence of pathological fractures. Numerous lucencies are seen through the right iliac wing, proximal femora, increased in size from 05/09/2021 although not specifically mentioned in the report that I could read. Numerous subcentimeter low attenuating hepatic lesions are also seen. CT of chest showed innumerable lytic lesions within the bony thorax, metastatic disease is favored, multiple bilateral mediastinal hilar and left supraclavicular lymphadenopathy as well as numerous small pulmonary nodules -Discussed with radiology, due to size of the lesions they are not feasible for CT-guided biopsy, recommend to transfer to facility ([place]) that have dedicated interventional radiologist Discussed with patient overall plan in depth regarding oncology work-up for her lytic lesions with possible multiple myeloma Patient wants to discuss with oncology again regarding her work-up plan prior to discharge and will request oncology to see her again. Continue PT OT for discharge planning (2) DVT (deep venous thrombosis): Plan: CT of right femur showed deep vein thrombosis of right femoral versus with adjacent inflammatory stranding and collateral vessels INR upon admission was subtherapeutic Given the patient is wheelchair-bound she does not check her INR regular basis Continue apixaban (3) UTI (urinary tract infection): Plan: -Patient has a history of recurrent UTI's due to urinary retention and need for self straight cathing -Was recently admitted from 03/27-03/29 for e.coli UTI resistant to fluoroquinolones but sensitive to cephalosporins. Patient was started of ceftriaxone, switched to cefepime, and eventually discharged and completed a 5 day course of Cefdinir. --E. coli grew in the urine culture sensitive to Rocephin, continue Rocephin, continue Diflucan, patient will benefit of outpatient cystoscopy given the history of recurrent UTI, also patient may not do in and out cath properly and thus why she gets recurrent UTI (4) Venous stasis ulcers of both lower extremities: Plan: -RLE noted to be more swollen and erythematous than left on exam possibly secondary to DVT (5) COVID-19: Plan: -Noted on routine admission screen -Patient's family developed symptoms at the beginning of the week, patient developed symptoms yesterday -Current stable on RA and clear CXR -Symptomatic treatment for now with pulm hygiene, DuoNebs, prn robitussin -No evidence of any acute decline noted (6) Generalized weakness: Plan: -Likely due to her current UTI and Coivd diagnosis -Pending PT OT assessment (7) Anxiety with depression: Plan: -Continue sertraline and prn Zanax (8) History of pulmonary embolism: Plan: -Patient is on Warfarin and has an IVC filter in place -Patient is subtherapeutic with an INR of 1.8 but also did not take her dose of Warfarin today -Due to her living situation decision was made to substitute warfarin with apixaban as mentioned above (9) Iron deficiency anemia: Plan: - Start on IV iron as per oncology recommendation, 300 mg x 1 today and repeat in 72 hours (10) Transverse myelitis: Plan: -At her baseline neurologic status -Continue home pain regimen Admission and Anticipated Discharge Date Admission Date: April 19, 2022 Isaac Olivera is a 51 y/o female with incomplete quadriplegia and neurogenic bladder secondary to spinal cord lesion, cervical myelopathy, transverse myelitis, s/p Deanna-en-Y gastric bypass in 2006, anemia, and previous DVTs on warfarin and with IVC filter and lymphedema/chronic venous insufficiency of the BL LE with previous cellulitis growing psudomonas/proteous who recently was discharged from this hospital with diarrhea and UTI in March she was diagnosed with UTI with E. coli sensitive to Rocephin . She presented to the hospital at this time with left pelvic/hip pain, lower extremity tenderness and swelling, she was found to have UTI with E. coli, e xtensive DVT of the right lower extremity, COVID-positive, (patient had just 1 COVID vaccination) but only complaining of having cough. Moreover, over the past week she has felt herself get progressively more week . Normally she is able to transfer herself from her hospital bed to her lift chair herself.She states while trying to transition herself out of bed she experienced sudden onset of lumbar back pain with radicular symptoms going into her right flank and hip. She denies new numbness/tingling but this is difficult for her to distinguish due to her baseline lower extremity weakness. She straight caths herself due to her previous spine injury but feels as though she does not completely empty her bladder at times. Over the course of admission, she was accidentally found multiple numeric lytic bony lesions, liver lesions, numerous small pulmonary nodules, splenic lesions, and multiple mediastinal, supraclavicular, hilar lymphadenopathy. She also was found to have iron deficiency anemia Patient expressed concern today that she wants to discuss with oncology again regarding the overall plan for her oncologic work-up Respiratory status stable at rest Physical Exam Physical Exam: Constitutional: no acute distress, Vitals as above. HEENT: No scleral injection or discharge Neck: Supple without lymphadenopathy or thyromegaly. Lungs: Bilateral air entry decreased at bases Cardiac: Normal rhythm. No murmurs.No extremity edema. 2+ distal peripheral pulses. Abdomen:Bowel sounds present. Soft and nondistended. . No guarding MSK: No cyanosis or clubbing. Weakness in extremities unchanged from baseline Skin: No rashes, . . Results & Data Results & Data ([facility]) Vital Signs (Past 12 Hours) Vital Signs Temp Pulse Resp BP BP Pulse Ox O2 Del Method 04/24/22 10:38 36.9 C 86 20 117/75 95 Room Air 04/24/22 04:00 36.8 C 92 H 18 115/73 94 Room Air Laboratory Results Short CBC 04/24/22 Range/Units 07:43 WBC 5.18 (4.8-10.8) K/ul Hgb 8.7 L (12.0-16.0) g/dl Hct 27.4 L (34.1-44.9) % Plt Count 180 (130-400) K/uL BMP 04/24/22 07:43 Sodium 141 Potassium 3.8 Chloride 109 H Carbon Dioxide 28 BUN 11 Creatinine 0.54 L Glucose 98 Calcium 8.8 PG Care Time/CCT Total # of Minutes Spent Total Time Spent with Patient: Total time spent is greater than 50% in coordination of care (as documented) at patient's floor/unit and/or counseling patient: Coding Level of Care Code 16443 Subseq Hosp Care Lvl 2 Diagnoses Back pain M54.50 Back pain laterality: right Back pain location: low back pain Chronicity: acute Sciatica presence: without sciatica DVT (deep venous thrombosis) I82.409 UTI (urinary tract infection) N39.0 Urinary tract infection type: acute cystitis Venous stasis ulcers of both lower extremities I83.019; I83.029; L97.919; L97.929 COVID-19 U07.1 Generalized weakness R53.1 Anxiety with depression F41.8 History of pulmonary embolism Z86.711 Iron deficiency anemia D50.9 Transverse myelitis G37.3 (1) Back pain Back pain laterality: right Back pain location: low back pain Chronicity: acute Sciatica presence: without sciatica Qualified Code(s): M54.50 - Low back pain, unspecified (2) UTI (urinary tract infection) Urinary tract infection type: acute cystitis
[2022-04-24 16:48] LABS: Albumin 3.4 g/dL (3.8-4.8); Alpha 1 Globulin 0.5 g/dL (0.2-0.3); Alpha 2 Globulin 0.7 g/dL (0.5-0.9); Beta-1-Globulin 0.4 g/dL (0.4-0.6); Beta-2-Globulin 0.3 g/dL (0.2-0.5); Gamma Globulin 1.1 g/dL (0.8-1.7); Monoclonal Protein Band 1 DNR g/dL (NONE DETECTED); Monoclonal Protein Band 2 DNR g/dL (NONE DETECTED); Monoclonal Protein Band 3 DNR g/dL (NONE DETECTED); Total Protein 6.5 g/dL (6.1-8.1)
[2022-04-24] MEDS: traMADol HCL 50 MG TABLET PO PRN (17:25)
[2022-04-24] MEDS: cefTRIAXone SODIUM 2,000 MG in DEXTROSE 5% 50 ML IV SCH (20:49)
[2022-04-24] MEDS: SERTRALINE HCL 50 MG TABLET PO SCH (20:49)
[2022-04-24] MEDS ORDERED: CALCIUM CARBONATE 500 MG CHEWABLE TAB PO PRN (21:48)
[2022-04-25] MEDS: LORazepam 2 MG/1 ML VIAL IV PRN ×2 (00:03→23:27)
[2022-04-25] MEDS: POTASSIUM CHLORIDE CRTAB 20 MEQ TABCR PO SCH (05:30)
[2022-04-25] MEDS ORDERED: IRON SUCROSE 300 MG in SODIUM CHLORIDE 0.9% 250 ML IV ONE (08:15)
[2022-04-25 08:43] LABS: Basophils # (auto) 0.02 K/uL (0-0.2); Basophils % (auto) 0.4 %; Eosinophils # (auto) 0.26 K/uL (0-0.50); Eosinophils % (auto) 5.2 %; Hematocrit (blood only) 28.4 % (34.1-44.9); Hemoglobin 8.7 g/dl (12.0-16.0); Immature Granulocytes # (auto) 0.02 K/uL (0.00-0.02); Immature Granulocytes % (auto) 0.4 %; Lymphocytes # (auto) 0.62 K/uL (1.2-3.4); Lymphocytes % (auto) 12.5 %; Mean Corpuscular Hgb Conc 30.6 g/dL (32.0-36.0); Mean Corpuscular Volume 88.2 fL (80.0-100.0); Mean Platelet Volume 11.4 fL (9.4-12.3); Monocytes # (auto) 0.43 K/uL (0.24-0.82); Monocytes % (auto) 8.7 %; Neutrophils # (auto) 3.61 K/uL (1.4-6.5); Neutrophils % (auto) 72.8 %; Platelet Count 211 K/uL (130-400); RDW Coefficient of Variation 15.3 % (11.5-14.5); RDW Standard Deviation 49.3 fL (36.4-46.3); Red Blood Count 3.22 M/uL (3.93-5.22); White Blood Count 4.96 K/ul (4.8-10.8)
[2022-04-25] MEDS: BACLOFEN 10 MG TAB PO SCH ×4 (09:02→20:28)
[2022-04-25] MEDS: POLYETHYLENE (MIRALAX) 17 GM PACK PO SCH (09:02)
[2022-04-25] MEDS: PANTOprazole 40 MG TAB PO SCH (09:03)
[2022-04-25] MEDS: CEROVITE ADV FORMULA TAB PO SCH (09:08)
[2022-04-25] MEDS: FOLIC ACID 1 MG TAB PO SCH (09:08)
[2022-04-25] MEDS: DOCUSATE SODIUM 100 MG CAP PO SCH ×2 (09:08→21:02)
[2022-04-25] MEDS: APIXABAN 5 MG TABLET PO SCH ×2 (09:09→21:02)
[2022-04-25 09:13] LABS: BUN Creatinine Ratio 17.7 (10-20); Calcium 8.6 mg/dl (8.5-10.1); Creatinine Clr Calc Pharmacy 131.7 ml/min; Est GFR (African American) 120.2 ml/min; Est GFR (Non-African American) 103.7 ml/min; Magnesium 1.8 mg/dl (1.7-2.4); Potassium 3.9 mmol/L (3.5-5.1)
[2022-04-25] MEDS: ACETAMINOPHEN 500 MG TAB PO PRN ×2 (10:03→21:02)
[2022-04-25] MEDS: CHOLECALCIFEROL 5,000 UNITS 125 MCG TAB PO SCH (13:20)
[2022-04-25] MEDS: ALPRAZolam 0.5 MG TABLET PO PRN (17:40)
[2022-04-25] MEDS: traMADol HCL 50 MG TABLET PO PRN (20:27)
[2022-04-25] MEDS: SERTRALINE HCL 50 MG TABLET PO SCH (20:28)
--- NOTE | 2022-04-25 20:50 | Hospitalist Progress Note ---
Date of Service April 25, 2022 Assessment & Plan (1) Back pain: Plan: Present on admission. Acute lumbar back pain, right paraspinal pain, right hip pain, and RLE swelling - developed such at home just prior to presentation. 2nd to lytic lesions. CT thoracic spine, CT lumbar spine, imaging of right hip/femur, and CT abdomen/pelvis with multiple lytic lesions throughout the lumbar and thoracic spine. L4 lesion 1.6 cm without pathological fracture. Numerous subcentimeter low attenuating hepatic lesions are also seen. CT of chest showed innumerable lytic lesions within the bony thorax as well as multiple bilateral mediastinal/hilar and left supraclavicular lymphadenopathy as well as numerous small pulmonary nodules. All of the above lesions concerning for metastatic disease from cancer of undetermined site vs multiple myeloma. SPEP, UPEP, etc all pending. Will ultimately need biopsy of a lesion. Previous discussions with our radiology team felt that there was no accessible lesion available for them to safely sample at [facility]. Appreciate Dr Houston's consultation and recs. Cont tylenol, etc for pain relief. 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 Was taking chronic coumadin at home - INR upon admission was subtherapeutic at 1.7. She was ultimately changed to Eliquis while here. Tonight's dose of 10mg is her 11 of 14 dose, then change to 5mg BID thereafter - probably indefinitely. DVTs invariably are likely related to the malignancy process that is seen on imaging as well as the hypercoagulable state from COVID infection in the context of poor mobility from her paraplegia. (4) Catheter-associated urinary tract infection: Plan: 2nd e.coli day #7 of IV abx stop abx after today's dose had non keyla albicans grow on culture as well - stop diflucan - unlikely to cover this and I supsect the keyla is not playing a role in current infection anyway (5) Venous stasis ulcers of both lower extremities: Plan: cont local wound care (6) COVID-19: Plan: had mild COVID infection with very few symptoms O2 sats stable while here never required any dedicated COVID Rx (dexamethasone, etc) cont airborne precautions per IC protocol (7) Generalized weakness: Plan: 2nd to UTI, COVID, deconditioning - all in context of suspected malignancy process (8) Anxiety with depression: Plan: Continue sertraline Continue Xanax (9) History of pulmonary embolism: Plan: Previously on Warfarin and has an IVC filter in place Warfarin now changed to Eliquis as above (10) Iron deficiency anemia: Plan: s/p venofer earlier this admission give dose #2 today -- 300mg IV x 1 give dose #3 tomorrow - same dose CBC stable today (11) Transverse myelitis: Plan: h/o such vs syringomyelia vs cervical myelopathy vs other with resulting paraplegic status (can only stand and transfer) otherwise wheelchair dependent (12) Vitamin D deficiency: Plan: level of 10 start vitamin D 5000 IU Daily repeat level in 4-6 weeks (13) H/O gastric bypass: Plan: noted avoid NSAIDs (14) Incomplete quadriplegia due to spinal cord lesion between fifth and seventh cervical vertebra: (15) Presence of IVC filter: (16) Neurogenic bladder: Plan: cont I/O cathing per usual Plan updated pt's by phone this evening to [facility] - tomorrow ?? Admission and Anticipated Discharge Date Admission Date: April 19, 2022 Subjective patient working on computer upon arrival only complaint is that of right thigh edema and mild discomfort there along with back pain - also mild denies cough or dyspnea reports on/ had COVID, too, but both have recovered no other new issues anxious to get to rehab Review of Systems Review of Systems: gen - no fevers or chills cv - no chest pain pulm - no dyspnea GI - no abd pain Physical Exam Physical Exam: gen - NAD, pleasant mouth - MMM neck - no JVD heart - RRR, s1 s2 lungs - CTA b/l abd - soft NT ND BS+ ext - edema right thigh with background of mild lymphedema b/l legs, pulses 2+ b/l skin - no rash psych - a/o x 3 Results & Data Results & Data ([facility]) Vital Signs (Past 12 Hours) Vital Signs Temp Pulse Pulse Resp BP Pulse Ox O2 Del Method 04/25/22 19:41 36.6 C 91 H 20 119/78 93 Room Air 04/25/22 15:53 92 H 04/25/22 15:00 36.9 C 93 H 20 126/76 96 Room Air 04/25/22 11:50 Room Air Laboratory Results Laboratory Results - last 24 hr 04/25/22 04/25/22 04/25/22 08:02 08:02 Unknown WBC 4.96 RBC 3.22 L Hgb 8.7 L Hct 28.4 L MCV 88.2 MCH 27.0 MCHC 30.6 L RDW Std Deviation 49.3 H RDW Coeff of Aleks 15.3 H Plt Count 211 MPV 11.4 Immature Gran % (Auto) 0.4 Neut % (Auto) 72.8 Lymph % (Auto) 12.5 Spink % (Auto) 8.7 Eos % (Auto) 5.2 Baso % (Auto) 0.4 Neut # (Auto) 3.61 Lymph # (Auto) 0.62 L Spink # (Auto) 0.43 Eos # (Auto) 0.26 Baso # (Auto) 0.02 Immature Gran # (Auto) 0.02 Sodium 140 Potassium 3.9 Chloride 107 Carbon Dioxide 29 Anion Gap 4 BUN 11 Creatinine 0.62 Est Cr Clr Drug Dosing 131.7 Est GFR ( Amer) 120.2 Est GFR (Non-Af Amer) 103.7 BUN/Creatinine Ratio 17.7 Glucose 92 Calcium 8.6 Magnesium 1.8 25-OH Vitamin D Total TSH 3.740 04/25/22 Unknown WBC RBC Hgb Hct MCV MCH MCHC RDW Std Deviation RDW Coeff of Aleks Plt Count MPV Immature Gran % (Auto) Neut % (Auto) Lymph % (Auto) Spink % (Auto) Eos % (Auto) Baso % (Auto) Neut # (Auto) Lymph # (Auto) Spink # (Auto) Eos # (Auto) Baso # (Auto) Immature Gran # (Auto) Sodium Potassium Chloride Carbon Dioxide Anion Gap BUN Creatinine Est Cr Clr Drug Dosing Est GFR ( Amer) Est GFR (Non-Af Amer) BUN/Creatinine Ratio Glucose Calcium Magnesium 25-OH Vitamin D Total 10.0 L TSH PG Care Time/CCT Total # of Minutes Spent Total Time Spent with Patient: Total time spent is greater than 50% in coordination of care (as documented) at patient's floor/unit and/or counseling patient: Coding Level of Care Code 80789 SUB INP/OBS CARE 3/50MIN Diagnoses Back pain M54.50 Back pain laterality: right Back pain location: low back pain Chronicity: acute Sciatica presence: without sciatica 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 C79.51; C80.1 DVT (deep venous thrombosis) I82.409 Catheter-associated urinary tract infection T83.511A; N39.0 Venous stasis ulcers of both lower extremities I83.019; I83.029; L97.919; L97.929 COVID-19 U07.1 Generalized weakness R53.1 Anxiety with depression F41.8 History of pulmonary embolism Z86.711 Iron deficiency anemia D50.9 Transverse myelitis G37.3 Vitamin D deficiency E55.9 H/O gastric bypass Z98.84 Incomplete quadriplegia due to spinal cord lesion between fifth and seventh c ervical vertebra G82.54 Presence of IVC filter Z95.828 Neurogenic bladder N31.9 (1) Back pain Back pain laterality: right Back pain location: low back pain Chronicity: acute Sciatica presence: without sciatica Qualified Code(s): M54.50 - Low back pain, unspecified
--- NOTE | 2022-04-25 23:08 | Hospitalist Progress Note ---
Date of Service April 25, 2022 Assessment & Plan (1) Lytic bone lesions on xray: Plan: As previously discussed, while she has widespread lytic lesions on bone x-ray but none of these seem to be immediately threatening structurally. While immunofixation cannot rule out to faint IgG lambda bands, there is no quantifiable M spike. There is only marginal elevation of kappa and lambda light chains with a normal FLC ratio suggesting an excretion reduction with renal dysfunction rather than a primary pathological monoclonal protein. Immunoglobulin levels are unremarkable. Overall this is no strong picture for myeloma. Patient does have a smoking history and in conjunction with the bone lesions are noted the mediastinal adenopathy. The bone lesion seem to be evolving slowly over a long period of time having been present on CT scans at the beginning of 2021 and at this point remain relatively small overall. Discussed with the patient that there would be some concerns about immediately interrupting her anticoagulation given the severe thrombosis with which she presented. With COVID19 there would be some hesitation to proceed with diagnostic biopsies. With what looks like relatively indolent progression, there is no emergent need to establish a diagnosis. I never transition to rehab, recover more completely from COVID-19, received more extended anticoagulation and then perform PET scan followed by bronchoscopy with EBUS sampling of the mediastinal lymph nodes unless PET suggest a more attractive target. (2) DVT (deep venous thrombosis): Plan: Extensive DVT in the context of immobility and COVID19 as well as an underlying malignancy. Anticipate open ended anticoagulation, concerned that her historic anticoagulation with warfarin may have been inconsistent. (3) COVID-19: Plan If she is sufficiently stable will transfer to rehabilitation. Any performance status that can be achieved will better position her for whenever ultimate diagnosis and treatment plan are going to be offered with regards to her apparent metastatic malignancy. Continuing on anticoagulation, will defer definitive biopsy given the relative stability of her situation from a cancer standpoint until she is overcome the COVID-19 and had a longer chance to epithelialize her new clot. Admission and Anticipated Discharge Date Admission Date: April 19, 2022 Subjective Patient with what appears to be a metastatic malignancy including multiple bone lesions slowly progressive over 1 year and potentially pathologic mediastinal adenopathy. Also presented with COVID19 infection and extensive lower extremity DVT. She is resting comfortably in bed currently and has concerns about the timing of a possible biopsy. Physical Exam Physical Exam: Vital signs stable No gross rubs on lung exam, she is not tachypneic or in obvious respiratory distress Cardiac rhythm is regular without pathological murmur The abdomen seems benign Extremities show no signs of tissue compromise Results & Data [facility] & [facility] ([facility]) Vital Signs (Past 12 Hours) Vital Signs Temp Pulse Pulse Resp BP Pulse Ox O2 Del Method 04/25/22 22:07 Room Air 04/25/22 19:41 36.6 C 91 H 20 119/78 93 Room Air 04/25/22 15:53 92 H 04/25/22 15:00 36.9 C 93 H 20 126/76 96 Room Air 04/25/22 11:50 Room Air PG Care Time/CCT Total # of Minutes Spent Total Time Spent with Patient: Total time spent is greater than 50% in coordination of care (as documented) at patient's floor/unit and/or counseling patient: Coding Level of Care Code 68734 SUB INP/OBS CARE 2/35MIN Diagnoses Lytic bone lesions on xray M89.9 DVT (deep venous thrombosis) I82.409 COVID-19 U07.1
--- NOTE | 2022-04-25 23:15 | Consultation ---
Date of Consultation April 25, 2022 History of Present Illness Reason for Consultation: Lung mass, likely primary lung cancer Attending Physician: Cortes Oseguera History of Present Illness No previous cancer diagnosis but long-term tobacco user 1 to 1.5 pack/day for approximately 40 years though he was able to quit 6 years ago. 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 As noted cough with hemoptysis in September and October though the hemoptysis clear thereafter, ongoing exercise intolerance with dyspnea, 20 pound weight loss. Did have some frontal headache as well though without other neurological changes and some occasional nonbloody diarrhea. Work-up shows a large lung mass, bronchoscopy was performed today with strong suggestion of possible small cell lung cancer. Allergies Allergy/AdvReac Type Severity Reaction Status Date / Time Penicillins Allergy Unknown hives Verified 04/19/22 16:40 vancomycin Allergy Unknown hives, Verified 04/19/22 16:40 breathing difficulties Home Medications Medication Instructions Recorded Confirmed Type folic acid 1 mg tablet 1 mg PO QAM 01/03/18 04/19/22 History Powered Wheelchair #1 ea 09/21/19 04/19/22 Rx cyanocobalamin (vitamin B-12) 1,000 mcg IM MONTHLY 01/14/20 04/19/22 History 1,000 mcg/mL injection solution acetaminophen 325 mg tablet 650 mg PO QID PRN Pain 05/09/21 04/19/22 History (Tylenol) sertraline 50 mg tablet 50 mg PO QPM 05/09/21 04/19/22 History pantoprazole 40 mg tablet,delayed 40 mg PO DAILY 05/17/21 04/19/22 History release (Protonix) silver-hydrocolloid dressing 1.2 1 ea topical DAILY PRN to each leg 08/02/21 04/19/22 History %-4" X 5" (Aquacel-AG Advantage) alprazolam 0.5 mg tablet 0.5 mg PO DAILY PRN anxiety #45 12/05/21 04/19/22 Rx tabs baclofen 10 mg tablet 5 mg PO QID #180 tabs 01/02/22 04/19/22 Rx tramadol 50 mg tablet 50 mg PO Q8H PRN pain #15 tabs 03/09/22 04/19/22 Rx albuterol sulfate 90 mcg/actuation 2 puff inhalation Q4 PRN Shortness 03/27/22 04/19/22 History aerosol inhaler Of Breath Or Wheezing dimbyhox-rdumefha-fets 45 mg-folic 1 - 1.5 cap PO DAILY 04/09/22 04/19/22 History acid 800 mcg-vit K 120 mcg capsule (Bariatric Multivitamins) warfarin 3 mg tablet See Rx Instructions PO UD 04/09/22 04/19/22 History potassium chloride 20 mEq 20 meq PO DAILY@0600 #90 tabs 04/11/22 04/19/22 Rx tablet,extended release sertraline 100 mg tablet 200 mg PO DAILY@0600 #180 tabs 04/11/22 04/19/22 Rx Patient History Medical History Acute febrile illness Asthma section wound complication (11/02/12) Contusion of rib on left side Encounter for Medicare annual wellness exam Fever (06/16/14) 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 Headache History of pulmonary embolism Hx of spinal cord injury Hypomagnesemia Hypotension Leukocytosis MSSA (methicillin susceptible Staphylococcus aureus) septicemia Open toe wound Sepsis Skin ulcer of buttock, limited to breakdown of skin Spinal cord injury Syncopal episodes (05/15/14) Surgical History H/O breast surgery H/O cervical spine surgery cervical vertebral fusion H/O esophagogastroduodenoscopy H/O gastric bypass H/O laparoscopy History of conization of cervix Hx of hernia repair Hx of tonsillectomy S/P IVC filter Family History Mother Breast cancer Grandfather (Paternal) Cardiac disorder Lung cancer Father Cardiac disorder Hypertension Other Cancer Heart disease Social History Smoking Status: Former smoker Second Hand Exposure: No; Do You Dip or Chew Tobacco: No; Hx Alcohol Use: No Hx Substance Use: No Preferred Language: Polish Communication Ability: Effective Visual Impairment: No Limitations Hearing Ability: Normal Hogshead Liner Required: No Beliefs That Will Affect Care: None marital status: Current Living Situation: Spouse Current Living Situation Comment: - recent knee replacement current occupational status: disabled Other Information That Helps Us Care for You: No Feels Safe at Home: Yes Safety Concerns: Feels Safe At This Time Childhood Exposure to Second-Hand Smoke: No caffeine: Yes Dental Care, Regularly: Yes Physical Activity Frequency: Does not Exercise Seatbelt Use: always Sunscreen Use: Yes Assistive Devices: Lift Chair and Wheelchair Results & Data ([facility]) Vital Signs (Past 12 Hours) Vital Signs Temp Pulse Pulse Resp BP Pulse Ox O2 Del Method 04/25/22 22:07 Room Air 04/25/22 19:41 36.6 C 91 H 20 119/78 93 Room Air 04/25/22 15:53 92 H 04/25/22 15:00 36.9 C 93 H 20 126/76 96 Room Air 04/25/22 11:50 Room Air PG Care Time/CCT Total # of Minutes Spent Total Time Spent with Patient: Total time spent is greater than 50% in coordination of care (as documented) at patient's floor/unit and/or counseling patient: Coding
[2022-04-26] MEDS: POTASSIUM CHLORIDE CRTAB 20 MEQ TABCR PO SCH (05:38)
[2022-04-26 06:20] LABS: INR 1.4 (0.9-1.1); Prothrombin Time 14.5 Seconds (9.0-12.0)
[2022-04-26] MEDS ORDERED: IRON SUCROSE 300 MG in SODIUM CHLORIDE 0.9% 250 ML IV ONE (08:00)
[2022-04-26] MEDS: POLYETHYLENE (MIRALAX) 17 GM PACK PO SCH (09:30)
[2022-04-26] MEDS: APIXABAN 5 MG TABLET PO SCH (09:31)
[2022-04-26] MEDS: ALPRAZolam 0.5 MG TABLET PO PRN (09:31)
[2022-04-26] MEDS: PANTOprazole 40 MG TAB PO SCH (09:31)
[2022-04-26] MEDS: CHOLECALCIFEROL 5,000 UNITS 125 MCG TAB PO SCH (10:47)
[2022-04-26] MEDS: DOCUSATE SODIUM 100 MG CAP PO SCH (10:47)
[2022-04-26] MEDS: FOLIC ACID 1 MG TAB PO SCH (10:47)
[2022-04-26] MEDS: BACLOFEN 10 MG TAB PO SCH ×2 (10:47→13:21)
[2022-04-26] MEDS: CEROVITE ADV FORMULA TAB PO SCH (13:21)
--- NOTE | 2022-04-26 15:01 | Discharge Summary ---
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 ED on 04/19/22 with a chief complaint of left hip pain. In the ED the patient was found to be afebrile, hemodynamically stable, and stable on RA. Labs were remarkable for a WBC of 5.3 without left shift, stable Hgb and platelets, INR of 1.7, stable cr of 0.75 with stable electrolytes, lactate of 1.0, LFTs WNL, UA showing cloudy urine with positive nitrites, 1+ Leukocyte esterase, 10-30 WBC's, budding yeast, and 3+ bacteria, Xray was read as "no acute process". Prior to admission the patient was given 1L NSS, one dose of cefepime, and 1g of PO tylenol. The patient is wheelchair bound and is her own primary caregiver, she is normally able to transition to and from her wheelchair via a lift at home but feels very weak at this time. Due to her weakness and history of multiple drug resistant infections the patient will be admitted. Per chart review, the patient was recently admitted to [facility] from 03/27/22- 03/29/22 for diarrhea and UTI. She was initially started on ceftriaxone in the ED for her UTI but was switched to Cefepime on admission. Her urine cultures grew e. coli resistant to fluoroquinolones but sensitive to cephalosporins. She was discharged on 03/29/22 with a 5 day course of 300 mg PO Cefdinir BID. At the time of the exam the patient was resting comfortably in bed in no acute distress. She states that over the past week her son started to develop URI symptoms, of which both she and her now have as well. She notes a runny nose, congestions, and non-productive cough. Over the past week she has felt herself get progressively more week in her BL upper extremities and has generalized weakness. Normally she is able to transfer herself from her hospital bed to her lift chair herself, her is unable to help due to previous back injuries. She states that yesterday while trying to transition herself out of bed she experienced sudden onset of lumbar back pain with radicular symptoms going into her right flank and hip. She denies new numbness/tingling but this is difficult for her to distinguish due to her baseline lower extremity weakness. Since her injury yesterday she has noticed increased swelling and pain in her RLE. She was previously diagnosed with RLE DVT's and is still on Warfarin for prophylaxis. She notes that she also has an IVC filter that was placed by Dr. Madrid. She experienced a complication in the past when her IVC filter moved and partially inserted itself into her right psoas muscle. She confirmed that she completed her course of Cedinir on discharge from her last admission. She straight caths herself due to her previous spine injury but feels as though she does not completely empty her bladder at times. She notes feeling feverish/chilly over the past 24 hours but her highest temperature was 100.2 F. She was taking tylenol at home and one dose of tramadol for her back and leg pain but it did not resolve. She denies chest pain, SOB, abdominal pain, nausea, vomiting, diarrhea, dysuria, hematuria, melena, and recent falls. I spoke to her regarding code status, she is a Full Code and would want her to make decisions for her if she could not make them herself. Principal Diagnosis 1. right hip pain/flank pain/back pain - due to bony lytic lesions. 2. COVID-19 infection. 3 catheter-associated UTI - resolved. 4. vitamin D deficiency (level = 10). 5. extensive DVT of right leg - now on Eliquis. 6. IVC filter status. 7. bony lytic lesions, liver nodules, pulmonary nodules, enlarged lymph nodes of the chest - biopsy needed. 8. iron deficiency s/p 3 IV iron infusions. 9. gastric bypass status. 10. incomplete quadriplegia due to lower cervical spinal cord disease. 11. neurogenic bladder. Discharge Exam gen - NAD, pleasant, resting comfortably in bed mouth - MMM neck - no JVD heart - RRR, s1 s2 lungs - CTA b/l except course breath sounds mid right lung abd - soft NT BS+; mild distension only ext - edema right thigh with background of mild lymphedema b/l legs, pulses 2+ b/l skin - no rash; right lara - small amount of skin breakdown on the lara due to venous stasis; no dominant ulcer seen psych - a/o x 3 Discharge Data Allergies Allergy/AdvReac Type Severity Reaction Status Date / Time Penicillins Allergy Unknown hives Verified 04/19/22 16:40 vancomycin Allergy Unknown hives, Verified 04/19/22 16:40 breathing difficulties Consultations Oncology - Eber Houston MD PT, OT Ordered Studies Chest X-Ray 04/19/22 11:40 XR chest 1V portable HISTORY: 52 years-old Female fever, cough acute cough with fever COMPARISON: 05/09/2021 TECHNIQUE: AP view of the chest FINDINGS: Cardiomediastinal and hilar silhouettes are within normal limits. No pneumothorax, pleural effusion, airspace consolidation or overt pulmonary edema. Bones appear grossly intact. Cervical spinal fusion hardware. IMPRESSION: No acute process. ACT 112: Negative or not required by law. The above report was generated using voice recognition software. It may contain grammatical, syntax or spelling errors. Electronically signed by: Shaw Benavides M.D. 04/19/2022 12:00 PM Abdomen/Pelvis CT 04/19/22 15:40 CT SCAN OF THE ABDOMEN AND PELVIS WITH IV CONTRAST; CT SCAN OF THE LUMBAR SPINE WITH IV CONTRAST CLINICAL HISTORY: Low back pain. Flank pain. Urinary tract infection. COMPARISON STUDY: Abdominal CT dated 05/09/2021 and 06/06/2018. Lumbar spine CT dated 10/31/2016. TECHNIQUE: Following the IV administration of 86 cc of Optiray 350, CT scan of the abdomen and pelvis is performed from the lung bases to the proximal femora. Additionally, CT scan of the lumbar spine is performed from the lower thoracic spine to the sacrum. Images for both examinations are reviewed in the axial, sagittal, and coronal planes. IV contrast was administered without complication. A dose lowering technique was utilized adhering to the principles of ALARA. FINDINGS: Lung bases: The heart is normal in size and without pericardial effusion. There is bibasilar scarring/atelectasis. No airspace consolidation or pleural effusion is identified. A 3 mm pleural-based nodule in the left lower lobe along the major fissure as seen on image #5. A 4 mm right lower lobe pulmonary nodule is seen on image #1. Additional 3 mm right lower lobe nodules are noted on images #6 and #26. Liver: The contrast-enhanced liver is normal in size, contour, and attenuation. There is no intrahepatic biliary ductal dilatation. The hepatic veins and portal veins are patent. There are numerous (greater than 5) subcentimeter low- attenuation hepatic lesions. Gallbladder: There are calcified gallstones with no CT evidence of acute cholecystitis. Spleen: The spleen is enlarged measuring 14.3 cm in length. Numerous splenic hypodensities measuring up to 2.3 cm appear modestly increased from previous. Several these have been present dating back to 2019. Pancreas: Unremarkable. Adrenal glands: Unremarkable. Kidneys: The contrast enhanced kidneys are normal in size and without hydronephrosis. The kidneys enhance symmetrically. Abdominal vasculature: The abdominal aorta is normal in course and caliber. An infrarenal IVC filter is in place. There is severe caval stenosis at/below the level of the filter. There is extensive deep venous thrombosis identified in the iliac veins, as well as the right common femoral vein and the right greater saphenous vein. Surrounding infiltration is noted. Stomach and bowel: Postsurgical changes noted in the stomach. The small bowel and colon are normal in course and caliber. The appendix is well-visualized and normal. Peritoneum: There is no intraperitoneal free air or abdominal ascites. There is a small fat-containing umbilical hernia. Lymphadenopathy: None. Pelvic viscera: The the bladder wall appears thickened and hyperemic with mild surrounding infiltration. The uterus and adnexa are normal as visualized. Numerous collateral vessels are seen in the pelvis. Asymmetric soft tissue edema is present in the right thigh. There is prominent perirenal soft tissue with probable hemorrhoids. Skeletal structures: The skeletal structures are osteopenic. Numerous lucencies are again seen throughout the visualized bony structures. Parts Interpreter lesions in the right iliac wing are seen on image #240. Lesions are seen throughout the lumbar spine, in the bony pelvis, as well as the proximal femora. These have increased from 05/09/2021 and are new from 2019. LUMBAR SPINE: Vertebral body height and alignment are maintained throughout the lumbar spine. There is no evidence of fracture or malalignment. Anterior and lateral marginal osteophytes are seen throughout. The transverse and spinous processes are intact. There is no evidence of spondylolysis. Numerous osteolytic lesions are seen within the lumbar spine. The largest lesion is present in the body of L4 and measures 1.6 cm. There is mild multilevel degenerative disc space narrowing, greatest at L1-L2 where there is associated with sclerosis and Schmorl's nodes. There is no CT evidence of large disc herniation or high-grade central canal stenosis. The paraspinous soft tissues are within normal limits. IMPRESSION: 1. 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 This has increased from 05/09/2021 and is new from 2019. This could represent osteolytic metastatic disease versus multiple myeloma. Clinical correlation will be essential. 2. There is extensive deep venous thrombosis in the pelvis. This involves both iliac veins, the right common femoral vein, and the right greater saphenous vein. There is surrounding inflammation. This is new from 05/09/2021. 3. Asymmetric soft tissue edema is noted in the right thigh. 4. There are numerous pelvic collateral veins as well as probable hemorrhoids. 5. Prominent perianal soft tissue may represent prolapse. Correlate with direct visualization. 6. Bilateral lower lobe pulmonary nodules are pathologically indeterminant. Several of these are new from 2019. Metastatic disease is not excluded. 7. There are numerous (greater than 5) subtle subcentimeter low-attenuation hepatic lesions. These are new from previous and metastatic disease is suspected. 8. Findings suggest cystitis. Correlate with clinical findings and urinalysis. 9. The spleen is enlarged and there are numerous indeterminant low-attenuation splenic lesions. These have increased in size and number from 2019. 10. Postsurgical change is noted in the stomach. 11. Cholelithiasis. 12. No acute bony abnormality is seen involving the lumbar spine. 13. Additional findings as above. ACT 112: Negative or not required by law. Electronically signed by: Terrell Bay M.D. 04/19/2022 5:[address] 04/19/22 15:40 CT femur RT w con HISTORY: 52 years-old Female right leg pain/swelling acute pain of the right thigh COMPARISON: CT abdomen and pelvis of same day and also 05/09/2021 TECHNIQUE: Multiple axial CT images of the right femur were obtained following the intravenous administration of 86 mL Optiray. A dose lowering technique was used consistent with the principals of ALA. FINDINGS: Intrapelvic structures be dictated separately on the CT abdomen and pelvis study. There is moderate subcutaneous edema within the right greater than left thighs. Mild associated skin thickening. No fluid collection identified. The musculature is within normal limits. The vessels are unremarkable. Trace joint effusion of the knee. No acute fracture or dislocation identified. Minimal osteoarthritis of the knees. 1.9 cm cortical thinly marginated lucent focus of the distal left femoral diaphysis on image 47 of the coronal series. Additional similar- appearing 1.8 cm lucent focus of the right femoral diaphysis. Findings are indeterminate. Thrombosis of the right iliac and common femoral veins with surrounding inflammatory stranding. Numerous pelvic collateral vessels with possible hemorrhoids and perirenal soft tissue thickening/prolapse. Additional osteolytic lesions as described on the CT abdomen and pelvis. IMPRESSION: 1. Osteolytic lesions includes the femoral diaphyses without evidence of pathologic fracture. 2. Subcutaneous edema with skin thickening of the right greater than left thighs. Findings may be secondary to cellulitis, venous stasis or lymphedema. 3. No discrete fluid collection. 4. Deep venous thrombus of the right iliac and femoral vessels with adjacent inflammatory stranding and collateral vessels. 5. Additional findings as above. ACT 112: Negative or not required by law. The above report was generated using voice recognition software. It may contain grammatical, syntax or spelling errors. Electronically signed by: Shaw Benavides M.D. 04/19/2022 5:[address] 04/19/22 15:40 CT SCAN OF THE ABDOMEN AND PELVIS WITH IV CONTRAST; CT SCAN OF THE LUMBAR SPINE WITH IV CONTRAST CLINICAL HISTORY: Low back pain. Flank pain. Urinary tract infection. COMPARISON STUDY: Abdominal CT dated 05/09/2021 and 06/06/2018. Lumbar spine CT dated 10/31/2016. TECHNIQUE: Following the IV administration of 86 cc of Optiray 350, CT scan of the abdomen and pelvis is performed from the lung bases to the proximal femora. Additionally, CT scan of the lumbar spine is performed from the lower thoracic spine to the sacrum. Images for both examinations are reviewed in the axial, sagittal, and coronal planes. IV contrast was administered without complication. A dose lowering technique was utilized adhering to the principles of ALARA. FINDINGS: Lung bases: The heart is normal in size and without pericardial effusion. There is bibasilar scarring/atelectasis. No airspace consolidation or pleural effusion is identified. A 3 mm pleural-based nodule in the left lower lobe along the major fissure as seen on image #5. A 4 mm right lower lobe pulmonary nodule is seen on image #1. Additional 3 mm right lower lobe nodules are noted on images #6 and #26. Liver: The contrast-enhanced liver is normal in size, contour, and attenuation. There is no intrahepatic biliary ductal dilatation. The hepatic veins and portal veins are patent. There are numerous (greater than 5) subcentimeter low- attenuation hepatic lesions. Gallbladder: There are calcified gallstones with no CT evidence of acute cholecystitis. Spleen: The spleen is enlarged measuring 14.3 cm in length. Numerous splenic hypodensities measuring up to 2.3 cm appear modestly increased from previous. Several these have been present dating back to 2019. Pancreas: Unremarkable. Adrenal glands: Unremarkable. Kidneys: The contrast enhanced kidneys are normal in size and without hydronephrosis. The kidneys enhance symmetrically. Abdominal vasculature: The abdominal aorta is normal in course and caliber. An infrarenal IVC filter is in place. There is severe caval stenosis at/below the level of the filter. There is extensive deep venous thrombosis identified in the iliac veins, as well as the right common femoral vein and the right greater saphenous vein. Surrounding infiltration is noted. Stomach and bowel: Postsurgical changes noted in the stomach. The small bowel and colon are normal in course and caliber. The appendix is well-visualized and normal. Peritoneum: There is no intraperitoneal free air or abdominal ascites. There is a small fat-containing umbilical hernia. Lymphadenopathy: None. Pelvic viscera: The the bladder wall appears thickened and hyperemic with mild surrounding infiltration. The uterus and adnexa are normal as visualized. Numerous collateral vessels are seen in the pelvis. Asymmetric soft tissue edema is present in the right thigh. There is prominent perirenal soft tissue with probable hemorrhoids. Skeletal structures: The skeletal structures are osteopenic. Numerous lucencies are again seen throughout the visualized bony structures. Parts Interpreter lesions in the right iliac wing are seen on image #240. Lesions are seen throughout the lumbar spine, in the bony pelvis, as well as the proximal femora. These have increased from 05/09/2021 and are new from 2019. LUMBAR SPINE: Vertebral body height and alignment are maintained throughout the lumbar spine. There is no evidence of fracture or malalignment. Anterior and lateral marginal osteophytes are seen throughout. The transverse and spinous processes are intact. There is no evidence of spondylolysis. Numerous osteolytic lesions are seen within the lumbar spine. The largest lesion is present in the body of L4 and measures 1.6 cm. There is mild multilevel degenerative disc space narrowing, greatest at L1-L2 where there is associated with sclerosis and Schmorl's nodes. There is no CT evidence of large disc herniation or high-grade central canal stenosis. The paraspinous soft tissues are within normal limits. IMPRESSION: 1. 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 This has increased from 05/09/2021 and is new from 2019. This could represent osteolytic metastatic disease versus multiple myeloma. Clinical correlation will be essential. 2. There is extensive deep venous thrombosis in the pelvis. This involves both iliac veins, the right common femoral vein, and the right greater saphenous vein. There is surrounding inflammation. This is new from 05/09/2021. 3. Asymmetric soft tissue edema is noted in the right thigh. 4. There are numerous pelvic collateral veins as well as probable hemorrhoids. 5. Prominent perianal soft tissue may represent prolapse. Correlate with direct visualization. 6. Bilateral lower lobe pulmonary nodules are pathologically indeterminant. Several of these are new from 2019. Metastatic disease is not excluded. 7. There are numerous (greater than 5) subtle subcentimeter low-attenuation hepatic lesions. These are new from previous and metastatic disease is suspected. 8. Findings suggest cystitis. Correlate with clinical findings and urinalysis. 9. The spleen is enlarged and there are numerous indeterminant low-attenuation splenic lesions. These have increased in size and number from 2019. 10. Postsurgical change is noted in the stomach. 11. Cholelithiasis. 12. No acute bony abnormality is seen involving the lumbar spine. 13. Additional findings as above. ACT 112: Negative or not required by law. Electronically signed by: Terrell Bay M.D. 04/19/2022 5:[address] 04/19/22 15:40 CT thoracic spine w con HISTORY: 52 years-old Female back pain with current UTI acute mid back pain in a patient with urinary tract infection COMPARISON: CT abdomen pelvis August, CT lumbar spine 10/31/2016, MRI thoracic spine 10/19/2014 TECHNIQUE: Multiple axial CT images of the thoracic spine were obtained without the use of IV contrast. A dose lowering technique was used consistent with the principals of ALARA. FINDINGS: Numerous lytic lesions throughout the thoracic spine are new from the 2015 study, largest at T10. Numerous chronic appearing wedge deformities throughout the midthoracic spine, notably at T8, T9 and T10. Lower cervical spine anterior fusion hardware. No large soft tissue component or epidural extension identified. No definite acute fracture or subluxation identified. Limited evaluation of the central canal and neural foramina by CT technique. Numerous subcentimeter nodules throughout the lungs measure up to approximately 6 mm. Mild tracheobronchial secretions. Pathologic mediastinal and hilar lymphadenopathy. Postoperative changes of the stomach. Splenomegaly with heterogeneous ill-defined hypodense splenic lesions. IMPRESSION: 1. No acute fracture or subluxation of the thoracic spine identified. 2. Numerous osteolytic lesions throughout the thoracic spine are new from the 2014 comparison suggestive of metastasis versus multiple myeloma. 3. Pathologic mediastinal and hilar lymphadenopathy. 4. Numerous scattered subcentimeter solid pulmonary nodules measure up to 6 mm. Attention at follow-up recommended to exclude metastatic disease. 5. Moderate to advanced degenerative changes of the thoracic spine with mid thoracic chronic wedge deformities. ACT 112: Negative or not required by law. The above report was generated using voice recognition software. It may contain grammatical, syntax or spelling errors. Electronically signed by: Shaw Benavides M.D. 04/19/2022 5:58 PM Chest CTA 04/21/22 18:36 CT ANGIOGRAPHY OF THE CHEST, PULMONARY EMBOLUS PROTOCOL CLINICAL HISTORY: Shortness of breath. Elevated d-dimer. Evaluate for metastatic disease. COMPARISON STUDY: Chest CT May 15, 2014. Chest radiograph April 19, 2022. Thoracic spine CT April 19, 2022. TECHNIQUE: Following IV administration of 112 mL of Optiray, helical axial images of the chest were obtained utilizing the pulmonary embolus protocol. Maximal intensity projections and sagittal and coronal reformats were viewed on an independent 3D workstation. IV contrast was administered without complication. Automated exposure control was utilized for the study. A dose lowering technique was utilized adhering to the principles of ALARA. CT DOSE: 479.14 mGy.cm FINDINGS: No central pulmonary emboli are identified. The remainder of the pulmonary arteries are suboptimally assessed due to respiratory motion artifact. The size of the heart is normal. There is no thoracic aortic dissection. There are numerous mildly enlarged mediastinal, bilateral hilar and left supraclavicular lymph nodes. This adenopathy is new since chest CT May 05, 2014. Index left supraclavicular lymph node on image 268 of 288 measures 1.5 x 1 cm. Index right paratracheal lymph node on image 215 measures 1.4 x 1.2 cm. Index subcarinal node measures 2.1 x 1.2 cm. There is narrowing of the right middle lobe bronchi with right middle lobe airspace opacity and volume loss. No pneumothorax or pleural effusion is present. Lungs are suboptimally assessed due to respiratory motion. Innumerable upper lobe predominant solid noncalcified pulmonary nodules measure up to 8 mm. These are also new since earlier chest CT. There is no pneumothorax or pleural effusion. Innumerable lytic lesions within the bony thorax are noted. These are most prominent within the thoracic spine. However, lesions are also noted within the proximal right clavicle as well as the manubrium. Opacified fractures identified. Splenomegaly is noted. Numerous splenic lesions are better depicted on recent abdominal CT as are small hepatic lesions. Deanna-en-Y gastric bypass is noted. IMPRESSION: 1. Exam significantly compromised by respiratory motion artifact. No central pulmonary emboli. Remainder of pulmonary arteries suboptimally assessed. 2. Innumerable lytic lesions within the bony thorax. Metastatic disease is favored although myeloma is within the differential. 3. Multiple mildly enlarged mediastinal, bilateral hilar and left supraclavicular lymph nodes. These favor marcio spread of disease. 4. Numerous small pulmonary nodules. Although upper lobe predominant, metastatic disease is the diagnosis of exclusion. 5. Suspicious splenic and hepatic lesions better depicted on the recent CT of the abdomen and pelvis. 6. Narrowing of right middle lobe bronchi with right middle lobe airspace opacity with volume loss. ACT 112: Negative or not required by law. Electronically signed by: Singh Gil M.D. 04/21/2022 7:36 PM Hospital Course (1) Back pain: Present on admission. Acute lumbar back pain, right paraspinal pain, right hip pain, and RLE swelling - developed such at home just prior to presentation. 2nd to lytic lesions as seen on imaging. CT thoracic spine, CT lumbar spine, imaging of right hip/femur, and CT abdomen/pelvis showed multiple lytic lesions throughout the lumbar and thoracic spine. There was an L4 lesion that was 1.6 cm in size without pathological fracture. Numerous subcentimeter low attenuating hepatic lesions were also seen. CT of chest showed innumerable lytic lesions within the bony thorax as well as multiple bilateral mediastinal/hilar and left supraclavicular lymphadenopathy as well as numerous small pulmonary nodules. All of the above lesions concerning for metastatic disease from cancer of undetermined site vs multiple myeloma. Work-up for multiple myeloma was largely unremarkable/not suspicious for this diagnosis. Dr Eber Houston - hematology/oncology - for recommendations for the imaging findings and the extensive DVT of the right leg. Dr Houston recommended changing coumadin to Eliquis. He will see Ms Olivera shortly after discharge to coordinate a biopsy of one of the lesions seen on imaging. Her pain was largely controlled with tylenol + tramadol prn. 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 Will follow-up with Dr Eber Houston at the [facility] shortly after discharge. (3) DVT (deep venous thrombosis): Bilateral iliac veins, right common femoral vein, right greater saphenous vein - as seen on CT abd/pelvis. Was taking chronic coumadin at home - INR upon admission was subtherapeutic at 1.7. She was ultimately changed to Eliquis while here. She completed the bulk of the Eliquis 10mg dosing. Following a few more days of 10mg dosing she will change to Eliquis 5mg BID thereafter. She will need the anticoagulation lifelong. DVTs invariably are likely related to the malignancy process that is seen on imaging as well as the hypercoagulable state from COVID infection in the context of poor mobility from her paraplegia. (4) Catheter-associated urinary tract infection: 2nd e.coli completed a full 7-day course of antibiotics for such had non keyla albicans grow on culture as well - I suspect the keyla was not playing a role in her current infection she will continue I/O cathing as previous due to neurogenic bladder (5) Venous stasis ulcers of both lower extremities: cont local wound care (6) COVID-19: had mild COVID infection with very few symptoms at time of admission O2 sats stable while here never required any dedicated COVID Rx (dexamethasone, etc) Of note - right middle lobe abnormalities seen on chest CT was unlikely to be related to the COVID infection (7) Generalized weakness: 2nd to UTI, COVID, deconditioning - all in context of suspected malignancy process transferring to [facility] post-discharge (8) Anxiety with depression: Continue sertraline Continue Xanax prn (9) History of pulmonary embolism: Previously on Warfarin and has an IVC filter in place Warfarin now changed to Eliquis as above (10) Iron deficiency anemia: s/p venofer x 3 doses while here discharge hemoglobin was 8.7 previous ferritin levels over the last year have been 52 or less (11) 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 vs cervical myelopathy vs other with resulting paraplegic status (can only stand and transfer) otherwise wheelchair dependent (12) Vitamin D deficiency: level of 10 start vitamin D 5000 IU Daily repeat level in 4-6 weeks (13) H/O gastric bypass: avoid NSAIDs B12 level was >1000 (14) Incomplete quadriplegia due to spinal cord lesion between fifth and seventh cervical vertebra: (15) Presence of IVC filter: (16) Neurogenic bladder: cont I/O cathing per usual Total Time Total Time Spent Total Time Spent (In Minutes): 40 Discharge Plan Discharge Items Patient Disposition: Transfer Inpatient Rehab Fac Reason For Visit: RIGHT HIP/FLANK PAIN Discharge Diagnosis: 1. right hip pain/flank pain/back pain - due to bony lytic lesions throughout the bones. 2. COVID-19 infection. 3 catheter-associated UTI - resolved. 4. vitamin D deficiency (level = 10). 5. extensive DVT of right leg - now on Eliquis. 6. IVC filter status. 7. bony lytic lesions, liver nodules, pulmonary nodules, enlarged lymph nodes of the chest - biopsy needed as soon as safely possible. 8. iron deficiency s/p 3 IV iron infusions. 9. gastric bypass status. 10. incomplete quadriplegia due to lower cervical spinal cord disease. 11. neurogenic bladder. Activity: Resume your previous activity Non-emergency contact: Primary Care Provider and Oncologist Call non-emergency contact if: you have any medication questions, your symptoms worsen and your pain is not controlled Follow-up/Referrals: Sami Carr MD [Primary Care Provider] - (within 1 week of discharge from [facility] ) Eber Rodas MD [Physician] - (within 1-2 weeks to arrange biopsy as well as obtain PET-CT.) Diet: Bariatric Addtl Attending Provider Instructions: Mrs Olivera was hospitalized for a combination of COVID-19 infection as well as back/hip pain. The back/hip pain was due to bony lytic lesions that were found on CT scan. The exact cause of the lytic lesions is uncertain; she will need JOY biopsy of a lesion to determine the diagnosis. Dr Eber Rodas - [facility] - will coordinate her biopsy and see her in follow-up for this. She also had right leg pain & swelling due to extensive DVT of the right leg. She has been switched from coumadin (INR was low at 1.7 upon admission) to ELIQUIS. COVID-19 was stable during her stay. She did not require steroid therapy or Remdesivir or other treatments. She has lingering cough from her COVID. She received 3 runs of IV venofer (iron) for her iron deficiency. Discharge hemoglobin level was 8.7. Recommendations - 1. CBC in 3 days for stability. 2. BMP in 3 days for stability. 3. Repeat INR in 3 days to ensure normalization (was 1.4 on 04/26/22). 4. JOY follow-up with Dr Eber Rodas - oncology - 1-2 weeks please. 5. Straight cathing per home regimen for neurogenic bladder. 6. Aquacel Ag and Optifoam dressings to RLE lara abrasions/small ulcers. Change q48h and prn. Pending Studies at Discharge: No Stand-Alone Forms: My [facility] Skilled Items Patient informed of condition?: Yes DNR: No Discharge Level of Care: Acute rehab Communicable Disease: Yes Discharge Prognosis: Stable Lines: None Urinary Catheter: Yes (straight cath per home protocol) Medications and DC Order Prescriptions: New Eliquis 5 mg Tablet 5 mg PO BID Qty: 60 11RF Rx Instructions: start PM of 04/27/22. Take indefinitely. polyethylene glycol 3350 [Miralax] 17 gram Powder In Packet 17 g PO DAILY Qty: 30 0RF cholecalciferol (vitamin D3) 125 mcg (5,000 unit) Tablet 5,000 unit PO QAM Qty: 30 1RF Cerovite Senior 0.4 mg-300 mcg- 250 mcg Tablet 1 tab PO QAM Qty: 30 2RF Mucinex 1,200 mg tablet extended release 12hr 1,200 mg PO BID Qty: 20 0RF Continued folic acid 1 mg tablet 1 mg PO QAM cyanocobalamin (vitamin B-12) 1,000 mcg/mL solution 1,000 mcg IM MONTHLY Bariatric Multivitamins 45 mg iron- 800 mcg-120 mcg capsule 1 - 1.5 cap PO DAILY Rx Instructions: alternates days 1 tab or 1.5 tab/day baclofen 10 mg tablet 5 mg PO QID Qty: 180 3RF sertraline 100 mg tablet 200 mg PO DAILY@0600 Qty: 180 0RF potassium chloride 20 mEq tablet extended release 20 meq PO DAILY@0600 Qty: 90 2RF tramadol 50 mg tablet 50 mg PO Q8H PRN (Reason: pain) Qty: 15 0RF (DME) Powered Wheelchair Misc See Rx Instructions .ROUTE .MEDSUPPLY Qty: 1 0RF Rx Instructions: POWERED WHEELCHAIR LENGTH OF NEED: 99 MONTHS DX: G82.50, D86.89 Aquacel-AG Advantage 1.2-4 X 5 %-" bandage 1 ea topical DAILY PRN (Reason: to each leg) pantoprazole [Protonix] 40 mg tablet,delayed release (DR/EC) 40 mg PO DAILY alprazolam 0.5 mg tablet 0.5 mg PO DAILY PRN (Reason: anxiety) Qty: 45 0RF acetaminophen [Tylenol] 325 mg Tablet 650 mg PO QID PRN (Reason: Pain) sertraline 50 mg tablet 50 mg PO QPM Changed albuterol sulfate 90 mcg/actuation HFA aerosol inhaler 2 puff inhalation QID Qty: 1 0RF Rx Instructions: inhale 2 puffs by mouth every 4 hours if needed for shortness of breath or wheezing Discontinued warfarin 3 mg tablet See Rx Instructions PO UD Dose Instruction: Take 1 tab daily UD by [facility] PO DAILY; Take 1 tab daily UD by [facility] Rx Instructions: 6mg 04/09, 6mg 04/10, then 3mg daily per 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
[2022-04-26] MEDS: ACETAMINOPHEN 500 MG TAB PO PRN (15:05)
[2022-04-26] MEDS: LORazepam 2 MG/1 ML VIAL IV PRN (15:30)
[2022-04-27] MEDS ORDERED: APIXABAN 5 MG TABLET PO SCH (21:00)
== END 2022-04-26 16:00 | DRG 542 ==
LOC: ED 09:56 → SUATTDRO 15:37 → EDINP 15:37 → 2N 19:25
DX: N31.9 Neuromuscular dysfunction of bladder, unspecified; Z88.0 Allergy status to penicillin; C79.51 Secondary malignant neoplasm of bone; Z87.891 Personal history of nicotine dependence; Z86.711 Personal history of pulmonary embolism; B96.20 Unspecified Escherichia coli [E. coli] as the cause of diseases classified elsewhere; I82.423 Acute embolism and thrombosis of iliac vein, bilateral; T83.518A Infection and inflammatory reaction due to other urinary catheter, initial encounter; D50.9 Iron deficiency anemia, unspecified; Z95.828 Presence of other vascular implants and grafts; I87.2 Venous insufficiency (chronic) (peripheral); E55.9 Vitamin D deficiency, unspecified; Z79.01 Long term (current) use of anticoagulants; I82.811 Embolism and thrombosis of superficial veins of right lower extremity; Z87.440 Personal history of urinary (tract) infections; Z99.3 Dependence on wheelchair; G82.54 Quadriplegia, C5-C7 incomplete; C80.1 Malignant (primary) neoplasm, unspecified; Z98.84 Bariatric surgery status; U07.1 COVID-19; G37.3 Acute transverse myelitis in demyelinating disease of central nervous system; N39.0 Urinary tract infection, site not specified; Y92.009 Unspecified place in unspecified non-institutional (private) residence as the place of occurrence of the external cause; Z88.1 Allergy status to other antibiotic agents; I82.411 Acute embolism and thrombosis of right femoral vein; Y81.2 Prosthetic and other implants, materials and accessory general- and plastic-surgery devices associated with adverse incidents